=== PATIENT | male | born 1940 | race Caucasian/White ===

== ENCOUNTER → 2019-07-08 10:10 | Outpatient (BNVA) | payer MEDICARE, OTHER, SELFPAY | PROVIDERS: Family Provider Family Medicine; PCP Family Medicine; Visit Provider Family Medicine | DX: R42 Dizziness and giddiness (principal); G40.909 Epilepsy, unspecified, not intractable, without status epilepticus | CPT/HCPCS: 80164 ==

== ENCOUNTER 2019-07-26 08:41 | Inpatient (IN) | payer MEDICARE, OTHER, SELFPAY ==
[2019-07-26] VITALS (11 sets, daily range): BP systolic 113–199; BP diastolic 69–125; PULSE 80–128; RESP 14–33; TEMP 36.7–37.3; O2SAT 90–97; BMI 25.1
--- NOTE | 2019-07-26 08:38 | ED_ITS ---
Entered by Patricia Chun, acting as scribe for Jason Burroughs DO HPI - Neuro Symptoms/Deficit General: Chief Complaint: Neuro Symptoms/Deficit Stated Complaint: Right leg weakness Time Seen by Provider: 07/26/19 08:44 History of Present Illness: HPI Narrative: 79 yo male presents with right leg pain. Pt states that he fell last night. Pt states that he was walking and his legs buckled and he fell. Pt states that he was in the floor over night. Pt states that he could crawl. Pt smells of urine. Patient has persistent severe right hip pain. But he is able to move that hip. He was crawling on it at home but he is not been able to stand. He denies striking his head denies losing consciousness. He does have a history of seizures in the past although denies any recent seizure. He is on Depakote for seizures not missed any doses or c hange the dose recently. Associated symptoms: Deny chest pain, headache(s), malaise, nausea, syncope, vertigo or vomiting Review of Systems Const: Denies: fever, chills, body aches, fatigue, malaise or night sweats Eyes: Denies: change in vision or blurry vision ENMT: Denies: throat pain, oral sores/lesions, dental pain, nasal discharge or nasal congestion Card: Denies: chest pain, palpitations, irregular heart rhythm, edema, syncope, shortness of breath on exertion, shortness of breath when lying down or leg pain with exertion Resp: Denies: shortness of breath, productive cough, non-productive cough or wheezing GI: Reports: abdominal pain; Denies: nausea, vomiting, vomiting blood, coffee grounds in vomit, difficulty swallowing, heartburn/indigestion, diarrhea, constipation, cramping, blood in stool or black tarry stool : Denies: flank pain, difficulty urinating, painful urination, urinary frequency, urinary urgency, urinary incontinence or blood in urine Musc: Reports: extremity pain and joint pain; Denies: neck pain, back pain, extremity swelling or joint swelling Skin/Breast: Denies: rash, itching or redness Neuro: Denies: headache, numbness in extremities, weakness in extremities, changes in sensation, lack of coordination, difficulty walking, frequent falls, dizziness, vertigo or confusion Psych: Denies: anxiety, depression, loss of interest, visual hallucinations, auditory hallucinations, suicidal ideation or homicidal ideation Endo: Denies: excessive urination, excessive thirst, tired all the time or cold intolerance Colten/Lymph: Denies: easy bruising, easy bleeding, petechiae, enlarged lymph nodes or tender lymph nodes PFSH ED PFSH: Statuses (acute, chronic, etc) shown below reflect problem list status as previously entered and may not be historically accurate Medical History Complex partial epilepsy (Acute) Depression (Acute) History of basal cell cancer (Acute) Hypothyroidism (Acute) Insomnia (Acute) CHRISTINA (obstructive sleep apnea) (Acute) Posttraumatic encephalopathy (Acute) Vitamin D deficiency (Acute) Surgical History History of appendectomy (Acute) History of tonsillectomy and adenoidectomy (Acute) Family History Other Cancer Diabetes Social History Smoking and tobacco status: former smoker Alcohol intake: never Substance/Drug Use: never Current gender identity: Male Physical Exam Const: COMMON NORMALS: average body habitus, oriented x3 and alert GENERAL APPEARANCE: well kempt and well developed; not cooperative and not comfortable NUTRITIONAL APPEARANCE: not obese ORIENTATION/CONSCIOUSNESS: Yes awake, Yes oriented to person and Yes oriented to place HENMT: COMMON NORMALS: normocephalic, head/scalp atraumatic, EAC's normal, TM's normal bilaterally, external nose normal, moist oral mucous membranes and oropharynx normal HEAD & SCALP: normocephalic and atraumatic NOSE: external nose normal EXTERNAL AUDITORY CANAL: EAC's normal TYMPANIC MEMBRANE: TM's normal bilaterally MOUTH: oral and palatal mucosa normal, lip normal and tongue normal THROAT: posterior oropharynx normal and tonsils normal Eye: COMMON NORMALS: PERRL, EOMs intact bilaterally, conjunctivae normal and no scleral icterus CONJUNCTIVA: Yes conjunctivae normal PUPIL: Yes PERRL Neck/C-Spine: COMMON NORMALS: full ROM, no lymphadenopathy, supple, no meningeal signs and thyroid normal THYROID: thyroid normal and asymmetrical Lymph: LYMPHATIC: no lymphadenopathy noted Resp: COMMON NORMALS: normal respiratory effort, no retractions, no use of accessory muscles and clear to auscultation bilaterally AUSCULTATION: clear to auscultation bilaterally Cardio: COMMON NORMALS: regular rate and regular rhythm RATE: regular rate RHYTHM: regular rhythm HEART SOUNDS: no murmurs GI: COMMON NORMALS: soft to palpation and no hepatosplenomegaly PALPATION: Yes soft, Yes tender (diffuse) and Yes no hepatosplenomegaly : COMMON NORMALS: Yes no CVA tenderness BLADDER/KIDNEY EXAM: Yes no CVA tenderness Back/Pelvis: COMMON NORMALS: no CVA tenderness LUMBAR SPINE/LOWER BACK: Yes normal to inspection Extremity: COMMON NORMALS: full ROM NARRATIVE EXTREMITY EXAM: Severe pain in the right hip. No obvious deformity. No external rotation or shortening. Minimal pain with palpation along the greater trochanter. Neuro: COMMON NORMALS: oriented x3 SENSORIUM/ORIENTATION: Yes alert, Yes oriented to person and Yes oriented to place MENINGEAL SIGNS: Yes no meningeal signs Psych: APPEARANCE: Yes well kempt Skin: COMMON NORMALS: no rashes or lesions noted and skin turgor normal GENERAL SKIN EXAM: no rashes or lesions noted and turgor normal Course ED course: Hip x-ray negative for fracture because of the degree of pain CT was done shows a pubic rami fracture and acetabular fracture. We will go ahead and admit discussed with hospitalist. Vital Signs: Vital signs: Vital Signs Temperature 98.4 F 07/28/19 07:18 Pulse Rate 84 07/28/19 08:13 Respiratory Rate 18 07/28/19 07:18 Blood Pressure 168/79 07/28/19 07:18 Pulse Oximetry 93 07/28/19 08:13 MDM - Neuro Symptoms/Deficit Lab Data: Labs: Lab Results 07/26/19 07/26/19 07/26/19 Range/Units 09:10 09:12 09:12 WBC 4.2 (4.0-10.0) 10^3/ uL RBC 3.75 L (4.1-5.3) 10^6/u L Hgb 13.0 (11.7-16.6) g/dL Hct 38.9 L (42.0-52.0) % MCV 103.7 H (80-94) fL MCH 34.7 H (28.0-34.0) pg MCHC 33.4 (30.0-36.0) g/dL RDW 12.2 (12.1-15.1) % Plt Count 116 L (130-400) 10^3/c mm MPV 10.2 (7.4-10.4) fL Neut % (Auto) 71.7 % Lymph % (Auto) 16.7 % Baca % (Auto) 10.2 % Eos % (Auto) 1.0 % Baso % (Auto) 0.2 % Neut # (Auto) 3.0 (1.8-7.7) 10^3/u L Lymph # (Auto) 0.7 L (0.8-4.8) 10^3/u L Baca # (Auto) 0.4 (0.2-0.9) 10^3/u L Eos # (Auto) 0.0 (0.0-0.8) 10^3/u L Baso # (Auto) 0.0 (0.0-0.1) 10^3/u L Nucleated RBC % (a uto) 0 % Nucleated RBCs # 0.0 /100WBC PT 14.60 H (10.5-13.3) SECO NDS INR 1.10 (0.8-1.2) APTT 37.0 H (23.9-36.7) SECO NDS Sodium (136-145) mmol/L Potassium (3.5-5.1) mmol/L Chloride (98-107) mmol/L Carbon Dioxide (22-29) mmol/L Anion Gap (5-19) BUN (8-23) mg/dL Creatinine (0.7-1.2) mg/dL Glucose (74-106) mg/dL POC Glucose 94 (70-110) mg/dL Calcium (8.5-10.5) mg/dL Total Bilirubin (0.15-1.2) mg/dL AST (0-40) U/L ALT (0-41) U/L Alkaline Phosphata se (40-130) IU/L Creatine Kinase (39-308) U/L Total Protein (6.6-8.7) g/dL Albumin (3.5-5.2) g/dL Globulin (1.3-4.6) g/dL TSH (0.27-4.20) uIU/ mL Urine Color (Yellow) Urine Appearance (CLEAR) Urine pH (5-7) Ur Specific Gravit y (1.005-1.030) Urine Protein (Negative) Urine Glucose (UA) (Normal) Urine Ketones (Negative) Urine Occult Blood (Negative) Urine Nitrate (Negative) Urine Bilirubin (NEGATIVE) Prot Sulfosalicyli c Acd Urine Urobilinogen (Negative) mg/dL Ur Leukocyte Trina ase (Negative) Urine Opiates Scre en (Negative) ng/mL Ur Barbiturates Sc reen (Negative) ng/mL Valproic Acid (50-100) mcg/mL Carbamazepine (4.0-12.0) ug/mL Ur Phencyclidine S crn (Negative) ng/mL Ur Amphetamines Sc reen (Negative) ng/mL U Benzodiazepines Scrn (Negative) ng/mL Urine Cocaine Scre en (Negative) ng/mL U Marijuana (THC) Screen (Negative) ng/mL 07/26/19 07/26/19 07/26/19 Range/Units 09:12 09:12 09:12 WBC (4.0-10.0) 10^3/ uL RBC (4.1-5.3) 10^6/u L Hgb (11.7-16.6) g/dL Hct (42.0-52.0) % MCV (80-94) fL MCH (28.0-34.0) pg MCHC (30.0-36.0) g/dL RDW (12.1-15.1) % Plt Count (130-400) 10^3/c mm MPV (7.4-10.4) fL Neut % (Auto) % Lymph % (Auto) % Baca % (Auto) % Eos % (Auto) % Baso % (Auto) % Neut # (Auto) (1.8-7.7) 10^3/u L Lymph # (Auto) (0.8-4.8) 10^3/u L Baca # (Auto) (0.2-0.9) 10^3/u L Eos # (Auto) (0.0-0.8) 10^3/u L Baso # (Auto) (0.0-0.1) 10^3/u L Nucleated RBC % (a uto) % Nucleated RBCs # /100WBC PT (10.5-13.3) SECO NDS INR (0.8-1.2) APTT (23.9-36.7) SECO NDS Sodium 139 (136-145) mmol/L Potassium 4.5 (3.5-5.1) mmol/L Chloride 103 (98-107) mmol/L Carbon Dioxide 25 (22-29) mmol/L Anion Gap 15.5 (5-19) BUN 14 (8-23) mg/dL Creatinine 0.6 L (0.7-1.2) mg/dL Glucose 107 H (74-106) mg/dL POC Glucose (70-110) mg/dL Calcium 9.6 (8.5-10.5) mg/dL Total Bilirubin 0.4 (0.15-1.2) mg/dL AST 22 (0-40) U/L ALT 17 (0-41) U/L Alkaline Phosphata se 89 (40-130) IU/L Creatine Kinase 131 (39-308) U/L Total Protein 6.9 (6.6-8.7) g/dL Albumin 4.0 (3.5-5.2) g/dL Globulin 2.9 (1.3-4.6) g/dL TSH 2.79 (0.27-4.20) uIU/ mL Urine Color (Yellow) Urine Appearance (CLEAR) Urine pH (5-7) Ur Specific Gravit y (1.005-1.030) Urine Protein (Negative) Urine Glucose (UA) (Normal) Urine Ketones (Negative) Urine Occult Blood (Negative) Urine Nitrate (Negative) Urine Bilirubin (NEGATIVE) Prot Sulfosalicyli c Acd Urine Urobilinogen (Negative) mg/dL Ur Leukocyte Trina ase (Negative) Urine Opiates Scre en (Negative) ng/mL Ur Barbiturates Sc reen (Negative) ng/mL Valproic Acid 50.5 (50-100) mcg/mL Carbamazepine 8.3 (4.0-12.0) ug/mL Ur Phencyclidine S crn (Negative) ng/mL Ur Amphetamines Sc reen (Negative) ng/mL U Benzodiazepines Scrn (Negative) ng/mL Urine Cocaine Scre en (Negative) ng/mL U Marijuana (THC) Screen (Negative) ng/mL 02/03/20 02/03/20 02/03/20 Range/Units 09:21 09:21 11:09 WBC (4.0-10.0) 10^3/ uL RBC (4.1-5.3) 10^6/u L Hgb (11.7-16.6) g/dL Hct (42.0-52.0) % MCV (80-94) fL MCH (28.0-34.0) pg MCHC (30.0-36.0) g/dL RDW (12.1-15.1) % Plt Count (130-400) 10^3/c mm MPV (7.4-10.4) fL Neut % (Auto) % Lymph % (Auto) % Baca % (Auto) % Eos % (Auto) % Baso % (Auto) % Neut # (Auto) (1.8-7.7) 10^3/u L Lymph # (Auto) (0.8-4.8) 10^3/u L Baca # (Auto) (0.2-0.9) 10^3/u L Eos # (Auto) (0.0-0.8) 10^3/u L Baso # (Auto) (0.0-0.1) 10^3/u L Nucleated RBC % (a uto) % Nucleated RBCs # /100WBC PT (10.5-13.3) SECO NDS INR (0.8-1.2) APTT (23.9-36.7) SECO NDS Sodium (136-145) mmol/L Potassium (3.5-5.1) mmol/L Chloride (98-107) mmol/L Carbon Dioxide (22-29) mmol/L Anion Gap (5-19) BUN (8-23) mg/dL Creatinine (0.7-1.2) mg/dL Glucose (74-106) mg/dL POC Glucose 87 (70-110) mg/dL Calcium (8.5-10.5) mg/dL Total Bilirubin (0.15-1.2) mg/dL AST (0-40) U/L ALT (0-41) U/L Alkaline Phosphata se (40-130) IU/L Creatine Kinase (39-308) U/L Total Protein (6.6-8.7) g/dL Albumin (3.5-5.2) g/dL Globulin (1.3-4.6) g/dL TSH (0.27-4.20) uIU/ mL Urine Color Yellow (Yellow) Urine Appearance Clear (CLEAR) Urine pH 8 H (5-7) Ur Specific Gravit y 1.005 (1.005-1.030) Urine Protein Neg (Negative) Urine Glucose (UA) Norm (Normal) Urine Ketones Negative (Negative) Urine Occult Blood Neg (Negative) Urine Nitrate Negative (Negative) Urine Bilirubin Neg (NEGATIVE) Prot Sulfosalicyli c Acd Negative Urine Urobilinogen Norm (Negative) mg/dL Ur Leukocyte Trina ase Negative (Negative) Urine Opiates Scre en Negative (Negative) ng/mL Ur Barbiturates Sc reen Negative (Negative) ng/mL Valproic Acid (50-100) mcg/mL Carbamazepine (4.0-12.0) ug/mL Ur Phencyclidine S crn Negative (Negative) ng/mL Ur Amphetamines Sc reen Negative (Negative) ng/mL U Benzodiazepines Scrn Negative (Negative) ng/mL Urine Cocaine Scre en Negative (Negative) ng/mL U Marijuana (THC) Screen Negative (Negative) ng/mL Discharge Plan Discharge Patient Disposition: Admitted As Inpatient Admit Provider: Kory Mann Clinical Impression: Closed right acetabular fracture, Pubic ramus fracture, Fall, BPH (benign prostatic hyperplasia) Condition: Stable Discharge Date/Time: 07/26/19 17:28 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 of Care Code ED Foam Machine Operator for Chg Fwd Exam Problem Focused The documentation recorded by the Adiel minor Kialy, accurately reflects the service I personally performed and the decisions made by Heike guadalupe Curtis L, DO Jul 26, 2019 15:20
--- NOTE | 2019-07-26 09:02 | CT_ITS ---
WS: [id number] CT LUMBAR SPINE TECHNIQUE: Noncontrast CT of the lumbar spine with coronal and sagittal reformatted images. CLINICAL INFORMATION: R leg weakness and pain COMPARISON: None. DLP: 2194.[address] scans at [facility] use at least one of these dose optimization techniques: automat ed exposure control; mA and/or kV adjustment per patient size (includes targeted exams where dose is matched to clinical indication); or iterative reconstruction. FINDINGS: Mild lumbar curve convex left. Degenerative disc disease with vacuum disc phenomenon L2-L3, L3-4 and L5-S1. L4-5 disc space ankylosis. No acute appearing compression fractures. L1-L2: Normal. L2-L3: Mild annular bulging with narrowing of the subarticular recess bilaterally right greater than left. Mild central canal stenosis. Foramen are patent. L3-L4: Mild disc bulging with mild central canal stenosis. Narrowing of the subarticular recess bilat erally. Mild right and no significant left foraminal narrowing. Moderate facet arthropathy. L4-L5: Mild disc bulging with osteophytic ridging. Slight narrowing of the subarticular recess bilate rally. Disc space ankylosis. Mild right foraminal narrowing. Moderate facet arthropathy. L5-S1: Left eccentric disc osteophyte complex with slight impingement on the left S1 nerve root and m oderate left foraminal narrowing. Right foramen is patent. Mild facet arthropathy. Adrenal glands are normal. CT/CT lumbar spine wo con* [id number] IMPRESSION: 1. Mild lumbar curve. No acute compression. Degenerative disc disease worse at L2-L3 L3-L4 and L5-S1. 2. Mild central canal stenosis L2-3, L3-L4 and L4-L5. 3. Impingement on the right L2-3 subarticular recess and traversing right L3 n erve root. 4. Mild right L4-5 foraminal narrowing. 5. Left eccentric disc osteophyte complex L5-S1 impinges the left S1 and left L5 nerve roots. Moderate left foraminal narrowing.
--- NOTE | 2019-07-26 09:03 | CT_ITS ---
WS: [id number] CT HEAD TECHNIQUE: Noncontrast CT of the head obtained from the skullbase to the vertex. CLINICAL INFORMATION: Symptoms of Acute Stroke COMPARISON: November 17, 2017 DLP: 666.[address] scans at [facility] use at least one of these dose optimization techniques: automat ed exposure control; mA and/or kV adjustment per patient size (includes targeted exams where dose is matched to clinical indication); or iterative reconstruction. FINDINGS: No evidence of intracranial hemorrhage or mass effect. Ventricular system and basal cisterns are trejo nt. Moderate small vessel changes with moderate parenchymal volume loss. No extra-axial fluid collect ions. No evidence of mass or mass effect. Normal pang-white differentiation. Paranasal sinuses and mastoid air cells are well aerated. .Normal visualized soft tissues. Notified Jason Burroughs DO at 07/26/2019 10:[address]/CT head wo con* [id number] IMPRESSION: 1. No evidence of intracranial hemorrhage or mass effect. 2. Moderate small vessel changes with moderate parenchymal volume loss. 3. No acute intracranial findings.
--- NOTE | 2019-07-26 09:03 | ECG_ITS ---
Measurements Intervals [place] Rate: 80 P: MT: 0 QRS: 61 QRSD: 76 T: 53 QT: 357 QTc: 413 SUPRAVENTRICULAR RHYTHM-possible sinus rhythm MODERATE ST DEPRESSION [0.05+ mV ST DEPRESSION] Compared to ECG 11/17/2017 10:09:49 Supraventricular rhythm now present ST (T wave) deviation now present Sinus rhythm no longer present Baseline artifact, need to repeat the study Electronically Signed On 07-26-2019 20:59:42 MONITORING AND EVALUATION ADVISOR by Pilar Young M.D. [email or web address]
[2019-07-26 09:14] LABS: Glucose Point of Care 94 mg/dL (70-110)
[2019-07-26 09:30] LABS: Add Urine Microscopic? NO
[2019-07-26 09:32] LABS: Basophils % 0.2 %; Hematocrit 38.9 % (42.0-52.0); Lymphocytes # 0.7 10^3/uL (0.8-4.8); Lymphocytes % 16.7 %; Mean Corpuscular HGB Conc 33.4 g/dL (30.0-36.0); Mean Corpuscular Hemoglobin 34.7 pg (28.0-34.0); Mean Corpuscular Volume 103.7 fL (80-94); Mean Platelet Volume 10.2 fL (7.4-10.4); Monocytes # 0.4 10^3/uL (0.2-0.9); Monocytes % 10.2 %; Neutrophils % 71.7 %; Nucleated Red Blood Cells % 0 %; Platelet Count 116 10^3/cmm (130-400); Red Blood Count 3.75 10^6/uL (4.1-5.3); Red Cell Distribution Width 12.2 % (12.1-15.1); White Blood Count 4.2 10^3/uL (4.0-10.0)
[2019-07-26 09:38] LABS: Bilirubin Urine Neg (NEGATIVE); Blood Urine Neg (Negative); Glucose Urine UA Norm (Normal); Ketones Urine Negative (Negative); Leukocyte Esterase Urine Negative (Negative); Nitrate Urine Negative (Negative); Protein Urine Neg (Negative); Specific Gravity, Urine 1.005 (1.005-1.030); Sulfosalicylic Acid Urine Negative; Urine Appearance Clear (CLEAR); Urine Color Yellow (Yellow); Urobilinogen Urine Norm (Negative); pH Urine 8 (5-7)
[2019-07-26 09:43] LABS: Alanine Aminotransferase 17 U/L (0-41); Alkaline Phosphatase 89 IU/L (40-130); Anion Gap 15.5 (5-19); Blood Urea Nitrogen 14 mg/dL (8-23); Calcium 9.6 mg/dL (8.5-10.5); Carbon Dioxide 25 mmol/L (22-29); Chloride 103 mmol/L (98-107); Globulin 2.9 g/dL (1.3-4.6); Glucose 107 mg/dL (74-106); Potassium 4.5 mmol/L (3.5-5.1); Sodium 139 mmol/L (136-145); Total Bilirubin 0.4 mg/dL (0.15-1.2); Total Protein 6.9 g/dL (6.6-8.7)
--- NOTE | 2019-07-26 09:43 | PC.NURSE ---
pt transported back to room from ct by stretcher with tech
[2019-07-26 09:48] LABS: Aspartate Amino Transferase 22 U/L (0-40)
[2019-07-26 09:48] LABS: Amphetamines Screen Urine Negative (Negative); Barbiturates Screen Urine Negative (Negative); Benzodiazepines Screen Urine Negative (Negative); Cocaine Screen Urine Negative (Negative); Opiate Screen Urine Negative (Negative); PCP Screen Urine Negative (Negative); THC Screen Urine Negative (Negative)
--- NOTE | 2019-07-26 10:48 | XRR_ITS ---
PROCEDURE INFORMATION: Exam: XR Right Hip with Pelvis when Performed Exam date and time: 07/26/2019 10:49 AM Age: 79 years old Clinical indication: Pain and injury or trauma; Fall; Initial encounter; Bleeding/hemorrhage; Hip pain; Right hip; Additional info: Pain/fall TECHNIQUE: Imaging protocol: XR Right hip with pelvis when performed. Views: 1 view. COMPARISON: US Bladder wwo Post Void [id number] 03/16/2018 1:37 PM FINDINGS: Bones/joints: Mild degenerative changes within the hip including mild joint space narrowing and early osteophyte formation. No fracture. The trabecular stress markings normal. Soft tissues: Unremarkable. XR/XR hip RT 2-3V wo/w pel* [id number] IMPRESSION: Mild degenerative changes within the hip.
[2019-07-26 11:12] LABS: Glucose Point of Care 87 mg/dL (70-110)
--- NOTE | 2019-07-26 11:22 | CT_ITS ---
WS: [id number] CT RIGHT HIP, NONCONTRAST HISTORY: R hip pain, status post fall. Technique: All CT scans at [facility] use at least one of these dose optimization techniq ues: automated exposure control; mA and/or kV adjustment per patient size (includes targeted exams wh ere dose is matched to clinical indication); or iterative reconstruction. DLP: 472.54 mGy-cm. COMPARISON: RIGHT hip radiograph 07/26/2019. Normal head remains seated in the acetabulum. No hip fracture. Mild osteophytic ridging around the ac etabulum. Acute nondisplaced fracture through the anterior column of the acetabulum. There is also a nondisplac ed fracture extending obliquely through the RIGHT inferior pubic rami. Soft tissue edema around the hip from recent trauma. CT/CT hip RT wo con* [id number] IMPRESSION: 1. Nondisplaced fracture anterior column of the acetabulum. 2. Nondisplaced inferior RIGHT pubic rami fracture.
[2019-07-26] MEDS: hyDRALAzine 20 mg/mL INJ 1 mL 10 MG IVP (13:18)
[2019-07-26] MEDS: morphine 4 mg/mL SDV 1 mL IVP (13:18)
[2019-07-26 13:34] LABS: Creatine Phosphokinase 131 U/L (39-308)
--- NOTE | 2019-07-26 13:57 | XRR_ITS ---
PROCEDURE INFORMATION: Exam: XR Thoracic Spine, 3 Views Exam date and time: 07/26/2019 3:36 PM Age: 79 years old Clinical indication: Pain and injury or trauma; Fall; Initial encounter; Blunt trauma (contusions or hematomas); Pain in thoracic spine; Other: Not specified; Injury date: 07/25/19 TECHNIQUE: Imaging protocol: XR of the thoracic spine, 3 views. COMPARISON: CR Thoracic Spine 3+ views* [id number] 09/03/2018 12:50 PM FINDINGS: Vertebrae: Normal. No acute fracture. Normal alignment. Soft tissues: Normal. XR/XR thoracic spine 2V [id number] IMPRESSION: Unremarkable radiograph.
--- NOTE | 2019-07-26 14:53 | PM.HP ---
Providers/Chief Complaint Primary Care Provider: Sydni Wilson MD Chief Complaint: Right leg weakness History of Present Illness Jerry Tapia is a 79 year old male that presented to the emergency department with right leg weakness, and pain. He reports when he is still, it does not hurt. When he moves pain goes up and down the leg. He reports he fell last night. He reports some pain prior to him falling. He believes the pain caused the fall. He denies any syncope. He reports he does have low back pain on occasion. He reports no paresthesias to the right lower extremity. He has had no incontinence. He reports he has a long history of intermittent falls. He denies any recent illnesses, fever, chest pain, shortness of breath. Review of Systems General: Reports: 10 or more systems reviewed and unremarkable except in HPI and below Const: Denies: fever Eyes: Denies: blurry vision ENMT: Denies: throat pain Card: Denies: chest pain Resp: Denies: shortness of breath GI: Denies: abdominal pain : Denies: difficulty urinating or painful urination Musc: Reports: extremity pain; Denies: neck pain Skin/Breast: Denies: rash Neuro: Denies: headache Psych: Denies: anxiety Endo: Denies: excessive urination Colten/Lymph: Denies: easy bruising All/Imm: Denies: hives Medications/Allergies Home Medications Medication Instructions Recorded Confirmed Last Taken Type Depakote ER 1,000 mg PO BEDTIME 07/26/19 07/26/19 07/24/19 History latanoprost 1 drp OPHTHALMIC (EYE) DAILY 07/26/19 07/26/19 07/24/19 History Allergies Allergy/AdvReac Type Severity Reaction Status Date / Time No Known Allergies Allergy Unverified 07/08/19 08:59 PFSH Acute PFSH: Statuses (acute, chronic, etc) shown below reflect problem list status as previously entered and may not be historically accurate Medical History (Updated 07/26/19 @ 15:09 by Kory Mann MD) Complex partial epilepsy (Acute) Depression (Acute) History of basal cell cancer (Acute) Hypothyroidism (Acute) Insomnia (Acute) CHRISTINA (obstructive sleep apnea) (Acute) Posttraumatic encephalopathy (Acute) Vitamin D deficiency (Acute) Surgical History (Updated 07/26/19 @ 14:57 by Kory Mann MD) History of appendectomy (Acute) History of tonsillectomy and adenoidectomy (Acute) Family History (Updated 07/26/19 @ 14:57 by Kory Mann MD) Other Cancer Diabetes Social History (Updated 07/26/19 @ 14:57 by Kory Mann MD) Smoking and tobacco status: former smoker Alcohol intake: never Substance/Drug Use: never Current gender identity: Male Vitals/I&O/Wt Last Vital Signs Temp 98.1 F 07/26/19 08:33 Pulse 90 07/26/19 14:04 Resp 15 07/26/19 14:04 BP 144/75 07/26/19 14:04 Pulse Ox 92 07/26/19 14:04 Weight last 48 hrs Weight 79.379 kg Physical Exam Narrative: EXAM NARRATIVE: General exam demonstrates a white male, with a baseline resting and intention tremor, who complains of right leg pain with movement HEENT: Pupils equally round. Oropharynx clear. Neck is supple no lymphadenopathy or thyromegaly Cardiovascular regular rate and rhythm without murmur. No S3 or S4 Lungs clear no wheezing or crackles Abdomen is soft positive bowel sounds. No obvious organomegaly was deferred Extremities no cyanosis clubbing or edema, cap refill brisk. Pain to right straight leg raise. No pain with palpation to the thigh to the foot on the right. Skin no rash Neuro no obvious focal deficits Data : 07/26/19 09:12 07/26/19 09:12 Other data: Level reviewed as well on July 08. Urine drug screen, urinalysis normal. Hip CT demonstrates acetabular, right pubic rami fracture. Both are nondisplaced. CT head no acute changes LS spine CT DJD, some nerve root impingements. A&P Assessment and plan (1) Closed right acetabular fracture: PT consult. Pain control Touch down weightbearing only right lower extremity Orthopedic consultation Status: Acute Code(s): S32.401A - Unspecified fracture of right acetabulum, initial encounter for closed fracture (2) Pubic ramus fracture: Physical therapy consultation Status: Acute Code(s): S32.599A - Other specified fracture of unspecified pubis, initial encounter for closed fracture (3) Fall: Physical therapy consultation Status: Acute Code(s): W19.XXXA - Unspecified fall, initial encounter Additional A&P Information Seizure disorder History of traumatic brain injury, with encephalopathy Hypothyroidism History of depression Attestations Medical Necessity Statement*: Will need greater than 2 midnights secondary to acetabular fracture touchdown weightbearing only, significant pain. Time Spent in Patient Care: Greater than 35 minutes 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 of Care Code Acute Superintendent Power for Burak Smallsd Diagnoses Closed right acetabular fracture S32.401A Pubic ramus fracture S32.599A Fall W19.XXXA
--- NOTE | 2019-07-26 15:17 | PC.NURSE ---
pt transported to radiology with tech by stretcher
[2019-07-26] MEDS: heparin 5,000 unit/mL INJ 1 mL 5000 UNIT SUBCUT (17:52)
[2019-07-26 18:13] LABS: Glucose Point of Care 87 mg/dL (70-110)
[2019-07-26 19:10] LABS: Carbamazepine Tegretol 8.3 ug/mL (4.0-12.0); Thyroid Stimulating Hormone 2.79 uIU/mL (0.27-4.20); Valproic Acid Level 50.5 mcg/mL (50-100)
[2019-07-26] MEDS: ketorolac 10 mg Tablet PO (20:44)
[2019-07-26] MEDS: carBAMazepine XR (12 HR) 200 mg Tablet 600 MG PO (20:44)
[2019-07-26] MEDS: latanoprost 0.005% Op Soln 2.5 mL Btl 1 DROP EYE-BOTH (20:44)
[2019-07-26] MEDS: divalproex ER 500 mg Tablet (24H) 1000 MG PO (20:44)
[2019-07-27] VITALS (9 sets, daily range): BP systolic 90–148; BP diastolic 54–81; PULSE 83–99; RESP 16–22; TEMP 36.4–37.4; O2SAT 92–98
--- NOTE | 2019-07-27 05:30 | PC.NURSE ---
Pt is very agitated and confused. Stating that he wants his medications and that he is afraid for his home medications to be locked up away from him, and that he is going to sew us for holding his medications. Pt was educated by nursing staff including charge nurse on hospital policy. Pt is also stating the doctor ordered for his elbows and legs to be wrapped and would like to know why we have not done that yet. Pt also stated, he will not wait for his medications and has to have them right away, or we will make him ill. Pt is getting progressively confused. Pt did agree to keep his medications in the pyxis as long as we will give him his medications.
--- NOTE | 2019-07-27 06:27 | PC.NURSE ---
Addendum entered by Paulette Lucas RN 07/27/19 06:39: Patient did void once this shift. 150 ML. Original Note: Bladder Scan: Patient has not voided all shift. States he has not drank much. Bladder Scan shows 150 or less. Patient states he will try to void after medications.
[2019-07-27] MEDS: carBAMazepine XR (12 HR) 200 mg Tablet 600 MG PO ×3 (06:40→21:56)
[2019-07-27] MEDS: haloperidol inj 5 mg/mL INJ 1 mL 2 MG IM (06:41)
[2019-07-27] MEDS: heparin 5,000 unit/mL INJ 1 mL 5000 UNIT SUBCUT ×2 (06:41→17:29)
--- NOTE | 2019-07-27 08:16 | P.CONIM_ITS ---
Providers/Reason For Consult Consulting Physican/Specialty*: Dr. Ely Ojeda - Orthopedics Reason for Consult*: Right acetabular fracture with associated pubic ramus fracture Requesting Physcian: Dr. Kory Mann Attending Physician: Kory Mann MD Primary Care Provider: Sydni Wilson MD History of Present Illness History of Present Illness Jerry Tapia is a 79 year old male who presented to the emergency department yesterday with right leg pain and inability to ambulate. The patient has a history of falling with a long history of intermittent falls. He did fall the night prior to admission, but he believes that the pain caused him to fall. He denied any other reason for his fall. At the time of admission, he was found by CT scan to have a pubic ramus fracture as well as an anterior wall acetabular f racture. Review of Systems Const: Denies: fever or chills Eyes: Denies: change in vision Card: Denies: chest pain or shortness of breath on exertion Resp: Denies: shortness of breath or productive cough GI: Denies: abdominal pain Musc: Reports: extremity pain (Right lower extremity with motion) and limited range of motion (Right lower extremity secondary to pain and fracture) Skin/Breast: Denies: redness or changes in skin color Neuro: Denies: numbness in extremities Psych: Denies: anxiety or depression Colten/Lymph: Denies: easy bruising or easy bleeding Meds/Allergies Home Medications and Allergies Home Medications Medication Instructions Recorded Confirmed Type carbamazepine (mood stabiliz) 300 600 mg PO TID cap 07/08/19 07/26/19 History mg capsule,extend release 12 hr(mood stabilizing) cholecalciferol (vitamin D3) 1,250 50,000 unit PO Q7D cap 07/08/19 07/26/19 History mcg (50,000 unit) capsule diclofenac sodium 50 mg 50 mg PO BID PRN 07/08/19 07/26/19 History tablet,delayed release levothyroxine 100 mcg tablet 100 mcg PO DAILY 07/08/19 07/26/19 History saw palmetto 160 mg capsule 320 mg PO DAILY 07/08/19 07/26/19 History tamsulosin 0.4 mg capsule 0.4 mg PO DAILY 07/08/19 07/26/19 History Depakote ER 1,000 mg PO BEDTIME 07/26/19 07/26/19 History latanoprost 1 drp OPHTHALMIC (EYE) DAILY 07/26/19 07/26/19 History Allergies Allergy/AdvReac Type Severity Reaction Status Date / Time No Known Allergies Allergy Unverified 07/08/19 08:59 Current Medications Current Medications Generic Name Dose Route Start Last Admin Trade Name Freq PRN Reason Stop Dose Admin Carbamazepine 600 mg 07/27/19 06:30 07/27/19 06:40 Tegretol Xr (12 Hr) PO 600 mg Q8H SHANDRA Administration Divalproex Sodium 1,000 mg 07/26/19 21:00 07/26/19 20:44 Depakote Er PO 1,000 mg BEDTIME SHANDRA Administration Heparin Sodium (Beef Lung) 5,000 unit 07/26/19 17:49 07/27/19 06:41 Heparin SUBCUT 5,000 unit Q12H SHANDRA Administration Ketorolac Tromethamine 10 mg 07/26/19 17:49 07/26/19 20:44 Toradol PO 07/31/19 17:48 10 mg Q6H PRN Administration MODERATE PAIN Latanoprost 1 drop 07/26/19 21:00 07/26/19 20:44 Xalatan EYE-BOTH 1 drop BEDTIME SHANDRA Administration PFSH Acute PFSH: Statuses (acute, chronic, etc) shown below reflect problem list status as previously entered and may not be historically accurate Medical History Complex partial epilepsy (Acute) Depression (Acute) History of basal cell cancer (Acute) Hypothyroidism (Acute) Insomnia (Acute) CHRISTINA (obstructive sleep apnea) (Acute) Posttraumatic encephalopathy (Acute) Vitamin D deficiency (Acute) Surgical History History of appendectomy (Acute) History of tonsillectomy and adenoidectomy (Acute) Family History Other Cancer Diabetes Social History Smoking and tobacco status: former smoker Alcohol intake: never Substance/Drug Use: never Current gender identity: Male Vitals/I&O/Wt Last Vital Signs Temp 97.8 F 07/27/19 07:49 Pulse 86 07/27/19 07:49 Resp 20 H 07/27/19 07:49 BP 144/81 07/27/19 07:49 Pulse Ox 92 07/27/19 07:49 07/26/19 07/27/19 07/27/19 22:59 06:59 14:59 Intake Total 0 / 0 0 / 0 Output Total 150 / 150 Balance 0 / 0 -150 / -150 Weight last 48 hrs Weight 175 lb Physical Exam Const: COMMON NORMALS: no apparent distress, oriented x3 and alert GENERAL APPEARANCE: cooperative and comfortable ORIENTATION/CONSCIOUSNESS: Yes awake HENMT: COMMON NORMALS: normocephalic and head/scalp atraumatic HEAD & SCALP: normocephalic and atraumatic Eye: GENERAL EYE: normal appearance of both eyes Chest: COMMONS NORMALS: inspection of chest normal Resp: COMMON NORMALS: normal respiratory effort EFFORT & INSPECTION: Yes able to speak in complete sentences and Yes symmetric chest movement Extremity: RIGHT LOWER EXTREMITY: Yes hip joint Right hip: Yes ROM (Action to 90 degrees without pain, internal and external rotation 20 to 30 degrees without pain. Abduction and adduction 20 degrees without pain), Yes neurovascular exam (Intact distal to the acetabular fracture.) and Yes other (Patient complains of playing only with weightbearing.) Neuro: COMMON NORMALS: oriented x3 SENSORIUM/ORIENTATION: Yes alert Psych: COMMON NORMALS: mental status grossly normal APPEARANCE: Yes grossly normal ATTITUDE: Yes calm and Yes engaged ATTENTION/CONCENTRATION: Yes attention grossly intact Skin: COMMON NORMALS: no rashes or lesions noted GENERAL SKIN EXAM: no rashes or lesions noted Data Imaging^: Right hip x-ray: I personally reviewed and interpreted this imaging study as follows: My impression: X-rays include 2 views of the right hip and demonstrate mild degenerative osteoarthritic change. There is no evidence of fracture or disloca tion. Radiologist's impression: Mild degenerative changes within the hip. Right hip CT: I personally reviewed and interpreted this imaging study as follows: My impression: Review of the CT scan demonstrates there is a fracture in the inferior right pubic ramus as well as was in the acetabulum. There is no displacement of either fracture. They are unable to be visualized on x-ray. There is no evidence of fracture in the weightbearing dome portion of the acetabulum. Radiologist's impression: 1. Nondisplaced fracture anterior column of the acetabulum. 2. Nondisplaced inferior RIGHT pubic rami fracture. A&P Assessment and plan (1) Closed right acetabular fracture: CT and x-rays have been reviewed. The patient has pain with weightbearing, but today, he denies pain with gentle range of motion. There is no displacement of the fracture, and treatment at this time would include nonweightbearing to the right lower extremity. The patient may be foot flat but no weightbearing through the hip is recommended. This will likely require [place] [facility] at the time of discharge. The patient will follow-up in my office for further x-rays. Although the x-rays do not demonstrate the fracture, this would likely become visible should the fracture displaced. Status: Acute Code(s): S32.401A - Unspecified fracture of right acetabulum, initial encounter for closed fracture (2) Pubic ramus fracture: Plan is as noted above regarding the right acetabular fracture. Status: Acute Code(s): S32.599A - Other specified fracture of unspecified pubis, initial encounter for closed fracture Consult Attestations Medical Necessity Statement: Per medical service 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 of Care Code Acute Farm Hand for [facility] Fwd Diagnoses Closed right acetabular fracture S32.401A Pubic ramus fracture S32.599A Comment Please include closed treatment of acetabular fracture and pubic ramus fracture as well as consultation in coding
[2019-07-27] MEDS: levothyroxine 100 mcg Tablet PO (08:44)
[2019-07-27] MEDS: tamsulosin 0.4 mg Capsule PO (08:44)
--- NOTE | 2019-07-27 14:08 | PC.CHAP ---
Pastoral Care Encounter/Spiritual Assessment Type of Contact [] Declined certified executive chef visit [] Patient/Family/Request visit [] Outpatient visit [] Follow-up visit [] Physician referral [] Code/Alert [] Routine visit [] Staff referral [] Actively dying [] Patient sleeping [] Family support [] [] Out of room [] Palliative care [] [] Receiving care in room [] Pre-surgical visit [] Trauma [] Long length of stay [] ICU visit [] Other: Relational/Emotional Strength [] Patient feels connected with others/family/visitors/staff [] Distress [] Loneliness/isolation [] Abandonment Spirituality of Patient [] Person of Gertrudis [] Attends Jain of their Gertrudis [] Believes in Prayer [] Reads Bible or Episcopal materials [] There are Spiritual issues to be addressed Cork Pressing Machine Operator Interventions [] Prayer [] Active listening [] Non-anxious presence [] Spiritual/emotional support [] Crisis/trauma care [] Spiritual counseling [] Bereavement support [] Provided bereavement packet [] Provided Bible/devotional materials [] Provided toy/stuffed animal, coloring book to patient or family member [] Provided Communion [] Anointing/Leonard [] Salvation [] Completed spiritual assessment [] Other: Impact on Illness or Injury [] Angry [] Fearful [] Anxious [] Often cries [] Exhaustion [] Unable to work [] Unable to attend jain [] Unable to walk/stand [] Unable to read [] Unable to drive [] Unable to eat/drink [] Unable to sleep [] Unable to be with family [] Patient intubated [] Other: Summary The patient was sleeping. Time spent with patient
--- NOTE | 2019-07-27 16:21 | PM.PN ---
Subjective Subjective: Interval history: Jerry reports his leg seems to be better than yesterday. He is still having right leg pain however. He reports about this and is somewhat helpful. I have discussed with him that he could not bear weight on the leg secondary to his acetabular fracture and will likely need group home facility placement. He is agreeable to this. He did have some agitation last night, requiring Haldol. Medications: Reviewed: Yes Vitals/I&O/Wt Last Vital Signs Temp 98.7 F 07/27/19 15:31 Pulse 86 07/27/19 15:31 Resp 22 H 07/27/19 15:31 BP 130/70 07/27/19 15:31 Pulse Ox 98 07/27/19 15:31 07/27/19 07/27/19 07/27/19 06:59 14:59 22:59 Intake Total 0 / 0 560 / 560 Output Total 150 / 150 550 / 550 Balance -150 / -150 10 / 10 Weight last 48 hrs Weight 79.379 kg Physical Exam Narrative: EXAM NARRATIVE: General exam demonstrates an elderly white male, in no apparent distress. Cardiovascular regular in rhythm without murmur Lungs clear no wheezing or crackles Abdomen is soft with positive bowel sounds Extremities no cyanosis clubbing or edema. Certainly while laying in bed he has better range of motion of the right lower extremity, with flexion of the hip as well as slight amount of external rotation. Data : 07/26/19 09:12 07/26/19 09:12 A&P Assessment and plan (1) Closed right acetabular fracture: Continue to work with physical therapy Continue pain control with oxycodone, ketorolac, Tylenol. As of yet he has not been using these medications significantly. Appreciate orthopedic consultation Status: Acute Code(s): S32.401A - Unspecified fracture of right acetabulum, initial encounter for closed fracture (2) Pubic ramus fracture: Physical therapy consultation Status: Acute Code(s): S32.599A - Other specified fracture of unspecified pubis, initial encounter for closed fracture (3) Fall: Physical therapy consultation Status: Acute Code(s): W19.XXXA - Unspecified fall, initial encounter Additional A&P Information Seizure disorder, continue home medicines of Depakote and Tegretol. Levels on admission were acceptable History of traumatic brain injury, with encephalopathy Hypothyroidism History of depression Attestations Medical Necessity Statement*: Needs continued hospital stay for work with physical therapy secondary to acetabular fracture. We will continue to mobilize him, and hopefully get him to skilled care. Discharge at this time is a huge safety concern, and could likely result in a displaced acetabular fracture. Note that he has had multiple previous falls. 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 of Care Code Acute Rug Dyer Helper for [facility] Fwd Diagnoses Closed right acetabular fracture S32.401A Pubic ramus fracture S32.599A Fall W19.XXXA
--- NOTE | 2019-07-27 18:19 | XRR_ITS ---
PROCEDURE INFORMATION: Exam: XR Right Hip with Pelvis when Performed Exam date and time: 07/28/2019 7:39 AM Age: 79 years old Clinical indication: Injury or trauma; Fall; Initial encounter; Blunt trauma (contusions or hematomas); Right; Hip; Injury date: 07/26/19 TECHNIQUE: Imaging protocol: XR Right hip with pelvis when performed. Views: 1 view. COMPARISON: CR XR hip RT 2-3V wo/w pel* [id number] 07/26/2019 11:12 AM FINDINGS: Bones/joints: No acute bony injury or malalignment. If an occult fracture is of clinical concern, CT correlation can be performed. Mild degenerative change. Soft tissues: No radiopaque foreign body. XR/XR hip RT 2-3V wo/w pel* [id number] IMPRESSION: No acute bony injury or malalignment.
--- NOTE | 2019-07-27 18:21 | PC.NURSE ---
FALL Patient found on floor sitting on his bottom. Patient had good range of motion to all extremities with mild weakness still noted to right leg. Educated patient on need to wait for staff to help him. Also educated staff on the need to set his bed alarm and stay with patient while he is on the bedside commode. Patient was helped back into bed with assist x 2. Bed alarm was reset. Educated patient on use of call light and waiting for assistance, patient voiced understanding.
[2019-07-27] MEDS: divalproex ER 500 mg Tablet (24H) 1000 MG PO (21:56)
[2019-07-28] VITALS (7 sets, daily range): BP systolic 109–168; BP diastolic 67–79; PULSE 64–89; RESP 18–22; TEMP 36.6–36.9; O2SAT 93–96
[2019-07-28 05:15] LABS: Basophils % 0.2 %; Eosinophils # 0.1 10^3/uL (0.0-0.8); Eosinophils % 2.5 %; Hematocrit 38.3 % (42.0-52.0); Lymphocytes # 1.2 10^3/uL (0.8-4.8); Lymphocytes % 26.1 %; Mean Corpuscular HGB Conc 33.9 g/dL (30.0-36.0); Mean Corpuscular Hemoglobin 34.5 pg (28.0-34.0); Mean Corpuscular Volume 101.6 fL (80-94); Mean Platelet Volume 9.9 fL (7.4-10.4); Monocytes # 0.5 10^3/uL (0.2-0.9); Neutrophils # 2.9 10^3/uL (1.8-7.7); Nucleated Red Blood Cells % 0 %; Platelet Count 117 10^3/cmm (130-400); Red Blood Count 3.77 10^6/uL (4.1-5.3); Red Cell Distribution Width 12.1 % (12.1-15.1); White Blood Count 4.7 10^3/uL (4.0-10.0)
[2019-07-28 05:35] LABS: Anion Gap 14.3 (5-19); Blood Urea Nitrogen 19 mg/dL (8-23); Calcium 8.9 mg/dL (8.5-10.5); Carbon Dioxide 23 mmol/L (22-29); Chloride 105 mmol/L (98-107); Glucose 98 mg/dL (65-115); Osmolality Calculated 282 mOsm/kg (285-295); Potassium 4.3 mmol/L (3.5-5.1); Sodium 138 mmol/L (136-145)
[2019-07-28] MEDS: carBAMazepine XR (12 HR) 200 mg Tablet 600 MG PO ×3 (05:46→21:07)
[2019-07-28] MEDS: heparin 5,000 unit/mL INJ 1 mL 5000 UNIT SUBCUT ×2 (05:47→18:41)
--- NOTE | 2019-07-28 06:30 | PC.NURSE ---
PT WAS UNHAPPY WITH ROOMMATE. ROOMMATE WAS READING A BOOK AND HAD LIGHT ON. PT WANTED ALL LIGHTS OFF. PT WAS ON THE CALL LIGHT 15-30 TIMES WANTING THE LIGHTS TURNED OFF. PT THEN STATED THAT THEY WERE GOING TO GERRY EVERYONE IF DEMANDS WEREN'T MEET. PT WAS EDUCATED.
[2019-07-28] MEDS: levothyroxine 100 mcg Tablet PO (09:59)
[2019-07-28] MEDS: tamsulosin 0.4 mg Capsule PO (09:59)
--- NOTE | 2019-07-28 14:32 | P.PN_ITS ---
Subjective Subjective: Interval history: Jerry reports he is doing okay. His leg is feeling better. No other complaints. Medications: Reviewed: Yes Vitals/I&O/Wt Last Vital Signs Temp 98.0 F 07/28/19 11:04 Pulse 77 07/28/19 11:04 Resp 18 07/28/19 11:04 BP 137/76 07/28/19 11:04 Pulse Ox 95 07/28/19 11:04 07/27/19 07/28/19 07/28/19 22:59 06:59 14:59 Intake Total 480 / 1040 600 / 600 Output Total 850 / 1400 180 / 1580 Balance -370 / -360 -180 / -540 600 / 600 Physical Exam Narrative: EXAM NARRATIVE: General exam no apparent distress Cardiovascular regular rate and rhythm without murmur Lungs clear Abdomen is soft, positive bowel sounds Extremities no cyanosis clubbing or edema Data : 07/28/19 05:05 07/28/19 05:05 A&P Assessment and plan (1) Closed right acetabular fracture: Continue to work with physical therapy Appreciate orthopedic consultation Planning on skilled care placement Status: Acute Code(s): S32.401A - Unspecified fracture of right acetabulum, initial encounter for closed fracture (2) Pubic ramus fracture: Physical therapy on board Status: Acute Code(s): S32.599A - Other specified fracture of unspecified pubis, initial encounter for closed fracture (3) Fall: Physical therapy working with the patient Status: Acute Code(s): W19.XXXA - Unspecified fall, initial encounter Additional A&P Information Seizure disorder, continue home medicines of Depakote and Tegretol. Levels on admission were acceptable History of traumatic brain injury, with encephalopathy Hypothyroidism History of depression Attestations Medical Necessity Statement*: Needs continued medical stay for safety training of ambulation, transition to skilled care 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 of Care Code Acute Instructional Developer for [facility] Fwd Diagnoses Closed right acetabular fracture S32.401A Pubic ramus fracture S32.599A Fall W19.XXXA
[2019-07-28] MEDS: divalproex ER 500 mg Tablet (24H) 1000 MG PO (21:08)
[2019-07-29] VITALS: BP 159/88; PULSE 86; RESP 20; TEMP 36.9; O2SAT 96
[2019-07-29 04:00] VITALS: BP 152/80; PULSE 83; RESP 20; TEMP 36.7; O2SAT 96
[2019-07-29] MEDS: heparin 5,000 unit/mL INJ 1 mL 5000 UNIT SUBCUT (04:23)
[2019-07-29] MEDS: levothyroxine 100 mcg Tablet PO (05:28)
[2019-07-29] MEDS: carBAMazepine XR (12 HR) 200 mg Tablet 600 MG PO ×2 (05:30→14:26)
[2019-07-29 08:00] VITALS: BP 98/55; PULSE 89; RESP 18; TEMP 36.4; O2SAT 92
[2019-07-29] MEDS: tamsulosin 0.4 mg Capsule PO (08:51)
[2019-07-29 12:00] VITALS: BP 155/83; PULSE 85; RESP 18; TEMP 36.8; O2SAT 98
--- NOTE | 2019-07-29 12:45 | PC.SOCIAL ---
IMM Page 2 of IMM explained to and signed by patient. Initialed, dated, and timed and placed in chart. Copy provided to patient.
[2019-07-29 15:27] VITALS: BP 155/83; PULSE 85; RESP 18; TEMP 36.8; O2SAT 98
[2019-07-29 16:00] VITALS: BP 124/74; PULSE 85; RESP 18; TEMP 36.7; O2SAT 95
--- NOTE | 2019-07-29 16:32 | PC.NURSE ---
REPORT CALLED TO RONALD OLMEDO AT [facility]
--- NOTE | 2019-07-29 17:31 | PM.DCS ---
Discharge Providers Date of Admission: 07/26/19 17:06 Date of Discharge: Date of Discharge: July 29, 2019 Attending Provider at Admission: Kory Mann MD Attending Provider at Discharge: Martinez Robison Primary Care Provider: Sydni Wilson MD Diagnoses at Discharge Discharge Diagnosis (1) Closed right acetabular fracture: Status: Acute (2) Pubic ramus fracture: Status: Acute (3) Fall: Status: Acute Other Information Additional DC diagnoses/information: Seizure disorder History of traumatic brain injury, with encephalopathy Hypothyroidism History of depression Reason for Visit Reason for Visit: Reason For Visit: Right leg weakness Hospital Course Hospital Course: 79-year-old gentleman was admitted due to right leg weakness and pain after a fall the night before. On evaluation with CT he is found to have a right acetabular fracture, right pubic rami fracture, both nondisplaced. No acute intervention was needed on assessment but PDX, however, he is to remain nonweightbearing on right lower extremity. He may be foot flat, but without weightbearing through the hip. Given his condition with acute weightbearing restrictions, pain, and need for additional rehabilitation he was admitted to SNF for continued care, and will follow-up with orthopedics in office for additional imaging and reassessment. Physical Exam Const: COMMON NORMALS: no apparent distress HENMT: COMMON NORMALS: oropharynx normal Neck/C-Spine: COMMON NORMALS: no JVD Resp: COMMON NORMALS: normal respiratory effort and clear to auscultation bilaterally AUSCULTATION: clear to auscultation bilaterally Cardio: COMMON NORMALS: no JVD, regular rhythm, S1 normal heart sound, S2 normal heart sound and no murmurs RHYTHM: regular rhythm HEART SOUNDS: S1 normal and S2 normal GI: COMMON NORMALS: normal to inspection, nondistended, normoactive bowel sounds, soft to palpation and non-tender PALPATION: Yes soft Extremity: COMMON NORMALS: no joint enlargement and no pedal edema OTHER: Ecchymoses over the right hip without hematoma. Right lower extremity without swelling, well perfused. Neuro: COMMON NORMALS: moves all extremities Skin: COMMON NORMALS: no rashes or lesions noted GENERAL SKIN EXAM: no rashes or lesions noted Discharge Data Data Completed and Pending: Completed Studies During Hospitalization Category Date Time Status CT head wo con* 7 0450 Stat Cat Scan 07/26/19 09:[address] hip RT wo con* [id number] Stat Cat Scan 07/26/19 11:[address] lumbar spine w o con* [id number] Stat Cat Scan 07/26/19 09:02 Completed XR hip RT 2-3V wo /w pel* [id number] Rout ine Exams 07/27/19 18:19 Completed XR hip RT 2-3V wo /w pel* [id number] Stat Exams 07/26/19 10:48 Completed XR thoracic spine 2V [id number] Stat Exams 07/26/19 13:57 Completed Vitals: Last Vital Signs Temp 98.0 F 07/29/19 16:00 Pulse 85 07/29/19 16:00 Resp 18 07/29/19 16:00 BP 124/74 07/29/19 16:00 Pulse Ox 95 07/29/19 16:00 Discharge Plan Discharge Patient Disposition: Xfer SNF Condition: Stable Prescriptions: New acetaminophen 325 mg Tablet 650 mg PO Q6H PRN (Reason: Mild/Mod Pain Or Temp >/= 101) Qty: 30 RF: 0 Continued carbamazepine (mood stabiliz) 300 mg capsule, ER multiphase 12 hr 600 mg PO TID RF: 0 levothyroxine 100 mcg tablet 100 mcg PO DAILY RF: 0 cholecalciferol (vitamin D3) 50,000 unit capsule 50,000 unit PO Q7D RF: 0 tamsulosin 0.4 mg capsule 0.4 mg PO DAILY RF: 0 diclofenac sodium 50 mg tablet,delayed release (DR/EC) 50 mg PO BID PRN (Reason: arthritis) RF: 0 saw palmetto 160 mg capsule 320 mg PO DAILY RF: 0 Depakote ER 500 mg tablet extended release 24 hr 1,000 mg PO BEDTIME RF: 0 latanoprost 0.005 % drops 1 drp ophthalmic (eye) DAILY RF: 0 Discharge Orders: Discharge Order (Routine); Ordered 07/29/19 Ordered By: Martinez Robison Referrals: [facility] [Outside] - 4-7 days Ely Ojeda MD [Physician] - 08/18/19 3:00 pm Discharge Activity: Limit activity as instructed Activity Restrictions/Additional Instructions: Lacto-vegetarian diet. No weightbearing on right lower extremity. Activity per orthopedic recommendations. Discharge Date/Time: 07/29/19 17:10 Discharge Attestations Time Spent in Discharge Care*: greater than 30 min Quality Metrics Clinical Quality Measures During this hospital stay, did patient experience: None 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 of Care Code Acute Fashion Director Party Plan Sales for [facility] Fwd Diagnoses Closed right acetabular fracture S32.401A Pubic ramus fracture S32.599A Fall W19.XXXA
== END 2019-07-29 17:10 | disposition skilled nursing facility (03) | DRG 536 ==
LOC: MEDSURG 17:07 → ER 17:13 → MEDSURG 17:13
PROVIDERS: Admitting Provider Internal Medicine; Emergency Provider Family Medicine; Family Provider Family Medicine; PCP Family Medicine; Visit Provider Internal Medicine
DX: S32.401A Unspecified fracture of right acetabulum, initial encounter for closed fracture (principal); S32.599A Other specified fracture of unspecified pubis, initial encounter for closed fracture; W19.XXXA Unspecified fall, initial encounter; F32.9 Major depressive disorder, single episode, unspecified; E03.9 Hypothyroidism, unspecified; G47.00 Insomnia, unspecified; G47.33 Obstructive sleep apnea (adult) (pediatric); E55.9 Vitamin D deficiency, unspecified; Z87.891 Personal history of nicotine dependence; G40.909 Epilepsy, unspecified, not intractable, without status epilepticus; Z85.828 Personal history of other malignant neoplasm of skin
CPT/HCPCS: 12345; 36415; 36416; 70450; 72070; 72131; 73501; 73502; 73700; 80048; 80053; 80156; 80164; 80307; 81003; 82550; 82962; 84443; 85025; 85610; 85730; 93005; 96372; 96374; 97110; 97116; 97162; 97530; 99284; A9270; J0360; J1630; J1644; J2270

== ENCOUNTER 2019-08-10 01:45 | Inpatient (IN) | payer MEDICARE, OTHER, SELFPAY ==
[2019-08-10] VITALS (8 sets, daily range): BP systolic 87–199; BP diastolic 53–109; PULSE 63–86; RESP 16–18; TEMP 36.3–36.6; O2SAT 95–97; BMI 30.1
--- NOTE | 2019-08-10 01:52 | ED_ITS ---
Entered by Giana Lui, acting as scribe for Roxi Montano HPI - Weakness General: Chief complaint: Weakness Stated complaint: HIGH BLOOD PRESSURE Time Seen by Provider: 08/10/19 01:55 Source: patient and EMS Mode of arrival: EMS History of Present Illness: HPI Narrative: 79 y/o male presents to the ED with complaint of reported weakness and HTN. [facility] called EMS for several episodes of elevated BP, weakness, diaphoresis and confusion. Upon EMS arrival at the [facility] ( 0100), pt was sitting up in a chair , alert and oriented. Upon arrival, his only complaint it that his BP is high and he wants to sleep. Complaint: generalized weakness (HTN) Onset (ago): hour(s) (1) Duration: intermittent Severity: mild Associated symptoms: Denies dark stools, dysuria, easy bruising, nausea or vomiting Review of Systems General: Reports: other (negative unless marked) Eyes: Denies: change in vision or blurry vision ENMT: Denies: throat pain, painful swallowing, hoarseness, ear pain, ear discharge, Change in hearing or nasal discharge Resp: Denies: shortness of breath, productive cough, non-productive cough, wheezing, coughing up blood or chest congestion GI: Denies: abdominal pain, nausea, vomiting, vomiting blood, coffee grounds in vomit, diarrhea, constipation, cramping, blood in stool or black tarry stool : Denies: flank pain, difficulty urinating, painful urination, urinary frequency, urinary urgency, decreased urine ouput, urinary incontinence or blood in urine Musc: Denies: neck pain, back pain, extremity pain, extremity swelling, joint pain, joint swelling, joint warmth or joint stiffness Skin/Breast: Denies: rash, skin tenderness or yellow skin Endo: Denies: excessive thirst, tired all the time, cold intolerance, excessive sweating, flushing or hot flashes Colten/Lymph: Denies: easy bruising, easy bleeding, petechiae or enlarged lymph nodes All/Imm: Denies: hives, throat swelling, tongue swelling, facial swelling or acute wheezing PFS ED PFSH: Social History Smoking and tobacco status: never smoked Alcohol intake: never Current gender identity: Male Physical Exam Const: COMMON NORMALS: no apparent distress, oriented x3, no limitations, healthy appearing and well nourished EXAM LIMITATIONS: no altered mental status GENERAL APPEARANCE: cooperative and well developed ORIENTATION/CONSCIOUSNESS: Yes awake HENMT: COMMON NORMALS: normocephalic, head/scalp atraumatic, hearing grossly normal bilaterally, external ears normal, EAC's normal, external nose normal and moist oral mucous membranes HEAD & SCALP: normal to inspection, normocephalic and atraumatic FACE & SINUS: normal facial exam and face symmetric NOSE: external nose normal and nares normal EXTERNAL EAR: Yes external ears normal EXTERNAL AUDITORY CANAL: EAC's normal MOUTH: oral and palatal mucosa normal and tongue normal Eye: COMMON NORMALS: PERRL, EOMs intact bilaterally, conjunctivae normal and no scleral icterus GENERAL EYE: normal appearance of both eyes and normal li ght reflex CONJUNCTIVA: Yes conjunctivae normal SCLERA: sclerae normal CORNEA: Yes corneas normal PUPIL: Yes PERRL DIRECT OPHTHALMOSCOPY: Yes normal light reflex Neck/C-Spine: COMMON NORMALS: full ROM, no lymphadenopathy, supple, no meningeal signs and no JVD GENERAL: Yes normal visual inspection and Yes trachea midline CERVICAL SPINE: Yes cervical ROM normal Chest: COMMONS NORMALS: inspection of chest normal and palpation of chest normal Resp: COMMON NORMALS: normal respiratory effort, no retractions, no use of accessory muscles and clear to auscultation bilaterally EFFORT & INSPECTION: Yes able to speak in complete sentences AUSCULTATION: clear to auscultation bilaterally Cardio: COMMON NORMALS: no JVD, regular rate, regular rhythm, S1 normal heart sound, S2 normal heart sound, no gallops, no clicks, no murmurs and no rub JUGULAR VENOUS DISTENTION: no JVD RATE: regular rate RHYTHM: regular rhythm HEART SOUNDS: S1 normal and S2 normal GI: COMMON NORMALS: soft to palpation, non-tender, no hepatosplenomegaly and no masses INSPECTION: Yes normal to inspection PALPATION: Yes soft and Yes no hepatosplenomegaly : COMMON NORMALS: Yes no CVA tenderness BLADDER/KIDNEY EXAM: Yes no CVA tenderness Back/Pelvis: COMMON NORMALS: no CVA tenderness, thoracic and lumbar spine normal to inspection, no thoracic nor lumbar tenderness and thoraco-lumbar ROM normal Extremity: COMMON NORMALS: normal to inspection, full ROM, normal capillary refill, no joint enlargement, no clubbing, cyanosis or edema and no calf tenderness Neuro: COMMON NORMALS: oriented x3, CN's II-XII intact bilaterally, moves all extremities, no focal motor deficits and no sensory deficits noted MENINGEAL SIGNS: Yes no meningeal signs Psych: COMMON NORMALS: mental status grossly normal, thought process normal, cooperative, affect normal, speech normal and activity/motor behavior normal SPEECH: Yes normal speech THOUGHT PROCESS: normal thought process Skin: COMMON NORMALS: no rashes or lesions noted, skin turgor normal, no jaundice, no petechiae and no mottling GENERAL SKIN EXAM: no rashes or lesions noted and turgor normal Course Vital Signs: Vital signs: Vital Signs Temperature 97.5 F L 08/10/19 01:53 Pulse Rate 85 08/10/19 01:53 Respiratory Rate 16 08/10/19 01:53 Blood Pressure 199/109 08/10/19 01:53 Pulse Oximetry 96 08/10/19 01:53 MDM - Weakness MDM Narrative: Medical decision making narrative: Jerry is a nice 79-year-old male who comes in with altered mental status. It was thought to be attributed to his blood pressure but I believe it is more likely an acute mental status change due to his sodium levels. It is unclear what is causing the symptoms. The case was reviewed with Dr. Gibbons and she is agreeable to admission. Lab Data: Attestation: I reviewed the patient's lab results. Labs: Lab Results 08/10/19 08/10/19 08/10/19 Range/Units 02:05 02:05 02:05 WBC 4.8 (4.0-10.0) 10^3/ uL RBC 3.73 L (4.1-5.3) 10^6/u L Hgb 12.5 (11.7-16.6) g/dL Hct 35.8 L (42.0-52.0) % MCV 96.0 H (80-94) fL MCH 33.5 (28.0-34.0) pg MCHC 34.9 (30.0-36.0) g/dL RDW 11.9 L (12.1-15.1) % Plt Count 216 (130-400) 10^3/c mm MPV 9.4 (7.4-10.4) fL Neut % (Auto) 63.9 % Lymph % (Auto) 26.0 % [place] % (Auto) 8.3 % Eos % (Auto) 1.0 % Baso % (Auto) 0.6 % Neut # (Auto) 3.1 (1.8-7.7) 10^3/u L Lymph # (Auto) 1.3 (0.8-4.8) 10^3/u L [place] # (Auto) 0.4 (0.2-0.9) 10^3/u L Eos # (Auto) 0.1 (0.0-0.8) 10^3/u L Baso # (Auto) 0.0 (0.0-0.1) 10^3/u L Nucleated RBC % (a uto) 0 % Nucleated RBCs # 0.0 /100WBC Sodium 125 L (136-145) mmol/L Potassium 4.9 (3.5-5.1) mmol/L Chloride 90 L (98-107) mmol/L Carbon Dioxide 23 (22-29) mmol/L Anion Gap 16.9 (5-19) BUN 8 (8-23) mg/dL Creatinine 0.5 L (0.7-1.2) mg/dL Glucose 105 (65-115) mg/dL Lactic Acid 1.1 (0.5-2.2) mmol/L Calcium 9.7 (8.5-10.5) mg/dL Total Bilirubin 0.2 (0.15-1.2) mg/dL AST 19 (0-40) U/L ALT 17 (0-41) U/L Alkaline Phosphata se 206 H (40-130) IU/L Troponin T Baselin e (0-15) ng/mL Troponin T 120 Min alexa (0-15) ng/mL Delta Troponin T (0-10) ABS# Total Protein 6.9 (6.6-8.7) g/dL Albumin 4.1 (3.5-5.2) g/dL Globulin 2.8 (1.3-4.6) g/dL 08/10/19 08/10/19 08/10/19 Range/Units 02:05 04:03 04:03 WBC (4.0-10.0) 10^3/ uL RBC (4.1-5.3) 10^6/u L Hgb (11.7-16.6) g/dL Hct (42.0-52.0) % MCV (80-94) fL MCH (28.0-34.0) pg MCHC (30.0-36.0) g/dL RDW (12.1-15.1) % Plt Count (130-400) 10^3/c mm MPV (7.4-10.4) fL Neut % (Auto) % Lymph % (Auto) % [place] % (Auto) % Eos % (Auto) % Baso % (Auto) % Neut # (Auto) (1.8-7.7) 10^3/u L Lymph # (Auto) (0.8-4.8) 10^3/u L [place] # (Auto) (0.2-0.9) 10^3/u L Eos # (Auto) (0.0-0.8) 10^3/u L Baso # (Auto) (0.0-0.1) 10^3/u L Nucleated RBC % (a uto) % Nucleated RBCs # /100WBC Sodium 126 L (136-145) mmol/L Potassium 4.5 (3.5-5.1) mmol/L Chloride 90 L (98-107) mmol/L Carbon Dioxide 25 (22-29) mmol/L Anion Gap 15.5 (5-19) BUN 6 L (8-23) mg/dL Creatinine 0.5 L (0.7-1.2) mg/dL Glucose 102 (65-115) mg/dL Lactic Acid (0.5-2.2) mmol/L Calcium 9.4 (8.5-10.5) mg/dL Total Bilirubin 0.2 (0.15-1.2) mg/dL AST 17 (0-40) U/L ALT 16 (0-41) U/L Alkaline Phosphata se 185 H (40-130) IU/L Troponin T Baselin e 23 H (0-15) ng/mL Troponin T 120 Min alexa 20.00 H (0-15) ng/mL Delta Troponin T -3.00 L (0-10) ABS# Total Protein 6.6 (6.6-8.7) g/dL Albumin 3.7 (3.5-5.2) g/dL Globulin 2.9 (1.3-4.6) g/dL Imaging Data^: CXR: My impression: No acute cardiopulmonary disease. CT Head: Radiologist's impression: [address] [address] [address] Scan Report Signed Patient: Jerry Tapia Unit #: [id number] : 1940 Age/Sex: 79 / M ADM Date: 08/10/19 Loc: ER Room/Bed: Attending Dr: Ordering Provider/Ordering MD: Roxi Montano DO Date of Service: 08/10/19 Procedure(s): CT head wo con* [id number] Accession Number(s): [id number] Report Number: [id number] PROCEDURE INFORMATION: Exam: CT Head Without Contrast Exam date and time: 08/10/2019 3:28 AM Age: 79 years old Clinical indication: Altered mental status/memory loss; Confusion or disorientation; Additional info: Jauregui/ams TECHNIQUE: Imaging protocol: Computed tomography of the head without contrast. Total DLP: 882.99 mGy-cm Radiation optimization: All CT scans at this facility use at least one of these dose optimization techniques: automated exposure control; mA and/or kV adjustment per patient size (includes targeted exams where dose is matched to clinical indication); or iterative reconstruction. COMPARISON: CT head wo con* [id number] 07/26/2019 9:47 AM FINDINGS: Brain: Brain atrophy with hypodensities in the periventricular/deep white matter that suggest chronic microvascular ischemia. Ventricles: No hydrocephalus. Bones/joints: No acute fracture. Sinuses: Unremarkable. No acute sinusitis. Mastoid air cells: No significant mastoid effusion. Soft tissues: Unremarkable. Vasculature: Vascular calcifications. CT/CT head wo con* [id number] IMPRESSION: No acute intracranial abnormality. Radiation Dose CTDIVOL = (mGy): DLP = 882.99 (mGy-cm) Dictated By: Messi Figueroa MD Signed By: Messi Figueroa MD Signed Date/Time: 08/10/19514 DD/ 3 EKG Data^: EKG 1: Attestation: I personally reviewed and interpreted this EKG as follows: EKG interpretation date: 08/10/19 EKG interpretation time: 02:14 Interpretation: Normal sinus rhythm at 81 beats a minute, no acute ST-T wave changes. Discharge Plan Discharge Patient Disposition: Placed in Observation Clinical Impression: Acute hyponatremia Condition: Stable Referrals: Wesley Loza MD [Family Provider] - Sydni Wilson MD [Primary Care Provider] - 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 of Care Code ED Multilith Operator for Chg Fwd Exam Comprehensive The documentation recorded by the Hu minor Ashley, accurately reflects the service I personally performed and the decisions made by Charmaine guadalupe Eli N Aug 10, 2019 01:45
--- NOTE | 2019-08-10 01:57 | XR_ITS ---
WS: [id number] XR chest 1V portable [id number] REASON FOR EXAM: cough FINDINGS: The lung hernandez are hyper aerated and there is again noted mild thickening of the interstit ium with no consolidation seen. No pneumothorax is noted. The hilum and apices are normal. 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
--- NOTE | 2019-08-10 01:58 | ECG_ITS ---
Measurements Intervals [place] Rate: 81 P: 6 KS: 200 QRS: 55 QRSD: 80 T: 60 QT: 367 QTc: 426 SINUS RHYTHM Compared to ECG 07/26/2019 08:47:04 ST (T wave) deviation no longer present Electronically Signed On 08-10-2019 16:59:10 INTERNATIONAL GUEST COORDINATOR by Marylou Izaguirre M.D. [id number]
[2019-08-10 02:11] LABS: Basophils % 0.6 %; Eosinophils # 0.1 10^3/uL (0.0-0.8); Hematocrit 35.8 % (42.0-52.0); Hemoglobin 12.5 g/dL (11.7-16.6); Lymphocytes # 1.3 10^3/uL (0.8-4.8); Mean Corpuscular HGB Conc 34.9 g/dL (30.0-36.0); Mean Corpuscular Hemoglobin 33.5 pg (28.0-34.0); Mean Platelet Volume 9.4 fL (7.4-10.4); Monocytes # 0.4 10^3/uL (0.2-0.9); Monocytes % 8.3 %; Neutrophils # 3.1 10^3/uL (1.8-7.7); Neutrophils % 63.9 %; Nucleated Red Blood Cells % 0 %; Platelet Count 216 10^3/cmm (130-400); Red Blood Count 3.73 10^6/uL (4.1-5.3); Red Cell Distribution Width 11.9 % (12.1-15.1); White Blood Count 4.8 10^3/uL (4.0-10.0)
[2019-08-10 02:40] LABS: Lactic Sepsis W/Reflex 1.1 mmol/L (0.5-2.2)
[2019-08-10 02:41] LABS: Alanine Aminotransferase 17 U/L (0-41); Albumin Level 4.1 g/dL (3.5-5.2); Alkaline Phosphatase 206 IU/L (40-130); Anion Gap 16.9 (5-19); Aspartate Amino Transferase 19 U/L (0-40); Blood Urea Nitrogen 8 mg/dL (8-23); Calcium 9.7 mg/dL (8.5-10.5); Carbon Dioxide 23 mmol/L (22-29); Chloride 90 mmol/L (98-107); Globulin 2.8 g/dL (1.3-4.6); Glucose 105 mg/dL (65-115); Potassium 4.9 mmol/L (3.5-5.1); Sodium 125 mmol/L (136-145); Total Bilirubin 0.2 mg/dL (0.15-1.2); Total Protein 6.9 g/dL (6.6-8.7)
[2019-08-10 03:15] LABS: Troponin(5th) Baseline 23 ng/mL (0-15)
[2019-08-10] MEDS: sodium chloride 0.9% 1,000 ML 100 ML IV ×2 (03:25→13:01)
--- NOTE | 2019-08-10 03:28 | CTR_ITS ---
PROCEDURE INFORMATION: Exam: CT Head Without Contrast Exam date and time: 08/10/2019 3:28 AM Age: 79 years old Clinical indication: Altered mental status/memory loss; Confusion or disorientation; Additional info: Jauregui/ams TECHNIQUE: Imaging protocol: Computed tomography of the head without contrast. Total DLP: 882.99 mGy-cm Radiation optimization: All CT scans at this facility use at least one of these dose optimization techniques: automated exposure control; mA and/or kV adjustment per patient size (includes targeted exams where dose is matched to clinical indication); or iterative reconstruction. COMPARISON: CT head wo con* [id number] 07/26/2019 9:47 AM FINDINGS: Brain: Brain atrophy with hypodensities in the periventricular/deep white matter that suggest chronic microvascular ischemia. Ventricles: No hydrocephalus. Bones/joints: No acute fracture. Sinuses: Unremarkable. No acute sinusitis. Mastoid air cells: No significant mastoid effusion. Soft tissues: Unremarkable. Vasculature: Vascular calcifications. CT/CT head wo con* [id number] IMPRESSION: No acute intracranial abnormality. Radiation Dose CTDIVOL = (mGy): DLP = 882.99 (mGy-cm)
--- NOTE | 2019-08-10 03:58 | ECG_ITS ---
Measurements Intervals [place] Rate: 80 P: -5 MA: 197 QRS: 44 QRSD: 79 T: 38 QT: 369 QTc: 426 SINUS RHYTHM Compared to ECG 07/26/2019 08:47:04 ST (T wave) deviation no longer present Electronically Signed On 08-10-2019 18:02:48 CORD SPLICER by Marylou Izaguirre M.D. [id number]
[2019-08-10 04:28] LABS: Alanine Aminotransferase 16 U/L (0-41); Albumin Level 3.7 g/dL (3.5-5.2); Alkaline Phosphatase 185 IU/L (40-130); Anion Gap 15.5 (5-19); Aspartate Amino Transferase 17 U/L (0-40); Blood Urea Nitrogen 6 mg/dL (8-23); Calcium 9.4 mg/dL (8.5-10.5); Carbon Dioxide 25 mmol/L (22-29); Chloride 90 mmol/L (98-107); Globulin 2.9 g/dL (1.3-4.6); Glucose 102 mg/dL (65-115); Potassium 4.5 mmol/L (3.5-5.1); Sodium 126 mmol/L (136-145); Total Bilirubin 0.2 mg/dL (0.15-1.2); Total Protein 6.6 g/dL (6.6-8.7)
[2019-08-10] MEDS: hyDRALAzine 20 mg/mL INJ 1 mL 5 MG IVP (05:04)
[2019-08-10 05:50] LABS: Valproic Acid Level 48.6 mcg/mL (50-100)
--- NOTE | 2019-08-10 06:11 | P.HP_ITS ---
Providers/Chief Complaint Admitting Physician: Marilia Gibbons MD Primary Care Provider: Sydni Wilson MD Chief Complaint: HIGH BLOOD PRESSURE History of Present Illness Jerry Tapia is a 79 year old male with PMH Complex partial epilepsy, Depression, History of basal cell cancer, Hypothyroidism, CHRISTINA , Posttraumatic encephalopathy recently admitted between 07/26 to 07/29 after p/w fall and found to have a right acetabular fracture, right pubic rami fracture, both nondisplaced. No acute intervention was needed on assessment , however, he is to remain nonweightbearing on right lower extremity. Given his condition with acute weightbearing restrictions, pain, and need for additional rehabilitation he was admitted to SNF for continued care. He was sent to ED today after being found to have episodes of high blood pressure > 200mg, some diaphoresis, no chest pain, dyspnea or palpitations. He was evaluted in the ER and thought to have some confusion and AMS, however at time of my evalution he is alert, awake and oriented x3, able to recall all details of recent admission. He was incidentally noted to have NA of 125 (new) and was admitted to observation for the same. Rpt Na also at 126. For his BP, he received hydralazine 5mg iv and currently at 142/[address] head negative for CVA. He has a h/o complex partial seizures and believes he may have had seizures yesterday. Usually manifests as feeling of being unwell and increased sleepiness. He denies any current complaints Review of Systems General: Reports: 10 or more systems reviewed and unremarkable except in HPI and below Const: Denies: fever, chills or body aches Eyes: Denies: change in vision, blurry vision or photophobia ENMT: Reports: hoarseness; Denies: throat pain, enlarged tonsils, painful swallowing or nasal congestion Card: Denies: chest pain, palpitations, irregular heart rhythm, edema, swelling of feet/ankles, lightheadedness, pre-syncope, shortness of breath on exertion or shortness of breath when lying down Resp: Denies: shortness of breath, productive cough, non-productive cough, wh eezing, stridor, pain on inspiration, change in phlegm color, coughing up blood or chest congestion GI: Denies: abdominal pain, nausea, vomiting, vomiting blood, coffee grounds in vomit, difficulty swallowing, heartburn/indigestion, diarrhea, constipation, cramping, change in stool character, blood in stool or black tarry stool : Denies: flank pain, painful urination, urinary frequency, urinary urgency, urinary hesitancy or blood in urine Musc: Denies: neck pain, back pain, extremity pain, joint swelling, joint warmth or deformity Neuro: Denies: headache, numbness in extremities, weakness in extremities, changes in sensation, difficulty walking, frequent falls, dizziness, vertigo, behavioral changes, slurred speech or seizure-like activity Psych: Denies: anxiety, depression, suicidal ideation or homicidal ideation Endo: Denies: excessive urination, excessive thirst, tired all the time, cold intolerance or hot flashes Colten/Lymph: Denies: easy bruising or easy bleeding Medications/Allergies Allergies Allergy/AdvReac Type Severity Reaction Status Date / Time No Known Allergies Allergy Unverified 07/08/19 08:59 PFSH Acute PFSH: Social History Smoking and tobacco status: never smoked Alcohol intake: never Current gender identity: Male Vitals/I&O/Wt Last Vital Signs Temp 97.5 F L 08/10/19 01:53 Pulse 78 08/10/19 04:00 Resp 16 08/10/19 04:00 BP 142/72 08/10/19 04:00 Pulse Ox 97 08/10/19 04:00 Weight last 48 hrs Weight 95.254 kg Physical Exam Narrative: EXAM NARRATIVE: GEN: Awake, alert and oriented, no acute distress CVS: S1S2 N RS: CTA B/L Abd: Soft, nt/nd , bs+ ROSS FURNACE OPERATOR: no focal neuro deficits Data : 08/10/19 02:05 08/10/19 04:03 A&P Assessment and plan (1) Hyponatremia: Status: Acute Code(s): E87.1 - Hypo-osmolality and hyponatremia (2) Complex partial epilepsy: Status: Acute Code(s): G40.209 - Localization-related (focal) (partial) symptomatic epilepsy and epileptic syndromes with complex partial seizures, not intractable, without status epilepticus (3) CHRISTINA (obstructive sleep apnea): Status: Acute Code(s): G47.33 - Obstructive sleep apnea (adult) (pediatric) (4) Posttraumatic encephalopathy: Status: Acute Code(s): F07.81 - Postconcussional syndrome (5) Closed right acetabular fracture: Status: Acute Code(s): S32.401A - Unspecified fracture of right acetabulum, initial encounter for closed fracture (6) Pubic ramus fracture: Status: Acute Code(s): S32.599A - Other specified fracture of unspecified pubis, initial encounter for closed fracture Additional A&P Information Admit to med/surg 1. Hyponatremia , Na 125 , rpt Na 126 Currently on NS @ 75 cc/hr check serum Osmolality, urine Na and Cr NA level q4h 2. HTN: currently received iv hydralazine 5mg with good response. Bp 199/109 ---> 140/92 3. Complex partial seizures Continue home seizure medications Full code DVT ppx: lovenox Attestations Medical Necessity Statement*: Anticipate > 2 MN for w/up and correction of hyponatremia 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 of Care Code Acute Master Brewer for [facility] Fwd Diagnoses Hyponatremia E87.1 Complex partial epilepsy G40.209 CHRISTINA (obstructive sleep apnea) G47.33 Posttraumatic encephalopathy F07.81 Closed right acetabular fracture S32.401A Pubic ramus fracture S32.599A
[2019-08-10 06:41] LABS: Bilirubin Urine Neg (NEGATIVE); Blood Urine Neg (Negative); Glucose Urine UA Norm (Normal); Ketones Urine Negative (Negative); Leukocyte Esterase Urine Negative (Negative); Nitrate Urine Negative (Negative); Protein Urine Neg (Negative); Specific Gravity, Urine 1.015 (1.005-1.030); Sulfosalicylic Acid Urine Negative; Urine Appearance Clear (CLEAR); Urine Color Yellow (Yellow); Urobilinogen Urine Norm (Negative); pH Urine 8 (5-7)
--- NOTE | 2019-08-10 07:32 | PC.NURSE ---
Pt hollaring for help. Got to room. Pt sitting on edge of bed. States he pulled his IV out at some point, and that he needed to go to the bathroom. Pt stood at bedside and voided into urinal. Gown placed onto pt. Restarted new IV>
--- NOTE | 2019-08-10 07:58 | ECG_ITS ---
Measurements Intervals [place] Rate: 72 P: -21 DC: 186 QRS: 49 QRSD: 76 T: 56 QT: 380 QTc: 418 SINUS RHYTHM Compared to ECG 07/26/2019 08:47:04 ST (T wave) deviation no longer present Electronically Signed On 08-10-2019 18:03:05 SOFTWARE IMPLEMENTATION PROJECT MANAGER by Marylou Izaguirre M.D. [id number]
[2019-08-10 08:09] LABS: Troponin 5 6HR 21.64 ng/mL (0-15)
[2019-08-10 08:15] LABS: Troponin 5 6HR Delta -1.36 ng/L (0-12)
[2019-08-10] MEDS: amlodipine 10 mg Tablet PO (09:39)
[2019-08-10 10:10] LABS: Alanine Aminotransferase 16 U/L (0-41); Albumin Level 3.8 g/dL (3.5-5.2); Alkaline Phosphatase 183 IU/L (40-130); Anion Gap 15.1 (5-19); Aspartate Amino Transferase 17 U/L (0-40); Blood Urea Nitrogen 6 mg/dL (8-23); Carbon Dioxide 22 mmol/L (22-29); Chloride 92 mmol/L (98-107); Globulin 2.6 g/dL (1.3-4.6); Glucose 99 mg/dL (65-115); Potassium 4.1 mmol/L (3.5-5.1); Sodium 125 mmol/L (136-145); Thyroid Stimulating Hormone 2.71 uIU/mL (0.27-4.20); Total Bilirubin 0.3 mg/dL (0.15-1.2); Total Protein 6.4 g/dL (6.6-8.7)
[2019-08-10 11:16] LABS: Urine Creatinine 28 mg/dL (39-259); Urine Random Sodium 117 mmol/L
[2019-08-10] MEDS: levothyroxine 100 mcg Tablet PO (13:01)
[2019-08-10] MEDS: tamsulosin 0.4 mg Capsule PO (13:01)
[2019-08-10] MEDS: enoxaparin 40 mg/0.4 mL Syringe SUBCUT (13:02)
--- NOTE | 2019-08-10 14:18 | P.PN_ITS ---
Subjective Subjective: Interval history: This morning I interviewed patient in the emergency room as he is waiting a bed on the general medical floors, patient states that he was sent over to the emergency room as his blood pressures were found to be elevated, he had no significant complaints of headaches, blurry vision, chest pain, palpitations, lightheadedness, dizziness Patient does state that he was recently sent to the long term after a possible fall when he was trying to get around in his kitchen, he has multiple fractures which are currently medically managed, he is unable to take care of himself at home, but is quite independent, so is in a long term for short- term rehab Patient tells me that 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 He is quite independent, but unfortunately after his fall he had to go to a long term Patient sodium levels are 125, he is thinks he might be drinking less, he has been on Tegretol for more than 10 years, and is on been on Depakote for a long time, denies lightheadedness, denies dizziness, he does have a history of seizures and is not on is on the previous seizure medications, no recent episodes of seizures Patient also reports a tremor of his right extremity for some time, he does have some gait instability he admits, he has no diagnosis of Parkinson's disease but definitely has parkinsonian features Vitals/I&O/Wt Last Vital Signs Temp 97.4 F L 08/10/19 12:21 Pulse 82 08/10/19 12:21 Resp 16 08/10/19 12:21 BP 168/84 08/10/19 12:21 Pulse Ox 96 08/10/19 12:21 08/09/19 08/10/19 08/10/19 22:59 06:59 14:59 Intake Total 940 / 940 Output Total 400 / 400 Balance 540 / 540 Weight last 48 hrs Weight 95.254 kg Physical Exam Const: COMMON NORMALS: no apparent distress and oriented x3 HENMT: COMMON NORMALS: normocephalic HEAD & SCALP: normocephalic Neck/C-Spine: COMMON NORMALS: no JVD Resp: COMMON NORMALS: normal respiratory effort, no retractions, no use of accessory muscles and clear to auscultation bilaterally AUSCULTATION: clear to auscultation bilaterally Cardio: COMMON NORMALS: no JVD, regular rate, regular rhythm, S1 normal heart sound and S2 normal heart sound RATE: regular rate RHYTHM: regular rhythm HEART SOUNDS: S1 normal and S2 normal GI: COMMON NORMALS: normal to inspection, nondistended, normoactive bowel sounds, soft to palpation, non-tender, no hepatosplenomegaly, no masses and no bruits PALPATION: Yes soft and Yes no hepatosplenomegaly Extremity: COMMON NORMALS: normal capillary refill, no clubbing, cyanosis or edema, no calf tenderness and no pedal edema Neuro: COMMON NORMALS: oriented x3 Psych: COMMON NORMALS: mental status grossly normal Data : 08/10/19 02:05 08/10/19 07:52 A&P Assessment and plan (1) Hyponatremia: Status: Acute Code(s): E87.1 - Hypo-osmolality and hyponatremia (2) Complex partial epilepsy: Status: Acute Code(s): G40.209 - Localization-related (focal) (partial) symptomatic epilepsy and epileptic syndromes with complex partial seizures, not intractable, without status epilepticus (3) CHRISTINA (obstructive sleep apnea): Status: Acute Code(s): G47.33 - Obstructive sleep apnea (adult) (pediatric) (4) Posttraumatic encephalopathy: Status: Acute Code(s): F07.81 - Postconcussional syndrome (5) Closed right acetabular fracture: Status: Acute Code(s): S32.401A - Unspecified fracture of right acetabulum, initial encounter for closed fracture (6) Pubic ramus fracture: Status: Acute Code(s): S32.599A - Other specified fracture of unspecified pubis, initial encounter for closed fracture Additional A&P Information Admit to med/surg 1. Hyponatremia , Na 126 Likely secondary to dehydration and hydrochlorothiazide But possibly carbamazepine is playing a role as it is well known to cause hyponatremia, also Depakote, but patient is been on these medications for many years Increase normal saline 100 cc an hour check serum Osmolality, urine Na and Cr, a.m. cortisol Had a head CT that had no acute intracranial abnormality NA level q4h 2. HTN: We will start Norvasc, hold hydrochlorothiazide 3. 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
[2019-08-10] MEDS: metoprolol tartrate 25 mg Tablet 12.5 MG PO (14:54)
[2019-08-10] MEDS: carBAMazepine XR (12 HR) 200 mg Tablet 600 MG PO ×2 (14:54→21:19)
[2019-08-10 15:31] LABS: Cortisol Random 13.47 mcg/dL (2.47-19.5)
[2019-08-10 15:32] LABS: Chol HDL Ratio 3.82 mg/dL (1.0-5.00); Cholesterol 191 mg/dL (0-200); HDL Cholesterol 50 mg/dL (60-100); LDL Cholesterol Calculated 121 mg/dL (50-129); LDL HDL Ratio 2.42 RATIO (0.00-3.22); Sodium 129 mmol/L (136-145); Thyroid Stimulating Hormone 1.91 uIU/mL (0.27-4.20); Triglycerides 101 mg/dL (0-150)
[2019-08-10 15:35] LABS: Osmolality Serum 263
[2019-08-10 17:07] LABS: Sodium 130 mmol/L (136-145)
[2019-08-10 20:54] LABS: Sodium 129 mmol/L (136-145)
[2019-08-10] MEDS: divalproex ER 500 mg Tablet (24H) 1000 MG PO (21:19)
[2019-08-11] VITALS: BP 125/71; PULSE 67; RESP 18; TEMP 36.4; O2SAT 97
[2019-08-11 01:06] LABS: Sodium 126 mmol/L (136-145)
[2019-08-11 04:00] VITALS: BP 144/60; PULSE 68; RESP 18; TEMP 36.6; O2SAT 96
[2019-08-11] MEDS: sodium chloride 0.9% 1,000 ML 100 ML IV (04:31)
[2019-08-11 05:25] LABS: Anion Gap 16.6 (5-19); Blood Urea Nitrogen 9 mg/dL (8-23); Calcium 9.2 mg/dL (8.5-10.5); Carbon Dioxide 22 mmol/L (22-29); Chloride 96 mmol/L (98-107); Glucose 90 mg/dL (65-115); Osmolality Calculated 266 mOsm/kg (285-295); Potassium 4.6 mmol/L (3.5-5.1); Sodium 130 mmol/L (136-145)
[2019-08-11 06:13] LABS: Cortisol Random 10.88 mcg/dL (2.47-19.5)
[2019-08-11 07:21] VITALS: BP 116/64; PULSE 68; RESP 18; TEMP 36.9; O2SAT 93
[2019-08-11] MEDS: levothyroxine 100 mcg Tablet PO (08:07)
[2019-08-11] MEDS: carBAMazepine XR (12 HR) 200 mg Tablet 600 MG PO ×2 (08:10→14:33)
[2019-08-11] MEDS: amlodipine 10 mg Tablet PO (08:11)
[2019-08-11] MEDS: tamsulosin 0.4 mg Capsule PO (08:12)
[2019-08-11] MEDS: metoprolol tartrate 25 mg Tablet 12.5 MG PO (08:12)
[2019-08-11 10:55] VITALS: BP 113/68; PULSE 53; RESP 16; TEMP 36.9; O2SAT 93
--- NOTE | 2019-08-11 11:31 | PC.CHAP ---
Pastoral Care Encounter/Spiritual Assessment Type of Contact [] Declined cytopathologist visit [] Patient/Family/Request visit [] Outpatient visit [] Follow-up visit [] Physician referral [] Code/Alert [x] Routine visit [] Staff referral [] Actively dying [] Patient sleeping [] Family support [] [] Out of room [] Palliative care [] [] Receiving care in room [] Pre-surgical visit [] Trauma [] Long length of stay [] ICU visit [] Other: Relational/Emotional Strength [x] Patient feels connected with others/family/visitors/staff [] Distress [] Loneliness/isolation [] Abandonment Spirituality of Patient [x] Person of Gertrudis [x] Attends Mormonism of their Gertrudis [x] Believes in Prayer [] Reads Bible or Advent materials [] There are Spiritual issues to be addressed Child Specialist Interventions [x] Prayer [x] Active listening [x] Non-anxious presence [x] Spiritual/emotional support [] Crisis/trauma care [] Spiritual counseling [] Bereavement support [] Provided bereavement packet [] Provided Bible/devotional materials [] Provided toy/stuffed animal, coloring book to patient or family member [] Provided Communion [] Anointing/[place] [] Salvation [x] Completed spiritual assessment [] Other: Impact on Illness or Injury [] Angry [] Fearful [] Anxious [] Often cries [] Exhaustion [] Unable to work [] Unable to attend confucianism [] Unable to walk/stand [] Unable to read [] Unable to drive [] Unable to eat/drink [] Unable to sleep [] Unable to be with family [] Patient intubated [] Other: Summarypatient feeling very good reaady to mgo home Time spent with patient 10 min
--- NOTE | 2019-08-11 13:09 | P.DS_ITS ---
Discharge Providers Date of Admission: 08/10/19 11:49 Date of Discharge: August 11, 2019 Attending Provider at Admission: Marilia Gibbons MD Attending Provider at Discharge: Lalit Valles MD Primary Care Provider: Sydni Wilson MD Diagnoses at Discharge Discharge Diagnosis (1) Hyponatremia: Status: Acute (2) Complex partial epilepsy: Status: Acute (3) CHRISTINA (obstructive sleep apnea): Status: Acute (4) Posttraumatic encephalopathy: Status: Acute (5) Closed right acetabular fracture: Status: Acute (6) Pubic ramus fracture: Status: Acute Reason for Visit Reason for Visit: Reason For Visit: HIGH BLOOD PRESSURE Hospital Course Hospital Course: This is a 79-year-old male with a past medical history of complex partial seizures on Depakote and carbamazepine for many years, history of basal cell carcinoma, hypothyroidism, CHRISTINA, posttraumatic encephalopathy, with recent history of right acetabular fracture, right pubic rami fracture both nondisplaced, medically managed, who [facility] due to concerns of hypertensive urgency and hyponatremia. First hyponatremia, sodium admission was 125, likely hypovolemic hyponatremia, received IV fluids, his sodium improved to 130, patient was discharged to the jail with instructions to drink plenty of electrolyte balance fluids, and to recheck sodium levels tomorrow. Work-up for his hyponatremia points towards hypovolemia. However patient is on carbamazepine which is well known to cause hyponatremia, patient has never had hyponatremia issues in the past, and is been on this medication for the last 5 years, if patient continues to be hyponatremic consideration should be made to change out this medication for a different antiseizure medications. For his hypertensive urgency, patient was placed on amlodipine 10 mg once daily, metoprolol 12.5 twice daily, tolerated this well, discharge with instructions to check blood pressures twice daily as outpatient. On admission, In addition patient has parkinsonian features, including resting tremor, flat facies, postural instability, autonomic dysfunction, patient was advised to follow up with neurology as outpatient. Physical Exam Const: COMMON NORMALS: no apparent distress and oriented x3 GENERAL APPEARANCE: cooperative and comfortable Neck/C-Spine: COMMON NORMALS: full ROM, no lymphadenopathy, no JVD and thyroid normal THYROID: thyroid normal Lymph: LYMPHATIC: no lymphadenopathy noted Resp: COMMON NORMALS: normal respiratory effort, no retractions, no use of accessory muscles and clear to auscultation bilaterally AUSCULTATION: clear to auscultation bilaterally Cardio: COMMON NORMALS: no JVD, regular rate, regular rhythm, S1 normal heart sound, S2 normal heart sound, no gallops, no clicks and no murmurs RATE: regular rate RHYTHM: regular rhythm HEART SOUNDS: S1 normal and S2 normal GI: COMMON NORMALS: normal to inspection, nondistended, normoactive bowel sounds, soft to palpation, non-tender and no hepatosplenomegaly PALPATION: Yes soft and Yes no hepatosplenomegaly Extremity: COMMON NORMALS: normal to inspection, full ROM and no pedal edema Neuro: COMMON NORMALS: oriented x3 Psych: COMMON NORMALS: mental status grossly normal, thought process normal and cooperative THOUGHT PROCESS: normal thought process Discharge Data Data Completed and Pending: Completed Studies During Hospitalization Category Date Time Status CT head wo con* 7 0450 Urgent Cat Scan 08/10/19 03:28 Completed XR chest 1V coral ble [id number] Stat Exams 08/10/19 01:57 Completed Pending at discharge Category Date Time Status Comprehensive Met abolic Panel Stat Lab 08/11/19 13:00 Ordered Osmolality Urine Stat Lab 08/10/19 12:21 Ordered Labs from last 24 hours 08/11/19 08/11/19 08/11/19 04:36 04:36 00:35 Sodium 130 L 126 L Potassium 4.6 Chloride 96 L Carbon Dioxide 22 Anion Gap 16.6 BUN 9 Creatinine 0.5 L Glucose 90 Serum Osmolality Calculated Osmolal ity 266 L Calcium 9.2 Triglycerides Cholesterol LDL Cholesterol, C alc HDL Cholesterol LDL/HDL Ratio Cholesterol/HDL Ra alexandra TSH Random Cortisol 10.88 08/10/19 08/10/19 08/10/19 20:30 16:31 14:10 Sodium 129 L 130 L Potassium Chloride Carbon Dioxide Anion Gap BUN Creatinine Glucose Serum Osmolality Calculated Osmolal ity Calcium Triglycerides Cholesterol LDL Cholesterol, C alc HDL Cholesterol LDL/HDL Ratio Cholesterol/HDL Ra alexandra TSH Random Cortisol 13.47 08/10/19 08/10/19 14:10 09:13 Sodium 129 L Potassium Chloride Carbon Dioxide Anion Gap BUN Creatinine Glucose Serum Osmolality 263 Calculated Osmolal ity Calcium Triglycerides 101 Cholesterol 191 LDL Cholesterol, C alc 121 HDL Cholesterol 50 L LDL/HDL Ratio 2.42 Cholesterol/HDL Ra alexandra 3.82 TSH 1.91 Random Cortisol Vitals: Last Vital Signs Temp 98.4 F 08/11/19 10:55 Pulse 53 L 08/11/19 10:55 Resp 16 08/11/19 10:55 BP 113/68 08/11/19 10:55 Pulse Ox 93 08/11/19 10:55 Discharge Plan Discharge Patient Disposition: er [facility] Condition: Stable Prescriptions: New amlodipine 10 mg Tablet 10 mg PO DAILY 30 Days Qty: 30 RF: 0 metoprolol tartrate 25 mg Tablet 12.5 mg PO BID 30 Days Qty: 30 RF: 0 Continued carbamazepine (mood stabiliz) 300 mg capsule, ER multiphase 12 hr 600 mg PO TID RF: 0 levothyroxine 100 mcg tablet 100 mcg PO DAILY RF: 0 cholecalciferol (vitamin D3) 50,000 unit capsule 50,000 unit PO Q7D RF: 0 tamsulosin 0.4 mg capsule 0.4 mg PO DAILY RF: 0 diclofenac sodium 50 mg tablet,delayed release (DR/EC) 50 mg PO BID PRN (Reason: arthritis) RF: 0 saw palmetto 160 mg capsule 320 mg PO DAILY RF: 0 divalproex [Depakote ER] 500 mg tablet extended release 24 hr 1,000 mg PO BEDTIME RF: 0 latanoprost 0.005 % drops 1 drp ophthalmic (eye) DAILY RF: 0 acetaminophen 325 mg Tablet 650 mg PO Q6H PRN (Reason: Mild/Mod Pain Or Temp >/= 101) Qty: 30 RF: 0 Discharge Orders: Discharge Order (Routine); Ordered 08/11/19 Ordered By: Lalit Valles Other Ambulatory Orders: Comprehensive Metabolic Panel (Routine) Timeframe: 1 Day Facility: [facility] - Location: Lab - Main Lab Ordered By: Lalit Valles Referrals: [facility], [Staff Physician] - 4-7 days (You have an appointment with 08/18/[address] Araujo.) Sydni Wilson MD [Primary Care Provider] - Discharge Diet: Regular Discharge Activity: Resume usual activity Patient Instructions: Metoprolol (By mouth), Amlodipine (By mouth), Hyponatremia (DC) Activity Restrictions/Additional Instructions: -Please recheck CMP tomorrow -Please have patient follow-up with neurology in 1 to 2 months for possible Parkinson's disease -Please check blood pressures regularly Discharge Attestations Time Spent in Discharge Care*: less than 30 min Quality Metrics Clinical Quality Measures During this hospital stay, did patient experience: None 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 of Care Code Acute 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
[2019-08-11 13:52] LABS: Alanine Aminotransferase 13 U/L (0-41); Albumin Level 3.4 g/dL (3.5-5.2); Alkaline Phosphatase 168 IU/L (40-130); Anion Gap 13.3 (5-19); Aspartate Amino Transferase 14 U/L (0-40); Blood Urea Nitrogen 11 mg/dL (8-23); Calcium 8.6 mg/dL (8.5-10.5); Carbon Dioxide 22 mmol/L (22-29); Chloride 100 mmol/L (98-107); Globulin 2.3 g/dL (1.3-4.6); Glucose 133 mg/dL (65-115); Potassium 4.3 mmol/L (3.5-5.1); Sodium 131 mmol/L (136-145); Total Bilirubin 0.2 mg/dL (0.15-1.2); Total Protein 5.7 g/dL (6.6-8.7)
[2019-08-11 13:54] VITALS: BP 113/68; PULSE 53; RESP 16; TEMP 36.9; O2SAT 93
[2019-08-11 15:13] VITALS: BP 114/64; PULSE 68; RESP 18; TEMP 36.6; O2SAT 94
== END 2019-08-11 15:45 | disposition home or self-care (01) | DRG 641 ==
LOC: ER 08:12 → MEDSURG 11:49
PROVIDERS: Admitting Provider Student in an Organized Health Care Education/Training Program; Emergency Provider Emergency Medicine; Family Provider Family Medicine; PCP Family Medicine; Visit Provider Family Medicine
DX: E87.1 Hypo-osmolality and hyponatremia (principal); G40.209 Localization-related (focal) (partial) symptomatic epilepsy and epileptic syndromes with complex partial seizures, not intractable, without status epilepticus; G47.33 Obstructive sleep apnea (adult) (pediatric); F07.81 Postconcussional syndrome; E86.0 Dehydration; Z85.89 Personal history of malignant neoplasm of other organs and systems; E03.9 Hypothyroidism, unspecified; S32.401D Unspecified fracture of right acetabulum, subsequent encounter for fracture with routine healing; S32.591D Other specified fracture of right pubis, subsequent encounter for fracture with routine healing; W19.XXXD Unspecified fall, subsequent encounter; E86.1 Hypovolemia; I16.0 Hypertensive urgency; Z79.899 Other long term (current) drug therapy; Z79.890 Hormone replacement therapy
CPT/HCPCS: 12345; 36415; 70450; 71045; 80048; 80053; 80061; 80164; 81001; 82533; 82570; 83605; 83930; 84295; 84300; 84443; 84484; 85025; 93005; 96372; 96375; 99284; J0360; J1650; J7030

== ENCOUNTER → 2019-09-01 13:11 | Outpatient (BNVA) | payer OTHER, SELFPAY | PROVIDERS: Family Provider Family Medicine; PCP Family Medicine; Visit Provider Specialist | DX: S32.401A Unspecified fracture of right acetabulum, initial encounter for closed fracture (principal); X58.XXXA Exposure to other specified factors, initial encounter | CPT/HCPCS: 73502 ==

== ENCOUNTER 2019-11-19 11:19 | Inpatient (IN) | payer MEDICARE, OTHER, SELFPAY ==
[2019-11-19] VITALS (12 sets, daily range): BP systolic 109–203; BP diastolic 64–108; PULSE 74–88; RESP 16–18; TEMP 36.4–36.7; O2SAT 94–97; BMI 22.9
--- NOTE | 2019-11-19 11:27 | ECG_ITS ---
Measurements Intervals [place] Rate: 73 P: -90 AL: 144 QRS: 42 QRSD: 87 T: 42 QT: 392 QTc: 433 SINUS RHYTHM Compared to ECG 08/10/2019 08:10:49 No significant changes Electronically Signed On 11-19-2019 18:55:13 CDT by Penny Aguilar M.D. [email or web address]
--- NOTE | 2019-11-19 11:27 | XR_ITS ---
WS: [id number] PORTABLE CHEST HISTORY: cva COMPARISON: 08/10/2019 Hyperexpanded lungs with emphysema. No pneumonia. No pleural effusion or pneumothorax. Cardiac size: Normal. Mediastinum/Aorta: Normal mediastinum. Osteopenia. High riding humeral heads. XR/XR chest 1V portable [id number] IMPRESSION: Mild chronic emphysema with no pneumonia.
--- NOTE | 2019-11-19 11:27 | CT_ITS ---
WS: [id number] CT HEAD NONCONTRAST HISTORY: cva TECHNIQUE: Contiguous axial imaging performed through the brain in 2.5 mm imaging. Bone and soft tiss ue windows. Sagittal and coronal reformats reviewed. All CT scans at [facility] use at ast one of these dose optimization techniques: automated exposure control; mA and/or kV adjustment pe r patient size (includes targeted exams where dose is matched to clinical indication); or iterative r econstruction. DLP: 888.97 mGy.cm COMPARISON: 08/10/2019 No acute intracranial hemorrhage, midline shift or mass effect. There is significant symmetric bilateral cerebral and cerebellar atrophy and moderate chronic microva scular ischemic change as before. No new infarcts. Ventricles: Ventricles and extra-axial spaces are prominent on the basis of atrophy. Paranasal sinuses: As visualized are clear. Mastoid air cells: Well pneumatized. Calvarium and scalp: Skull is intact with no soft tissue edema or swelling. CT/CT head wo con* [id number] IMPRESSION: 1. No acute intracranial hemorrhage or edema. 2. Moderate stable cerebral and cerebellar atrophy and chronic ischemic diseas e.
--- NOTE | 2019-11-19 11:29 | ED_ITS ---
HPI - Neuro Symptoms/Deficit General: Chief Complaint: Neuro Symptoms/Deficit Stated Complaint: POSSIBLE STROKE Time Seen by Provider: 11/19/19 11:20 Source: patient and EMS Mode of arrival: EMS History of Present Illness: HPI Narrative: 79-year-old male came in by EMS for having strokelike symptoms. Per EMS family states that he was having weakness yesterday along with slurred speech and aphasia. Patient states his weakness is improved and he no longer has the facial droop or slurred speech but does have some word finding difficulty. He is able answer all my questions appropriately but takes extended time to answer at times. He denies any headache. He denies any fever. He denies any chest pain. Onset (ago): day(s) Timing confirmed by: family member Location: speech History of same: No Severity: moderate Relieving factors: none Exacerbating factors: none On Anticoagulants: No Associated symptoms: Deny chest pain, nausea or vomiting Review of Systems Const: Denies: fever(s), chills, body aches or change in appetite Eyes: Denies: blurry vision or eye discomfort ENMT: Denies: throat pain or dental pain Card: Denies: chest pain Resp: Denies: dyspnea GI: Denies: abdominal pain, nausea, vomiting or diarrhea : Denies: dysuria Musc: Denies: neck pain or back pain Skin/Breast: Denies: rash Neuro: Reports: weakness in extremities, Slurred speech present and difficulty communicating thoughts Psych: Denies: depression [place]/Lymph: Denies: easy bruising All/Imm: Denies: urticaria PFSH ED PFSH: Medical History (Updated 11/19/19 @ 13:42 by Mirella Curiel MD) Complex partial epilepsy Depression History of basal cell cancer Hypothyroidism Insomnia CHRISTINA (obstructive sleep apnea) Posttraumatic encephalopathy Vitamin D deficiency Surgical History History of appendectomy History of tonsillectomy and adenoidectomy Family History Other Cancer Diabetes Social History Smoking and tobacco status: never smoked Alcohol intake: never Current gender identity: Male NIH stroke score NIHSS: Level Of Consciousness - 1a: 0 Level Of Consciousness Questions - 1b: Both Correct Level Of Consciousness Commands - 1c: Both Correct Best Gaze - 2: Normal Visual Lang - 3: No Visual Loss Facial Palsy - 4: Normal Motor Arm Right - 5: No Drift Motor Arm Left - 5: No Drift Motor Leg Right - 6: No Drift Motor Leg Left - 6: No Drift Limb Ataxia - 7: Absent Sensory - 8: Normal Best Language - 9: Mild/Moderate Aphasia Dysarthia - 10: Normal Extinction And Inattention - 11: 0 Score: Total Score: 1 Physical Exam Const: COMMON NORMALS: no acute distress, patient oriented x3 and healthy appearing HENMT: COMMON NORMALS: normocephalic and atraumatic HEAD & SCALP: normocephalic and atraumatic Eye: COMMON NORMALS: Equal, round and reactive pupils present and EOMs intact bilaterally PUPIL: Yes Equal, round and reactive pupils present Neck/C-Spine: COMMON NORMALS: full ROM and supple Chest: COMMONS NORMALS: normal inspection of the chest and normal palpation of entire chest wall Resp: COMMON NORMALS: normal respiratory effort, No retractions, No use of accessory muscles and clear to auscultation bilaterally AUSCULTATION: clear to auscultation bilaterally Cardio: COMMON NORMALS: regular rate, regular rhythm and No murmurs present (Cardio) RATE: regular rate RHYTHM: regular rhythm GI: COMMON NORMALS: Normal to inspection, nondistended, normoactive bowel sounds present, Soft to palpation, non-tender and no masses PALPATION: Yes So ft to palpation Extremity: COMMON NORMALS: normal to inspection and full ROM Neuro: COMMON NORMALS: patient oriented x3, moves all extremities and no focal motor deficits Psych: COMMON NORMALS: mental status grossly normal, Normal thought process present and cooperative THOUGHT PROCESS: Normal thought process present Skin: COMMON NORMALS: no rashes or lesions noted and no wounds GENERAL SKIN EXAM: no rashes or lesions noted Course Vital Signs: Vital signs: Vital Signs Temperature 97.7 F 11/19/19 11:20 Pulse Rate 79 11/19/19 13:00 Respiratory Rate 18 11/19/19 13:00 Blood Pressure 177/97 11/19/19 13:00 Pulse Oximetry 97 11/19/19 13:00 MDM - Neuro Symptoms/Deficit MDM Narrative: Medical decision making narrative: Patient presents here with a possible CVA. He is not a TPA candidate as his symptoms started overnight. Patient symptoms have improved here but he does still have some aphasia. I spoke to hospitalist and will admit. Patient has been stable while here. Lab Data: Labs: Lab Results 11/19/19 11/19/19 11/19/19 Range/Units 11:50 11:50 12:30 WBC 4.2 (4.0-10.0) 10^3/ uL RBC 4.05 L (4.1-5.3) 10^6/u L Hgb 13.3 (11.7-16.6) g/dL Hct 40.8 L (42.0-52.0) % MCV 100.7 H (80-94) fL MCH 32.8 (28.0-34.0) pg MCHC 32.6 (30.0-36.0) g/dL RDW 12.6 (12.1-15.1) % Plt Count 188 (130-400) 10^3/c mm MPV 10.2 (7.4-10.4) fL Neut % (Auto) 57.7 % Lymph % (Auto) 30.0 % [place] % (Auto) 9.9 % Eos % (Auto) 1.7 % Baso % (Auto) 0.5 % Neut # (Auto) 2.5 (1.8-7.7) 10^3/u L Lymph # (Auto) 1.3 (0.8-4.8) 10^3/u L [place] # (Auto) 0.4 (0.2-0.9) 10^3/u L Eos # (Auto) 0.1 (0.0-0.8) 10^3/u L Baso # (Auto) 0.0 (0.0-0.1) 10^3/u L Nucleated RBC % (a uto) 0 % Nucleated RBCs # 0.0 /100WBC PT 13.80 H (10.5-13.3) SECO NDS INR 1.03 (0.8-1.2) Sodium (136-145) mmol/L Potassium (3.5-5.1) mmol/L Chloride (98-107) mmol/L Carbon Dioxide (22-29) mmol/L Anion Gap (5-19) BUN (8-23) mg/dL Creatinine (0.7-1.2) mg/dL Glucose (65-115) mg/dL Calculated Osmolal ity (285-295) mOsm/k g Calcium (8.5-10.5) mg/dL Total Bilirubin (0.15-1.2) mg/dL AST (0-40) U/L ALT (0-41) U/L Alkaline Phosphata se (40-130) IU/L Troponin T Baselin e 35 H (0-15) ng/mL Total Protein (6.6-8.7) g/dL Albumin (3.5-5.2) g/dL Globulin (1.3-4.6) g/dL 11/19/19 Range/Units 12:30 WBC (4.0-10.0) 10^3/ uL RBC (4.1-5.3) 10^6/u L Hgb (11.7-16.6) g/dL Hct (42.0-52.0) % MCV (80-94) fL MCH (28.0-34.0) pg MCHC (30.0-36.0) g/dL RDW (12.1-15.1) % Plt Count (130-400) 10^3/c mm MPV (7.4-10.4) fL Neut % (Auto) % Lymph % (Auto) % [place] % (Auto) % Eos % (Auto) % Baso % (Auto) % Neut # (Auto) (1.8-7.7) 10^3/u L Lymph # (Auto) (0.8-4.8) 10^3/u L [place] # (Auto) (0.2-0.9) 10^3/u L Eos # (Auto) (0.0-0.8) 10^3/u L Baso # (Auto) (0.0-0.1) 10^3/u L Nucleated RBC % (a uto) % Nucleated RBCs # /100WBC PT (10.5-13.3) SECO NDS INR (0.8-1.2) Sodium 134 L (136-145) mmol/L Potassium 4.2 (3.5-5.1) mmol/L Chloride 96 L (98-107) mmol/L Carbon Dioxide 26 (22-29) mmol/L Anion Gap 16.2 (5-19) BUN 9 (8-23) mg/dL Creatinine 0.6 L (0.7-1.2) mg/dL Glucose 96 (65-115) mg/dL Calculated Osmolal ity 274 L (285-295) mOsm/k g Calcium 9.2 (8.5-10.5) mg/dL Total Bilirubin 0.3 (0.15-1.2) mg/dL AST 17 (0-40) U/L ALT 10 (0-41) U/L Alkaline Phosphata se 136 H (40-130) IU/L Troponin T Baselin e (0-15) ng/mL Total Protein 6.5 L (6.6-8.7) g/dL Albumin 4.0 (3.5-5.2) g/dL Globulin 2.5 (1.3-4.6) g/dL EKG Data^: EKG 1: Attestation: I personally reviewed and interpreted this EKG as follows: EKG interpretation date: 11/19/19 EKG interpretation time: 12:08 Interpretation: nsr hr [address] or t wave abnormalities qrs 87 qtc 418 Discharge Plan Discharge Patient Disposition: Admitted As Inpatient Clinical Impression: Cerebrovascular accident Condition: Stable Referrals: Tyrone Duckworth MD [Primary Care Provider] - Wesley Loza MD [Family Provider] - 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 of Care Code ED Staff Nurse Midwife for Chg Fwd Exam Comprehensive
[2019-11-19 12:03] LABS: Basophils % 0.5 %; Eosinophils # 0.1 10^3/uL (0.0-0.8); Eosinophils % 1.7 %; Hematocrit 40.8 % (42.0-52.0); Hemoglobin 13.3 g/dL (11.7-16.6); Lymphocytes # 1.3 10^3/uL (0.8-4.8); Mean Corpuscular HGB Conc 32.6 g/dL (30.0-36.0); Mean Corpuscular Hemoglobin 32.8 pg (28.0-34.0); Mean Corpuscular Volume 100.7 fL (80-94); Mean Platelet Volume 10.2 fL (7.4-10.4); Monocytes # 0.4 10^3/uL (0.2-0.9); Monocytes % 9.9 %; Neutrophils # 2.5 10^3/uL (1.8-7.7); Neutrophils % 57.7 %; Nucleated Red Blood Cells % 0 %; Platelet Count 188 10^3/cmm (130-400); Red Blood Count 4.05 10^6/uL (4.1-5.3); Red Cell Distribution Width 12.6 % (12.1-15.1); White Blood Count 4.2 10^3/uL (4.0-10.0)
[2019-11-19 12:14] LABS: INR 1.03 (0.8-1.2)
[2019-11-19 12:57] LABS: Alanine Aminotransferase 10 U/L (0-41); Alkaline Phosphatase 136 IU/L (40-130); Anion Gap 16.2 (5-19); Aspartate Amino Transferase 17 U/L (0-40); Blood Urea Nitrogen 9 mg/dL (8-23); Calcium 9.2 mg/dL (8.5-10.5); Carbon Dioxide 26 mmol/L (22-29); Chloride 96 mmol/L (98-107); Globulin 2.5 g/dL (1.3-4.6); Glucose 96 mg/dL (65-115); Osmolality Calculated 274 mOsm/kg (285-295); Potassium 4.2 mmol/L (3.5-5.1); Sodium 134 mmol/L (136-145); Total Bilirubin 0.3 mg/dL (0.15-1.2); Total Protein 6.5 g/dL (6.6-8.7)
[2019-11-19 13:00] LABS: Troponin(5th) Baseline 35 ng/mL (0-15)
--- NOTE | 2019-11-19 13:27 | ECG_ITS ---
Measurements Intervals [place] Rate: 77 P: CA: 0 QRS: 43 QRSD: 89 T: 61 QT: 379 QTc: 429 ATRIAL FIBRILLATION SEPTAL MYOCARDIAL INFARCTION , PROBABLY OLD [40+ ms Q WAVE IN V1/V2] Compared to ECG 08/10/2019 08:10:49 Myocardial infarct finding now present Sinus rhythm no longer present Electronically Signed On 11-19-2019 19:02:04 CDT by Penny Aguilar M.D. [email or web address]
--- NOTE | 2019-11-19 14:52 | PC.NURSE ---
Swallow assessment Administered po fluids to patient. Patient did not cough, hesitate swallowing, or leak any fluids during or after assessment.
[2019-11-19 15:15] LABS: Troponin 5 2HR 36.81 ng/mL (0-15); Troponin 5 2HR Delta 1.81 ABS# (0-10)
--- NOTE | 2019-11-19 15:20 | P.HP_ITS ---
Providers/Chief Complaint Admitting Physician: Huong Nunez MD Primary Care Provider: Tyrone Duckworth MD Chief Complaint: Difficulty ambulating, speech impairment History of Present Illness Jerry Tapia is a 79 year old male with PMHx of Complex partial epilepsy, HTN, Hypothyrodisim; presents from home for evaluation of noted increased generalized weakness, difficulty ambulating, slurred speech and difficulty expressing himself. History is obtained directly from patient and he is a reasonable historian with collateral information obtained from review of medical record and ED report. Patient had been admitted to our facility in July following a fall, suspicion for preceding seizure-like activity with resulting non-displaced right pubic rami and right acetabular fractures that were managed non-surgically with therapy and pain control. Patient has been discharged from the hospital to [facility] for continued therapy where he stayed for several weeks. He was subsequently discharged though he is unclear of when back home where his son has been his primary caregiver in addition to home health services. He has continued therapy and typically ambulates with a walker. Speech is clear though he has apparently difficulty with word finding and appears slightly disoriented. For instance when asked his 's name whom I have taken care of personally he struggles for about 5 minutes and needs to be cued to remember her name. He thinks today is Friday but he is aware he is in the hospital and answers most questions appropriately. He has a mild right facial droop as well. Because of the window of presentation he did not receive TPA. He is in the process of receiving full dose aspirin. CT head is negative for any acute findings. CBC and chemistry are unremarkable. Chest x-ray shows emphysema with no acute abnormality. He is quite hypertensive but to allow for permissive hypertension he has not received any antihypertensives. Most recent blood pressure is 178/101. He is otherwise hemodynamically stable. He is on room air and he reports using 4 L nasal cannula at night due to nocturnal hypoxemia. He has been admitted for further stroke work-up including echo and carotid ultrasound as well as therapy evaluations. Review of Systems Const: Denies: fever(s), chills or change in appetite Eyes: Reports: blurry vision ENMT: Denies: odynophagia Card: Reports: edema (bilateral ankles), swelling of feet/ankles and lightheadedness (intermittently); Denies: chest pain, palpitations, syncope, pre-syncope, dyspnea on exertion or orthopnea Resp: Denies: dyspnea, productive cough or non-productive cough GI: Reports: nausea, vomiting and constipation (chronic); Denies: abdominal pain, hematemesis or hematochezia : Reports: difficulty starting urination and urinary incontinence (chronic); Denies: dysuria Musc: Denies: back pain Skin/Breast: Denies: rash Neuro: Reports: weakness in extremities, lack of coordination, difficulty walking, Slurred speech present and difficulty communicating thoughts; Denies: numbness in extremities Psych: Denies: anxiety Medications/Allergies Home Medications Medication Instructions Recorded Confirmed Last Taken Type carbamazepine (mood stabiliz) 300 600 mg PO TID cap 07/08/19 11/19/19 11/19/19 History mg capsule,extend release 12 hr(mood stabilizing) diclofenac sodium 50 mg 50 mg PO BID PRN 07/08/19 11/19/19 07/24/19 History tablet,delayed release levothyroxine 100 mcg tablet 100 mcg PO DAILY 07/08/19 11/19/19 11/18/19 History saw palmetto 160 mg capsule 320 mg PO DAILY 07/08/19 11/19/19 11/18/19 History tamsulosin 0.4 mg capsule 0.4 mg PO DAILY 07/08/19 11/19/19 11/18/19 History divalproex [Depakote ER] 1,000 mg PO BEDTIME 07/26/19 11/19/19 11/18/19 History latanoprost 1 drp OPHTHALMIC (EYE) DAILY 07/26/19 11/19/19 11/18/19 History acetaminophen 650 mg PO Q6H PRN #30 tab 07/29/19 11/19/19 Unknown Rx ondansetron HCl 4 mg tablet 4 mg PO Q6H PRN 10/08/19 11/19/19 Unknown History amlodipine 10 mg PO DAILY 11/19/19 11/19/19 11/18/19 History jflqueo-ahgwvxhjq-cset 1 tab PO DAILY 11/19/19 11/19/19 11/18/19 History metoprolol tartrate 12.5 mg PO BID 11/19/19 11/19/19 11/18/19 History Allergies Allergy/AdvReac Type Severity Reaction Status Date / Time No Known Allergies Allergy Verified 10/22/19 10:22 PFSH Acute PFSH: Medical History Complex partial epilepsy Depression History of basal cell cancer HTN (hypertension) Hypothyroidism Insomnia CHRISTINA (obstructive sleep apnea) Posttraumatic encephalopathy Vitamin D deficiency Surgical History History of appendectomy History of tonsillectomy and adenoidectomy Family History Other Cancer Diabetes Social History (Updated 11/19/19 @ 15:26 by Huong Nunez MD) Smoking and tobacco status: never smoked Alcohol intake: never Substance/Drug Use: never Household members: children Housing: House Marital status: / Current occupational status: retired Current gender identity: Male Vitals/I&O/Wt Last Vital Signs Temp 97.7 F 11/19/19 11:20 Pulse 82 11/19/19 15:15 Resp 16 11/19/19 15:15 BP 168/99 11/19/19 15:15 Pulse Ox 97 11/19/19 13:30 Weight last 48 hrs Weight 72.575 kg Physical Exam Const: COMMON NORMALS: no acute distress and patient oriented x3 GENERAL APPEARANCE: cooperative and comfortable ORIENTATION/CONSCIOUSNESS: Yes awake OTHER: -looks appropriate for age HENMT: COMMON NORMALS: normocephalic, atraumatic and hearing grossly normal bilaterally HEAD & SCALP: normocephalic and atraumatic MOUTH: moist mucous membranes abnormal Details: parched Eye: COMMON NORMALS: Equal, round and reactive pupils present, EOMs intact bilaterally and conjunctivae normal CONJUNCTIVA: Yes conjunctivae normal PUPIL: Yes Equal, round and reactive pupils present Neck/C-Spine: COMMON NORMALS: full ROM GENERAL: Yes normal visual inspection and Yes trachea midline Chest: CHEST: Yes Symmetrical chest wall rise Resp: COMMON NORMALS: normal respiratory effort, No retractions, No use of accessory muscles and clear to auscultation bilaterally EFFORT & INSPECTION: Yes able to speak in complete sentences, Yes symmetric chest movement and No tachypneic AUSCULTATION: clear to auscultation bilaterally OTHER: -on RA Cardio: COMMON NORMALS: regular rate, regular rhythm, S1 normal heart sound present, S2 normal heart sound present and No murmurs present (Cardio) RATE: regular rate RHYTHM: regular rhythm HEART SOUNDS: S1 normal heart sound present and S2 normal heart sound present GI: COMMON NORMALS: Normal to inspection, nondistended, normoactive bowel sounds present, Soft to palpation and non-tender INSPECTION: Yes central obe sity PALPATION: Yes Soft to palpation : BLADDER/KIDNEY EXAM: No catheter in place Back/Pelvis: GENERAL BACK: No CVA tenderness Extremity: COMMON NORMALS: normal to inspection, full ROM and no clubbing, cyanosis or edema GENERAL: Yes edema (minimal, pedal) Neuro: COMMON NORMALS: patient oriented x3, moves all extremities, no focal motor deficits, no sensory deficits noted and gait normal SENSORIUM/ORIENTATION: Yes alert, Yes oriented to person, Yes oriented to place and Yes oriented to time MENINGEAL SIGNS: Yes no meningeal signs SPEECH: expressive aphasia (otherwise clear; apparent word finding difficulty) SE NSORY EXAM: Yes extremities (gross sensation intact and equal in all extremities) MOTOR EXAM: 5/5 motor strength present throughout, no tremor noted and Normal motor muscle tone present throughout Psych: COMMON NORMALS: mental status grossly normal, Normal thought process present, cooperative, normal affect and speech normal SPEECH: Yes normal speech THOUGHT PROCESS: Normal thought process present Skin: COMMON NORMALS: no rashes or lesions noted, no jaundice, no petechiae and no mottling GENERAL SKIN EXAM: no rashes or lesions noted Data : 11/19/19 11:50 11/19/19 12:30 A&P Assessment and plan (1) Aphasia: -reported to have had worsening generalized weakness, slurred speech, difficulty with word finding -clinical suspicion for CVA with noted expressive aphasia, mild R facial droop -CT head negative -order Echo, carotid US, no baseline -telemetry monitoring -monitor vital signs -bedside dysphagia screening -PT/OT/ST evaluations -fall/seizure/aspiration precautions -received ASA 325 mg in ED, continue ASA, add Plavix and statin -check A1c, TSH, lipid panel -did not received tPA as presented outside of window -permissive HTN x 24 hrs; hold oral antihypertensives, labetalol if BP >220/110 Status: Acute (2) HTN (hypertension): -currently hypertensive but will allow for permissive HTN x 24 hrs -monitor vital signs Status: Chronic Qualifiers: Hypertension type: essential hypertension Qualified Code(s): I10 - Essential (primary) hypertension (3) BPH (benign prostatic hyperplasia): -resume tamsulosin Status: Chronic Qualifiers: Lower urinary tract symptom presence: symptoms present Lower urinary tract symptom detail: post-void dribbling Qualified Code(s): N40.1 - Benign prostatic hyperplasia with lower urinary tract symptoms; N39.43 - Post-void dribbling (4) Complex partial epilepsy: -has known hx of seizure disorder -resume AEDs; is on tegretol and depakote; check levels -seizure precautions; cannot recall when he had his last seizure but per review of chart, may have had seizure in 07/2019 which resulted in fall and subsequent R pubic rami and R acetabular fractures (non-displaced, no surgical intervention) Status: Chronic Qualifiers: Intractability: not intractable Status epilepticus: without status epilepticus Epilepsy type: partial symptomatic Qualified Code(s): G40.209 - Localization-related (focal) (partial) symptomatic epilepsy and epileptic syndromes with complex partial seizures, not intractable, without status epilepticus (5) CHRISTINA (obstructive sleep apnea): -with nocturnal hypoxemia, oxygen dependent, 4 L NC qhs Status: Chronic (6) Hypothyroidism: -check TSH, resume levothyroxine Status: Chronic Qualifiers: Hypothyroidism type: unspecified Qualified Code(s): E03.9 - Hypothyro idism, unspecified (7) Depression: Status: Chronic Qualifiers: Depression Type: unspecified Qualified Code(s): F32.9 - Major depressive disorder, single episode, unspecified Additional A&P Information -Chronic constipation; initiate bowel regimen -recurrent N/V; unclear etiology; antiemetics as needed; if persistent, may need abdominal imaging done though could be related to constipation -DVT ppx with lovenox -Dispo: came from home, has HH services including PT, son Maicol is living with him; previously stayed at [facility] -Code status: FULL code Attestations Medical Necessity Statement*: Jerry Tapia's hospital stay will require greater than 2 midnights for stroke workup including further imaging and therapy evaluations. Time Spent in Patient Care: Greater than 35 minutes (>than 50% of time spent in counselling and/or direct pt care on unit) . 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 of Care Code Acute Burnisher And Bumper for Chg Fwd Diagnoses Aphasia R47.01 HTN (hypertension) I10 Hypertension type: essential hypertension BPH (benign prostatic hyperplasia) N40.1; N39.43 Lower urinary tract symptom presence: symptoms present Lower urinary tract symptom detail: post-void dribbling Complex partial epilepsy G40.209 Intractability: not intractable Status epilepticus: without status epilepticus Epilepsy type: partial symptomatic CHRISTINA (obstructive sleep apnea) G47.33 Hypothyroidism E03.9 Hypothyroidism type: unspecified Depression F32.9 Depression Type: unspecified
[2019-11-19 17:04] LABS: Carbamazepine Tegretol 7.2 ug/mL (4.0-12.0); Valproic Acid Level 60.5 mcg/mL (50-100)
[2019-11-19 17:26] LABS: Glucose Urine UA Norm (Normal); Ketones Urine 1+ (Negative); Protein Urine Neg (Negative); Urine Appearance Hazy (CLEAR); Urine Color Yellow (Yellow); pH Urine 6.5 (5-7)
[2019-11-19 17:27] LABS: Add Urine Microscopic? YES; Bilirubin Urine Neg (NEGATIVE); Blood Urine Neg (Negative); Leukocyte Esterase Urine 2+ (Negative); Nitrate Urine Positive (Negative); Urobilinogen Urine Norm (Negative)
--- NOTE | 2019-11-19 17:27 | ECG_ITS ---
Measurements Intervals [place] Rate: 73 P: -90 AK: 144 QRS: 42 QRSD: 87 T: 42 QT: 392 QTc: 433 SINUS RHYTHM Compared to ECG 08/10/2019 08:10:49 No significant changes [email or web address]
[2019-11-19 17:30] LABS: Add Urine Culture? Yes; Bacteria Urine 4+; Squamous Epithelial Cell Urine 0-4 (0-5); WBC Urine TOO NUMEROUS TO CNT /hpf (0-5)
[2019-11-19] MEDS: sennosides-docusate Tablet 2 TAB PO (17:58)
[2019-11-19] MEDS: enoxaparin 40 mg/0.4 mL Syringe SUBCUT (17:58)
[2019-11-19] MEDS: levothyroxine 100 mcg Tablet PO (18:03)
[2019-11-19] MEDS: latanoprost 0.005% Op Soln 2.5 mL Btl 1 DROP EYE-BOTH (18:04)
[2019-11-19] MEDS: tamsulosin 0.4 mg Capsule PO (18:04)
[2019-11-19 19:04] LABS: Troponin 5 6HR 27.01 ng/mL (0-15)
[2019-11-19 19:09] LABS: Troponin 5 6HR Delta -7.99 ng/L (0-12)
[2019-11-19] MEDS: divalproex ER 500 mg Tablet (24H) 1000 MG PO (21:37)
[2019-11-19] MEDS: carBAMazepine 200 mg Tablet 600 MG PO (21:37)
[2019-11-19] MEDS: atorvastatin 40 mg Tablet PO (21:37)
[2019-11-19] MEDS: Fleet Enema 133 mL Enema PR (21:44)
[2019-11-20] VITALS: BP 112/70; PULSE 76; RESP 18; TEMP 36.8; O2SAT 95
[2019-11-20 04:00] VITALS: BP 158/83; PULSE 80; RESP 18; TEMP 36.5; O2SAT 93
[2019-11-20 05:12] LABS: Chol HDL Ratio 5.24 mg/dL (1.0-5.00); Cholesterol 220 mg/dL (0-200); HDL Cholesterol 42 mg/dL (60-100); LDL Cholesterol Calculated 149 mg/dL (50-129); LDL HDL Ratio 3.55 RATIO (0.00-3.22); Thyroid Stimulating Hormone 3.03 uIU/mL (0.27-4.20); Triglycerides 145 mg/dL (0-150)
[2019-11-20 06:12] LABS: Estmated Average Glucose 108; Hemoglobin A1C 5.4 % (4.0-6.0)
--- NOTE | 2019-11-20 07:00 | USCV_ITS ---
Jerry Tapia Age: 79 Gender: M : 1940 Exam Date: 11/20/2019 06:42 Ordering Phys: Huong Nunez MD Technologist: Glory Rodriguez Exam Location: [facility] [place] Indication: CVA WORKUP BP: 109 / 64 HR: 87 Rhythm: Sinus Technical Quality: Suboptimal MEASUREMENTS (Male / Female) Normal Values 2D ECHO LV Diastolic Diameter PLAX 2.9 cm 4.2 - 5.9 / 3.9 - 5.3 cm LV Systolic Diameter PLAX 1.3 cm LV Chamber Size 2.6 cm IVS Diastolic Thickness 1.2 cm 0.6 - 1.0 / 0.6 - 0.9 cm IVS Systolic Thickness 1.4 cm LVPW Diastolic Thickness 1.0 cm 0.6 - 1.0 / 0.6 - 0.9 cm LVPW Systolic Thickness 1.1 cm RV Chamber Size 2.3 cm LVOT Diameter 2.1 cm LV Ejection Fraction 2D Teich 85.9 % LV Ejection Fraction MOD 2C -4.7 % LV Ejection Fraction 2C AL -5.9 % LA Diameter 2.6 cm LA Width 3.0 cm LA Height 2.7 cm RA Width 3.6 cm RA Height 2.8 cm Aorta at Sinotubular Diameter 3.3 cm M-MODE LV Diastolic Diameter MM 3.9 cm 4.2 - 5.9 / 3.9 - 5.3 cm LV Systolic Diameter MM 2.3 cm LV Ejection Fraction MM Teich 74.2 % IVS Diastolic Thickness MM 1.0 cm 0.6 - 1.0 / 0.6 - 0.9 cm IVS Systolic Thickness MM 1.2 cm LVPW Diastolic Thickness MM 1.3 cm 0.6 - 1.0 / 0.6 - 0.9 cm LVPW Systolic Thickness MM 1.2 cm RV Diastolic Diameter MM 1.6 cm Aortic Annulus Diameter 3.9 cm LA Ao Ratio MM 0.7 MV E Point Septal Separation 0.5 cm DOPPLER AV Peak Velocity 103.0 cm/s LVOT Peak Velocity 76.0 cm/s AV Area Cont Eq vti 3.3 cm squared AV Area Cont Eq pk 2.5 cm squared MV Area PHT 4.1 cm squared Mitral E to A Ratio 0.8 MV E' Velocity 7.0 cm/s Mitral E to MV E' Ratio 10.2 Mitral E to LV E' Lateral Ratio 10.4 Mitral E to LV E' Septal Ratio 10.2 TR Peak Velocity 217.9 cm/s TR Peak Gradient 19.0 mmHg TR Mean Velocity 172.5 cm/s TR Mean Gradient 12.6 mmHg TR Velocity Time Integral 69.0 cm TV Peak E Velocity 53.0 cm/s Right Atrial Pressure 3.0 mmHg Pulmonary Artery Systolic Pressu 22.0 mmHg PV Peak Velocity 66.0 cm/s RV Acceleration Time 0.1 s RV Ejection Time 0.3 s RV AcT/ET 0.4 FINDINGS Left Ventricle Normal left ventricular size, systolic function and wall thickness, with no regional wall motion abnormalities. Grade I/IV diastolic dysfunction (abnormal relaxation filling pattern), normal to mildly elevated filling pressures. Left ventricular ejection fraction is estimated at 60 %. Right Ventricle Normal right ventricular size and systolic function. Normal right ventricular systolic pressure. Right Atrium The right atrium is normal in size. Left Atrium The left atrium is normal in size. Mitral Valve Mitral valve not well visualized. No mitral valve regurgitation. Aortic Valve Structurally normal trileaflet aortic valve. No aortic valve stenosis. No aortic valve regurgitation. Tricuspid Valve Structurally normal tricuspid valve. Trace to mild tricuspid valve regurgitation. Pulmonic Valve Pulmonic valve not well visualized. Pericardium Normal pericardium without effusion. Aorta Normal ascending aorta dimension. CONCLUSIONS Normal left ventricular size, systolic function and wall thickness, with no regional wall motion abnormalities. Grade I/IV diastolic dysfunction (abnormal relaxation filling pattern), normal to mildly elevated filling pressures. Left ventricular ejection fraction is estimated at 60 %. There are no prior echocardiogram studies to compare. Dr. Stanislaw Najera MD (Electronically Signed) Final Date: 20 Nov 2019 08:13 S
--- NOTE | 2019-11-20 07:00 | USR_ITS ---
PROCEDURE INFORMATION: Exam: US Duplex Bilateral Extracranial Arteries Exam date and time: 11/19/2019 5:11 PM Age: 79 years old Clinical indication: Walking, difficulty and other: Speech; Additional info: Stroke workup TECHNIQUE: Imaging protocol: Real-time Duplex ultrasound scan of the bilateral carotid and vertebral arteries combining pang scale, color Doppler and spectral waveform analysis. Bilateral exam. COMPARISON: No relevant prior studies available. FINDINGS: Right common carotid artery: Unremarkable. No occlusion or stenosis. Waveforms are normal. Right internal carotid artery: Unremarkable. No occlusion or stenosis. Waveforms are normal. Right ICA/CCA ratio: Within normal limits. Right external carotid artery: No stenosis in the origin. Right vertebral artery: Unremarkable. Antegrade flow. Left common carotid artery: Mild atherosclerotic plaque left carotid bulb.. No occlusion or stenosis. Waveforms are normal. Left internal carotid artery: . No occlusion or stenosis. Waveforms are normal. Left ICA/CCA ratio: Within normal limits. Left external carotid artery: No stenosis in the origin. Left vertebral artery: Unremarkable. Antegrade flow. US/CV carotid duplex BI* [id number] IMPRESSION: 1. No carotid arterial stenosis. 2. Mild atherosclerotic plaque without extensive shadowing or calcification left carotid bulb. REFERENCES: SRU CRITERIA. The degree of internal carotid artery stenosis is based on criteria defined by the Society of Radiologists in Ultrasound (SRU). Normal is no stenosis. Mild is less than 50% stenosis. Moderate is 50-69% stenosis. Severe is greater than 69% stenosis to near occlusion. Near occlusion is a markedly narrowed lumen. Total occlusion is no detectable patent lumen.
[2019-11-20 08:00] VITALS: BP 114/71; PULSE 78; RESP 18; TEMP 36.3; O2SAT 95
--- NOTE | 2019-11-20 09:15 | P.DS_ITS ---
Discharge Providers Date of Admission: 11/19/19 13:28 Date of Discharge: November 20, 2019 Attending Provider at Admission: Huong Nunez MD Attending Provider at Discharge: Huong Nunez MD Primary Care Provider: Tyrone Duckworth MD Diagnoses at Discharge Discharge Diagnosis (1) Aphasia: Status: Acute Problem details: -reported to have had worsening generalized weakness, slurred speech, difficulty with word finding -clinical suspicion for CVA with noted expressive aphasia, mild R facial droop -CT head negative -Echo: EF=60%, G1DD, no RWMA, trace to mild MR; carotid US: no significant stenosis -telemetry monitoring -VSS; continue to monitor -passed bedside dysphagia screening -PT/OT/ST evaluations appreciated -fall/seizure/aspiration precautions -received ASA 325 mg in ED, continue ASA, Plavix and statin -noted A1c, TSH, lipid panel -did not received tPA as presented outside of window -permissive HTN x 24 hrs; can resume oral antihypertensives on d/c, labetalol if BP >220/110 (2) HTN (hypertension): Status: Chronic Problem details: -BP controlled without medications; permissive HTN x 24 hrs -continue to monitor vital signs Qualifiers: Hypertension type: essential hypertension Qualified Code(s): I10 - Essential (primary) hypertension (3) BPH (benign prostatic hyperplasia): Status: Chronic Problem details: -on tamsulosin Qualifiers: Lower urinary tract symptom detail: post-void dribbling Lower urinary tract symptom presence: symptoms present Qualified Code(s): N40.1 - Benign prostatic hyperplasia with lower urinary tract symptoms; N39.43 - Post-void dribbling (4) Complex partial epilepsy: Status: Chronic Problem details: -has known hx of seizure disorder -continue AEDs; is on tegretol and depakote; levels therapeutic -seizure precautions; cannot recall when he had his last seizure but per review of chart, may have had seizure in 07/2019 which resulted in fall and subsequent R pubic rami and R acetabular fractures (non-displaced, no surgical intervention) Qualifiers: Epilepsy type: partial symptomatic Intractability: not intractable Status epilepticus: without status epilepticus Qualified Code(s): G40.209 - Localization-related (focal) (partial) symptomatic epilepsy and epileptic syndromes with complex partial seizures, not intractable, without status epilepticus (5) CHRISTINA (obstructive sleep apnea): Status: Chronic Problem details: -with nocturnal hypoxemia, oxygen dependent, 4 L NC qhs (6) Hypothyroidism: Status: Chronic Problem details: -TSH wnl, on levothyroxine Qualifiers: Hypothyroidism type: unspecified Qualified Code(s): E03.9 - Hypothyroidism, unspecified (7) Depression: Status: Chronic Qualifiers: Depression Type: unspecified Qualified Code(s): F32.9 - Major depressive disorder, single episode, unspecified Other Information Additional DC diagnoses/information: -Chronic constipation; on bowel regimen; had 2 BMs during hospital stay, will continue bowel regimen on d/c -recurrent N/V; unclear etiology; antiemetics as needed; if persistent, may need abdominal imaging done though could be related to constipation. -UTI; UA indicative of infection, on Ceftriaxone, will d/c on Cefuroxime pending urine cx Reason for Visit Reason for Visit: Reason For Visit: Difficulty ambulating, speech impairment Hospital Course Hospital Course: Patient was admitted to the medical surgical floor and placed on telemetry monitoring. He continues to be a phasic with particular difficulty with word finding and what appears to be some degree of underlying cognitive impairment potentially due to dementia. CT head is negative for any acute abnormalities, echo and carotid ultrasounds are as noted above. Incidentally he was noted to have a UTI as indicated by urinalysis which was positive for pyuria, bacteria, nitrate and leukocyte esterase. Urine cultures are pending and he has received antibiotic treatment with ceftriaxone. I will prescribe cefuroxime for continued treatment pending urine culture availability which primary care provider can follow-up on. Patient has been evaluated by therapy including ST/OT/PT recommendations made to continue therapy. Patient marques has home health services in place and lives at home with his son who is available for assistance as needed. He ambulates with a walker which he has available to him at home as well. He will require appropriate follow-up with his primary care provider. Of note, initial impression was that patient would require a longer hospital stay, but following completion of workup and medical stability, was able to be discharged the day after admission. I spoke with his son Maicol prior to discharge, confirmed that patient has home health services through [facility] and son provides 24/7 supervision; also updated him on medication changes. Discharge Summary: -Patient to follow-up with primary care provider within 1 week Physical Exam Const: COMMON NORMALS: no acute distress, patient oriented x3 and alert GENERAL APPEARANCE: cooperative and comfortable ORIENTATION/CONSCIOUSNESS: Yes awake, Yes oriented to person, Yes oriented to place and Yes oriented to time OTHER: -looks appropriate for age HENMT: COMMON NORMALS: normocephalic, atraumatic and hearing grossly normal bilaterally HEAD & SCALP: normocephalic and atraumatic MOUTH: moist mucous membranes abnormal Details: parched Eye: COMMON NORMALS: Equal, round and reactive pupils present, EOMs intact bilaterally and conjunctivae normal CONJUNCTIVA: Yes conjunctivae normal PUPIL: Yes Equal, round and reactive pupils present Neck/C-Spine: COMMON NORMALS: full ROM and no meningeal signs GENERAL: Yes normal visual inspection and Yes trachea midline Chest: CHEST: Yes Symmetrical chest wall rise Resp: COMMON NORMALS: normal respiratory effort, No retractions, No use of accessory muscles and clear to auscultation bilaterally EFFORT & INSPECTION: Yes able to speak in complete sentences, Yes symmetric chest movement and No tachypneic AUSCULTATION: clear to auscultation bilaterally OTHER: -on RA Cardio: COMMON NORMALS: regular rate, regular rhythm, S1 normal heart sound present, S2 normal heart sound present and No murmurs present (Cardio) RATE: regular rate RHYTHM: regular rhythm HEART SOUNDS: S1 normal heart sound present and S2 normal heart sound present GI: COMMON NORMALS: Normal to inspection, nondistended, normoactive bowel sounds present, Soft to palpation and non-tender INSPECTION: Yes central obesity PALPATION: Yes Soft to palpation : BLADDER/KIDNEY EXAM: No catheter in place and No CVA tenderness Back/Pelvis: GENERAL BACK: No CVA tenderness Extremity: COMMON NORMALS: normal to inspection, full ROM and no clubbing, cyanosis or edema GENERAL: Yes edema (minimal, pedal) Neuro: COMMON NORMALS: patient oriented x3, moves all extremities, no focal motor deficits, no sensory deficits noted and gait normal SENSORIUM/ORIENTATION: Yes alert, Yes oriented to person, Yes oriented to place and Yes oriented to time MENINGEAL SIGNS: Yes no meningeal signs SPEECH: expressive aphasia (otherwise clear; apparent word finding difficulty) SENSORY EXAM: Yes extremities (gross sensation intact and equal in all extremities) MOTOR EXAM: 5/5 motor strength present throughout, no tremor noted and Normal motor muscle tone present throughout Psych: COMMON NORMALS: mental status grossly normal, Normal thought process present, cooperative, normal affect and speech normal SPEECH: Yes normal speech THOUGHT PROCESS: Normal thought process present Skin: COMMON NORMALS: no rashes or lesions noted, no jaundice, no petechiae and no mottling GENERAL SKIN EXAM: no rashes or lesions noted Discharge Data Data Completed and Pending: Completed Studies During Hospitalization Category Date Time Status CT head wo con* [id number] Urgent Cat Scan 11/19/19 11:27 Completed XR chest 1V coral ble [id number] Urgent Exams 11/19/19 11:27 Completed CV carotid duplex BI* [id number] Routine Ultrasound 11/20/19 07:00 Completed CV echo complete* [id number] Routine Ultrasound 11/20/19 07:00 Completed Pending at discharge Category Date Time Status Urine Culture Sta t Lab 11/19/19 16:45 Received Labs from last 24 hours 11/20/19 11/20/19 11/19/19 04:35 04:35 18:38 WBC RBC Hgb Hct MCV MCH MCHC RDW Plt Count MPV Neut % (Auto) Lymph % (Auto) Catahoula % (Auto) Eos % (Auto) Baso % (Auto) Neut # (Auto) Lymph # (Auto) [place]ata[place]oula # (Auto) Eos # (Auto) Baso # (Auto) Nucleated RBC % (a uto) Nucleated RBCs # PT INR Sodium Potassium Chloride Carbon Dioxide Anion Gap BUN Creatinine Glucose Estimat Average Gl ucose 108 Hemoglobin A1c 5.4 Calculated Osmolal ity Calcium Total Bilirubin AST ALT Alkaline Phosphata se Troponin I 6 Hour 27.01 H Troponin I Hi Sens Del -7.99 L Troponin T Baselin e Troponin T 120 Min minto Delta Troponin T Total Protein Albumin Globulin Triglycerides 145 Cholesterol 220 H LDL Cholesterol, C alc 149 H HDL Cholesterol 42 L LDL/HDL Ratio 3.55 H Cholesterol/HDL Ra alexandra 5.24 H TSH 3.03 Urine Color Urine Appearance Urine pH Ur Specific Gravit y Urine Protein Urine Glucose (UA) Urine Ketones Urine Blood Urine Nitrate Urine Bilirubin Urine Urobilinogen Ur Leukocyte Trina ase Urine RBC Urine WBC Ur Squamous Epith Cells Urine Bacteria Valproic Acid Carbamazepine 11/19/19 11/19/19 11/19/19 16:45 13:49 13:49 WBC RBC Hgb Hct MCV MCH MCHC RDW Plt Count MPV Neut % (Auto) Lymph % (Auto) [place]oula % (Auto) Eos % (Auto) Baso % (Auto) Neut # (Auto) Lymph # (Auto) [place]ata[place]oula # (Auto) Eos # (Auto) Baso # (Auto) Nucleated RBC % (a uto) Nucleated RBCs # PT INR Sodium Potassium Chloride Carbon Dioxide Anion Gap BUN Creatinine Glucose Estimat Average Gl ucose Hemoglobin A1c Calculated Osmolal ity Calcium Total Bilirubin AST ALT Alkaline Phosphata se Troponin I 6 Hour Troponin I Hi Sens Del Troponin T Baselin e Troponin T 120 Min minto 36.81 H Delta Troponin T 1.81 Total Protein Albumin Globulin Triglycerides Cholesterol LDL Cholesterol, C alc HDL Cholesterol LDL/HDL Ratio Cholesterol/HDL Ra alexandra TSH Urine Color Yellow Urine Appearance Hazy A Urine pH 6.5 Ur Specific Gravit y 1.010 Urine Protein Neg Urine Glucose (UA) Norm Urine Ketones 1+ H Urine Blood Neg Urine Nitrate Positive H Urine Bilirubin Neg Urine Urobilinogen Norm Ur Leukocyte Trina ase 2+ H Urine RBC 5-10 H Urine WBC Too numerous to c nt H Ur Squamous Epith Cells 0-4 H Urine Bacteria 4+ H Valproic Acid 60.5 Carbamazepine 7.2 11/19/19 11/19/19 11/19/19 12:30 12:30 11:50 WBC RBC Hgb Hct MCV MCH MCHC RDW Plt Count MPV Neut % (Auto) Lymph % (Auto) [place]oula % (Auto) Eos % (Auto) Baso % (Auto) Neut # (Auto) Lymph # (Auto) [place]ata[place]oula # (Auto) Eos # (Auto) Baso # (Auto) Nucleated RBC % (a uto) Nucleated RBCs # PT 13.80 H INR 1.03 Sodium 134 L Potassium 4.2 Chloride 96 L Carbon Dioxide 26 Anion Gap 16.2 BUN 9 Creatinine 0.6 L Glucose 96 Estimat Average Gl ucose Hemoglobin A1c Calculated Osmolal ity 274 L Calcium 9.2 Total Bilirubin 0.3 AST 17 ALT 10 Alkaline Phosphata se 136 H Troponin I 6 Hour Troponin I Hi Sens Del Troponin T Baselin e 35 H Troponin T 120 Min minto Delta Troponin T Total Protein 6.5 L Albumin 4.0 Globulin 2.5 Triglycerides Cholesterol LDL Cholesterol, C alc HDL Cholesterol LDL/HDL Ratio Cholesterol/HDL Ra alexandra TSH Urine Color Urine Appearance Urine pH Ur Specific Gravit y Urine Protein Urine Glucose (UA) Urine Ketones Urine Blood Urine Nitrate Urine Bilirubin Urine Urobilinogen Ur Leukocyte Trina ase Urine RBC Urine WBC Ur Squamous Epith Cells Urine Bacteria Valproic Acid Carbamazepine 11/19/19 11:50 WBC 4.2 RBC 4.05 L Hgb 13.3 Hct 40.8 L MCV 100.7 H MCH 32.8 MCHC 32.6 RDW 12.6 Plt Count 188 MPV 10.2 Neut % (Auto) 57.7 Lymph % (Auto) 30.0 Catahoula % (Auto) 9.9 Eos % (Auto) 1.7 Baso % (Auto) 0.5 Neut # (Auto) 2.5 Lymph # (Auto) 1.3 Catahoula # (Auto) 0.4 Eos # (Auto) 0.1 Baso # (Auto) 0.0 Nucleated RBC % (a uto) 0 Nucleated RBCs # 0.0 PT INR Sodium Potassium Chloride Carbon Dioxide Anion Gap BUN Creatinine Glucose Estimat Average Gl ucose Hemoglobin A1c Calculated Osmolal ity Calcium Total Bilirubin AST ALT Alkaline Phosphata se Troponin I 6 Hour Troponin I Hi Sens Del Troponin T Baselin e Troponin T 120 Min minto Delta Troponin T Total Protein Albumin Globulin Triglycerides Cholesterol LDL Cholesterol, C alc HDL Cholesterol LDL/HDL Ratio Cholesterol/HDL Ra alexandra TSH Urine Color Urine Appearance Urine pH Ur Specific Gravit y Urine Protein Urine Glucose (UA) Urine Ketones Urine Blood Urine Nitrate Urine Bilirubin Urine Urobilinogen Ur Leukocyte Trina ase Urine RBC Urine WBC Ur Squamous Epith Cells Urine Bacteria Valproic Acid Carbamazepine Vitals: Last Vital Signs Temp 97.4 F L 11/20/19 08:00 Pulse 78 11/20/19 08:00 Resp 18 11/20/19 08:00 BP 114/71 11/20/19 08:00 Pulse Ox 95 11/20/19 08:00 Discharge Plan Discharge Patient Disposition: Home Health Service Condition: Stable Prescriptions: New atorvastatin 40 mg Tablet 40 mg PO BEDTIME 30 Days Qty: 30 RF: 0 sennosides-docusate sodium 8.6-50 mg Tablet 1 tab PO BID 30 Days Qty: 60 RF: 0 clopidogrel 75 mg Tablet 75 mg PO DAILY 30 Days Qty: 30 RF: 0 Enteric Coated Aspirin 81 mg tablet,delayed release (DR/EC) 81 mg PO DAILY 30 Days Qty: 30 RF: 0 cefuroxime axetil 250 mg tablet 250 mg PO BID 7 Days Qty: 14 RF: 0 Continued carbamazepine (mood stabiliz) 300 mg capsule, ER multiphase 12 hr 600 mg PO TID RF: 0 levothyroxine 100 mcg tablet 100 mcg PO DAILY RF: 0 tamsulosin 0.4 mg capsule 0.4 mg PO DAILY RF: 0 diclofenac sodium 50 mg tablet,delayed release (DR/EC) 50 mg PO BID PRN (Reason: arthritis) RF: 0 saw palmetto 160 mg capsule 320 mg PO DAILY RF: 0 ondansetron HCl [Zofran] 4 mg tablet 4 mg PO Q6H PRN (Reason: Nausea) RF: 0 divalproex [Depakote ER] 500 mg tablet extended release 24 hr 1,000 mg PO BEDTIME RF: 0 latanoprost 0.005 % drops 1 drp ophthalmic (eye) DAILY RF: 0 acetaminophen 325 mg Tablet 650 mg PO Q6H PRN (Reason: Mild/Mod Pain Or Temp >/= 101) Qty: 30 RF: 0 amlodipine 10 mg Tablet 10 mg PO DAILY RF: 0 metoprolol tartrate 25 mg Tablet 12.5 mg PO BID RF: 0 [id number]-[id number] 333-133-5 mg Tablet 1 tab PO DAILY RF: 0 Discharge Orders: Discharge Order (Routine); Ordered 11/20/19 Ordered By: Huong Nunez Referrals: Tyrone Duckworth MD [Primary Care Provider] - 4-7 days (Post hospital discharge follow up) Wesley Loza MD [Referring] - 4-7 days (Post hospital discharge follow up) Discharge Diet: Cardiac Discharge Activity: Increase activity as tolerated, Use walker/crutches as instructed and As per PT/OT instructions Activity Restrictions/Additional Instructions: -Please continue to use your oxygen at night as before -Please be careful to use walker when getting around for safety and stability Discharge Attestations Time Spent in Discharge Care*: greater than 30 min Specific Discharge Activities: Specific discharge activities: educating patient, educating and/or supporting family/caregiver, discussing with case manager specialist/social workers/dc planners, documenting/other paperwork and evaluating patient/reviewing data Status at Discharge: Behavioral status at discharge: cooperative , Functional status at discharge: uses cane/walker Overall status at discharge: patient is progressing back to baseline Quality Metrics Clinical Quality Measures During this hospital stay, did patient experience: Stroke Contraindication to Antithrombotic: Antithrombotic prescribed Contraindication to Anticoagulation: Overlap treatment not indicated Contraindication to Statin: Statin prescribed Contraindication to tPA: Treatment not indicated Pt Provided Written Stroke Discharge Instructions: Patient given written information Rehab services assessed: Physical therapy, Occupational therapy and Speech therapy 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 of Care Code Acute 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
[2019-11-20] MEDS: clopidogrel 75 mg Tablet PO (09:16)
[2019-11-20] MEDS: tamsulosin 0.4 mg Capsule PO (09:16)
[2019-11-20] MEDS: sennosides-docusate Tablet 2 TAB PO (09:16)
[2019-11-20] MEDS: aspirin 81 mg Chew Tablet PO (09:16)
[2019-11-20] MEDS: levothyroxine 100 mcg Tablet PO (09:17)
[2019-11-20] MEDS: carBAMazepine 200 mg Tablet 600 MG PO ×2 (09:17→15:07)
[2019-11-20] MEDS: latanoprost 0.005% Op Soln 2.5 mL Btl 1 DROP EYE-BOTH (09:17)
[2019-11-20] MEDS: cefTRIAXone 1,000 MG in sodium chloride 0.9% (plus) 50 ML 100 MG IV (09:30)
--- NOTE | 2019-11-20 10:58 | PC.CHAP ---
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 [] Patient/Family/Request visit [] Outpatient visit [] Follow-up visit [] Physician referral [] Code/Alert [] Routine visit [] Staff referral [] Actively dying [X] Patient sleeping [] Family support [] [] Out of room [] Palliative care [] [] Receiving care in room [] Pre-surgical visit [] Trauma [] Long length of stay [] ICU visit [] Other: Relational/Emotional Strength [] Patient feels connected with others/family/visitors/staff [] Distress [] Loneliness/isolation [] Abandonment Spirituality of Patient [] Person of Gertrudis [] Attends Jew of their Gertrudis [] Believes in Prayer [] Reads Bible or Zoroastrian materials [] There are Spiritual issues to be addressed Information Systems Planner Interventions [] Prayer [] Active listening [] Non-anxious presence [] Spiritual/emotional support [] Crisis/trauma care [] Spiritual counseling [] Bereavement support [] Provided bereavement packet [] Provided Bible/devotional materials [] Provided toy/stuffed animal, coloring book to patient or family member [] Provided Communion [] Anointing/[place] [] Salvation [] Completed spiritual assessment [] Other: Impact on Illness or Injury [] Angry [] Fearful [] Anxious [] Often cries [] Exhaustion [] Unable to work [] Unable to attend religious [] Unable to walk/stand [] Unable to read [] Unable to drive [] Unable to eat/drink [] Unable to sleep [] Unable to be with family [] Patient intubated [] Other: Summary Follow-up tomorrow Time spent with patient
[2019-11-20 11:36] VITALS: BP 137/84; PULSE 79; RESP 16; TEMP 36.6; O2SAT 96
[2019-11-20 13:55] VITALS: PULSE 75; O2SAT 96
--- NOTE | 2019-11-20 14:24 | PC.NURSE ---
Prescriptions called to [facility] due to [facility] being closed on the weekend.
--- NOTE | 2019-11-20 16:35 | PC.NURSE ---
Iv DC'd cath intact bleeding controlled with 2x2's and coban, Pt to main enterence to sons car via wheelchair, DC intructions given to son, voiced full understanding.
[2019-11-20 17:07] VITALS: BP 137/84; PULSE 75; RESP 18; TEMP 36.6; O2SAT 96
== END 2019-11-20 16:35 | disposition home health service (06) | DRG 690 ==
LOC: ER 13:42 → MEDSURG 15:22
PROVIDERS: Emergency Medicine; Admitting Provider Family Medicine; PCP Internal Medicine; Visit Provider Family Medicine
DX: N39.0 Urinary tract infection, site not specified (principal); R47.01 Aphasia; G40.209 Localization-related (focal) (partial) symptomatic epilepsy and epileptic syndromes with complex partial seizures, not intractable, without status epilepticus; I10 Essential (primary) hypertension; E03.9 Hypothyroidism, unspecified; F32.9 Major depressive disorder, single episode, unspecified; Z85.828 Personal history of other malignant neoplasm of skin; G47.00 Insomnia, unspecified; G47.33 Obstructive sleep apnea (adult) (pediatric); F07.81 Postconcussional syndrome; E55.9 Vitamin D deficiency, unspecified; N40.1 Benign prostatic hyperplasia with lower urinary tract symptoms; N39.43 Post-void dribbling; K59.09 Other constipation; F03.90 Unspecified dementia, unspecified severity, without behavioral disturbance, psychotic disturbance, mood disturbance, and anxiety
CPT/HCPCS: 12345; 36415; 70450; 71045; 80053; 80061; 80156; 80164; 81001; 83036; 84443; 84484; 85025; 85610; 87077; 87086; 87186; 92523; 92610; 93005; 93306; 93880; 96372; 97161; 97166; 99283; J0696; J1650

== ENCOUNTER 2019-12-03 14:40 | Emergency (ER) | payer MEDICARE, OTHER, SELFPAY ==
[2019-12-03 15:01] VITALS: BP 110/65; PULSE 90; RESP 18; TEMP 36.9; O2SAT 97; BMI 22.9
--- NOTE | 2019-12-03 15:33 | XRR_ITS ---
PROCEDURE INFORMATION: Exam: XR Abdomen, 2 Views Exam date and time: 12/03/2019 4:12 PM Age: 79 years old Clinical indication: Constipation; Abdominal pain; Generalized; Additional info: Abd pain; Constipation TECHNIQUE: Imaging protocol: XR of the abdomen. Views: 2 Views. COMPARISON: No relevant prior studies available. FINDINGS: Chest: Negative for acute abnormality Gastrointestinal tract: Normal. No bowel dilation. There is mild scattered colonic fecal stasis. Intraperitoneal space: Normal. No free air. Bones/joints: Unremarkable for age. XR/XR acute abdomen series [id number] IMPRESSION: 1. Negative chest examination. 2. Negative for acute GI abnormality
--- NOTE | 2019-12-03 15:44 | ED_ITS ---
HPI - Abdominal Pain General: Chief Complaint: Abdominal Pain Stated Complaint: constipation Time Seen by Provider: 12/03/19 15:02 History of Present Illness: HPI narrative: The 9-year-old male comes in complaining of abdominal pain he has been home for the last several weeks has not had a bowel movement for the last 10 days or concerned he may have bowel obstruction previously had a CVA went home 2 weeks ago to the care of his family they noticed that when he eats he has small episodes of vomiting that is actually been decreasing in frequency. He denies fever cough denies any shortness of breath no significant chest pain no dysuria urgency or frequency. Has not had any GI blood source. MD elicited complaint: abdominal pain Pertinent past history: constipation Onset (ago): week(s) (2) Pain Consistency: constant Location: Diffuse Severity: mild Quality: cramping Radiation: none Migration to: no migration Exacerbating factors: nothing Relieving factors: nothing Associated Symptoms: Reports anorexia, bloating, constipation, GI cramping, poor appetite, syncope and vomiting; Denies change in stool character, coffee ground emesis, diarrhea, dysuria, fever(s), hematochezia, hematuria, hematemesis, fecal incontinence, loose stools, melena and nausea Review of Systems Const: Denies: fever(s) ENMT: Denies: throat pain, ear or mastoid pain, nasal discharge or nasal congestion Card: Reports: syncope Resp: Denies: dyspnea, productive cough or non-productive cough GI: Reports: vomiting, constipation, bloating and GI cramping; Denies: nausea, hematemesis, coffee ground emesis, diarrhea, fecal incontinence, change in stool character, hematochezia or melena : Denies: dysuria or hematuria Skin/Breast: Denies: rash or pruritus [facility] ED PFSH: Medical History 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 -continue AEDs; is on tegretol and depakote; levels therapeutic -seizure precautions; cannot recall when he had his last seizure but per review of chart, may have had seizure in 07/2019 which resulted in fall and subsequent R pubic rami and R acetabular fractures (non-displaced, no surgical intervention) Depression History of basal cell cancer HTN (hypertension) -BP controlled without medications; permissive HTN x 24 hrs -continue to monitor vital signs Hypothyroidism -TSH wnl, on levothyroxine Insomnia CHRISTINA (obstructive sleep apnea) -with nocturnal hypoxemia, oxygen dependent, 4 L NC qhs Posttraumatic encephalopathy Vitamin D deficiency Surgical History History of appendectomy History of tonsillectomy and adenoidectomy Family History Other Cancer Diabetes Social History Smoking and tobacco status: never smoked Alcohol intake: never Household members: children Housing: House Marital status: / Current occupational status: retired History of recent travel: No Current gender identity: Male Physical Exam Const: COMMON NORMALS: no acute distress GENERAL APPEARANCE: cooperative and comfortable ORIENTATION/CONSCIOUSNESS: Yes awake, Yes oriented to person, Yes oriented to place and Yes oriented to time HENMT: COMMON NORMALS: normocephalic, atraumatic, hearing grossly normal bilaterally, external ears normal, EAC's normal, TM's normal bilaterally, Normal nasal mucous membranes and turbinates present, moist oral mucous membranes and oropharynx normal HEAD & SCALP: normocephalic and atraumatic NOSE: Normal nasal mucous membranes and turbinates present EXTERNAL EAR: Yes external ears normal EXTERNAL AUDITORY CANAL: EAC's normal TYMPANIC MEMBRANE: TM's normal bilaterally Eye: COMMON NORMALS: Equal, round and reactive pupils present, EOMs intact bilaterally, conjunctivae normal and no scleral icterus CONJUNCTIVA: Yes conjunctivae normal PUPIL: Yes Equal, round and reactive pupils present Neck/C-Spine: COMMON NORMALS: full ROM, no lymphadenopathy, supple and no JVD Lymph: LYMPHATIC: no lymphadenopathy noted and no lymphedema noted Resp: COMMON NORMALS: normal respiratory effort, No retractions, No use of accessory muscles and clear to auscultation bilaterally AUSCULTATION: clear to auscultation bilaterally Cardio: COMMON NORMALS: no JVD, regular rate, regular rhythm and No murmurs present (Cardio) RATE: regular rate RHYTHM: regular rhythm GI: COMMON NORMALS: Soft to palpation and No hepatosplenomegaly present AUSCULTATION: Yes normoactive bowel sounds PALPATION: Yes Soft to palpation, Yes Tenderness to palpation present (GI) (dffuse), No Guarding due to palpation present (GI) and Yes No hepatosplenomegaly present Extremity: COMMON NORMALS: normal to inspection, capillary refill normal, no clubbing, cyanosis or edema, no calf tenderness and no pedal edema Neuro: SENSORIUM/ORIENTATION: Yes oriented to person, Yes oriented to place and Yes oriented to time Skin: COMMON NORMALS: no rashes or lesions noted GENERAL SKIN EXAM: no rashes or lesions noted Course Vital Signs: Vital signs: Vital Signs Temperature 98.4 F 12/03/19 15:01 Pulse Rate 94 12/03/19 19:10 Respiratory Rate 18 12/03/19 15:01 Blood Pressure 142/82 12/03/19 19:10 Pulse Oximetry 97 12/03/19 19:10 MDM - Abdominal Pain MDM Narrative: Medical decision making narrative: Reviewed findings with the patient discussed different medications he can use at home particularly to help relieve constipation. Lab Data: Labs: Lab Results 12/03/19 12/03/19 12/03/19 Range/Units 15:57 15:57 15:57 WBC 3.7 L (4.0-10.0) 10^3/ uL RBC 3.46 L (4.1-5.3) 10^6/u L Hgb 11.4 L (11.7-16.6) g/dL Hct 33.3 L (42.0-52.0) % MCV 96.2 H (80-94) fL MCH 32.9 (28.0-34.0) pg MCHC 34.2 (30.0-36.0) g/dL RDW 13.1 (12.1-15.1) % Plt Count 178 (130-400) 10^3/c mm MPV 9.5 (7.4-10.4) fL Neut % (Auto) 56.6 % Lymph % (Auto) 27.6 % Travis % (Auto) 14.5 % Eos % (Auto) 0.5 % Baso % (Auto) 0.5 % Neut # (Auto) 2.1 (1.8-7.7) 10^3/u L Lymph # (Auto) 1.0 (0.8-4.8) 10^3/u L Travis # (Auto) 0.5 (0.2-0.9) 10^3/u L Eos # (Auto) 0.0 (0.0-0.8) 10^3/u L Baso # (Auto) 0.0 (0.0-0.1) 10^3/u L Nucleated RBC % (a uto) 0 % Nucleated RBCs # 0.0 /100WBC Sodium 127 L (136-145) mmol/L Potassium 3.6 (3.5-5.1) mmol/L Chloride 84 L (98-107) mmol/L Carbon Dioxide 28 (22-29) mmol/L Anion Gap 18.6 (5-19) BUN 16 (8-23) mg/dL Creatinine 0.5 L (0.7-1.2) mg/dL Glucose 103 (65-115) mg/dL Calculated Osmolal ity 261 L (285-295) mOsm/k g Lactate 0.2 L (0.5-2.2) mmol/L Calcium 9.3 (8.5-10.5) mg/dL Total Bilirubin 0.5 (0.15-1.2) mg/dL AST 29 (0-40) U/L ALT 16 (0-41) U/L Alkaline Phosphata se 122 (40-130) IU/L Total Protein 5.9 L (6.6-8.7) g/dL Albumin 4.0 (3.5-5.2) g/dL Globulin 1.9 (1.3-4.6) g/dL Lipase 55 (13-60) U/L Urine Color (Yellow) Urine Appearance (CLEAR) Urine pH (5-7) Ur Specific Gravit y (1.005-1.030) Urine Protein (Negative) Urine Glucose (UA) (Normal) Urine Ketones (Negative) Urine Blood (Negative) Urine Nitrate (Negative) Urine Bilirubin (NEGATIVE) Urine Urobilinogen (Negative) mg/dL Ur Leukocyte Trina ase (Negative) 12/03/19 Range/Units 17:07 WBC (4.0-10.0) 10^3/ uL RBC (4.1-5.3) 10^6/u L Hgb (11.7-16.6) g/dL Hct (42.0-52.0) % MCV (80-94) fL MCH (28.0-34.0) pg MCHC (30.0-36.0) g/dL RDW (12.1-15.1) % Plt Count (130-400) 10^3/c mm MPV (7.4-10.4) fL Neut % (Auto) % Lymph % (Auto) % Travis % (Auto) % Eos % (Auto) % Baso % (Auto) % Neut # (Auto) (1.8-7.7) 10^3/u L Lymph # (Auto) (0.8-4.8) 10^3/u L Travis # (Auto) (0.2-0.9) 10^3/u L Eos # (Auto) (0.0-0.8) 10^3/u L Baso # (Auto) (0.0-0.1) 10^3/u L Nucleated RBC % (a uto) % Nucleated RBCs # /100WBC Sodium (136-145) mmol/L Potassium (3.5-5.1) mmol/L Chloride (98-107) mmol/L Carbon Dioxide (22-29) mmol/L Anion Gap (5-19) BUN (8-23) mg/dL Creatinine (0.7-1.2) mg/dL Glucose (65-115) mg/dL Calculated Osmolal ity (285-295) mOsm/k g Lactate (0.5-2.2) mmol/L Calcium (8.5-10.5) mg/dL Total Bilirubin (0.15-1.2) mg/dL AST (0-40) U/L ALT (0-41) U/L Alkaline Phosphata se (40-130) IU/L Total Protein (6.6-8.7) g/dL Albumin (3.5-5.2) g/dL Globulin (1.3-4.6) g/dL Lipase (13-60) U/L Urine Color Dark yellow (Yellow) Urine Appearance Clear (CLEAR) Urine pH 5 (5-7) Ur Specific Gravit y 1.015 (1.005-1.030) Urine Protein Neg (Negative) Urine Glucose (UA) Norm (Normal) Urine Ketones 2+ H (Negative) Urine Blood Neg (Negative) Urine Nitrate Negative (Negative) Urine Bilirubin 1+ H (NEGATIVE) Urine Urobilinogen Norm (Negative) mg/dL Ur Leukocyte Trina ase Negative (Negative) Discharge Plan Discharge Patient Disposition: Home, Self-Care Clinical Impression: Constipation Condition: Stable Prescriptions: New magnesium citrate Solution 150 ml PO BID PRN (Reason: constipation) Qty: 296 RF: 0 No Action carbamazepine (mood stabiliz) 300 mg capsule, ER multiphase 12 hr 600 mg PO TID RF: 0 levothyroxine 100 mcg tablet 100 mcg PO DAILY RF: 0 tamsulosin 0.4 mg capsule 0.4 mg PO DAILY RF: 0 saw palmetto 160 mg capsule 320 mg PO DAILY RF: 0 ondansetron HCl [Zofran] 4 mg tablet 4 mg PO Q6H PRN (Reason: Nausea) RF: 0 divalproex [Depakote ER] 500 mg tablet extended release 24 hr 1,000 mg PO BEDTIME RF: 0 latanoprost 0.005 % drops 1 drp ophthalmic (eye) DAILY RF: 0 atorvastatin 40 mg Tablet 40 mg PO BEDTIME 30 Days Qty: 30 RF: 0 sennosides-docusate sodium 8.6-50 mg Tablet 1 tab PO BID 30 Days Qty: 60 RF: 0 clopidogrel 75 mg Tablet 75 mg PO DAILY 30 Days Qty: 30 RF: 0 aspirin [Enteric Coated Aspirin] 81 mg tablet,delayed release (DR/EC) 81 mg PO DAILY 30 Days Qty: 30 RF: 0 Calcium 500 500 mg calcium (1,250 mg) Tablet 500 mg PO DAILY RF: 0 Vitamin D3 1 tab PO DAILY RF: 0 Referrals: Tyrone Duckworth MD [Primary Care Provider] - Discharge Diet: Usual diet Discharge Activity: Resume usual activity Discharge Date/Time: 12/03/19 19:24 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 of Care Code ED Senior Integration Architect for Chg Fwd Exam Comprehensive
[2019-12-03 16:05] LABS: Basophils % 0.5 %; Eosinophils % 0.5 %; Hematocrit 33.3 % (42.0-52.0); Hemoglobin 11.4 g/dL (11.7-16.6); Lymphocytes % 27.6 %; Mean Corpuscular HGB Conc 34.2 g/dL (30.0-36.0); Mean Corpuscular Hemoglobin 32.9 pg (28.0-34.0); Mean Corpuscular Volume 96.2 fL (80-94); Mean Platelet Volume 9.5 fL (7.4-10.4); Monocytes # 0.5 10^3/uL (0.2-0.9); Monocytes % 14.5 %; Neutrophils # 2.1 10^3/uL (1.8-7.7); Neutrophils % 56.6 %; Nucleated Red Blood Cells % 0 %; Platelet Count 178 10^3/cmm (130-400); Red Blood Count 3.46 10^6/uL (4.1-5.3); Red Cell Distribution Width 13.1 % (12.1-15.1); White Blood Count 3.7 10^3/uL (4.0-10.0)
[2019-12-03 16:24] LABS: Lactate (Lactic Acid level) 0.2 mmol/L (0.5-2.2)
[2019-12-03 16:25] LABS: Alanine Aminotransferase 16 U/L (0-41); Alkaline Phosphatase 122 IU/L (40-130); Anion Gap 18.6 (5-19); Aspartate Amino Transferase 29 U/L (0-40); Blood Urea Nitrogen 16 mg/dL (8-23); Calcium 9.3 mg/dL (8.5-10.5); Carbon Dioxide 28 mmol/L (22-29); Chloride 84 mmol/L (98-107); Globulin 1.9 g/dL (1.3-4.6); Glucose 103 mg/dL (65-115); Lipase 55 U/L (13-60); Osmolality Calculated 261 mOsm/kg (285-295); Potassium 3.6 mmol/L (3.5-5.1); Sodium 127 mmol/L (136-145); Total Bilirubin 0.5 mg/dL (0.15-1.2); Total Protein 5.9 g/dL (6.6-8.7)
[2019-12-03] MEDS: sodium chloride 0.9% 1,000 ML 999 ML IV ×2 (16:33→18:23)
[2019-12-03] MEDS: ondansetron 2 mg/ML SDV 2 mL 4 MG IVP (16:33)
[2019-12-03 16:39] VITALS: BP 133/77; PULSE 96; O2SAT 95
[2019-12-03 17:23] LABS: Add Urine Microscopic? NO
[2019-12-03 17:30] LABS: Urine Appearance Clear (CLEAR); Urine Color Dark Yellow (Yellow)
[2019-12-03 17:31] LABS: Bilirubin Urine 1+ (NEGATIVE); Blood Urine Neg (Negative); Glucose Urine UA Norm (Normal); Ketones Urine 2+ (Negative); Leukocyte Esterase Urine Negative (Negative); Nitrate Urine Negative (Negative); Protein Urine Neg (Negative); Specific Gravity, Urine 1.015 (1.005-1.030); Urobilinogen Urine Norm (Negative); pH Urine 5 (5-7)
[2019-12-03 18:25] VITALS: BP 146/80; PULSE 91; O2SAT 97
[2019-12-03 19:10] VITALS: BP 142/82; PULSE 94; O2SAT 97
== END 2019-12-03 19:24 | disposition home or self-care (01) ==
PROVIDERS: Emergency Provider Family Medicine; PCP Internal Medicine
DX: K59.00 Constipation, unspecified (principal); Z79.02 Long term (current) use of antithrombotics/antiplatelets; Z79.82 Long term (current) use of aspirin; I10 Essential (primary) hypertension; Z85.89 Personal history of malignant neoplasm of other organs and systems
CPT/HCPCS: 12345; 45915; 74022; 80053; 81003; 83605; 83690; 85025; 96361; 96374; 96375; 99283; A9270; J2405; J7030

== ENCOUNTER 2019-12-16 14:35 | Inpatient (IN) | payer MEDICARE, OTHER, SELFPAY ==
[2019-12-16] VITALS (9 sets, daily range): BP systolic 125–166; BP diastolic 65–89; PULSE 82–90; RESP 12–20; TEMP 36.6–37; O2SAT 91–99; BMI 22.9
--- NOTE | 2019-12-16 14:53 | PC.NURSE ---
EKG done at 1451 and shown to ER doctor
--- NOTE | 2019-12-16 15:02 | W.ED.WEAKNES ---
Documented by User: Ananda Clark DO 12/16/19 15:06 HPI - Weakness General: Chief complaint: Weakness Stated complaint: HYPOTENSIVE/ LETHARGIC/ WEAK Time Seen by Provider: 12/16/19 14:41 History of Present Illness: HPI Narrative: Patient suffered a CVA approximately one month ago. Since that time he has been having much more frequent falls. Patient is essentially bedridden. His brother lives with him and gets the patient out of bed and into his wheelchair. Today the patient was so weak that he was not able to help at all in transfer. Patient brother deny fever, shortness of breath, cough, nausea and vomiting. MD Complaint: generalized weakness, numbness, tingling, lack of energy and difficulty walking Onset (ago): unknown Duration: constant and progressively worsening Location: generalized Severity: severe Quality: tingling, numbness, aching and dull Relieving factors: none Exacerbating factors: rest Review of Systems General: Reports: 10 or more systems reviewed and unremarkable except in HPI and below PFSH ED PFSH: Medical History 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 -continue AEDs; is on tegretol and depakote; levels therapeutic -seizure precautions; cannot recall when he had his last seizure but per review of chart, may have had seizure in 07/2019 which resulted in fall and subsequent R pubic rami and R acetabular fractures (non-displaced, no surgical intervention) Depression History of basal cell cancer HTN (hypertension) -BP controlled without medications; permissive HTN x 24 hrs -continue to monitor vital signs Hypothyroidism -TSH wnl, on levothyroxine Insomnia CHRISTINA (obstructive sleep apnea) -with nocturnal hypoxemia, oxygen dependent, 4 L NC qhs Posttraumatic encephalopathy Vitamin D deficiency Surgical History History of appendectomy History of tonsillectomy and adenoidectomy Family History Other Cancer Diabetes Social History Smoking and tobacco status: never smoked Alcohol intake: never Household members: children Housing: House Marital status: / Current occupational status: retired History of recent travel: No Current gender identity: Male Physical Exam Const: COMMON NORMALS: no acute distress, healthy appearing and well nourished GENERAL APPEARANCE: cooperative and well developed HENMT: COMMON NORMALS: normocephalic and atraumatic HEAD & SCALP: normal to inspection, normocephalic and atraumatic Eye: GENERAL EYE: appearance normal, both eyes and all related structures Neck/C-Spine: COMMON NORMALS: full ROM, no lymphadenopathy and no meningeal signs GENERAL: Yes normal visual inspection CERVICAL SPINE: Yes cervical ROM normal and Yes normal cervical lordosis Chest: COMMONS NORMALS: normal inspection of the chest and normal palpation of entire chest wall Resp: COMMON NORMALS: normal respiratory effort, clear to auscultation bilaterally and percussion normal AUSCULTATION: clear to auscultation bilaterally PERCUSSION: percussion normal Cardio: COMMON NORMALS: regular rate, regular rhythm, S1 normal heart sound present and S2 normal heart sound present JUGULAR VENOUS DISTENTION: no JVD PALPATION: normal PMI RATE: regular rate RHYTHM: regular rhythm HEART SOUNDS: S1 normal heart sound present and S2 normal heart sound present GI: COMMON NORMALS: Soft to palpation and No hepatosplenomegaly present INSPECTION: Yes normal to inspection PALPATION: Yes Soft to palpation and Yes No hepatosplenomegaly present PERCUSSION: normal to percussion : COMMON NORMALS: Yes no CVA tenderness BLADDER/KIDNEY EXAM: Yes no CVA tenderness Back/Pelvis: COMMON NORMALS: no CVA tenderness, thoracic and lumbar spine normal to inspection and thoraco-lumbar ROM normal Extremity: COMMON NORMALS: normal to inspection, full ROM and capillary refill normal Neuro: MENINGEAL SIGNS: Yes no meningeal signs Skin: COMMON NORMALS: no rashes or lesions noted, no wounds and turgor normal GENERAL SKIN EXAM: no rashes or lesions noted, elasticity normal and turgor normal LESIONS: no lesions RASHES: no rashes TRAUMA: no lacerations or abrasions HAIR: normal NAILS: normal Course Vital Signs: Vital signs: Vital Signs Temperature 98.6 F 12/16/19 14:39 Pulse Rate 90 12/16/19 16:43 Respiratory Rate 16 12/16/19 16:43 Blood Pressure 127/72 12/16/19 16:43 Pulse Oximetry 91 12/16/19 16:43 MDM - Weakness Lab Data: Labs: Lab Results 12/16/19 12/16/19 12/16/19 Range/Units 15:49 15:49 15:49 WBC 5.3 (4.0-10.0) 10^3/ uL RBC 3.28 L (4.1-5.3) 10^6/u L Hgb 11.1 L (11.7-16.6) g/dL Hct 35.1 L (42.0-52.0) % MCV 107.0 H (80-94) fL MCH 33.8 (28.0-34.0) pg MCHC 31.6 (30.0-36.0) g/dL RDW 15.7 H (12.1-15.1) % Plt Count 176 (130-400) 10^3/c mm MPV 9.2 (7.4-10.4) fL Neut % (Auto) 67.5 % Lymph % (Auto) 23.1 % [place] % (Auto) 8.4 % Eos % (Auto) 0.6 % Baso % (Auto) 0.2 % Neut # (Auto) 3.6 (1.8-7.7) 10^3/u L Lymph # (Auto) 1.2 (0.8-4.8) 10^3/u L [place] # (Auto) 0.5 (0.2-0.9) 10^3/u L Eos # (Auto) 0.0 (0.0-0.8) 10^3/u L Baso # (Auto) 0.0 (0.0-0.1) 10^3/u L Nucleated RBC % (a uto) 0 % Nucleated RBCs # 0.0 /100WBC Specimen Type Sample Site ABG pH (7.35-7.45) ABG pCO2 (35-45) mmHg ABG pO2 (80.0-100.0) mmH g ABG HCO3 (22-26) mmol/L ABG Base Excess (-2.0-2.0) mmol/ L Joseph Test Hematocrit (42-52) % O2 Delivery Device FiO2 % Mask Layout Designer ID Sodium 138 (136-145) mmol/L Potassium 4.1 (3.5-5.1) mmol/L Chloride 99 (98-107) mmol/L Carbon Dioxide 29 (22-29) mmol/L Anion Gap 14.1 (5-19) BUN 15 (8-23) mg/dL Creatinine 0.6 L (0.7-1.2) mg/dL Glucose 91 (65-115) mg/dL Calculated Osmolal ity 282 L (285-295) mOsm/k g Lactate 1.0 (0.5-2.2) mmol/L Calcium 8.7 (8.5-10.5) mg/dL Total Bilirubin 0.5 (0.15-1.2) mg/dL AST 22 (0-40) U/L ALT 14 (0-41) U/L Alkaline Phosphata se 93 (40-130) IU/L Troponin T Baselin e (0-15) ng/L NT-Pro-B Natriuret Pep 346 (0-450) pg/mL Total Protein 6.0 L (6.6-8.7) g/dL Albumin 3.6 (3.5-5.2) g/dL Globulin 2.4 (1.3-4.6) g/dL Lipase 56 (13-60) U/L TSH 0.82 (0.27-4.20) uIU/ mL Valproic Acid 28.8 L (50-100) ug/mL 12/16/19 12/16/19 Range/Units 15:49 16:02 WBC (4.0-10.0) 10^3/ uL RBC (4.1-5.3) 10^6/u L Hgb (11.7-16.6) g/dL Hct (42.0-52.0) % MCV (80-94) fL MCH (28.0-34.0) pg MCHC (30.0-36.0) g/dL RDW (12.1-15.1) % Plt Count (130-400) 10^3/c mm MPV (7.4-10.4) fL Neut % (Auto) % Lymph % (Auto) % [place] % (Auto) % Eos % (Auto) % Baso % (Auto) % Neut # (Auto) (1.8-7.7) 10^3/u L Lymph # (Auto) (0.8-4.8) 10^3/u L [place] # (Auto) (0.2-0.9) 10^3/u L Eos # (Auto) (0.0-0.8) 10^3/u L Baso # (Auto) (0.0-0.1) 10^3/u L Nucleated RBC % (a uto) % Nucleated RBCs # /100WBC Specimen Type Arterial Sample Site Radial, left ABG pH 7.48 H (7.35-7.45) ABG pCO2 36.5 (35-45) mmHg ABG pO2 96.8 (80.0-100.0) mmH g ABG HCO3 27.3 H (22-26) mmol/L ABG Base Excess 3.7 H (-2.0-2.0) mmol/ L Joseph Test Pos Hematocrit 31.7 L (42-52) % O2 Delivery Device None FiO2 21.0 % Mask Layout Designer ID ed Sodium (136-145) mmol/L Potassium (3.5-5.1) mmol/L Chloride (98-107) mmol/L Carbon Dioxide (22-29) mmol/L Anion Gap (5-19) BUN (8-23) mg/dL Creatinine (0.7-1.2) mg/dL Glucose (65-115) mg/dL Calculated Osmolal ity (285-295) mOsm/k g Lactate (0.5-2.2) mmol/L Calcium (8.5-10.5) mg/dL Total Bilirubin (0.15-1.2) mg/dL AST (0-40) U/L ALT (0-41) U/L Alkaline Phosphata se (40-130) IU/L Troponin T Baselin e 33 H (0-15) ng/L NT-Pro-B Natriuret Pep (0-450) pg/mL Total Protein (6.6-8.7) g/dL Albumin (3.5-5.2) g/dL Globulin (1.3-4.6) g/dL Lipase (13-60) U/L TSH (0.27-4.20) uIU/ mL Valproic Acid (50-100) ug/mL Discharge Plan Discharge Patient Disposition: Admitted As Inpatient Clinical Impression: Weakness Condition: Stable Referrals: Tyrone Duckworth MD [Primary Care Provider] - 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 of Care Code ED Hand Bobbin Cleaner for Chg Fwd Exam Comprehensive Documented by User: Mirella Curiel MD 12/16/19 18:28 HPI - Weakness General: Chief complaint: Weakness Stated complaint: HYPOTENSIVE/ LETHARGIC/ WEAK Time Seen by Provider: 12/16/19 14:41 PFSH ED PFSH: Medical History 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 -continue AEDs; is on tegretol and depakote; levels therapeutic -seizure precautions; cannot recall when he had his last seizure but per review of chart, may have had seizure in 07/2019 which resulted in fall and subsequent R pubic rami and R acetabular fractures (non-displaced, no surgical intervention) Depression History of basal cell cancer HTN (hypertension) -BP controlled without medications; permissive HTN x 24 hrs -continue to monitor vital signs Hypothyroidism -TSH wnl, on levothyroxine Insomnia CHRISTINA (obstructive sleep apnea) -with nocturnal hypoxemia, oxygen dependent, 4 L NC qhs Posttraumatic encephalopathy Vitamin D deficiency Surgical History History of appendectomy History of tonsillectomy and adenoidectomy Family History Other Cancer Diabetes Social History Smoking and tobacco status: never smoked Alcohol intake: never Household members: children Housing: House Marital status: / Current occupational status: retired History of recent travel: No Current gender identity: Male Course Vital Signs: Vital signs: Vital Signs Temperature 98.6 F 12/16/19 14:39 Pulse Rate 90 12/16/19 16:43 Respiratory Rate 16 12/16/19 16:43 Blood Pressure 127/72 12/16/19 16:43 Pulse Oximetry 91 12/16/19 16:43 MDM - Weakness MDM Narrative: Medical decision making narrative: Patient presents here with generalized weakness and is unable to take care of himself. I spoke to his brother who is his microfilm equipment inspector currently and he feels overwhelmed. Will admit and further discuss possible care home placement. Lab Data: Labs: Lab Results 12/16/19 12/16/19 12/16/19 Range/Units 15:49 15:49 15:49 WBC 5.3 (4.0-10.0) 10^3/ uL RBC 3.28 L (4.1-5.3) 10^6/u L Hgb 11.1 L (11.7-16.6) g/dL Hct 35.1 L (42.0-52.0) % MCV 107.0 H (80-94) fL MCH 33.8 (28.0-34.0) pg MCHC 31.6 (30.0-36.0) g/dL RDW 15.7 H (12.1-15.1) % Plt Count 176 (130-400) 10^3/c mm MPV 9.2 (7.4-10.4) fL Neut % (Auto) 67.5 % Lymph % (Auto) 23.1 % [place] % (Auto) 8.4 % Eos % (Auto) 0.6 % Baso % (Auto) 0.2 % Neut # (Auto) 3.6 (1.8-7.7) 10^3/u L Lymph # (Auto) 1.2 (0.8-4.8) 10^3/u L [place] # (Auto) 0.5 (0.2-0.9) 10^3/u L Eos # (Auto) 0.0 (0.0-0.8) 10^3/u L Baso # (Auto) 0.0 (0.0-0.1) 10^3/u L Nucleated RBC % (a uto) 0 % Nucleated RBCs # 0.0 /100WBC Specimen Type Sample Site ABG pH (7.35-7.45) ABG pCO2 (35-45) mmHg ABG pO2 (80.0-100.0) mmH g ABG HCO3 (22-26) mmol/L ABG Base Excess (-2.0-2.0) mmol/ L Joseph Test Hematocrit (42-52) % O2 Delivery Device FiO2 % Mask Layout Designer ID Sodium 138 (136-145) mmol/L Potassium 4.1 (3.5-5.1) mmol/L Chloride 99 (98-107) mmol/L Carbon Dioxide 29 (22-29) mmol/L Anion Gap 14.1 (5-19) BUN 15 (8-23) mg/dL Creatinine 0.6 L (0.7-1.2) mg/dL Glucose 91 (65-115) mg/dL Calculated Osmolal ity 282 L (285-295) mOsm/k g Lactate 1.0 (0.5-2.2) mmol/L Calcium 8.7 (8.5-10.5) mg/dL Total Bilirubin 0.5 (0.15-1.2) mg/dL AST 22 (0-40) U/L ALT 14 (0-41) U/L Alkaline Phosphata se 93 (40-130) IU/L Troponin T Baselin e (0-15) ng/L NT-Pro-B Natriuret Pep 346 (0-450) pg/mL Total Protein 6.0 L (6.6-8.7) g/dL Albumin 3.6 (3.5-5.2) g/dL Globulin 2.4 (1.3-4.6) g/dL Lipase 56 (13-60) U/L TSH 0.82 (0.27-4.20) uIU/ mL Valproic Acid 28.8 L (50-100) ug/mL 12/16/19 12/16/19 Range/Units 15:49 16:02 WBC (4.0-10.0) 10^3/ uL RBC (4.1-5.3) 10^6/u L Hgb (11.7-16.6) g/dL Hct (42.0-52.0) % MCV (80-94) fL MCH (28.0-34.0) pg MCHC (30.0-36.0) g/dL RDW (12.1-15.1) % Plt Count (130-400) 10^3/c mm MPV (7.4-10.4) fL Neut % (Auto) % Lymph % (Auto) % [place] % (Auto) % Eos % (Auto) % Baso % (Auto) % Neut # (Auto) (1.8-7.7) 10^3/u L Lymph # (Auto) (0.8-4.8) 10^3/u L [place] # (Auto) (0.2-0.9) 10^3/u L Eos # (Auto) (0.0-0.8) 10^3/u L Baso # (Auto) (0.0-0.1) 10^3/u L Nucleated RBC % (a uto) % Nucleated RBCs # /100WBC Specimen Type Arterial Sample Site Radial, left ABG pH 7.48 H (7.35-7.45) ABG pCO2 36.5 (35-45) mmHg ABG pO2 96.8 (80.0-100.0) mmH g ABG HCO3 27.3 H (22-26) mmol/L ABG Base Excess 3.7 H (-2.0-2.0) mmol/ L Joseph Test Pos Hematocrit 31.7 L (42-52) % O2 Delivery Device None FiO2 21.0 % Mask Layout Designer ID ed Sodium (136-145) mmol/L Potassium (3.5-5.1) mmol/L Chloride (98-107) mmol/L Carbon Dioxide (22-29) mmol/L Anion Gap (5-19) BUN (8-23) mg/dL Creatinine (0.7-1.2) mg/dL Glucose (65-115) mg/dL Calculated Osmolal ity (285-295) mOsm/k g Lactate (0.5-2.2) mmol/L Calcium (8.5-10.5) mg/dL Total Bilirubin (0.15-1.2) mg/dL AST (0-40) U/L ALT (0-41) U/L Alkaline Phosphata se (40-130) IU/L Troponin T Baselin e 33 H (0-15) ng/L NT-Pro-B Natriuret Pep (0-450) pg/mL Total Protein (6.6-8.7) g/dL Albumin (3.5-5.2) g/dL Globulin (1.3-4.6) g/dL Lipase (13-60) U/L TSH (0.27-4.20) uIU/ mL Valproic Acid (50-100) ug/mL Imaging Data^: CT Head: Radiologist's impression: [facility] [address] [facility] [place] [address] CT Scan Report Signed Patient: Jerry Tapia Unit #: [id number] : 1940 Age/Sex: 79 / M ADM Date: 12/16/19 Loc: ER Room/Bed: Attending Dr: Ordering Provider/Ordering MD: Ananda Clark DO Date of Service: 12/16/19 Procedure(s): CT head wo con* [id number] Accession Number(s): [id number] Report Number: [id number] PROCEDURE INFORMATION: Exam: CT Head Without Contrast Exam date and time: 12/16/2019 5:32 PM Age: 79 years old Clinical indication: Altered mental status/memory loss; Additional info: AMS TECHNIQUE: Imaging protocol: Computed tomography of the head without contrast. Radiation optimization: All CT scans at this facility use at least one of these dose optimization techniques: automated exposure control; mA and/or kV adjustment per patient size (includes targeted exams where dose is matched to clinical indication); or iterative reconstruction. COMPARISON: CT head wo con* [id number] 11/19/2019 11:34 AM RADIATION DOSE METRICS: Total DLP (mGy-cm): 883.39 FINDINGS: Brain: There is moderate cortical atrophy. Low-density changes in the periventricular white matter is in keeping with nonspecific small vessel chronic ischemic change. There is no intracranial mass, hemorrhage or edema. Ventricles: Normal. No ventriculomegaly. Bones/joints: Unremarkable. No acute fracture. Sinuses: Visualized sinuses are unremarkable. No fluid levels. Mastoid air cells: Visualized mastoid air cells are well aerated. Soft tissues: Unremarkable. Other findings: Findings are not changed from previous. CT/CT head wo con* [id number] IMPRESSION: Atrophy and chronic ischemic changes. No acute intracranial abnormality. Discharge Plan Discharge Patient Disposition: Admitted As Inpatient Clinical Impression: Weakness Condition: Stable Referrals: Tyrone Duckworth MD [Primary Care Provider] - 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 of Care Code ED Hand Bobbin Cleaner for Chg Fwd Exam Comprehensive
--- NOTE | 2019-12-16 15:42 | XR_ITS ---
WS: [id number] PORTABLE CHEST HISTORY: ams COMPARISON: 11/19/2019 Hyperexpanded lungs with emphysema. No pneumonia or nodule. No pleural effusion or pneumothorax. Cardiac size: Normal. Mediastinum/Aorta: Normal mediastinum. Large calcification involving the medial LEFT humeral head with LEFT glenohumeral joint space narrowi ng. XR/XR chest 1V portable [id number] IMPRESSION: Chronic emphysema. No pneumonia.
--- NOTE | 2019-12-16 15:42 | CTR_ITS ---
PROCEDURE INFORMATION: Exam: CT Head Without Contrast Exam date and time: 12/16/2019 5:32 PM Age: 79 years old Clinical indication: Altered mental status/memory loss; Additional info: AMS TECHNIQUE: Imaging protocol: Computed tomography of the head without contrast. Radiation optimization: All CT scans at this facility use at least one of these dose optimization techniques: automated exposure control; mA and/or kV adjustment per patient size (includes targeted exams where dose is matched to clinical indication); or iterative reconstruction. COMPARISON: CT head wo con* [id number] 11/19/2019 11:34 AM RADIATION DOSE METRICS: Total DLP (mGy-cm): 883.39 FINDINGS: Brain: There is moderate cortical atrophy. Low-density changes in the periventricular white matter is in keeping with nonspecific small vessel chronic ischemic change. There is no intracranial mass, hemorrhage or edema. Ventricles: Normal. No ventriculomegaly. Bones/joints: Unremarkable. No acute fracture. Sinuses: Visualized sinuses are unremarkable. No fluid levels. Mastoid air cells: Visualized mastoid air cells are well aerated. Soft tissues: Unremarkable. Other findings: Findings are not changed from previous. CT/CT head wo con* [id number] IMPRESSION: Atrophy and chronic ischemic changes. No acute intracranial abnormality. Radiation Dose CTDIVOL = (mGy): DLP = 883.39 (mGy-cm)
[2019-12-16 16:12] LABS: ABG PCO2 36.5 mmHg (35-45); ABG PH Result 7.48 (7.35-7.45); Arterial Blood Gas Hematocrit 31.7 % (42-52); Base Excess ABG 3.7 mmol/L (-2.0-2.0); Blood Gas Allen Test Pos; Blood Gas Sample Site Radial, left; Blood Gas Sample Type Arterial; HCO3 ABG 27.3 mmol/L (22-26); PO2 ABG 96.8 mmHg (80.0-100.0)
[2019-12-16 16:14] LABS: Basophils % 0.2 %; Eosinophils % 0.6 %; Hematocrit 35.1 % (42.0-52.0); Hemoglobin 11.1 g/dL (11.7-16.6); Lymphocytes # 1.2 10^3/uL (0.8-4.8); Lymphocytes % 23.1 %; Mean Corpuscular HGB Conc 31.6 g/dL (30.0-36.0); Mean Corpuscular Hemoglobin 33.8 pg (28.0-34.0); Mean Platelet Volume 9.2 fL (7.4-10.4); Monocytes # 0.5 10^3/uL (0.2-0.9); Monocytes % 8.4 %; Neutrophils # 3.6 10^3/uL (1.8-7.7); Neutrophils % 67.5 %; Nucleated Red Blood Cells % 0 %; Platelet Count 176 10^3/cmm (130-400); Red Blood Count 3.28 10^6/uL (4.1-5.3); Red Cell Distribution Width 15.7 % (12.1-15.1); White Blood Count 5.3 10^3/uL (4.0-10.0)
[2019-12-16 16:39] LABS: Troponin(5th) Baseline 33 ng/L (0-15)
[2019-12-16] MEDS: sodium chloride 0.9% 500 ML IV (16:46)
[2019-12-16 16:49] LABS: Alanine Aminotransferase 14 U/L (0-41); Albumin Level 3.6 g/dL (3.5-5.2); Alkaline Phosphatase 93 IU/L (40-130); Anion Gap 14.1 (5-19); Aspartate Amino Transferase 22 U/L (0-40); Blood Urea Nitrogen 15 mg/dL (8-23); Calcium 8.7 mg/dL (8.5-10.5); Carbon Dioxide 29 mmol/L (22-29); Chloride 99 mmol/L (98-107); Globulin 2.4 g/dL (1.3-4.6); Glucose 91 mg/dL (65-115); Lipase 56 U/L (13-60); NT Pro B Type Natriuretic Pept 346 pg/mL (0-450); Osmolality Calculated 282 mOsm/kg (285-295); Potassium 4.1 mmol/L (3.5-5.1); Sodium 138 mmol/L (136-145); Thyroid Stimulating Hormone 0.82 uIU/mL (0.27-4.20); Total Bilirubin 0.5 mg/dL (0.15-1.2)
[2019-12-16 17:06] LABS: Valproic Acid Level 28.8 ug/mL (50-100)
--- NOTE | 2019-12-16 17:36 | PC.NURSE ---
patient to ct
--- NOTE | 2019-12-16 17:43 | ECG_ITS ---
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 Measurements Intervals [place] Rate: 81 P: 259 NE: 140 QRS: 60 QRSD: 89 T: 67 QT: 371 QTc: 433 Interpretive Statements JUNCTIONAL RHYTHM SEPTAL MYOCARDIAL INFARCTION , PROBABLY OLD [40+ ms Q WAVE IN V1/V2] Compared to ECG 11/19/2019 14:48:54 Junctional rhythm now present Atrial fibrillation no longer present Myocardial infarct finding still present Electronically Signed On 12-16-2019 21:14:58 CDT by Penny Aguilar M.D. [email or web address]
[2019-12-16] MEDS: piperacillin-tazobactam 3.375 GM in sodium chloride 0.9% (plus) 50 ML IV (18:00)
--- NOTE | 2019-12-16 18:30 | PC.NURSE ---
EKG done at 1810 and shown to ER doctor
[2019-12-16 18:33] LABS: Add Urine Microscopic? YES; Bilirubin Urine Neg (NEGATIVE); Blood Urine 3+ (Negative); Glucose Urine UA Norm (Normal); Ketones Urine 1+ (Negative); Leukocyte Esterase Urine 2+ (Negative); Nitrate Urine Positive (Negative); Protein Urine Neg (Negative); Urine Appearance Cloudy (CLEAR); Urine Color Dark Yellow (Yellow); Urobilinogen Urine 1 mg/dL (Negative); pH Urine 7 (5-7)
[2019-12-16 18:35] LABS: RBC Urine TOO NUMEROUS TO CNT /hpf (0-2); WBC Urine 40-55 /hpf (0-5)
[2019-12-16 18:36] LABS: Add Urine Culture? No; Bacteria Urine 4+; Hyaline Casts Urine 0-4; Mucus Urine 2+
[2019-12-16 18:45] LABS: Troponin 5 2HR 27.08 ng/L (0-15)
--- NOTE | 2019-12-16 18:45 | P.HP_ITS ---
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 Recently patient was admitted and discharged from [facility] for stroke with aphasia, productive receptive, slurring of his speech, generalized weakness, discharged home, has 24-hour care by his son Maicol. Of note patient was recently admitted to assisted after his pubic rami and acetabular fractures, medically managed. According to patient, he is totally dependent on Maicol for his activities of daily living, wheelchair dependent, can shave himself, but requires for example Maicol to help him to the bathroom. He has been complaining of generalized weakness, poor appetite, roughly 40 pound weight loss. He has had multiple falls, he has a right shoulder bruising, right hip bruising, right lower extremity bruising from multiple falls. On fall 2 days ago he had head trauma, did not seek medical intervention. No breakthrough seizures, no seizure-like activity, no loss of consciousness, no significant bleeding. Patient states that this afternoon, he was getting up from his wheelchair when he just felt suddenly weak, they checked his blood pressure and it was 80s over 40s, so they decided to come to the emergency room. Denies fevers, chills, no exposure to COVID-19, no recent travel, patient is from [facility] Review of Systems Const: Denies: fever(s), chills, fatigue or malaise Eyes: Denies: change in vision or blurry vision ENMT: Denies: throat pain or nasal congestion Card: Denies: chest pain or palpitations Resp: Denies: dyspnea, productive cough, non-productive cough or wheezing GI: Denies: abdominal pain, nausea, vomiting, hematemesis, diarrhea, constipation, hematochezia or melena : Denies: flank pain, difficulty urinating, dysuria or urinary frequency Musc: Denies: neck pain or back pain Skin/Breast: Denies: rash Neuro: Denies: headache(s), dizziness or vertigo Psych: Denies: anxiety or depression Endo: Denies: polyuria or polydipsia Medications/Allergies Home Medications Medication Instructions Recorded Confirmed Last Taken Type levothyroxine 100 mcg tablet 100 mcg PO DAILY 07/08/19 12/16/19 12/03/19 History saw palmetto 160 mg capsule 320 mg PO DAILY 07/08/19 12/16/19 11/18/19 History tamsulosin 0.4 mg capsule 0.4 mg PO DAILY 07/08/19 12/16/19 11/18/19 History divalproex [Depakote ER] 1,000 mg PO BEDTIME 07/26/19 12/16/19 11/18/19 History latanoprost 1 drp OPHTHALMIC (EYE) DAILY 07/26/19 12/16/19 11/18/19 History ondansetron HCl 4 mg tablet 4 mg PO Q6H PRN 10/08/19 12/16/19 Unknown History aspirin [Enteric Coated Aspirin] 81 mg PO DAILY 30 Days #30 tab 11/20/19 12/16/19 12/03/19 Rx atorvastatin 40 mg PO BEDTIME 30 Days #30 tab 11/20/19 12/16/19 Unknown Rx clopidogrel 75 mg PO DAILY 30 Days #30 tab 11/20/19 12/16/19 12/03/19 Rx sennosides-docusate sodium 1 tab PO BID 30 Days #60 tab 11/20/19 12/16/19 Unknown Rx calcium carbonate [Calcium 500] 500 mg PO DAILY 12/03/19 12/16/19 Unknown History cholecalciferol (vitamin D3) 25 mcg PO DAILY 12/03/19 12/16/19 Unknown History [Vitamin D3] magnesium citrate 150 ml PO BID PRN #296 ml 12/03/19 12/16/19 Unknown Rx carbamazepine 300 mg See Rx Instructions .ROUTE 12/09/19 12/16/19 Unknown Rx capsule,extended release [id number] .COMPLEX #180 cap amlodipine 10 mg PO DAILY 12/16/19 12/16/19 Unknown History diclofenac sodium 50 mg PO DAILY PRN 12/16/19 12/16/19 Unknown History metoprolol tartrate 12.5 mg PO BID 12/16/19 12/16/19 Unknown History Allergies Allergy/AdvReac Type Severity Reaction Status Date / Time No Known Allergies Allergy Verified 12/03/19 17:06 PFSH Acute PFSH: Medical History 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 -continue AEDs; is on tegretol and depakote; levels therapeutic -seizure precautions; cannot recall when he had his last seizure but per review of chart, may have had seizure in 07/2019 which resulted in fall and subsequent R pubic rami and R acetabular fractures (non-displaced, no surgica l intervention) Depression History of basal cell cancer HTN (hypertension) -BP controlled without medications; permissive HTN x 24 hrs -continue to monitor vital signs Hypothyroidism -TSH wnl, on levothyroxine Insomnia CHRISTINA (obstructive sleep apnea) -with nocturnal hypoxemia, oxygen dependent, 4 L NC qhs Posttraumatic encephalopathy Vitamin D deficiency Surgical History History of appendectomy History of tonsillectomy and adenoidectomy Family History Other Cancer Diabetes Social History Smoking and tobacco status: never smoked Alcohol intake: never Household members: children Housing: House Marital status: / Current occupational status: retired History of recent travel: No Current gender identity: Male Vitals/I&O/Wt Last Vital Signs Temp 98.6 F 12/16/19 14:39 Pulse 90 12/16/19 18:38 Resp 18 12/16/19 18:38 BP 166/84 12/16/19 18:38 Pulse Ox 99 12/16/19 18:38 12/16/19 12/16/19 12/16/19 06:59 14:59 22:59 Intake Total 500 / 500 Balance 500 / 500 Weight last 48 hrs Weight 72.575 kg Physical Exam Const: COMMON NORMALS: no acute distress and patient oriented x3 GENERAL APPEARANCE: cooperative and comfortable HENMT: COMMON NORMALS: normocephalic HEAD & SCALP: normocephalic Eye: COMMON NORMALS: Equal, round and reactive pupils present and EOMs intact bilaterally GENERAL EYE: appearance normal, both eyes and all related structures PUPIL: Yes Equal, round and reactive pupils present DIRECT OPHTHALMOSCOPY: Yes no papilledema Neck/C-Spine: COMMON NORMALS: full ROM, no lymphadenopathy, no JVD and Thyroid normal THYROID: Thyroid normal Lymph: LYMPHATIC: no lymphadenopathy noted Resp: COMMON NORMALS: normal respiratory effort, No retractions, No use of accessory muscles and clear to auscultation bilaterally AUSCULTATION: clear to auscultation bilaterally Cardio: COMMON NORMALS: no JVD, regular rate, regular rhythm, S1 normal heart sound present, S2 normal heart sound present, No gallops present (Cardio), No clicks present (Cardio) and No murmurs present (Cardio) RATE: regular rate RHYTHM: regular rhythm HEART SOUNDS: S1 normal heart sound present and S2 normal heart sound present GI: COMMON NORMALS: Normal to inspection, nondistended, normoactive bowel sounds present, Soft to palpation, non-tender and No hepatosplenomegaly present PALPATION: Yes Soft to palpation and Yes No hepatosplenomegaly present Extremity: COMMON NORMALS: normal to inspection and full ROM NARRATIVE EXTREMITY EXAM: 1+ pitting edema OTHER: Right lower extremity externally rotated, has right hip pain Has right shoulder bruising, right flank bruising, bruising down the right leg, right hip bruising Neuro: COMMON NORMALS: patient oriented x3, CN's II-XII intact bilaterally, moves all extremities, no focal motor deficits and no sensory deficits noted OTHER: Has generalized weakness, abnormal [id number] Psych: COMMON NORMALS: mental status grossly normal, Normal thought process present and cooperative THOUGHT PROCESS: Normal thought process present Urinary Catheter Management^: Zepeda: Cath Placed During This Visit: yes Urinary Catheter Date of Insertion: 12/16/19 Urinary Catheter Time of Insertion: 18:07 Data : 12/16/19 15:49 12/16/19 15:49 Micro: Microbiology 12/16/19 15:49 Blood Culture - Preliminary Blood SPECIMEN COLLECTED 12/16/19 15:54 Blood Culture - Preliminary Blood SPECIMEN COLLECTED A&P Assessment and plan (1) Weakness: -Generalized weakness likely related to stroke, Pubic rami fracture, acetabular fracture, deconditioning, UTI -PT OT -We will consider assisted placement Status: Acute (2) Cerebrovascular accident: -Productive and receptive aphasia -Generalized weakness -PT OT -Continue aspirin, Plavix -will do MRI brain Status: Acute (3) Multiple falls: -X-ray pelvis Status: Acute (4) UTI (urinary tract infection): -UA positive for UTI -Continue Rocephin Status: Acute (5) Aphasia: Status: Acute (6) HTN (hypertension): Status: Chronic Qualifiers: Hypertension type: essential hypertension Qualified Code(s): I10 - Essential (primary) hypertension (7) BPH (benign prostatic hyperplasia): Status: Chronic Qualifiers: Lower urinary tract symptom detail: post-void dribbling Lower urinary tract symptom presence: symptoms present Qualified Code(s): N40.1 - Benign prostatic hyperplasia with lower urinary tract symptoms; N39.43 - Post-void dribbling (8) Pubic ramus fracture: Status: Acute Qualifiers: Encounter type: subsequent encounter Fracture healing: with routine healing Fracture type: closed Laterality: right Qualified Code(s): S32.591D - Other specified fracture of right pubis, subsequent encounter for fracture with routine healing (9) Closed right acetabular fracture: Status: Acute Qualifiers: Encounter type: subsequent encounter Fracture alignment: nondisplaced Fracture healing: with routine healing Sublocation of acetabulum: anterior wall Qualified Code(s): S32.414D - Nondisplaced fracture of anterior wall of right acetabulum, subsequent encounter for fracture with routine healing (10) Depression: Status: Chronic Qualifiers: Depression Type: unspecified Qualified Code(s): F32.9 - Major depressive disorder, single episode, unspecified (11) Hypothyroidism: Status: Chronic Qualifiers: Hypothyroidism type: unspecified Qualified Code(s): E03.9 - Hypothyroidism, unspecified (12) CHRISTINA (obstructive sleep apnea): Status: Chronic Additional A&P Information Lovenox for DVT prophylaxis, full code Attestations Medical Necessity Statement*: Patient requires hospitalization, inpatient, greater than 2 midnights, deconditioning, falls, weakness, UTI history of stroke 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 of 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[employer] Fwd Diagnoses Weakness R53.1 Cerebrovascular accident I63.9 Multiple falls R29.6 UTI (urinary tract infection) N39.0 Aphasia R47.01 HTN (hypertension) I10 Hypertension type: essential hypertension BPH (benign prostatic hyperplasia) N40.1; N39.43 Lower urinary tract symptom detail: post-void dribbling Lower urinary tract symptom presence: symptoms present Pubic ramus fracture S32.591D Encounter type: subsequent encounter Fracture healing: with routine healing Fracture type: closed Laterality: right Closed right acetabular fracture S32.414D Encounter type: subsequent encounter Fracture alignment: nondisplaced Fracture healing: with routine healing Sublocation of acetabulum: anterior wall Depression F32.9 Depression Type: unspecified Hypothyroidism E03.9 Hypothyroidism type: unspecified CHRISTINA (obstructive sleep apnea) G47.33
[2019-12-16 19:05] LABS: Troponin 5 2HR Delta -5.92 ABS# (0-10)
--- NOTE | 2019-12-16 19:05 | XRR_ITS ---
PROCEDURE INFORMATION: Exam: XR Bilateral Hips with Pelvis when Performed Exam date and time: 12/17/2019 7:16 AM Age: 79 years old Clinical indication: Injury or trauma; Fall; Initial encounter; Blunt trauma (contusions or hematomas); Right; Injury date: 12/16/19; Injury details: C/O RT hip pain TECHNIQUE: Imaging protocol: XR bilateral hips with pelvis when performed. Views: 2 views. COMPARISON: CR XR hip RT 2-3V wo/w pel* [id number] 09/01/2019 1:16 PM FINDINGS: Bones/joints: Osteopenia. Mild degenerative changes with joint space narrowing of both hips. Suspicion subchondral cystic degenerative change at the lower left acetabulum. Cortical irregularity which is suggestive of fracture deformity of the right inferior pubic ramus difficult to age with limited inclusion of the right hip on prior images. Soft tissues: Unremarkable. XR/XR hip BI m 5V wo/w pel* [id number] IMPRESSION: 1. Mild degenerative change of both hips with joint space narrowing. 2. Possible acute fracture right inferior pubic ramus.
[2019-12-16 21:08] LABS: Estmated Average Glucose 80; Hemoglobin A1C 4.4 % (4.0-6.0)
--- NOTE | 2019-12-16 21:43 | ECG_ITS ---
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 Measurements Intervals Morton Rate: 84 P: -18 PA: 145 QRS: 66 QRSD: 82 T: 68 QT: 356 QTc: 421 Interpretive Statements SINUS RHYTHM INTERPRETATION BASED ON A DEFAULT AGE OF 40 YEARS Compared to ECG 12/16/2019 18:11:09 Junctional rhythm no longer present Myocardial infarct finding no longer present Electronically Signed On 12-17-2019 21:52:14 CDT by Penny Aguilar M.D. [email or web address]
[2019-12-16 21:59] LABS: NT Pro B Type Natriuretic Pept 298 pg/mL (0-450)
[2019-12-16 22:14] LABS: Troponin 5 6HR 28.25 ng/L (0-15)
[2019-12-16 22:19] LABS: Troponin 5 6HR Delta -4.75 ng/L (0-12)
[2019-12-16] MEDS: divalproex ER 500 mg Tablet (24H) 1000 MG PO (22:55)
[2019-12-16] MEDS: enoxaparin 40 mg/0.4 mL Syringe SUBCUT (22:55)
[2019-12-16] MEDS: atorvastatin 40 mg Tablet PO (22:55)
[2019-12-16 23:26] LABS: Chol HDL Ratio 3.19 mg/dL (1.0-5.00); Cholesterol 134 mg/dL (0-200); HDL Cholesterol 42 mg/dL (60-100); LDL Cholesterol Calculated 77 mg/dL (50-129); LDL HDL Ratio 1.83 RATIO (0.00-3.22); Thyroid Stimulating Hormone 1.07 uIU/mL (0.27-4.20); Triglycerides 77 mg/dL (0-150)
[2019-12-17] VITALS (8 sets, daily range): BP systolic 100–153; BP diastolic 57–90; PULSE 68–85; RESP 12–20; TEMP 35.9–36.9; O2SAT 91–99
[2019-12-17 05:32] LABS: Basophils % 0.5 %; Eosinophils # 0.1 10^3/uL (0.0-0.8); Eosinophils % 2.3 %; Hematocrit 30.7 % (42.0-52.0); Lymphocytes # 1.4 10^3/uL (0.8-4.8); Lymphocytes % 35.2 %; Mean Corpuscular HGB Conc 32.6 g/dL (30.0-36.0); Mean Corpuscular Hemoglobin 34.4 pg (28.0-34.0); Mean Corpuscular Volume 105.5 fL (80-94); Mean Platelet Volume 9.2 fL (7.4-10.4); Monocytes # 0.4 10^3/uL (0.2-0.9); Monocytes % 10.4 %; Neutrophils % 51.6 %; Nucleated Red Blood Cells % 0 %; Platelet Count 148 10^3/cmm (130-400); Red Blood Count 2.91 10^6/uL (4.1-5.3); Red Cell Distribution Width 15.2 % (12.1-15.1); White Blood Count 3.8 10^3/uL (4.0-10.0)
[2019-12-17 06:04] LABS: INR 1.19 (0.8-1.2)
[2019-12-17 06:05] LABS: Fibrinogen 418 mg/dL (184-529)
[2019-12-17 06:06] LABS: Partial Thromboplastin Time 58.6 SECONDS (23.9-36.7)
[2019-12-17 06:09] LABS: D Dimer 0.34 ug/mIFEU (0-0.59)
[2019-12-17 06:12] LABS: Alanine Aminotransferase 11 U/L (0-41); Albumin Level 3.1 g/dL (3.5-5.2); Alkaline Phosphatase 78 IU/L (40-130); Anion Gap 12.2 (5-19); Aspartate Amino Transferase 17 U/L (0-40); Blood Urea Nitrogen 10 mg/dL (8-23); Calcium 8.7 mg/dL (8.5-10.5); Carbon Dioxide 28 mmol/L (22-29); Chloride 102 mmol/L (98-107); Globulin 1.8 g/dL (1.3-4.6); Glucose 82 mg/dL (65-115); Magnesium 2.1 mg/dL (1.7-2.3); Osmolality Calculated 281 mOsm/kg (285-295); Phosphorus 3.2 mg/dL (2.5-4.5); Potassium 4.2 mmol/L (3.5-5.1); Sodium 138 mmol/L (136-145); Total Bilirubin 0.4 mg/dL (0.15-1.2); Total Protein 4.9 g/dL (6.6-8.7)
[2019-12-17] MEDS: metoprolol tartrate 25 mg Tablet 12.5 MG PO (08:53)
[2019-12-17] MEDS: levothyroxine 100 mcg Tablet PO (08:53)
[2019-12-17] MEDS: tamsulosin 0.4 mg Capsule PO (08:53)
[2019-12-17] MEDS: sennosides-docusate Tablet 1 TAB PO ×2 (08:53→22:04)
[2019-12-17] MEDS: cefTRIAXone 1,000 MG in sodium chloride 0.9% (plus) 50 ML 100 MG IV (08:53)
[2019-12-17] MEDS: calcium carbonate 500 mg Chew Tablet PO (08:53)
[2019-12-17] MEDS: amlodipine 10 mg Tablet PO (08:53)
[2019-12-17] MEDS: latanoprost 0.005% Op Soln 2.5 mL Btl 1 DROP EYE-BOTH (09:11)
[2019-12-17 10:17] LABS: Ferritin 144 ng/mL (30-400); Iron 57 ug/dL (59-158)
[2019-12-17] MEDS: clopidogrel 75 mg Tablet PO (10:17)
[2019-12-17] MEDS: pantoprazole 40 mg SDV IVP ×2 (10:17→22:04)
[2019-12-17] MEDS: aspirin 81 mg EC Tablet PO (10:17)
[2019-12-17 10:33] LABS: Vitamin B12 503 pg/mL (232-1245)
--- NOTE | 2019-12-17 10:54 | CTR_ITS ---
PROCEDURE INFORMATION: Exam: CT Abdomen And Pelvis Without Contrast Exam date and time: 12/17/2019 11:28 AM Age: 79 years old Clinical indication: Prior surgery; Surgery date: 6+ months; Surgery type: Appy; Patient HX: Denies abd pain has UTI; Additional info: UTI, R/O pyelo or obstructive TECHNIQUE: Imaging protocol: Computed tomography of the abdomen and pelvis without contrast. Radiation optimization: All CT scans at this facility use at least one of these dose optimization techniques: automated exposure control; mA and/or kV adjustment per patient size (includes targeted exams where dose is matched to clinical indication); or iterative reconstruction. COMPARISON: None RADIATION DOSE METRICS: Total DLP (mGy-cm): 438.64 FINDINGS: Detailed evaluation of the abdominal and pelvic viscera is somewhat limited in the absence of intravenous contrast. Inferior thorax: Mild dependent airspace disease, punctate calcifications, and small pleural effusions. Liver: No focal hepatic mass. Gallbladder and bile ducts: Contracted gallbladder. No biliary ductal dilatation. Pancreas: No pancreatic mass or ductal dilatation. Spleen: No splenomegaly. Adrenals: Subtle adrenal nodularity. Kidneys and ureters: Left parapelvic renal cysts. No hydronephrosis or urolithiasis. Stomach and bowel: Wall thickening in the nondistended stomach. Bowel dilatation, disproportionately involving the colon, along with prominent stool. Appendix: Appendix not visualized. Intraperitoneal space: No free fluid. Vasculature: Normal caliber of the abdominal aorta. Lymph nodes: Subcentimeter lymph nodes. Bladder: Zepeda catheter and wall thickening in the decompressed bladder. Reproductive: Unremarkable as visualized. Bones/joints: Osteopenia. Mild lumbar levoscoliosis, along with degenerative change and disc bulging. Soft tissues: Subcutaneous edema. CT/CT abdomen pelvis wo con [id number] IMPRESSION: 1. Zepeda catheter and wall thickening in the decompressed bladder. 2. Wall thickening in the nondistended stomach. 3. Additional findings as described above. Radiation Dose CTDIVOL = (mGy): DLP = 438.64 (mGy-cm)
--- NOTE | 2019-12-17 11:25 | PC.CHAP ---
Pastoral Care Encounter/Spiritual Assessment Type of Contact [] Declined stiff leg operator visit [] Patient/Family/Request visit [] Outpatient visit [] Follow-up visit [] Physician referral [] Code/Alert [x] Routine visit [] Staff referral [] Actively dying [] Patient sleeping [] Family support [] [] Out of room [] Palliative care [] [] Receiving care in room [] Pre-surgical visit [] Trauma [] Long length of stay [] ICU visit [] Other: Relational/Emotional Strength [] Patient feels connected with others/family/visitors/staff [] Distress [] Loneliness/isolation [] Abandonment Spirituality of Patient [] Person of Gertrudis [] Attends Methodist of their Gertrudis [] Believes in Prayer [] Reads Bible or Orthodoxy materials [] There are Spiritual issues to be addressed Account Resolution Analyst Interventions [x] Prayer [x] Active listening [x] Non-anxious presence [x] Spiritual/emotional support [] Crisis/trauma care [] Spiritual counseling [] Bereavement support [] Provided bereavement packet [] Provided Bible/devotional materials [] Provided toy/stuffed animal, coloring book to patient or family member [] Provided Communion [] Anointing/Glen [] Salvation [x] Completed spiritual assessment [] Other: Impact on Illness or Injury [] Angry [] Fearful [] Anxious [] Often cries [] Exhaustion [] Unable to work [] Unable to attend sabianism [] Unable to walk/stand [] Unable to read [] Unable to drive [] Unable to eat/drink [] Unable to sleep [] Unable to be with family [] Patient intubated [] Other: Summary Patient ready to return home. Time spent with patient 10 min
--- NOTE | 2019-12-17 12:00 | MR_ITS ---
WS: [id number] MRI BRAIN WITH AND WITHOUT CONTRAST HISTORY: stroke COMPARISON: 07/12/[address] head 12/16/2019 TECHNIQUE: Multiplanar imaging performed through the brain with Prohance 16 ml's IV. No acute infarcts are seen. [place]-white matter differentiation is well preserved. Moderate atrophy is symmetric bilaterally. There are a few scattered T2 and FLAIR signal hyperintensi ties from chronic ischemic disease. Ventricles and extra-axial spaces are prominent on the basis of central and peripheral atrophy. Clivus and pituitary gland are normal. Mild cerebellar atrophy. Postcontrast images are negative for masses or vascular malformations. Dural venous sinuses are normal. Paranasal sinuses: Air-fluid level in the sphenoid sinus. Mastoid air cells: Normal. Calvarium and scalp: Normal. MR/MR head wo/w con [id number] IMPRESSION: 1. No acute infarct or mass. 2. Moderate atrophy and chronic ischemic disease. 3. Air-fluid level in the sphenoid sinus.
--- NOTE | 2019-12-17 13:09 | PM.PN ---
Subjective Subjective: Interval history: This morning patient was sitting up in bed, has no significant complaints, is feeling better, denies back pain, denies bello plan, denies hip pain patient has been bleeding from his Lovenox injections, which have been stopped, alert oriented x3, answering most questions appropriately Vitals/I&O/Wt Last Vital Signs Temp 97.5 F L 12/17/19 08:00 Pulse 68 12/17/19 10:02 Resp 20 H 12/17/19 08:00 BP 153/90 12/17/19 08:00 Pulse Ox 98 12/17/19 10:02 12/16/19 12/17/19 12/17/19 22:59 06:59 14:59 Intake Total 650 / 650 236 / 236 Output Total 1200 / 1200 Balance 650 / 650 -1200 / -550 236 / 236 Weight last 48 hrs Weight 72.575 kg Physical Exam Const: COMMON NORMALS: no acute distress and patient oriented x3 HENMT: COMMON NORMALS: normocephalic HEAD & SCALP: normocephalic Neck/C-Spine: COMMON NORMALS: no JVD Resp: COMMON NORMALS: normal respiratory effort, No retractions, No use of accessory muscles and clear to auscultation bilaterally AUSCULTATION: clear to auscultation bilaterally Cardio: COMMON NORMALS: no JVD, regular rate, regular rhythm, S1 normal heart sound present and S2 normal heart sound present RATE: regular rate RHYTHM: regular rhythm HEART SOUNDS: S1 normal heart sound present and S2 normal heart sound present GI: COMMON NORMALS: Normal to inspection, nondistended, normoactive bowel sounds present, Soft to palpation, non-tender, No hepatosplenomegaly present, no masses and no bruits PALPATION: Yes Soft to palpation and Yes No hepatosplenomegaly present Extremity: COMMON NORMALS: capillary refill normal, no clubbing, cyanosis or edema, no calf tenderness and no pedal edema Neuro: COMMON NORMALS: patient oriented x3 Psych: COMMON NORMALS: mental status grossly normal Urinary Catheter Management^: Zepeda: Cath Placed During This Visit: yes Reason for Continuing Indwelling Catheter: Acute Urinary Retention or Obstruction Urinary Catheter Date of Insertion: 12/16/19 Urinary Catheter Time of Insertion: 18:07 Data : 12/17/19 05:20 12/17/19 05:20 Micro: Microbiology 12/16/19 15:49 Blood Culture - Preliminary Blood SPECIMEN COLLECTED 12/16/19 15:54 Blood Culture - Preliminary Blood SPECIMEN COLLECTED A&P Assessment and plan (1) GI bleed: -Hemoglobin has been slowly trending down as patient is been on aspirin and Plavix for the last month -Likely slow GI bleed, will do iron studies, hold aspirin Plavix, Protonix 40 twice daily, trend hemoglobins, Hemoccult stool Status: Acute (2) Weakness: -Generalized weakness likely related to stroke, Pubic rami fracture, acetabular fracture, deconditioning, UTI -PT OT -We will consider halfway placement Status: Acute (3) Cerebrovascular accident: -Productive and receptive aphasia -Generalized weakness -PT OT -Hold aspirin and Plavix as above -will do MRI brain Status: Acute (4) Multiple falls: -X-ray pelvis Status: Acute (5) UTI (urinary tract infection): -UA positive for UTI -Continue Rocephin -We will do CT of the abdomen to rule out obstructive uropathy Status: Acute (6) Aphasia: Status: Acute (7) HTN (hypertension): Status: Chronic Qualifiers: Hypertension type: essential hypertension Qualified Code(s): I10 - Essential (primary) hypertension (8) BPH (benign prostatic hyperplasia): Status: Chronic Qualifiers: Lower urinary tract symptom detail: post-void dribbling Lower urinary tract symptom presence: symptoms present Qualified Code(s): N40.1 - Benign prostatic hyperplasia with lower urinary tract symptoms; N39.43 - Post-void dribbling (9) Pubic ramus fracture: Status: Acute Qualifiers: Encounter type: subsequent encounter Fracture healing: with routine healing Fracture type: closed Laterality: right Qualified Code(s): S32.591D - Other specified fracture of right pubis, subsequent encounter for fracture with routine healing (10) Closed right acetabular fracture: Status: Acute Qualifiers: Encounter type: subsequent encounter Fracture alignment: nondisplaced Fracture healing: with routine healing Sublocation of acetabulum: anterior wall Qualified Code(s): S32.414D - Nondisplaced fracture of anterior wall of right acetabulum, subsequent encounter for fracture with routine healing (11) Depression: Status: Chronic Qualifiers: Depression Type: unspecified Qualified Code(s): F32.9 - Major depressive disorder, single episode, unspecified (12) Hypothyroidism: Status: Chronic Qualifiers: Hypothyroidism type: unspecified Qualified Code(s): E03.9 - Hypothyroidism, unspecified (13) CHRISTINA (obstructive sleep apnea): Status: Chronic Additional A&P Information Lovenox for DVT prophylaxis, full code Attestations Medical Necessity Statement*: Patient requires hospitalization for weakness, UTI, GI bleed 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 of Care Code 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 [employer] Fwd Diagnoses GI bleed K92.2 Weakness R53.1 Cerebrovascular accident I63.9 Multiple falls R29.6 UTI (urinary tract infection) N39.0 Aphasia R47.01 HTN (hypertension) I10 Hypertension type: essential hypertension BPH (benign prostatic hyperplasia) N40.1; N39.43 Lower urinary tract symptom detail: post-void dribbling Lower urinary tract symptom presence: symptoms present Pubic ramus fracture S32.591D Encounter type: subsequent encounter Fracture healing: with routine healing Fracture type: closed Laterality: right Closed right acetabular fracture S32.414D Encounter type: subsequent encounter Fracture alignment: nondisplaced Fracture healing: with routine healing Sublocation of acetabulum: anterior wall Depression F32.9 Depression Type: unspecified Hypothyroidism E03.9 Hypothyroidism type: unspecified CHRISTINA (obstructive sleep apnea) G47.33
[2019-12-17 17:35] LABS: Glucose Point of Care 96 mg/dL (70-110)
--- NOTE | 2019-12-17 18:22 | NUR.SHIFT ---
SHIFT SUMMARY PATIENT WENT TO CT SCAN AND MRI TODAY. TOLERATED WELL. HE HAS BEEN UP WITH OT AND PT. PATIENT HAS MINIMAL COMPLAINTS OF PAIN. BP WAS ELEVATED UPON MY ARRIVAL, BUT BECAME SOFT THE DAY WENT ON. LAST BP CHECK WAS NORMAL. EVENING DOSE OF METOPROLOL BEING HELD AT THIS TIME. PATIENT'S O2 WAS LOW AT ONE POINT TODAY. THIS NURSE PLACED PATIENT ON 2L OF OXYGEN. PATIENT STATED HE HAS A CPAP AT HOME WHILE HE SLEEPS. GOOD URINE OUTPUT. ALERT AND ORIENTED ALL DAY.
[2019-12-17 21:08] LABS: Folate Level 3.9 ng/mL (4.5-32.2)
[2019-12-17] MEDS: divalproex ER 500 mg Tablet (24H) 1000 MG PO (22:04)
[2019-12-17] MEDS: atorvastatin 40 mg Tablet PO (22:04)
[2019-12-18 04:00] VITALS: BP 131/75; PULSE 74; RESP 16; TEMP 36.4; O2SAT 99
[2019-12-18 05:34] LABS: Basophils % 0.3 %; Eosinophils # 0.1 10^3/uL (0.0-0.8); Eosinophils % 2.8 %; Hematocrit 31.5 % (42.0-52.0); Hemoglobin 10.3 g/dL (11.7-16.6); Lymphocytes % 32.1 %; Mean Corpuscular HGB Conc 32.7 g/dL (30.0-36.0); Mean Corpuscular Hemoglobin 34.7 pg (28.0-34.0); Mean Corpuscular Volume 106.1 fL (80-94); Mean Platelet Volume 9.7 fL (7.4-10.4); Monocytes # 0.3 10^3/uL (0.2-0.9); Monocytes % 10.3 %; Neutrophils # 1.7 10^3/uL (1.8-7.7); Neutrophils % 54.2 %; Nucleated Red Blood Cells % 0 %; Platelet Count 161 10^3/cmm (130-400); Red Blood Count 2.97 10^6/uL (4.1-5.3); Red Cell Distribution Width 15.5 % (12.1-15.1); White Blood Count 3.2 10^3/uL (4.0-10.0)
[2019-12-18 08:00] VITALS: BP 127/73; PULSE 70; RESP 14; TEMP 36.6; O2SAT 97
[2019-12-18] MEDS: cefTRIAXone 1,000 MG in sodium chloride 0.9% (plus) 50 ML 100 MG IV (08:28)
[2019-12-18] MEDS: pantoprazole 40 mg SDV IVP (08:28)
[2019-12-18] MEDS: metoprolol tartrate 25 mg Tablet 12.5 MG PO (08:31)
[2019-12-18] MEDS: sennosides-docusate Tablet 1 TAB PO (08:31)
[2019-12-18] MEDS: tamsulosin 0.4 mg Capsule PO (08:31)
[2019-12-18] MEDS: amlodipine 10 mg Tablet PO (08:31)
[2019-12-18] MEDS: calcium carbonate 500 mg Chew Tablet PO (08:31)
[2019-12-18] MEDS: levothyroxine 100 mcg Tablet PO (08:31)
[2019-12-18 08:35] LABS: Alanine Aminotransferase 11 U/L (0-41); Albumin Level 3.1 g/dL (3.5-5.2); Alkaline Phosphatase 77 IU/L (40-130); Anion Gap 13.2 (5-19); Aspartate Amino Transferase 16 U/L (0-40); Blood Urea Nitrogen 7 mg/dL (8-23); Calcium 8.7 mg/dL (8.5-10.5); Carbon Dioxide 27 mmol/L (22-29); Chloride 103 mmol/L (98-107); Glucose 88 mg/dL (65-115); Magnesium 2.2 mg/dL (1.7-2.3); Osmolality Calculated 283 mOsm/kg (285-295); Phosphorus 3.3 mg/dL (2.5-4.5); Potassium 4.2 mmol/L (3.5-5.1); Sodium 139 mmol/L (136-145); Total Bilirubin 0.3 mg/dL (0.15-1.2); Total Protein 5.1 g/dL (6.6-8.7)
[2019-12-18] MEDS: latanoprost 0.005% Op Soln 2.5 mL Btl 1 DROP EYE-BOTH (08:35)
--- NOTE | 2019-12-18 10:17 | P.DS_ITS ---
Discharge Providers Date of Admission: 12/16/19 18:14 Date of Discharge: December 18, 2019 Attending Provider at Admission: Lalit Valles MD Attending Provider at Discharge: Lalit Valles MD Primary Care Provider: Tyrone Duckworth MD Diagnoses at Discharge Discharge Diagnosis (1) GI bleed: Status: Acute (2) Weakness: Status: Acute (3) Cerebrovascular accident: Status: Acute (4) Multiple falls: Status: Acute (5) UTI (urinary tract infection): Status: Acute (6) Aphasia: Status: Acute Problem details: -reported to have had worsening generalized weakness, slurred speech, difficulty with word finding -clinical suspicion for CVA with noted expressive aphasia, mild R facial droop -CT head negative -Echo: EF=60%, G1DD, no RWMA, trace to mild MR; carotid US: no significant stenosis -telemetry monitoring -VSS; continue to monitor -passed bedside dysphagia screening -PT/OT/ST evaluations appreciated -fall/seizure/aspiration precautions -received ASA 325 mg in ED, continue ASA, Plavix and statin -noted A1c, TSH, lipid panel -did not received tPA as presented outside of window -permissive HTN x 24 hrs; can resume oral antihypertensives on d/c, labetalol if BP >220/110 (7) HTN (hypertension): Status: Chronic Problem details: -BP controlled without medications; permissive HTN x 24 hrs -continue to monitor vital signs Qualifiers: Hypertension type: essential hypertension Qualified Code(s): I10 - Essential (primary) hypertension (8) BPH (benign prostatic hyperplasia): Status: Chronic Problem details: -on tamsulosin Qualifiers: Lower urinary tract symptom detail: post-void dribbling Lower urinary tract symptom presence: symptoms present Qualified Code(s): N40.1 - Benign prostatic hyperplasia with lower urinary tract symptoms; N39.43 - Post-void dribbling (9) Pubic ramus fracture: Status: Acute Qualifiers: Encounter type: subsequent encounter Fracture healing: with routine healing Fracture type: closed Laterality: right Qualified Code(s): S32.591D - Other specified fracture of right pubis, subsequent encounter for fracture with routine healing (10) Closed right acetabular fracture: Status: Acute Qualifiers: Encounter type: subsequent encounter Fracture alignment: nondisplaced Fracture healing: with routine healing Sublocation of acetabulum: anterior wall Qualified Code(s): S32.414D - Nondisplaced fracture of anterior wall of right acetabulum, subsequent encounter for fracture with routine healing (11) Depression: Status: Chronic Qualifiers: Depression Type: unspecified Qualified Code(s): F32.9 - Major depressive disorder, single episode, unspecified (12) Hypothyroidism: Status: Chronic Problem details: -TSH wnl, on levothyroxine Qualifiers: Hypothyroidism type: unspecified Qualified Code(s): E03.9 - Hypothyroidism, unspecified (13) CHRISTINA (obstructive sleep apnea): Status: Chronic Problem details: -with nocturnal hypoxemia, oxygen dependent, 4 L NC qhs Reason for Visit Reason for Visit: HYPOTENSIVE/ LETHARGIC/ WEAK Hospital Course Discharge Summary: Jerry Tapia is a 79 year old male with a past medical history of complex partial seizures, obstructive sleep apnea, closed right acetabular fracture status post fall nondisplaced, hypothyroidism, right pubic rami fracture nondisplaced, 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 Patient was admitted for weakness, multifactorial, related to deconditioning, his previous stroke a month ago, UTI, slow GI bleed secondary to aspirin and Plavix. For his deconditioning, patient received inpatient physical therapy, I strongly advised for senior care admission, due to his risk of falls. But patient was just at a senior care, and did not like it there, so he wanted to go home in the care of his son. Patient was discharged home to his son. For his urinary tract infection, was treated with Rocephin as inpatient, CT scan showed no obstructive uropathy, no pyelonephritis, was discharged home on 7 remaining days of Bactrim For his history of stroke a month ago, he has some productive aphasia, with some receptive aphasia, no focal neurologic deficits, more generalized weakness. His MRI showed no acute infarct or mass, moderate atrophy and chronic ischemic disease. After discussion risk and benefits, patient voiced understanding, all questions answered I discharge patient on aspirin and statin, stop Plavix. Patient is to follow-up with Dr. Harper as outpatient. For his slow GI bleed secondary to aspirin and Plavix, his hemoglobin got as low 10.0, CT scan of the abdomen showed some wall thickening in the stomach, possibly peptic ulcer disease. After discussion the risks and benefits, I did stop Plavix, continued aspirin. Discharge patient on Protonix 40 twice daily with Carafate 1 g twice daily. Patient is to follow-up with Dr. Gardiner as outpatient for consideration for EGD. Patient was advised that if her to have bloody or black stool to come back to the emergency room. In addition patient has had multiple falls, has a history of a right inferior pubic rami fracture, which is still evident on repeat imaging, history of right acetabular fracture. Continue medical management, physical therapy, careful ambulation. On presentation he had multiple bruises. After discussion risk and benefits, I have stopped Plavix. Again I advised patient strongly for senior care stay, however he refused. Discharged home under the care of his son. Physical Exam Const: COMMON NORMALS: no acute distress and patient oriented x3 HENMT: COMMON NORMALS: normocephalic HEAD & SCALP: normocephalic Neck/C-Spine: COMMON NORMALS: no JVD Resp: COMMON NORMALS: normal respiratory effort, No retractions, No use of accessory muscles and clear to auscultation bilaterally AUSCULTATION: clear to auscultation bilaterally Cardio: COMMON NORMALS: no JVD, regular rate, regular rhythm, S1 normal heart sound present and S2 normal heart sound present RATE: regular rate RHYTHM: regular rhythm HEART SOUNDS: S1 normal heart sound present and S2 normal heart sound present GI: COMMON NORMALS: Normal to inspection, nondistended, normoactive bowel sounds present, Soft to palpation, non-tender, No hepatosplenomegaly present, no masses and no bruits PALPATION: Yes Soft to palpation and Yes No hepatosplenomegaly present Extremity: COMMON NORMALS: capillary refill normal, no clubbing, cyanosis or edema, no calf tenderness and no pedal edema Neuro: COMMON NORMALS: patient oriented x3 Psych: COMMON NORMALS: mental status grossly normal Urinary Catheter Management^: Zeepda: Cath Placed During This Visit: yes, but has since been removed by the nurse Reason for Continuing Indwelling Catheter: Decision to DC Catheter Urinary Catheter Date of Insertion: 12/16/19 Urinary Catheter Time of Insertion: 18:07 Date Urinary Catheter Removed: 12/18/19 Time Urinary Catheter Discontinued: 10:10 Discharge Data Data Completed and Pending: Completed Studies During Hospitalization Category Date Time Status CT abdomen pelvis wo con [id number] Stat Cat Scan 12/17/19 10:[address] head wo con* 7 0450 Urgent Cat Scan 12/16/19 15:42 Completed XR chest 1V coral ble 04504 Urgent Exams 12/16/19 15:42 Completed XR hip BI m 5V wo /w pel* [id number] Rout ine Exams 12/16/19 19:05 Completed MR head wo/w con [id number] Routine MRI 12/17/19 12:00 Completed Pending at discharge Category Date Time Status XR pelvis 1-2V* 7 4770 Routine Exams 12/16/19 20:39 Taken Blood Culture Sta t Lab 12/16/19 15:49 Results Clostridioides Di fficile PCR Routin e Lab 12/17/19 13:24 Ordered Complete Blood Co unt w/Auto AM LABS Lab 12/19/19 04:00 Ordered Complete Blood Co unt w/Auto AM LABS Lab 12/19/19 04:00 Ordered Complete Blood Co unt w/Auto AM LABS Lab 12/20/19 04:00 Ordered Comprehensive Met abolic Panel AM LA BS Lab 12/19/19 04:00 Ordered Comprehensive Met abolic Panel AM LA BS Lab 12/19/19 04:00 Ordered Comprehensive Met abolic Panel AM LA BS Lab 12/20/19 04:00 Ordered Enteric Bacterial Panel by PCR Willie ine Lab 12/17/19 13:24 Ordered Enteric Parasite Panel by PCR Benita ne Lab 12/17/19 13:24 Ordered Immunochemical Fe estrellita OCB Routine Lab 12/17/19 13:24 Ordered Lactoferrin Williei ne Lab 12/17/19 13:24 Ordered Magnesium AM LABS Lab 12/19/19 04:00 Ordered Magnesium AM LABS Lab 12/19/19 04:00 Ordered Magnesium AM LABS Lab 12/20/19 04:00 Ordered Phosphorus AM LAB S Lab 12/19/19 04:00 Ordered Phosphorus AM LAB S Lab 12/19/19 04:00 Ordered Phosphorus AM LAB S Lab 12/20/19 04:00 Ordered Urine Culture Sta t Lab 12/16/19 17:46 Results Labs from last 24 hours 12/18/19 12/18/19 12/17/19 07:58 05:23 17:26 WBC 3.2 L RBC 2.97 L Hgb 10.3 L Hct 31.5 L MCV 106.1 H MCH 34.7 H MCHC 32.7 RDW 15.5 H Plt Count 161 MPV 9.7 Neut % (Auto) 54.2 Lymph % (Auto) 32.1 [place] % (Auto) 10.3 Eos % (Auto) 2.8 Baso % (Auto) 0.3 Neut # (Auto) 1.7 L Lymph # (Auto) 1.0 [place] # (Auto) 0.3 Eos # (Auto) 0.1 Baso # (Auto) 0.0 Nucleated RBC % (a uto) 0 Nucleated RBCs # 0.0 Sodium 139 Potassium 4.2 Chloride 103 Carbon Dioxide 27 Anion Gap 13.2 BUN 7 L Creatinine 0.4 L Glucose 88 POC Glucose 96 Calculated Osmolal ity 283 L Calcium 8.7 Phosphorus 3.3 Magnesium 2.2 Iron Ferritin Total Bilirubin 0.3 AST 16 ALT 11 Alkaline Phosphata se 77 Total Protein 5.1 L Albumin 3.1 L Globulin 2.0 Vitamin B12 Folate 12/17/19 12/17/19 05:20 05:20 WBC RBC Hgb Hct MCV MCH MCHC RDW Plt Count MPV Neut % (Auto) Lymph % (Auto) [place] % (Auto) Eos % (Auto) Baso % (Auto) Neut # (Auto) Lymph # (Auto) [place] # (Auto) Eos # (Auto) Baso # (Auto) Nucleated RBC % (a uto) Nucleated RBCs # Sodium Potassium Chloride Carbon Dioxide Anion Gap BUN Creatinine Glucose POC Glucose Calculated Osmolal ity Calcium Phosphorus Magnesium Iron 57 L Ferritin 144 Total Bilirubin AST ALT Alkaline Phosphata se Total Protein Albumin Globulin Vitamin B12 503 Folate 3.9 L Vitals: Last Vital Signs Temp 97.8 F 12/18/19 08:00 Pulse 70 12/18/19 08:00 Resp 14 12/18/19 08:00 BP 127/73 12/18/19 08:00 Pulse Ox 97 12/18/19 08:00 Discharge Plan Discharge Patient Disposition: Home, Self-Care Condition: Stable Prescriptions: New Protonix 40 mg tablet,delayed release (DR/EC) 40 mg PO BID 30 Days Qty: 60 RF: 0 Bactrim DS 800-160 mg tablet 1 tab PO BID 7 Days Qty: 14 RF: 0 Carafate 1 gram tablet 1 gm PO BID 30 Days Qty: 60 RF: 0 Continued levothyroxine 100 mcg tablet 100 mcg PO DAILY RF: 0 tamsulosin 0.4 mg capsule 0.4 mg PO DAILY RF: 0 saw palmetto 160 mg capsule 320 mg PO DAILY RF: 0 ondansetron HCl [Zofran] 4 mg tablet 4 mg PO Q6H PRN (Reason: Nausea) RF: 0 carbamazepine 300 mg capsule, ER multiphase 12 hr See Rx Instructions .ROUTE .COMPLEX Qty: 180 RF: 5 divalproex [Depakote ER] 500 mg tablet extended release 24 hr 1,000 mg PO BEDTIME RF: 0 latanoprost 0.005 % drops 1 drp ophthalmic (eye) DAILY RF: 0 atorvastatin 40 mg Tablet 40 mg PO BEDTIME 30 Days Qty: 30 RF: 0 sennosides-docusate sodium 8.6-50 mg Tablet 1 tab PO BID 30 Days Qty: 60 RF: 0 aspirin [Enteric Coated Aspirin] 81 mg tablet,delayed release (DR/EC) 81 mg PO DAILY 30 Days Qty: 30 RF: 0 calcium carbonate [Calcium 500] 500 mg calcium (1,250 mg) Tablet 500 mg PO DAILY RF: 0 cholecalciferol (vitamin D3) [Vitamin D3] 25 mcg (1,000 unit) Capsule 25 mcg PO DAILY RF: 0 magnesium citrate Solution 150 ml PO BID PRN (Reason: constipation) Qty: 296 RF: 0 amlodipine 10 mg Tablet 10 mg PO DAILY RF: 0 diclofenac sodium 50 mg Tablet,Delayed Release (Dr/Ec) 50 mg PO DAILY PRN (Reason: Pain) RF: 0 Changed metoprolol tartrate 25 mg Tablet 6.25 mg PO BID Qty: 0 RF: 0 Discontinued clopidogrel 75 mg Tablet 75 mg PO DAILY 30 Days Qty: 30 RF: 0 Discharge Orders: Discharge Order (Routine); Ordered 12/18/19 Ordered By: Lalit Valles Referrals: Cecily Harper MD [Physician] - 1 week (stroke, generalized weakness) Tyrone Duckworth MD [Primary Care Provider] - Cem Gardiner MD [Physician] - 1 month Discharge Diet: Cardiac Discharge Activity: Resume usual activity Patient Instructions: Sulfamethoxazole/Trimethoprim (By mouth), Sucralfate (By mouth), Pantoprazole (By mouth), GI Bleeding Activity Restrictions/Additional Instructions: -If you have bloody or black stools please come back to the emergency room -Recheck hemoglobin in 1 week -Please follow-up with Dr. Gardiner for EGD -Please follow-up with Dr. Harper for stroke, generalized weakness -Please follow-up with Dr. 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 Operator for Chg Fwd Diagnoses GI bleed K92.2 Weakness R53.1 Cerebrovascular accident I63.9 Multiple falls R29.6 UTI (urinary tract infection) N39.0 Aphasia R47.01 HTN (hypertension) I10 Hypertension type: essential hypertension BPH (benign prostatic hyperplasia) N40.1; N39.43 Lower urinary tract symptom detail: post-void dribbling Lower urinary tract symptom presence: symptoms present Pubic ramus fracture S32.591D Encounter type: subsequent encounter Fracture healing: with routine healing Fracture type: closed Laterality: right Closed right acetabular fracture S32.414D Encounter type: subsequent encounter Fracture alignment: nondisplaced Fracture healing: with routine healing Sublocation of acetabulum: anterior wall Depression F32.9 Depression Type: unspecified Hypothyroidism E03.9 Hypothyroidism type: unspecified CHRISTINA (obstructive sleep apnea) G47.33
[2019-12-18 10:19] VITALS: BP 127/73; PULSE 70; RESP 14; TEMP 36.6; O2SAT 97
[2019-12-18 10:50] VITALS: PULSE 67; O2SAT 94
[2019-12-18 12:00] VITALS: BP 83/52; PULSE 98; RESP 14; TEMP 36.6; O2SAT 97
[2019-12-18 14:36] VITALS: BP 100/52
== END 2019-12-18 16:20 | disposition home or self-care (01) | DRG 378 ==
LOC: ER 18:19 → MEDSURG 21:23
PROVIDERS: Family Medicine; Internal Medicine; Admitting Provider Family Medicine; PCP Internal Medicine; Visit Provider Family Medicine
DX: K92.2 Gastrointestinal hemorrhage, unspecified (principal); N39.0 Urinary tract infection, site not specified; G40.802 Other epilepsy, not intractable, without status epilepticus; R29.6 Repeated falls; I10 Essential (primary) hypertension; E03.9 Hypothyroidism, unspecified; N40.1 Benign prostatic hyperplasia with lower urinary tract symptoms; N39.43 Post-void dribbling; S32.414D Nondisplaced fracture of anterior wall of right acetabulum, subsequent encounter for fracture with routine healing; X58.XXXD Exposure to other specified factors, subsequent encounter; G47.33 Obstructive sleep apnea (adult) (pediatric); Z99.81 Dependence on supplemental oxygen; R09.02 Hypoxemia; F32.9 Major depressive disorder, single episode, unspecified; I69.320 Aphasia following cerebral infarction; I69.328 Other speech and language deficits following cerebral infarction; Z79.82 Long term (current) use of aspirin; Z85.828 Personal history of other malignant neoplasm of skin
CPT/HCPCS: 12345; 36415; 36416; 36600; 51702; 70450; 70553; 71045; 72170; 73521; 73523; 74176; 80053; 80061; 80164; 81001; 82607; 82728; 82746; 82803; 82962; 83036; 83540; 83605; 83690; 83735; 83880; 84100; 84443; 84484; 85025; 85045; 85362; 85378; 85384; 85610; 85730; 87040; 87077; 87086; 87186; 93005; 94664; 96372; 96375; 97161; 97167; 97530; 99284; A9579; C9113; J0696; J1650; J2543; J7040

== ENCOUNTER → 2019-12-22 14:37 | Outpatient (BNVA) | payer MEDICARE, OTHER, SELFPAY | PROVIDERS: PCP Internal Medicine; Referring Provider Family Medicine; Visit Provider Nurse Practitioner | DX: G40.209 Localization-related (focal) (partial) symptomatic epilepsy and epileptic syndromes with complex partial seizures, not intractable, without status epilepticus (principal); D64.9 Anemia, unspecified; K92.2 Gastrointestinal hemorrhage, unspecified; I63.9 Cerebral infarction, unspecified | CPT/HCPCS: 99205; 99215 ==

== ENCOUNTER 2019-12-25 13:07 | Emergency (ER) | payer MEDICARE, OTHER, SELFPAY ==
[2019-12-25 13:12] VITALS: BMI 22.9
[2019-12-25 13:15] VITALS: BP 130/72; PULSE 79; RESP 18; TEMP 36.5; O2SAT 97
--- NOTE | 2019-12-25 13:34 | CTR_ITS ---
PROCEDURE INFORMATION: Exam: CT Angiography Head With Contrast Exam date and time: 12/25/2019 3:15 PM Age: 79 years old Clinical indication: Other: CVA; Additional info: CVA symptoms TECHNIQUE: Imaging protocol: Computed tomography angiography of the head with intravenous contrast. 3D rendering: MIP and/or 3D reconstructed images were created by the technologist. Radiation optimization: All CT scans at this facility use at least one of these dose optimization techniques: automated exposure control; mA and/or kV adjustment per patient size (includes targeted exams where dose is matched to clinical indication); or iterative reconstruction. Contrast material: OMNI 350; Contrast volume: 95 ml; Contrast route: INTRAVENOUS (IV); COMPARISON: CT head wo con* [id number] 12/25/2019 3:17 PM RADIATION DOSE METRICS: Total DLP (mGy-cm): 1750.81 FINDINGS: Anterior cerebral arteries: No occlusion or significant stenosis. No aneurysm. Right internal carotid artery: There is calcified plaque in the right carotid siphon without stenosis. No aneurysm. Right middle cerebral artery: No occlusion or significant stenosis. No aneurysm. Right posterior cerebral artery: No occlusion or significant stenosis. No aneurysm. Right vertebral artery: No occlusion or significant stenosis. No aneurysm. Left internal carotid artery: There is calcified plaque in the left carotid siphon without stenosis. No aneurysm. Left middle cerebral artery: No occlusion or significant stenosis. No aneurysm. Left posterior cerebral artery: No occlusion or significant stenosis. No aneurysm. Left vertebral artery: No occlusion or significant stenosis. No aneurysm. Basilar artery: No occlusion or significant stenosis. No aneurysm. IMPRESSION: No intracranial stenosis or occlusion. PROCEDURE INFORMATION: Exam: CT Angiography Neck With Contrast Exam date and time: 12/25/2019 3:15 PM Age: 79 years old Clinical indication: Other: CVA; Additional info: CVA symptoms TECHNIQUE: Imaging protocol: Computed tomography angiography of the neck with intravenous contrast. 3D rendering: MIP and/or 3D reconstructed images were created by the technologist. Radiation optimization: All CT scans at this facility use at least one of these dose optimization techniques: automated exposure control; mA and/or kV adjustment per patient size (includes targeted exams where dose is matched to clinical indication); or iterative reconstruction. Contrast material: OMNI 350; Contrast volume: 95 ml; Contrast route: INTRAVENOUS (IV); COMPARISON: CT head wo con* [id number] 12/25/2019 3:17 PM RADIATION DOSE METRICS: Total DLP (mGy-cm): 1750.81 FINDINGS: Right common carotid artery: No stenosis. No dissection or occlusion. Right internal carotid artery: No stenosis of the extracranial segment. No dissection or occlusion. Right external carotid artery: No occlusion or stenosis of the origin. Right vertebral artery: No stenosis. No dissection or occlusion. Left common carotid artery: No stenosis. No dissection or occlusion. Left internal carotid artery: No stenosis of the extracranial segment. No dissection or occlusion. Left external carotid artery: No occlusion or stenosis of the origin. Left vertebral artery: No stenosis. No dissection or occlusion. Bones/joints: There is multilevel cervical spondylosis and disc space narrowing. Soft tissues: Normal. No significant soft tissue swelling. CT/CT angio headneck* [id number] IMPRESSION: No carotid or vertebral artery stenosis. REFERENCES: NASCET CRITERIA. The degree of internal carotid artery stenosis is based on NASCET criteria. Normal is no stenosis. Mild is less than 50% stenosis. Moderate is 50-69% stenosis. Severe is 70% to 99% stenosis. Total occlusion is no detectable patent lumen. Radiation Dose CTDIVOL = (mGy): DLP = 1750.81~1750.81 (mGy-cm)
--- NOTE | 2019-12-25 13:34 | XRR_ITS ---
PROCEDURE INFORMATION: Exam: XR Chest, 1 View Exam date and time: 12/25/2019 2:45 PM Age: 79 years old Clinical indication: Shortness of breath; Additional info: CVA symptoms TECHNIQUE: Imaging protocol: XR of the chest Views: 1 view. COMPARISON: CR XR chest 1V portable [id number] 12/16/2019 3:52 PM FINDINGS: Lungs: Unremarkable. No consolidation. Pleural space: Unremarkable. No pleural effusion. No pneumothorax. Heart/Mediastinum: Unremarkable. No cardiomegaly. Bones/joints: No acute abnormality. There are severe degenerative changes in the left shoulder and moderate degenerative changes in the spine. XR/XR chest 1V portable [id number] IMPRESSION: No acute findings.
--- NOTE | 2019-12-25 13:34 | CTR_ITS ---
PROCEDURE INFORMATION: Exam: CT Head Without Contrast Exam date and time: 12/25/2019 3:15 PM Age: 79 years old Clinical indication: Other: CVA; Additional info: Symptoms of acute stroke TECHNIQUE: Imaging protocol: Computed tomography of the head without contrast. Radiation optimization: All CT scans at this facility use at least one of these dose optimization techniques: automated exposure control; mA and/or kV adjustment per patient size (includes targeted exams where dose is matched to clinical indication); or iterative reconstruction. COMPARISON: CT head wo con* [id number] 12/16/2019 5:26 PM FINDINGS: Brain: There is volume loss and periventricular low density compatible with chronic small vessel disease changes. There is no acute hemorrhage, edema or mass effect. Ventricles: Normal. No ventriculomegaly. Bones/joints: Unremarkable. No acute fracture. Sinuses: Visualized sinuses are unremarkable. No fluid levels. Mastoid air cells: Visualized mastoid air cells are well aerated. Soft tissues: Unremarkable. Other findings: The Total DLP (mGy-cm): 907.89 CT/CT head wo con* [id number] IMPRESSION: No acute intracranial abnormality. Unchanged exam. Radiation Dose CTDIVOL = (mGy): DLP = 907.89 (mGy-cm)
--- NOTE | 2019-12-25 13:35 | CTR_ITS ---
PROCEDURE INFORMATION: Exam: CT Abdomen And Pelvis With Contrast Exam date and time: 12/25/2019 3:15 PM Age: 79 years old Clinical indication: Abdominal pain; Prior surgery; Surgery type: Appy TECHNIQUE: Imaging protocol: Computed tomography of the abdomen and pelvis with intravenous contrast. Radiation optimization: All CT scans at this facility use at least one of these dose optimization techniques: automated exposure control; mA and/or kV adjustment per patient size (includes targeted exams where dose is matched to clinical indication); or iterative reconstruction. Contrast material: OMNI 350; Contrast volume: 95 ml; Contrast route: INTRAVENOUS (IV); COMPARISON: CT abdomen pelvis wo con [id number] 12/17/2019 11:42 AM RADIATION DOSE METRICS: Total DLP (mGy-cm): 591.47 FINDINGS: Lungs: There is subpleural atelectasis of the dependent portions of the lungs. Liver: Unremarkable.No mass. Gallbladder and bile ducts: Gallbladder is not visualized. This may reflect lack of distention or prior cholecystectomy. There is no duct dilatation. Pancreas: Normal. No ductal dilation. Spleen: Normal. No splenomegaly. Adrenals: Normal. No mass. Kidneys and ureters: There is no evidence of hydronephrosis. There is no evidence of renal calcifications. Stomach and bowel: There is a large amount of stool in the colon compatible with constipation without impaction. There is no evidence of intestinal perforation or obstruction. Appendix: There has been an appendectomy. Intraperitoneal space: Unremarkable. No free air. No significant fluid collection. Vasculature: Unremarkable.No abdominal aortic aneurysm. Lymph nodes: Unremarkable.No enlarged lymph nodes. Bladder: There is nonspecific bladder wall thickening. This may be related to incomplete distention. Reproductive: The prostate demonstrates moderate nonspecific enlargement. The seminal vesicles are normal. Bones/joints: Old fracture deformity of the right pubic rami and severe degenerative changes in the spine and hips are noted. No acute fracture. Soft tissues: Unremarkable. Other findings: Calcified granulomas are noted. There is mild haziness of the presacral fat in perirectal fat which is improving compared to the old exam. This may reflect some scarring or old postoperative changes. CT/CT abdomen pelvis w con* [id number] IMPRESSION: 1. There is a large amount of stool in the colon compatible with constipation without impaction. 2. No acute abnormality. No bowel thickening or inflammatory changes. Postoperative changes are noted as above. Radiation Dose CTDIVOL = (mGy): DLP = 591.47 (mGy-cm)
--- NOTE | 2019-12-25 13:35 | ECG_ITS ---
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 Measurements Intervals Lequire Rate: 89 P: 27 PA: 175 QRS: 55 QRSD: 90 T: 58 QT: 349 QTc: 425 Interpretive Statements SINUS RHYTHM SEPTAL MYOCARDIAL INFARCTION , PROBABLY OLD [40+ ms Q WAVE IN V1/V2] Compared to ECG 12/25/2019 15:24:42 Junctional rhythm no longer present Myocardial infarct finding still present Electronically Signed On 12-26-2019 19:57:12 CDT by Pilar Young M.D. [id number]
[2019-12-25 14:00] VITALS: BP 150/87; PULSE 80; RESP 18; O2SAT 98; O2SAT 99
[2019-12-25 14:13] LABS: Basophils % 0.6 %; Eosinophils # 0.1 10^3/uL (0.0-0.8); Eosinophils % 2.5 %; Hemoglobin 12.4 g/dL (11.7-16.6); Lymphocytes % 32.1 %; Mean Corpuscular HGB Conc 32.6 g/dL (30.0-36.0); Mean Corpuscular Hemoglobin 34.7 pg (28.0-34.0); Mean Corpuscular Volume 106.4 fL (80-94); Mean Platelet Volume 9.4 fL (7.4-10.4); Monocytes # 0.4 10^3/uL (0.2-0.9); Monocytes % 11.1 %; Neutrophils # 1.7 10^3/uL (1.8-7.7); Neutrophils % 53.1 %; Nucleated Red Blood Cells % 0 %; Platelet Count 225 10^3/cmm (130-400); Red Blood Count 3.57 10^6/uL (4.1-5.3); Red Cell Distribution Width 15.4 % (12.1-15.1); White Blood Count 3.2 10^3/uL (4.0-10.0)
--- NOTE | 2019-12-25 14:44 | W.ED.NEUROSD ---
HPI - Neuro Symptoms/Deficit General: Chief Complaint: Neuro Symptoms/Deficit Stated Complaint: not feeling well, slurred speech, double vision Time Seen by Provider: 12/25/19 13:29 Source: patient and family Mode of arrival: wheelchair Limitations: altered mental status History of Present Illness: HPI Narrative: Mr. Tapia is a very nice 79-year-old male who comes in with report of slurred speech, visual problems and lethargy upon awakening this morning. His family was concerned that he may have had a stroke and brought him in for evaluation. Patient was recently in the hospital for other complaints as well. Patient was normal or in his normal state of health upon going to bed but all these symptoms were present upon awakening this morning. [facility] ED PFSH: Medical History (Updated 12/25/19 @ 18:00 by Roxi Montano) Anemia 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 -continue AEDs; is on tegretol and depakote; levels therapeutic -seizure precautions; cannot recall when he had his last seizure but per review of chart, may have had seizure in 07/2019 which resulted in fall and subsequent R pubic rami and R acetabular fractures (non-displaced, no surgical intervention) Depression History of basal cell cancer HTN (hypertension) -BP controlled without medications; permissive HTN x 24 hrs -continue to monitor vital signs Hypothyroidism -TSH wnl, on levothyroxine Insomnia CHRISTINA (obstructive sleep apnea) -with nocturnal hypoxemia, oxygen dependent, 4 L NC qhs Posttraumatic encephalopathy Vitamin D deficiency Surgical History History of appendectomy History of tonsillectomy and adenoidectomy Family History Other Cancer Diabetes Social History Smoking and tobacco status: never smoked Alcohol intake: never Household members: children Housing: House Marital status: / Current occupational status: retired History of recent travel: No Current gender identity: Male NIH stroke score NIHSS: Level Of Consciousness - 1a: 0 Level Of Consciousness Questions - 1b: Both Correct Level Of Consciousness Commands - 1c: Both Correct Best Gaze - 2: Normal Visual Lang - 3: No Visual Loss Facial Palsy - 4: Normal Motor Arm Right - 5: No Drift Motor Arm Left - 5: No Drift Motor Leg Right - 6: No Drift Motor Leg Left - 6: No Drift Limb Ataxia - 7: Present In Two Limbs Sensory - 8: Normal Best Language - 9: Mild/Moderate Aphasia Dysarthia - 10: Mild/Moderate Dysarthia Extinction And Inattention - 11: 0 Score: Total Score: 4 Physical Exam Const: COMMON NORMALS: no acute distress, patient oriented x3, no limitations, healthy appearing and well nourished GENERAL APPEARANCE: cooperative, well kempt and well developed HENMT: COMMON NORMALS: normocephalic, atraumatic, external ears normal, EAC's normal and Normal external nose present HEAD & SCALP: normal to inspection, normocephalic and atraumatic FACE & SINUS: normal facial exam and face symmetric NOSE: Normal external nose present and Normal nares present EXTERNAL EAR: Yes external ears normal EXTERNAL AUDITORY CANAL: EAC's normal MOUTH: Normal oral and palatal mucosa present, lip normal and tongue normal Eye: COMMON NORMALS: Equal, round and reactive pupils present and conjunctivae normal GENERAL EYE: appearance normal, both eyes and all related structures ALIGNMENT: Yes alignment normal PERIORBITAL: periorbital findings normal EYELID: eyelids normal CONJUNCTIVA: Yes conjunctivae normal SCLERA: sclerae normal PUPIL: Yes Equal, round and reactive pupils present Neck/C-Spine: COMMON NORMALS: full ROM, no lymphadenopathy, supple, no meningeal signs and no JVD GENERAL: Yes normal visual inspection and Yes trachea midline Chest: COMMONS NORMALS: normal inspection of the chest and normal palpation of entire chest wall Resp: COMMON NORMALS: normal respiratory effort, No retractions and No use of accessory muscles EFFORT & INSPECTION: Yes able to speak in complete sentences and Yes symmetric chest movement AUSCULTATION: no crackles, no rales, no rhonchi and no wheezes Cardio: COMMON NORMALS: no JVD, regular rate, regular rhythm, S1 normal heart sound present and S2 normal heart sound present RATE: regular rate RHYTHM: regular rhythm HEART SOUNDS: S1 normal heart sound present, S2 normal heart sound present, no click, no gallops, no murmurs, no rubs and abnormal split S2 GI: COMMON NORMALS: Soft to palpation and No hepatosplenomegaly present PALPATION: Yes Soft to palpation, No Tenderness to palpation present (GI), No Guarding due to palpation present (GI), No Rigid due to palpation, Yes No hepatosplenomegaly present, No Hernia present, No Palpable mass present and No Pulsatile mass present : COMMON NORMALS: Yes no CVA tenderness BLADDER/KIDNEY EXAM: Yes no CVA tenderness Back/Pelvis: COMMON NORMALS: no CVA tenderness, thoracic and lumbar spine normal to inspection, no thoracic nor lumbar tenderness and thoraco-lumbar ROM normal Extremity: COMMON NORMALS: normal to inspection, full ROM, capillary refill normal, no joint enlargement, no clubbing, cyanosis or edema and no calf tenderness Neuro: COMMON NORMALS: patient oriented x3, CN's II-XII intact bilaterally, moves all extremities and no sensory deficits noted MENINGEAL SIGNS: Yes no meningeal signs Psych: APPEARANCE: Yes well kempt Skin: COMMON NORMALS: no rashes or lesions noted, turgor normal, no jaundice, no petechiae and no mottling GENERAL SKIN EXAM: no rashes or lesions noted and turgor normal Course Vital Signs: Vital signs: Vital Signs Temperature 97.7 F 12/25/19 13:15 Pulse Rate 87 12/25/19 20:00 Respiratory Rate 18 12/25/19 20:00 Blood Pressure 172/122 12/25/19 20:00 Pulse Oximetry 97 12/25/19 20:00 MDM - Neuro Symptoms/Deficit MDM Narrative: Medical decision making narrative: Patient was recently admitted to the hospital here with similar symptoms. Please see the chart for specifics. I reviewed the case in full with Dr. Sultana who feels the patient is to be transferred to a higher level of care [facility] with the neurology service that can evaluate him. I reviewed the case with Dr. Feliciano the on-call stroke neurologist at [facility] and he will accept the patient in transfer. Lab Data: Attestation: I reviewed the patient's lab results. Labs: Lab Results 12/25/19 12/25/19 12/25/19 Range/Units 13:45 13:45 13:45 WBC 3.2 L (4.0-10.0) 10^3/ uL RBC 3.57 L (4.1-5.3) 10^6/u L Hgb 12.4 (11.7-16.6) g/dL Hct 38.0 L (42.0-52.0) % MCV 106.4 H (80-94) fL MCH 34.7 H (28.0-34.0) pg MCHC 32.6 (30.0-36.0) g/dL RDW 15.4 H (12.1-15.1) % Plt Count 225 (130-400) 10^3/c mm MPV 9.4 (7.4-10.4) fL Neut % (Auto) 53.1 % Lymph % (Auto) 32.1 % [place] % (Auto) 11.1 % Eos % (Auto) 2.5 % Baso % (Auto) 0.6 % Neut # (Auto) 1.7 L (1.8-7.7) 10^3/u L Lymph # (Auto) 1.0 (0.8-4.8) 10^3/u L [place] # (Auto) 0.4 (0.2-0.9) 10^3/u L Eos # (Auto) 0.1 (0.0-0.8) 10^3/u L Baso # (Auto) 0.0 (0.0-0.1) 10^3/u L Nucleated RBC % (a uto) 0 % Nucleated RBCs # 0.0 /100WBC PT 13.40 H (10.5-13.3) SECO NDS INR 0.99 (0.8-1.2) APTT 35.1 (23.9-36.7) SECO NDS Sodium 136 (136-145) mmol/L Potassium 4.5 (3.5-5.1) mmol/L Chloride 98 (98-107) mmol/L Carbon Dioxide 28 (22-29) mmol/L Anion Gap 14.5 (5-19) BUN 11 (8-23) mg/dL Creatinine 0.6 L (0.7-1.2) mg/dL Glucose 111 (65-115) mg/dL Calculated Osmolal ity 279 L (285-295) mOsm/k g Calcium 9.5 (8.5-10.5) mg/dL Magnesium 2.4 H (1.7-2.3) mg/dL Total Bilirubin 0.3 (0.15-1.2) mg/dL AST 17 (0-40) U/L ALT 10 (0-41) U/L Alkaline Phosphata se 93 (40-130) IU/L Troponin T Baselin e (0-15) ng/L Troponin T 120 Min robinson (0-15) ng/L Delta Troponin T (0-10) ABS# Total Protein 6.6 (6.6-8.7) g/dL Albumin 4.0 (3.5-5.2) g/dL Globulin 2.6 (1.3-4.6) g/dL Lipase 38 (13-60) U/L Urine Color (Yellow) Urine Appearance (CLEAR) Urine pH (5-7) Ur Specific Gravit y (1.005-1.030) Urine Protein (Negative) Urine Glucose (UA) (Normal) Urine Ketones (Negative) Urine Blood (Negative) Urine Nitrate (Negative) Urine Bilirubin (NEGATIVE) Prot Sulfosalicyli c Acd (Negative) Urine Urobilinogen (Negative) mg/dL Ur Leukocyte Trina ase (Negative) Urine Opiates Scre en (Negative) ng/mL Ur Barbiturates Sc reen (Negative) ng/mL Valproic Acid (50-100) ug/mL Ur Phencyclidine S crn (Negative) ng/mL Ur Amphetamines Sc reen (Negative) ng/mL U Benzodiazepines Scrn (Negative) ng/mL Urine Cocaine Scre en (Negative) ng/mL U Marijuana (THC) Screen (Negative) ng/mL 12/25/19 12/25/19 12/25/19 Range/Units 13:45 15:45 16:35 WBC (4.0-10.0) 10^3/ uL RBC (4.1-5.3) 10^6/u L Hgb (11.7-16.6) g/dL Hct (42.0-52.0) % MCV (80-94) fL MCH (28.0-34.0) pg MCHC (30.0-36.0) g/dL RDW (12.1-15.1) % Plt Count (130-400) 10^3/c mm MPV (7.4-10.4) fL Neut % (Auto) % Lymph % (Auto) % [place] % (Auto) % Eos % (Auto) % Baso % (Auto) % Neut # (Auto) (1.8-7.7) 10^3/u L Lymph # (Auto) (0.8-4.8) 10^3/u L [place] # (Auto) (0.2-0.9) 10^3/u L Eos # (Auto) (0.0-0.8) 10^3/u L Baso # (Auto) (0.0-0.1) 10^3/u L Nucleated RBC % (a uto) % Nucleated RBCs # /100WBC PT (10.5-13.3) SECO NDS INR (0.8-1.2) APTT (23.9-36.7) SECO NDS Sodium (136-145) mmol/L Potassium (3.5-5.1) mmol/L Chloride (98-107) mmol/L Carbon Dioxide (22-29) mmol/L Anion Gap (5-19) BUN (8-23) mg/dL Creatinine (0.7-1.2) mg/dL Glucose (65-115) mg/dL Calculated Osmolal ity (285-295) mOsm/k g Calcium (8.5-10.5) mg/dL Magnesium (1.7-2.3) mg/dL Total Bilirubin (0.15-1.2) mg/dL AST (0-40) U/L ALT (0-41) U/L Alkaline Phosphata se (40-130) IU/L Troponin T Baselin e 31 H (0-15) ng/L Troponin T 120 Min robinson 24.16 H (0-15) ng/L Delta Troponin T -6.84 L (0-10) ABS# Total Protein (6.6-8.7) g/dL Albumin (3.5-5.2) g/dL Globulin (1.3-4.6) g/dL Lipase (13-60) U/L Urine Color Yellow (Yellow) Urine Appearance Clear (CLEAR) Urine pH 8 H (5-7) Ur Specific Gravit y 1.010 (1.005-1.030) Urine Protein Neg (Negative) Urine Glucose (UA) Norm (Normal) Urine Ketones Negative (Negative) Urine Blood Neg (Negative) Urine Nitrate Negative (Negative) Urine Bilirubin Neg (NEGATIVE) Prot Sulfosalicyli c Acd Negative (Negative) Urine Urobilinogen Norm (Negative) mg/dL Ur Leukocyte Trina ase Negative (Negative) Urine Opiates Scre en (Negative) ng/mL Ur Barbiturates Sc reen (Negative) ng/mL Valproic Acid (50-100) ug/mL Ur Phencyclidine S crn (Negative) ng/mL Ur Amphetamines Sc reen (Negative) ng/mL U Benzodiazepines Scrn (Negative) ng/mL Urine Cocaine Scre en (Negative) ng/mL U Marijuana (THC) Screen (Negative) ng/mL 12/25/19 12/25/19 Range/Units 16:35 17:38 WBC (4.0-10.0) 10^3/ uL RBC (4.1-5.3) 10^6/u L Hgb (11.7-16.6) g/dL Hct (42.0-52.0) % MCV (80-94) fL MCH (28.0-34.0) pg MCHC (30.0-36.0) g/dL RDW (12.1-15.1) % Plt Count (130-400) 10^3/c mm MPV (7.4-10.4) fL Neut % (Auto) % Lymph % (Auto) % [place] % (Auto) % Eos % (Auto) % Baso % (Auto) % Neut # (Auto) (1.8-7.7) 10^3/u L Lymph # (Auto) (0.8-4.8) 10^3/u L [place] # (Auto) (0.2-0.9) 10^3/u L Eos # (Auto) (0.0-0.8) 10^3/u L Baso # (Auto) (0.0-0.1) 10^3/u L Nucleated RBC % (a uto) % Nucleated RBCs # /100WBC PT (10.5-13.3) SECO NDS INR (0.8-1.2) APTT (23.9-36.7) SECO NDS Sodium (136-145) mmol/L Potassium (3.5-5.1) mmol/L Chloride (98-107) mmol/L Carbon Dioxide (22-29) mmol/L Anion Gap (5-19) BUN (8-23) mg/dL Creatinine (0.7-1.2) mg/dL Glucose (65-115) mg/dL Calculated Osmolal ity (285-295) mOsm/k g Calcium (8.5-10.5) mg/dL Magnesium (1.7-2.3) mg/dL Total Bilirubin (0.15-1.2) mg/dL AST (0-40) U/L ALT (0-41) U/L Alkaline Phosphata se (40-130) IU/L Troponin T Baselin e (0-15) ng/L Troponin T 120 Min robinson (0-15) ng/L Delta Troponin T (0-10) ABS# Total Protein (6.6-8.7) g/dL Albumin (3.5-5.2) g/dL Globulin (1.3-4.6) g/dL Lipase (13-60) U/L Urine Color (Yellow) Urine Appearance (CLEAR) Urine pH (5-7) Ur Specific Gravit y (1.005-1.030) Urine Protein (Negative) Urine Glucose (UA) (Normal) Urine Ketones (Negative) Urine Blood (Negative) Urine Nitrate (Negative) Urine Bilirubin (NEGATIVE) Prot Sulfosalicyli c Acd (Negative) Urine Urobilinogen (Negative) mg/dL Ur Leukocyte Trina ase (Negative) Urine Opiates Scre en Negative (Negative) ng/mL Ur Barbiturates Sc reen Negative (Negative) ng/mL Valproic Acid 49.7 L (50-100) ug/mL Ur Phencyclidine S crn Negative (Negative) ng/mL Ur Amphetamines Sc reen Negative (Negative) ng/mL U Benzodiazepines Scrn Positive H (Negative) ng/mL Urine Cocaine Scre en Negative (Negative) ng/mL U Marijuana (THC) Screen Negative (Negative) ng/mL Imaging Data^: CT Head: Radiologist's impression: [address] [address] [address] Scan Report Signed Patient: Jerry Tapia Unit #: [id number] : 1940 Age/Sex: 79 / M ADM Date: 12/25/19 Loc: ER Room/Bed: Attending Dr: Ordering Provider/Ordering MD: Roxi Montano DO Date of Service: 12/25/19 Procedure(s): CT head wo con* [id number] Accession Number(s): [id number] Report Number: [id number] PROCEDURE INFORMATION: Exam: CT Head Without Contrast Exam date and time: 12/25/2019 3:15 PM Age: 79 years old Clinical indication: Other: CVA; Additional info: Symptoms of acute stroke TECHNIQUE: Imaging protocol: Computed tomography of the head without contrast. Radiation optimization: All CT scans at this facility use at least one of these dose optimization techniques: automated exposure control; mA and/or kV adjustment per patient size (includes targeted exams where dose is matched to clinical indication); or iterative reconstruction. COMPARISON: CT head wo con* [id number] 12/16/2019 5:26 PM FINDINGS: Brain: There is volume loss and periventricular low density compatible with chronic small vessel disease changes. There is no acute hemorrhage, edema or mass effect. Ventricles: Normal. No ventriculomegaly. Bones/joints: Unremarkable. No acute fracture. Sinuses: Visualized sinuses are unremarkable. No fluid levels. Mastoid air cells: Visualized mastoid air cells are well aerated. Soft tissues: Unremarkable. Other findings: The Total DLP (mGy-cm): 907.89 CT/CT head wo con* [id number] IMPRESSION: No acute intracranial abnormality. Unchanged exam. Radiation Dose CTDIVOL = (mGy): DLP = 907.89 (mGy-cm) Dictated By: Chioma Last Signed By: Chioma Last Signed Date/Time: 12/25/191556 DD/ 1556 CTA Head Neck: Radiologist's impression: [address] [address] [address] Scan Report Signed Patient: Jerry Tapia Unit #: [id number] : 1940 Age/Sex: 79 / M ADM Date: 12/25/19 Loc: ER Room/Bed: Attending Dr: Ordering Provider/Ordering MD: Roxi Montano DO Date of Service: 12/25/19 Procedure(s): CT angio headneck* [id number] Accession Number(s): [id number] Report Number: [id number] PROCEDURE INFORMATION: Exam: CT Angiography Head With Contrast Exam date and time: 12/25/2019 3:15 PM Age: 79 years old Clinical indication: Other: CVA; Additional info: CVA symptoms TECHNIQUE: Imaging protocol: Computed tomography angiography of the head with intravenous contrast. 3D rendering: MIP and/or 3D reconstructed images were created by the technologist. Radiation optimization: All CT scans at this facility use at least one of these dose optimization techniques: automated exposure control; mA and/or kV adjustment per patient size (includes targeted exams where dose is matched to clinical indication); or iterative reconstruction. Contrast material: OMNI 350; Contrast volume: 95 ml; Contrast route: INTRAVENOUS (IV); COMPARISON: CT head wo con* [id number] 12/25/2019 3:17 PM RADIATION DOSE METRICS: Total DLP (mGy-cm): 1750.81 FINDINGS: Anterior cerebral arteries: No occlusion or significant stenosis. No aneurysm. Right internal carotid artery: There is calcified plaque in the right carotid siphon without stenosis. No aneurysm. Right middle cerebral artery: No occlusion or significant stenosis. No aneurysm. Right posterior cerebral artery: No occlusion or significant stenosis. No aneurysm. Right vertebral artery: No occlusion or significant stenosis. No aneurysm. Left internal carotid artery: There is calcified plaque in the left carotid siphon without stenosis. No aneurysm. Left middle cerebral artery: No occlusion or significant stenosis. No aneurysm. Left posterior cerebral artery: No occlusion or significant stenosis. No aneurysm. Left vertebral artery: No occlusion or significant stenosis. No aneurysm. Basilar artery: No occlusion or significant stenosis. No aneurysm. IMPRESSION: No intracranial stenosis or occlusion. PROCEDURE INFORMATION: Exam: CT Angiography Neck With Contrast Exam date and time: 12/25/2019 3:15 PM Age: 79 years old Clinical indication: Other: CVA; Additional info: CVA symptoms TECHNIQUE: Imaging protocol: Computed tomography angiography of the neck with intravenous contrast. 3D rendering: MIP and/or 3D reconstructed images were created by the technologist. Radiation optimization: All CT scans at this facility use at least one of these dose optimization techniques: automated exposure control; mA and/or kV adjustment per patient size (includes targeted exams where dose is matched to clinical indication); or iterative reconstruction. Contrast material: OMNI 350; Contrast volume: 95 ml; Contrast route: INTRAVENOUS (IV); COMPARISON: CT head wo con* [id number] 12/25/2019 3:17 PM RADIATION DOSE METRICS: Total DLP (mGy-cm): 1750.81 FINDINGS: Right common carotid artery: No stenosis. No dissection or occlusion. Right internal carotid artery: No stenosis of the extracranial segment. No dissection or occlusion. Right external carotid artery: No occlusion or stenosis of the origin. Right vertebral artery: No stenosis. No dissection or occlusion. Left common carotid artery: No stenosis. No dissection or occlusion. Left internal carotid artery: No stenosis of the extracranial segment. No dissection or occlusion. Left external carotid artery: No occlusion or stenosis of the origin. Left vertebral artery: No stenosis. No dissection or occlusion. Bones/joints: There is multilevel cervical spondylosis and disc space narrowing. Soft tissues: Normal. No significant soft tissue swelling. CT/CT angio headneck* [id number] IMPRESSION: No carotid or vertebral artery stenosis. REFERENCES: NASCET CRITERIA. The degree of internal carotid artery stenosis is based on NASCET criteria. Normal is no stenosis. Mild is less than 50% stenosis. Moderate is 50-69% stenosis. Severe is 70% to 99% stenosis. Total occlusion is no detectable patent lumen. Radiation Dose CTDIVOL = (mGy): DLP = 1750.81 1750.81 (mGy-cm) Dictated By: Ramon Reno MD Signed By: Ramon Reno MD Signed Date/Time: 12/25/191623 DD/ 162 CT Abd/Pel: Radiologist's impression: [address] [address] [address] Scan Report Signed Patient: Jerry Tapia Unit #: [id number] : 1940 Age/Sex: 79 / M ADM Date: 12/25/19 Loc: ER Room/Bed: Attending Dr: Ordering Provider/Ordering MD: Roxi Montano DO Date of Service: 12/25/19 Procedure(s): CT abdomen pelvis w con* [id number] Accession Number(s): [id number] Report Number: [id number] PROCEDURE INFORMATION: Exam: CT Abdomen And Pelvis With Contrast Exam date and time: 12/25/2019 3:15 PM Age: 79 years old Clinical indication: Abdominal pain; Prior surgery; Surgery type: Appy TECHNIQUE: Imaging protocol: Computed tomography of the abdomen and pelvis with intravenous contrast. Radiation optimization: All CT scans at this facility use at least one of these dose optimization techniques: automated exposure control; mA and/or kV adjustment per patient size (includes targeted exams where dose is matched to clinical indication); or iterative reconstruction. Contrast material: OMNI 350; Contrast volume: 95 ml; Contrast route: INTRAVENOUS (IV); COMPARISON: CT abdomen pelvis wo con [id number] 12/17/2019 11:42 AM RADIATION DOSE METRICS: Total DLP (mGy-cm): 591.47 FINDINGS: Lungs: There is subpleural atelectasis of the dependent portions of the lungs. Liver: Unremarkable.No mass. Gallbladder and bile ducts: Gallbladder is not visualized. This may reflect lack of distention or prior cholecystectomy. There is no duct dilatation. Pancreas: Normal. No ductal dilation. Spleen: Normal. No splenomegaly. Adrenals: Normal. No mass. Kidneys and ureters: There is no evidence of hydronephrosis. There is no evidence of renal calcifications. Stomach and bowel: There is a large amount of stool in the colon compatible with constipation without impaction. There is no evidence of intestinal perforation or obstruction. Appendix: There has been an appendectomy. Intraperitoneal space: Unremarkable. No free air. No significant fluid collection. Vasculature: Unremarkable.No abdominal aortic aneurysm. Lymph nodes: Unremarkable.No enlarged lymph nodes. Bladder: There is nonspecific bladder wall thickening. This may be related to incomplete distention. Reproductive: The prostate demonstrates moderate nonspecific enlargement. The seminal vesicles are normal. Bones/joints: Old fracture deformity of the right pubic rami and severe degenerative changes in the spine and hips are noted. No acute fracture. Soft tissues: Unremarkable. Other findings: Calcified granulomas are noted. There is mild haziness of the presacral fat in perirectal fat which is improving compared to the old exam. This may reflect some scarring or old postoperative changes. CT/CT abdomen pelvis w con* [id number] IMPRESSION: 1. There is a large amount of stool in the colon compatible with constipation without impaction. 2. No acute abnormality. No bowel thickening or inflammatory changes. Postoperative changes are noted as above. Radiation Dose CTDIVOL = (mGy): DLP = 591.47 (mGy-cm) Dictated By: Chioma Last Signed By: Chioma Last Signed Date/Time: 12/25/19 160 DD/ 1601 Discharge Plan Discharge Patient Disposition: Xfer Short-Term Hosp Clinical Impression: Altered mental status Qualifiers: Altered mental status type: unspecified Qualified Code(s): R41.82 - Altered mental status, unspecified CVA (cerebral vascular accident) Qualifiers: CVA mechanism: unspecified Qualified Code(s): I63.9 - Cerebral infarction, unspecified Condition: Stable Referrals: Tyrone Duckworth MD [Primary Care Provider] - Discharge Date/Time: 12/25/19 20:01 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 of Care Code ED [employer] for [place] [place]
[2019-12-25 14:52] LABS: INR 0.99 (0.8-1.2)
[2019-12-25 14:53] LABS: Partial Thromboplastin Time 35.1 SECONDS (23.9-36.7); Troponin(5th) Baseline 31 ng/L (0-15)
[2019-12-25 14:54] LABS: Alanine Aminotransferase 10 U/L (0-41); Alkaline Phosphatase 93 IU/L (40-130); Anion Gap 14.5 (5-19); Aspartate Amino Transferase 17 U/L (0-40); Blood Urea Nitrogen 11 mg/dL (8-23); Calcium 9.5 mg/dL (8.5-10.5); Carbon Dioxide 28 mmol/L (22-29); Chloride 98 mmol/L (98-107); Globulin 2.6 g/dL (1.3-4.6); Glucose 111 mg/dL (65-115); Lipase 38 U/L (13-60); Magnesium 2.4 mg/dL (1.7-2.3); Osmolality Calculated 279 mOsm/kg (285-295); Potassium 4.5 mmol/L (3.5-5.1); Sodium 136 mmol/L (136-145); Total Bilirubin 0.3 mg/dL (0.15-1.2); Total Protein 6.6 g/dL (6.6-8.7)
[2019-12-25] MEDS: iohexol 350 mg/mL 100 mL Btl IV (15:31)
--- NOTE | 2019-12-25 15:35 | ECG_ITS ---
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 Measurements Intervals [place] Rate: 78 P: -88 [place]: 140 QRS: 56 QRSD: 95 T: 68 QT: 377 QTc: 430 Interpretive Statements JUNCTIONAL RHYTHM SEPTAL MYOCARDIAL INFARCTION , PROBABLY OLD [40+ ms Q WAVE IN V1/V2] Compared to ECG 12/16/2019 22:25:48 Junctional rhythm now present Myocardial infarct finding now present Sinus rhythm no longer present Electronically Signed On 12-26-2019 20:02:41 CDT by Pilar Young M.D. [email or web address]
[2019-12-25 16:15] LABS: Troponin 5 2HR 24.16 ng/L (0-15)
[2019-12-25 16:37] VITALS: BP 176/95; PULSE 82; RESP 18; O2SAT 98
[2019-12-25 16:46] LABS: Add Urine Microscopic? NO
[2019-12-25 17:01] LABS: Troponin 5 2HR Delta -6.84 ABS# (0-10)
[2019-12-25] MEDS: sodium chloride 0.9% 500 ML 999 ML IV (17:08)
[2019-12-25 17:13] LABS: Bilirubin Urine Neg (NEGATIVE); Blood Urine Neg (Negative); Glucose Urine UA Norm (Normal); Ketones Urine Negative (Negative); Leukocyte Esterase Urine Negative (Negative); Nitrate Urine Negative (Negative); Protein Urine Neg (Negative); Sulfosalicylic Acid Urine Negative (Negative); Urine Appearance Clear (CLEAR); Urine Color Yellow (Yellow); Urobilinogen Urine Norm (Negative); pH Urine 8 (5-7)
[2019-12-25 17:18] LABS: Amphetamines Screen Urine Negative (Negative); Barbiturates Screen Urine Negative (Negative); Benzodiazepines Screen Urine Positive (Negative); Cocaine Screen Urine Negative (Negative); Opiate Screen Urine Negative (Negative); PCP Screen Urine Negative (Negative); THC Screen Urine Negative (Negative)
[2019-12-25 18:07] VITALS: BP 171/127; PULSE 86; RESP 10; O2SAT 98
[2019-12-25 18:16] LABS: Valproic Acid Level 49.7 ug/mL (50-100)
[2019-12-25 19:11] VITALS: BP 148/87; PULSE 89; RESP 15; O2SAT 98
[2019-12-25 20:00] VITALS: BP 172/122; PULSE 87; RESP 18; O2SAT 97
--- NOTE | 2019-12-25 20:01 | PC.NURSE ---
Report given to EMS
== END 2019-12-25 20:01 | disposition short-term general hospital (02) ==
PROVIDERS: Emergency Provider Emergency Medicine; PCP Internal Medicine
DX: I63.9 Cerebral infarction, unspecified (principal); Z85.89 Personal history of malignant neoplasm of other organs and systems; I10 Essential (primary) hypertension
CPT/HCPCS: 12345; 36415; 70450; 70496; 70498; 71045; 74177; 80053; 80164; 80306; 81003; 83690; 83735; 84484; 85025; 85610; 85730; 93005; 96361; 96374; 99283; 99285; J7040; Q9967

== ENCOUNTER → 2020-03-03 09:51 | Outpatient (BNVA) | payer MEDICARE, OTHER, SELFPAY | PROVIDERS: PCP Internal Medicine; Referring Provider Internal Medicine; Visit Provider Nurse Practitioner | DX: R25.1 Tremor, unspecified (principal) | CPT/HCPCS: 99215 ==

== ENCOUNTER → 2020-04-11 13:52 | Outpatient (BNVA) | payer MEDICARE, OTHER, SELFPAY | PROVIDERS: Absent Provider Internal Medicine; PCP Internal Medicine; Visit Provider Internal Medicine | DX: Z11.59 Encounter for screening for other viral diseases (principal); R11.2 Nausea with vomiting, unspecified | CPT/HCPCS: 87635 ==

== ENCOUNTER 2020-04-17 09:15 | Day surgery (SDC) | payer MEDICARE, OTHER, SELFPAY ==
[2020-04-11 12:18] VITALS: BMI 19.5
[2020-04-17 09:27] VITALS: BP 162/95; PULSE 88; RESP 18; TEMP 36.1; O2SAT 98
[2020-04-17] MEDS: sodium chloride 0.9% 1,000 ML 30 ML IV (09:51)
--- NOTE | 2020-04-17 09:58 | ANES.PREANE2 ---
Pre-Anesthetic Assessment Pre-Anesthetic Assessment: Height/Weight: Height 1.8 m Weight 63.503 kg Temp Pulse Resp BP Pulse Ox 96.9 F L 88 18 162/95 98 04/17/20 09:27 04/17/20 09:27 04/17/20 09:27 04/17/20 09:27 04/17/20 09:27 Preop Diagnosis: nausea and vomiting Proposed Procedure: Operation Date: 04/17/20 10:15 Proposed Procedures p EGD [id number] R11.2(Not Applicable) - Tyrone Duckworth MD s Colonoscopy(Not Applicable) - Tyrone Duckworth MD Familial anesthetic complications: None Was Beta Ira taken within 24 hours: N/A Last intake: Intake Last Liquid Date 04/17/20 Last Liquid Time 19:00 Last Solid Date 04/15/20 Social: Social History: No alcohol and No tobacco Exam: Pre-Anes Outpt Exam: alert, oriented x 3, clear to auscultation bilaterally and regular rate & rhythm Airway: Cervical ROM: WNL MP: 3 Dentition: Full Additional comments: small mouth opening Pulmonary: Pulmonary: Sleep apnea (on 4 L NC at night) CV/HEM: CV/HEM: HTN Comments: grade I diastolic dysfunction, ef normal Metabolic: Metabolic: Thyroid Neuropsych: Neuropsych: Seizure Comments: parkinsons hx post traumatic encephalopathy Anesthetic Plan: ASA status: 3 Anesthesia: MAC Risk of > 500 ml blood loss (7ml/kg in children): No Meds/Allergies Current Medications: Current Medications Generic Name Dose Route Start Last Admin Trade Name Freq PRN Reason Stop Dose Admin Sodium Chloride 1,000 mls @ 30 ml s/hr 04/17/20 09:30 04/17/20 09:51 Sodium Chloride 0.9% IV 04/18/20 09:29 30 mls/hr .Q24H SHANDRA Administration PFSH Anesthesia PFSH: Medical History (Updated 04/06/20 @ 12:31 by Tyrone Duckworth MD) Anemia 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 -continue AEDs; is on tegretol and depakote; levels therapeutic -seizure precautions; cannot recall when he had his last seizure but per review of chart, may have had seizure in 07/2019 which resulted in fall and subsequent R pubic rami and R acetabular fractures (non-displaced, no surgical intervention) Depression History of basal cell cancer HTN (hypertension) -BP controlled without medications; permissive HTN x 24 hrs -continue to monitor vital signs Hypothyroidism -TSH wnl, on levothyroxine Insomnia CHRISTINA (obstructive sleep apnea) -with nocturnal hypoxemia, oxygen dependent, 4 L NC qhs Posttraumatic encephalopathy Vitamin D deficiency Surgical History History of appendectomy History of tonsillectomy and adenoidectomy Family History Other Cancer Diabetes Social History Smoking and tobacco status: never smoked Alcohol intake: never Household members: children Housing: House Marital status: / Current occupational status: retired History of recent travel: No Current gender identity: Male Data Anesthesia Cardiac Studies: No Data to Display
--- NOTE | 2020-04-17 10:16 | W.PM.OPSUD ---
Surgery/Procedure H&P Update DATE OF PROCEDURE: April 17, 2020 DATE H&P PERFORMED: 04/06/20 PREOP DIAGNOSIS: nausea and vomiting PLANNED PROCEDURE: Operation Date: 04/17/20 10:15 Proposed Procedures p EGD [id number] R11.2(Not Applicable) - Tyrone Duckworth MD s Colonoscopy(Not Applicable) - Tyrone Duckworth MD
[2020-04-17 12:17] VITALS: BP 101/44; PULSE 76; RESP 16; TEMP 36.1; O2SAT 100
--- NOTE | 2020-04-17 12:23 | ANE.PACU2 ---
Inpatient post-anesthesia follow up: Airway intact: Yes Vital signs: Temperature 97 F Pulse Rate 76 Respiratory Rate 16 Blood Pressure 101/44 Pulse Oximetry 100 Oxygen Delivery Me thod Room Air Oxygen Flow Rate Fraction of Inspir ed Oxygen Hydration adequate: Yes Nausea and vomiting: No Pain level: 2 Mental status: Baseline
[2020-04-18 08:23] LABS: H. Pylori / CLO Test Negative
== END 2020-04-17 12:53 | disposition home or self-care (01) ==
PROVIDERS: PCP Internal Medicine; Visit Provider Internal Medicine
PROC: 0DJ08ZZ Inspection of Upper Intestinal Tract, Via Natural or Artificial Opening Endoscopic (ICD-10-PCS; CPT 43235; principal; 2020-04-17 10:15)
PROC: 0DJD8ZZ Inspection of Lower Intestinal Tract, Via Natural or Artificial Opening Endoscopic (ICD-10-PCS; CPT 45378; 2020-04-17 10:15)
DX: R11.2 Nausea with vomiting, unspecified (principal); K29.70 Gastritis, unspecified, without bleeding; Z99.81 Dependence on supplemental oxygen; I10 Essential (primary) hypertension; F32.9 Major depressive disorder, single episode, unspecified; E03.9 Hypothyroidism, unspecified; G47.33 Obstructive sleep apnea (adult) (pediatric)
CPT/HCPCS: 12345; 43239; 87077; G0121; J2370; J2704; J3010; J7030

== ENCOUNTER → 2020-11-02 15:29 | Outpatient (BNVA) | payer MEDICARE, OTHER, SELFPAY | PROVIDERS: PCP Internal Medicine; Visit Provider Registered Nurse Neonatal Intensive Care | DX: M25.511 Pain in right shoulder (principal); S42.211A Unspecified displaced fracture of surgical neck of right humerus, initial encounter for closed fracture; W19.XXXA Unspecified fall, initial encounter | CPT/HCPCS: 73030 ==

== ENCOUNTER → 2020-11-07 08:37 | Outpatient (BNVA) | payer MEDICARE, OTHER, SELFPAY | PROVIDERS: PCP Internal Medicine; Referring Provider Internal Medicine; Visit Provider Orthopaedic Surgery | DX: S42.291A Other displaced fracture of upper end of right humerus, initial encounter for closed fracture (principal); X58.XXXA Exposure to other specified factors, initial encounter | CPT/HCPCS: 73060 ==

== ENCOUNTER → 2020-12-05 10:09 | Outpatient (BNVA) | payer MEDICARE, OTHER, SELFPAY | PROVIDERS: PCP Internal Medicine; Visit Provider Orthopaedic Surgery | DX: S42.291D Other displaced fracture of upper end of right humerus, subsequent encounter for fracture with routine healing (principal); X58.XXXD Exposure to other specified factors, subsequent encounter | CPT/HCPCS: 73030 ==

== ENCOUNTER → 2021-01-16 10:14 | Outpatient (BNVA) | payer MEDICARE, OTHER, SELFPAY | PROVIDERS: PCP Internal Medicine; Visit Provider Orthopaedic Surgery | DX: S42.291D Other displaced fracture of upper end of right humerus, subsequent encounter for fracture with routine healing (principal); X58.XXXD Exposure to other specified factors, subsequent encounter | CPT/HCPCS: 73030 ==

== ENCOUNTER 2021-10-20 09:57 | Inpatient (IN) | payer MEDICARE, OTHER, SELFPAY ==
[2021-10-20] VITALS (49 sets, daily range): BP systolic 97–242; BP diastolic 54–121; PULSE 70–95; RESP 8–23; TEMP 36.1–36.8; O2SAT 93–99; BMI 24.4
--- NOTE | 2021-10-20 10:10 | ED_ITS ---
HPI - Altered Mental Status General: Chief Complaint: Altered Mental Status Stated Complaint: AMS Time Seen by Provider: 10/20/21 10:10 Limitations: altered mental status History of Present Illness: Mr Tapia is an 81-year-old gentleman with reported past medical history of seizures, hypertension, hyperlipidemia, history of stroke who presents to the emergency department due to altered mental status. The patient himself only provides limited history and reports feeling generalized unwellness and has sleep disturbance over the past few days. Currently he was found by a neighbor unresponsive however is subsequently alert and oriented. He endorses generalized weakness which has been worse over the past 2 days. Overall course of symptoms has been worsening. Intensity is moderate to severe. Review of Systems General: Reports: ROS unobtainable due to mental status PFSH ED PFSH: Medical History Anemia Aphasia -reported to have had worsening generalized weakness, slurred speech, difficulty with word finding -clinical suspicion for CVA with noted expressive aphasia, mild R facial droop -CT head negative -Echo: EF=60%, G1DD, no RWMA, trace to mild MR; carotid US: no significant stenosis -telemetry monitoring -VSS; continue to monitor -passed bedside dysphagia screening -PT/OT/ST evaluations appreciated -fall/seizure/aspiration precautions -received ASA 325 mg in ED, continue ASA, Plavix and statin -noted A1c, TSH, lipid panel -did not received tPA as presented outside of window -permissive HTN x 24 hrs; can resume oral antihypertensives on d/c, labetalol if BP >220/110 BPH (benign prostatic hyperplasia) -on tamsulosin Carotid artery occlusion Cerebrovascular accident Closed right acetabular fracture 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 -continue AEDs; is on tegretol and depakote; levels therapeutic -seizure precautions; cannot recall when he had his last seizure but per review of chart, may have had seizure in 07/2019 which resulted in fall and subsequent R pubic rami and R acetabular fractures (non-displaced, no surgical intervention) Depression History of basal cell cancer HTN (hypertension) Hypothyroidism -TSH wnl, on levothyroxine Insomnia CHRISTINA (obstructive sleep apnea) -with nocturnal hypoxemia, oxygen dependent, 4 L NC qhs Posttraumatic encephalopathy Pubic ramus fracture Tremor Vitamin D deficiency Surgical History History of appendectomy History of tonsillectomy and adenoidectomy Family History Other Cancer Diabetes Social History Smoking and tobacco status: never smoked Alcohol intake: never Household members: children Housing: House Marital status: / Current occupational status: retired History of recent travel: No Current gender identity: Male Physical Exam Const: GENERAL APPEARANCE: well developed HENMT: COMMON NORMALS: normocephalic and atraumatic HEAD & SCALP: normocephalic and atraumatic THROAT: posterior oropharynx normal Eye: COMMON NORMALS: conjunctivae normal CONJUNCTIVA: Yes conjunctivae normal SCLERA: sclerae normal Neck/C-Spine: COMMON NORMALS: supple GENERAL: Yes trachea midline Resp: COMMON NORMALS: clear to auscultation bilaterally EFFORT & INSPEC TION: Yes able to speak in complete sentences AUSCULTATION: clear to auscultation bilaterally Cardio: COMMON NORMALS: regular rate and regular rhythm RATE: regular rate RHYTHM: regular rhythm GI: COMMON NORMALS: Soft to palpation PALPATION: Yes Soft to palpation and No Tenderness to palpation present (GI) PERCUSSION: normal to percussion Extremity: GENERAL: Yes normal exam except as noted and No edema Neuro: SENSORIUM/ORIENTATION: Yes Orientation impaired Psych: MEMORY/COGNITION: Yes memory grossly impaired Course ED course: - Patient was seen and evaluated by me at bedside - Patient placed on cardiac monitors, IV access obtained - Initial evaluation notable for exam as above, limited nonfocal neuro exam but altered mental status present - Labs personally interpreted by me. EKG from 1020 and 06/24/2005 interpreted by me, sinus rhythm with no STEMI. - Labs notable for no leukocytosis, normal hemoglobin. Metabolic panel without acute derangement to explain symptoms. Delta troponin negative. Urinalysis not concerning for urinary tract infection. - Imaging notable for head CT without evidence of acute hemorrhage. CT neck notable for no acute traumatic injury. Additional CT imaging warranted given found down with unclear history including possibility of trauma. Additionally given degree of impairment of neurologic function CTA of the head and neck felt to be warranted. No additional acute finding from trauma or LVO. - Upon serial reexamination after treatment the patient was mildly improved. I did attempt push dose hydralazine without significant improvement in blood pr essure. - Based on patient history, evaluation, and testing as interpreted the most likely cause of the patient's condition is hypertensive emergency leading to altered mental status as the patient does not have another clear explanation for symptoms. Patient started on Cardene drip. - The results of ED evaluation were discussed with the patient including plan for admission due to requirement for level of care not available if discharged to prevent significant worsening/deterioration. - Admitting service was contacted and Dr Braxton with the hospitalist service agreed to admit the patient - Patient was admitted without further deterioration or significant events. Note: Click bubbles or prepopulated hernandez in note writing are used for assistance with data collection and billing and are inherently more limited than narrative and other text portions of this note. Please use narrative for additional clinical history and defer to narrative/free test for any case of contradictory information. If information appears in only free text or click bubble it should be considered present or absent as reported. Please contact note proposal lead writer for clarifications of clinical information or contradictory information. MDM is a brief summary, contradictory or erroneous seeming information should be clarified and full note should be reviewed. Vital Signs: Vital signs: Vital Signs Temperature 98.2 F 10/22/21 21:31 Pulse Rate 88 10/22/21 21:31 Respiratory Rate 13 10/22/21 21:31 Blood Pressure 182/96 10/22/21 21:31 Pulse Oximetry 98 10/22/21 21:31 MDM - Altered Mental Status Medical Decision Making 81-year-old gentleman presenting after being found down with unclear history and altered mental status. ED evaluation negative for acute traumatic injury or obvious laboratory study because for patient's symptoms. Patient markedly hypertensive on exam without response to hydralazine. High clinical suspicion for hypertensive emergency, started on Cardene drip and admitted for definitive management and assessment. Medical Records I reviewed the patient's medical records. Lab Data I reviewed the patient's lab results. : 10/22/21 04:15 10/22/21 04:15 Radiology Impressions Cervical Spine CT 10/20/21 10:37 IMPRESSION: No acute findings. Chest/Abdomen/Pelvis CT 10/20/21 10:37 IMPRESSION: No acute findings.Non acute findings as described above. IMPRESSION: No acute findings.Colonic constipation is present. Head CT 10/20/21 10:37 IMPRESSION: 1. No acute intracranial abnormality. 2. Generalized chronic atrophy. Head/Neck CTA 10/20/21 10:37 IMPRESSION: 1. Calcification of the cavernous portions of the internal carotid arteries with moderate stenosis on the right side and mild stenosis on the left side. 2. No other significant intracranial stenosis or occlusions are seen. IMPRESSION: 1. Moderate 50-60% stenosis at the origin of the right internal carotid artery. 2. Mild less than 50% stenosis at the origin of the left internal carotid artery. REFERENCES: NASCET CRITERIA. The degree of internal carotid artery stenosis is based on NASCET criteria. Normal is no stenosis. Mild is less than 50% stenosis. Moderate is 50-69% stenosis. Severe is 70% to 99% stenosis. Total occlusion is no detectable patent lumen. Laboratory Results WBC 5.9 10^3/uL (4.0-10.0) 10/21/21 05:18 RBC 4.21 10^6/uL (4.1-5.3) 10/21/21 05:18 Hgb 14.3 g/dL (11.7-16.6) 10/21/21 05:18 Hct 42.6 % (42.0-52.0) 10/21/21 05:18 MCV 101.2 fl (80-94) H 10/21/21 05:18 MCH 34.0 pg (28.0-34.0) 10/21/21 05:18 MCHC 33.6 g/dL (30.0-36.0) 10/21/21 05:18 RDW 12.0 % (12.1-15.1) L 10/21/21 05:18 Plt Count 147 10^3/cmm (130-400) 10/21/21 05:18 MPV 9.2 fL (7.4-10.4) 10/21/21 05:18 Neut % (Auto) 62.7 % 10/21/21 05:18 Lymph % (Auto) 26.0 % 10/21/21 05:18 [place] % (Auto) 8.3 % 10/21/21 05:18 Eos % (Auto) 2.4 % 10/21/21 05:18 Baso % (Auto) 0.3 % 10/21/21 05:18 Neut # (Auto) 3.72 10^3/uL (1.8-7.7) 10/21/21 05:18 Lymph # (Auto) 1.5 10^3/uL (0.8-4.8) 10/21/21 05:18 [place] # (Auto) 0.5 10^3/uL (0.2-0.9) 10/21/21 05:18 Eos # (Auto) 0.1 10^3/uL (0.0-0.8) 10/21/21 05:18 Baso # (Auto) 0.0 10^3/uL (0.0-0.1) 10/21/21 05:18 Nucleated RBC % (auto) 0 % 10/21/21 05:18 Nucleated RBCs # 0.0 /100WBC 10/21/21 05:18 Sodium 141 mmol/L (136-145) 10/21/21 05:18 Potassium 4.5 mmol/L (3.5-5.1) 10/21/21 05:18 Chloride 107 mmol/L (98-107) 10/21/21 05:18 Carbon Dioxide 25 mmol/L (22-29) 10/21/21 05:18 Anion Gap 13.5 (5-19) 10/21/21 05:18 BUN 18 mg/dL (8-23) 10/21/21 05:18 Creatinine 0.6 mg/dL (0.7-1.2) L 10/21/21 05:18 GFR Calculation Not Reportable 10/21/21 05:18 Glucose 93 mg/dL (65-115) 10/21/21 05:18 Calculated Osmolality 294 mOsm/kg (285-295) 10/21/21 05:18 Calcium 8.6 mg/dL (8.5-10.5) 10/21/21 05:18 Magnesium 2.5 mg/dL (1.7-2.3) H 10/20/21 10:18 Total Bilirubin 0.3 mg/dL (0.15-1.2) 10/20/21 10:18 AST 18 U/L (0-40) 10/20/21 10:18 ALT 15 U/L (0-41) 10/20/21 10:18 Alkaline Phosphatase 135 IU/L (40-130) H 10/20/21 10:18 Troponin T Baseline 20 ng/L (0-15) H 10/20/21 10:18 Troponin T 120 Minute 18.25 ng/L (0-15) H 10/20/21 12:21 Delta Troponin T -1.75 ABS# (0-10) L 10/20/21 12:21 Troponin T Hi Sens 6Hr 19.31 ng/L (0-15) H 10/20/21 15:54 Troponin T Hi Sens 6Hr Delta -0.69 ng/L (0-12) L 10/20/21 15:54 C-Reactive Protein 3.0 mg/L (0.0-4.9) 10/20/21 10:18 NT-Pro-B Natriuret Pep 135 pg/mL (0-450) 10/20/21 10:18 Total Protein 6.7 g/dL (6.6-8.7) 10/20/21 10:18 Albumin 4.6 g/dL (3.5-5.2) 10/20/21 10:18 Globulin 2.1 g/dL (1.3-4.6) 10/20/21 10:18 Procalcitonin 0.06 ng/mL (0-0.5) 10/20/21 10:18 TSH 8.78 uIU/mL (0.27-4.20) H 10/21/21 05:18 Free T4 0.82 ng/dL (0.82-1.77) 10/21/21 05:18 Free T3 2.6 PG/ML (2.0-4.4) 10/21/21 05:18 Urine Color Yellow (Yellow) 10/20/21 10:10 Urine Appearance Clear (CLEAR) 10/20/21 10:10 Urine pH 8 (5-7) H 10/20/21 10:10 Ur Specific [place] 1.010 (1.005-1.030) 10/20/21 10:10 Urine Protein Neg (Negative) 10/20/21 10:10 Urine Glucose (UA) Norm (Normal) 10/20/21 10:10 Urine Ketones Negative (Negative) 10/20/21 10:10 Urine Blood Neg (Negative) 10/20/21 10:10 Urine Nitrate Negative (Negative) 10/20/21 10:10 Urine Bilirubin Neg (Negative) 10/20/21 10:10 Prot Sulfosalicylic Acd Negative (Negative) 10/20/21 10:10 Urine Urobilinogen Norm mg/dL (Negative) 10/20/21 10:10 Ur Leukocyte Esterase Negative (Negative) 10/20/21 10:10 Critical Care Time Critical Care Time: Critical Care Time: Yes Total Critical Care Time: 35 Attestation: Due to a high probability of clinically significant, possibly life threatening deterioration, the patient required my highest level of attention and preparedness to intervene emergently and I personally spent this critical care time directly and personally managing the patient. This critical care time included obtaining a history; examining the patient; pulse oximetry; ordering and review of laboratory and imaging studies; arranging urgent treatment with development of a management plan; evaluation of patient's response to treatment; frequent reassessment; and, discussions with other providers as applicable. It was exclusive of separately billable procedures. Primary system involved is cardiopulmonary and neuro Discharge Plan Discharge Patient Disposition: Placed in Observation Admit Provider: Ibrahima Braxton Clinical Impression: Hypertensive emergency, AMS (altered mental status) Discharge Diet: Low Salt 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 of Care Code ED It Support Specialist for [facility]
--- NOTE | 2021-10-20 10:15 | ECG_ITS ---
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 Measurements Intervals [place] Rate: 81 P: 224 MD: 124 QRS: 51 QRSD: 88 T: 64 QT: 373 QTc: 435 Interpretive Statements Sinus RHYTHM SEPTAL MYOCARDIAL INFARCTION , PROBABLY OLD [40+ ms Q WAVE IN V1/V2] Compared to ECG 12/25/2019 18:22:09 Myocardial infarct finding still present Electronically Signed On 10-21-2021 8:10:57 CDT by Stanislaw Najera M.D. [id number]
[2021-10-20 10:27] LABS: Basophils % 0.6 %; Eosinophils # 0.1 10^3/uL (0.0-0.8); Eosinophils % 1.7 %; Hematocrit 44.7 % (42.0-52.0); Hemoglobin 14.6 g/dL (11.7-16.6); Lymphocytes # 1.3 10^3/uL (0.8-4.8); Lymphocytes % 24.9 %; Mean Corpuscular HGB Conc 32.7 g/dL (30.0-36.0); Mean Corpuscular Hemoglobin 34.8 pg (28.0-34.0); Mean Corpuscular Volume 106.4 fl (80-94); Mean Platelet Volume 9.3 fL (7.4-10.4); Monocytes # 0.4 10^3/uL (0.2-0.9); Monocytes % 8.3 %; Neutrophils # 3.42 10^3/uL (1.8-7.7); Neutrophils % 64.3 %; Nucleated Red Blood Cells % 0 %; Platelet Count 163 10^3/cmm (130-400); Red Cell Distribution Width 11.9 % (12.1-15.1); White Blood Count 5.3 10^3/uL (4.0-10.0)
--- NOTE | 2021-10-20 10:37 | CTR_ITS ---
PROCEDURE INFORMATION: Exam: CT Chest Without Contrast; Diagnostic Exam date and time: 10/20/2021 11:33 AM Age: 81 years old Clinical indication: Injury or trauma; Fall; Generalized; Blunt trauma (contusions or hematomas); Prior surgery; Surgery type: Appy; Additional info: AMS, ? fall TECHNIQUE: Imaging protocol: Diagnostic computed tomography of the chest without contrast. Radiation optimization: All CT scans at this facility use at least one of these dose optimization techniques: automated exposure control; mA and/or kV adjustment per patient size (includes targeted exams where dose is matched to clinical indication); or iterative reconstruction. COMPARISON: 1. CT abdomen pelvis w con* [id number] 12/25/2019 3:25 PM 2. CR XR chest 1V portable [id number] 12/25/2019 2:34 PM RADIATION DOSE METRICS: Total DLP (mGy-cm): 1505.62 FINDINGS: Lungs: Unremarkable. No consolidation. No masses. Pleural spaces: Unremarkable. No pneumothorax. No pleural effusion. Heart: Multivessel atherosclerotic disease which involves the coronary arteries. Lymph nodes: Unremarkable. No enlarged lymph nodes. Vasculature: Unremarkable. No aortic aneurysm. Bones/joints: Old/healed right sixth through 8th rib fracture sites. There are degenerative changes in the visualized spine. Soft tissues: Unremarkable. PROCEDURE INFORMATION: Exam: CT Abdomen And Pelvis Without Contrast Exam date and time: 10/20/2021 11:33 AM Age: 81 years old Clinical indication: Injury or trauma; Fall; Generalized; Blunt trauma (contusions or hematomas); Prior surgery; Surgery type: Appy; Additional info: AMS, ? fall TECHNIQUE: Imaging protocol: Computed tomography of the abdomen and pelvis without contrast. Radiation optimization: All CT scans at this facility use at least one of these dose optimization techniques: automated exposure control; mA and/or kV adjustment per patient size (includes targeted exams where dose is matched to clinical indication); or iterative reconstruction. COMPARISON: 1. CT abdomen pelvis w con* [id number] 12/25/2019 3:25 PM 2. CR XR chest 1V portable [id number] 12/25/2019 2:34 PM RADIATION DOSE METRICS: Total DLP (mGy-cm): 1505.62 FINDINGS: Heart: Multivessel atherosclerotic disease which involves the coronary arteries. Liver: Normal. No mass. Gallbladder and bile ducts: Normal. No calcified stones. No ductal dilation. Pancreas: Normal. No ductal dilation. Spleen: Normal. No splenomegaly. Adrenal glands: Normal. No mass. Kidneys and ureters: Normal. No hydronephrosis. Stomach and bowel: Colonic constipation is present. Appendix: No evidence of appendicitis. Intraperitoneal space: Unremarkable. No free air. No significant fluid collection. Vasculature: Unremarkable. No abdominal aortic aneurysm. Lymph nodes: Unremarkable. No enlarged lymph nodes. Urinary bladder: Unremarkable as visualized. Reproductive: Unremarkable as visualized. Bones/joints: There are degenerative changes in the visualized spine. Degenerative changes extend across the hip joints. Minimal lumbar levoscoliosis. There is fusion across the L4-L5 levels. Multilevel lumbar broad-based disc osteophyte complexes. Soft tissues: Unremarkable. Other findings: There are multiple subcentimeter left parapelvic cysts with benign features. Follow-up is not necessary. CT/CT chest abd pel wo con IMPRESSION: No acute findings.Non acute findings as described above. IMPRESSION: No acute findings.Colonic constipation is present.
--- NOTE | 2021-10-20 10:37 | CTR_ITS ---
PROCEDURE INFORMATION: Exam: CT Angiography Head With Contrast, Arteriography Exam date and time: 10/20/2021 11:38 AM Age: 81 years old Clinical indication: Other: Confused; Additional info: AMS, ? fall TECHNIQUE: Imaging protocol: Computed tomography angiography of the head with contrast. Exam focused on the arteries. 3D rendering (Not supervised by radiologist): MIP and/or 3D reconstructed images were created by the technologist. Radiation optimization: All CT scans at this facility use at least one of these dose optimization techniques: automated exposure control; mA and/or kV adjustment per patient size (includes targeted exams where dose is matched to clinical indication); or iterative reconstruction. Contrast material: OMNI 350; Contrast volume: 95 ml; Contrast route: INTRAVENOUS (IV); COMPARISON: CT angio headneck* [id number] 12/25/2019 3:21 PM RADIATION DOSE METRICS: Total DLP (mGy-cm): 2290.96 FINDINGS: ANTERIOR CIRCULATION: Right internal carotid artery: There is calcification of the cavernous portion with focal moderate stenosis. No aneurysm. Right middle cerebral artery: Unremarkable. No occlusion or significant stenosis. No aneurysm. Right anterior cerebral artery: Unremarkable. No occlusion or significant stenosis. No aneurysm. Left internal carotid artery: Calcification of the cavernous portion with mild stenosis. Intracranial segment is patent with no significant stenosis. No aneurysm. Left middle cerebral artery: Unremarkable. No occlusion or significant stenosis. No aneurysm. Left anterior cerebral artery: Unremarkable. No occlusion or significant stenosis. No aneurysm. POSTERIOR CIRCULATION: Right vertebral artery: Unremarkable. No occlusion or significant stenosis. No aneurysm. Left vertebral artery: Unremarkable. No occlusion or significant stenosis. No aneurysm. Basilar artery: Unremarkable. No occlusion or significant stenosis. No aneurysm. Right posterior cerebral artery: Unremarkable. No occlusion or significant stenosis. No aneurysm. Left posterior cerebral artery: Unremarkable. No occlusion or significant stenosis. No aneurysm. Brain: No definite mass, mass effect, or midline shift. Cerebral ventricles: No ventriculomegaly. Bones/joints: Unremarkable. No acute fracture. Soft tissues: Unremarkable. PROCEDURE INFORMATION: Exam: CT Angiography Neck With Contrast Exam date and time: 10/20/2021 11:38 AM Age: 81 years old Clinical indication: Other: Confused; Additional info: AMS, ? fall TECHNIQUE: Imaging protocol: Computed tomography angiography of the neck with contrast. 3D rendering (Not supervised by radiologist): MIP and/or 3D reconstructed images were created by the technologist. Radiation optimization: All CT scans at this facility use at least one of these dose optimization techniques: automated exposure control; mA and/or kV adjustment per patient size (includes targeted exams where dose is matched to clinical indication); or iterative reconstruction. Contrast material: OMNI 350; Contrast volume: 95 ml; Contrast route: INTRAVENOUS (IV); COMPARISON: CT angio headneck* [id number] 12/25/2019 3:21 PM RADIATION DOSE METRICS: Total DLP (mGy-cm): 2290.96 FINDINGS: Right common carotid artery: No stenosis. No dissection or occlusion. Right internal carotid artery: There is focal atherosclerotic plaque at the origin of the right internal carotid artery with moderate 50-60% stenosis. No dissection or occlusion. Right external carotid artery: No occlusion or stenosis of the origin. Left common carotid artery: No stenosis. No dissection or occlusion. Left internal carotid artery: There is mild atherosclerotic plaque at the origin of the left internal carotid artery with mild less than 50% stenosis. No dissection or occlusion. Left external carotid artery: No occlusion or stenosis of the origin. Right vertebral artery: No stenosis. No dissection or occlusion. Left vertebral artery: No stenosis. No dissection or occlusion. Soft tissues: Normal. No significant soft tissue swelling. Bones/joints: No acute fracture. Chronic degenerative changes are present in the cervical spine. CT/CT angio headne* [id number] IMPRESSION: 1. Calcification of the cavernous portions of the internal carotid arteries with moderate stenosis on the right side and mild stenosis on the left side. 2. No other significant intracranial stenosis or occlusions are seen. IMPRESSION: 1. Moderate 50-60% stenosis at the origin of the right internal carotid artery. 2. Mild less than 50% stenosis at the origin of the left internal carotid artery. REFERENCES: NASCET CRITERIA. The degree of internal carotid artery stenosis is based on NASCET criteria. Normal is no stenosis. Mild is less than 50% stenosis. Moderate is 50-69% stenosis. Severe is 70% to 99% stenosis. Total occlusion is no detectable patent lumen.
--- NOTE | 2021-10-20 10:37 | CTR_ITS ---
PROCEDURE INFORMATION: Exam: CT Head Without Contrast Exam date and time: 10/20/2021 11:26 AM Age: 81 years old Clinical indication: Altered mental status/memory loss; Additional info: AMS, ? fall TECHNIQUE: Imaging protocol: Computed tomography of the head without contrast. Radiation optimization: All CT scans at this facility use at least one of these dose optimization techniques: automated exposure control; mA and/or kV adjustment per patient size (includes targeted exams where dose is matched to clinical indication); or iterative reconstruction. COMPARISON: CT head wo con* [id number] 12/25/2019 3:17 PM RADIATION DOSE METRICS: Total DLP (mGy-cm): 809.38 FINDINGS: Brain: No intracranial hemorrhage, edema or other acute abnormalities are seen in the brain. There is generalized chronic atrophy with prominence of the ventricles and sulci. Cerebral ventricles: The ventricles are prominent due to chronic atrophy. Paranasal sinuses: Visualized sinuses are unremarkable. No fluid levels. Mastoid air cells: Visualized mastoid air cells are well aerated. Bones/joints: Unremarkable. No acute fracture. Soft tissues: Unremarkable. CT/CT head wo con* [id number] IMPRESSION: 1. No acute intracranial abnormality. 2. Generalized chronic atrophy.
--- NOTE | 2021-10-20 10:37 | CTR_ITS ---
PROCEDURE INFORMATION: Exam: CT Cervical Spine Without Contrast Exam date and time: 10/20/2021 11:29 AM Age: 81 years old Clinical indication: Injury or trauma; Fall; Blunt trauma; Additional info: AMS, ? fall TECHNIQUE: Imaging protocol: Computed tomography images of the cervical spine without contrast. Radiation optimization: All CT scans at this facility use at least one of these dose optimization techniques: automated exposure control; mA and/or kV adjustment per patient size (includes targeted exams where dose is matched to clinical indication); or iterative reconstruction. COMPARISON: CR Cervical Spine AP/Lat* [id number] 09/03/2018 12:50 PM RADIATION DOSE METRICS: Total DLP (mGy-cm): 644.33 FINDINGS: Bones/joints: No acute fracture. Normal alignment. Discs/Spinal canal/Neural foramina: There is multilevel chronic degenerative disease with disc space narrowing, sclerosis and osteophytes. There is narrowing of the cervical facet joints. There is multilevel mild spinal stenosis and neural foraminal narrowing. Lungs: Lung apices are normal. Soft tissues: Unremarkable. CT/CT cervical spin wo con* [id number] IMPRESSION: No acute findings.
[2021-10-20 10:40] LABS: Add Urine Microscopic? NO; Charge for UA Resulting for Rev
[2021-10-20 10:43] LABS: Troponin(5th) Baseline 20 ng/L (0-15)
[2021-10-20 10:51] LABS: Bilirubin Urine Neg (Negative); Blood Urine Neg (Negative); Glucose Urine UA Norm (Normal); Ketones Urine Negative (Negative); Leukocyte Esterase Urine Negative (Negative); Nitrate Urine Negative (Negative); Protein Urine Neg (Negative); Sulfosalicylic Acid Urine Negative (Negative); Urine Appearance Clear (CLEAR); Urine Color Yellow (Yellow); Urobilinogen Urine Norm (Negative); pH Urine 8 (5-7)
[2021-10-20 11:01] LABS: NT Pro B Type Natriuretic Pept 135 pg/mL (0-450); Procalcitonin 0.06 ng/mL (0-0.5); Thyroid Stimulating Hormone 8.27 uIU/mL (0.27-4.20)
[2021-10-20 11:12] LABS: Alanine Aminotransferase 15 U/L (0-41); Albumin Level 4.6 g/dL (3.5-5.2); Alkaline Phosphatase 135 IU/L (40-130); Anion Gap 18.8 (5-19); Aspartate Amino Transferase 18 U/L (0-40); Blood Urea Nitrogen 20 mg/dL (8-23); Calcium 8.7 mg/dL (8.5-10.5); Carbon Dioxide 19 mmol/L (22-29); Chloride 106 mmol/L (98-107); Globulin 2.1 g/dL (1.3-4.6); Glucose 109 mg/dL (65-115); Magnesium 2.5 mg/dL (1.7-2.3); Osmolality Calculated 291 mOsm/kg (285-295); Potassium 4.8 mmol/L (3.5-5.1); Sodium 139 mmol/L (136-145); Total Bilirubin 0.3 mg/dL (0.15-1.2); Total Protein 6.7 g/dL (6.6-8.7)
[2021-10-20] MEDS: iohexol 350 mg/mL 100 mL Btl IV (11:39)
[2021-10-20 11:43] LABS: Free T4 Free Thyroxine 0.87 ng/dL (0.82-1.77)
--- NOTE | 2021-10-20 12:15 | ECG_ITS ---
[facility] Test Date: 2021-10-20 Pat Name: Jerry Tapia Department: Room: Gender: Male [employer] Worker: : 1940 Requested By: Michael Dangelo Order Number: [id number] Sal MD: Stanislaw Najera M.D. Measurements Intervals [place] Rate: 76 P: -21 NH: 189 QRS: 49 QRSD: 80 T: 60 QT: 376 QTc: 423 Interpretive Statements SINUS RHYTHM SEPTAL MYOCARDIAL INFARCTION , OF INDETERMINATE AGE [40+ ms Q WAVE IN V1/V2] Compared to ECG 10/20/2021 10:20:18 Ectopic atrial rhythm no longer present Myocardial infarct finding still present Electronically Signed On 10-21-2021 8:20:10 CDT by Stanislaw Najera M.D. [email or web address]/[id number]
[2021-10-20] MEDS: hyDRALAzine 20 mg/mL INJ 1 mL 10 MG IVP (12:58)
[2021-10-20 13:05] LABS: Troponin 5 2HR 18.25 ng/L (0-15)
[2021-10-20 13:17] LABS: Troponin 5 2HR Delta -1.75 ABS# (0-10)
[2021-10-20] MEDS: nicardipine 20 MG/200 ML PREMIX 50 MG IV (13:59)
--- NOTE | 2021-10-20 14:14 | PC.NURSE ---
Report called to ICU.
--- NOTE | 2021-10-20 14:29 | PC.NURSE ---
Notified Dr. Dangelo of blood pressure.
--- NOTE | 2021-10-20 15:30 | P.HP_ITS ---
Providers/Chief Complaint Admitting Physician: Ibrahima Braxton MD Primary Care Provider: Tyrone Duckworth MD Chief Complaint: AMS History of Present Illness Jerry Tapia is a 81 year old male with past medical history of hypertension seizure disorder depression, was brought in with chief complaint of altered mental status, upon arrival in the ER He was found to be hypertensive emergency with systolic blood pressure in 240s and diastolic in 120s. When I examined the patient, he was complaining of not able to sleep last couple of days, he denied any chest pain shortness of breath nausea vomiting dizziness headache, visual disturbances abdominal pain. Pertinent imaging studies done in the ER included: CT head without contrast: No acute intracranial pathology CTA head and neck: Moderate 50-60% stenosis at the origin of the right internal carotid artery.Mild less than 50% stenosis at the origin of the left internal carotid artery. EKG: Sinus rhythm Pertinent labs: WBC: 5.3, H&H:14.6/44.7 , PLT : 163 , serum sodium 139 serum potassium 4.8 BUN serum creatinine:20/0.7 Troponin: 20,18, TSH:8.27 , free T4 0.87 Patient received hydralazine 10 mg IV one-time dose, and was then started on nicardipine drip. Review of Systems General: Reports: 10 or more systems reviewed and unremarkable except in HPI and below Const: Denies: fever(s), chills, body aches, change in appetite or diaphoresis Card: Denies: palpitations, edema, swelling of feet/ankles, dyspnea on exertion, orthopnea or leg pain with exertion Resp: Denies: dyspnea, productive cough, wheezing or pain on inspiration GI: Denies: abdominal pain, nausea, vomiting, diarrhea or constipation : Denies: flank pain or difficulty urinating Musc: Denies: back pain, extremity pain or extremity swelling Neuro: Denies: headache(s) or difficulty walking Medications/Allergies Home Medications Medication Instructions Recorded Confirmed Last Taken Type ascorbic acid (vitamin C) 1,000 mg 1 g PO DAILY tab 09/25/20 10/20/21 Unknown History tablet cholecalciferol (vitamin D3) 25 25 mcg PO DAILY 09/25/20 10/20/21 Unknown History mcg (1,000 unit) chewable tablet saw palmetto 450 mg capsule 450 mg PO BID 09/25/20 10/20/21 Unknown History ibuprofen 200 mg capsule 400 mg PO BEDTIME PRN cap 11/27/20 10/20/21 Unknown History carbamazepine 300 mg See Rx Instructions .ROUTE .COMPLEX 10/20/21 10/20/21 Unknown History capsule,extended release [id number] Allergies Allergy/AdvReac Type Severity Reaction Status Date / Time No Known Allergies Allergy Verified 10/20/21 09:59 PFSH Acute PFSH: Medical History (Updated 10/20/21 @ 13:44 by Michael Dangelo MD) Anemia 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 -continue AEDs; is on tegretol and depakote; levels therapeutic -seizure precautions; cannot recall when he had his last seizure but per review of chart, may have had seizure in 07/2019 which resulted in fall and subsequent R pubic rami and R acetabular fractures (non-displaced, no surgical intervention) Depression History of basal cell cancer HTN (hypertension) -BP controlled without medications; permissive HTN x 24 hrs -continue to monitor vital signs Hypothyroidism -TSH wnl, on levothyroxine Insomnia CHRISTINA (obstructive sleep apnea) -with nocturnal hypoxemia, oxygen dependent, 4 L NC qhs Posttraumatic encephalopathy Vitamin D deficiency Surgical History History of appendectomy History of tonsillectomy and adenoidectomy Family History Other Cancer Diabetes Social History Smoking and tobacco status: never smoked Alcohol intake: never Household members: children Housing: House Marital status: / Current occupational status: retired History of recent travel: No Current gender identity: Male Vitals/I&O/Wt Last Vital Signs Temp 98.2 F 10/20/21 09:59 Pulse 80 10/20/21 14:44 Resp 14 10/20/21 14:44 BP 155/74 10/20/21 14:44 Pulse Ox 96 10/20/21 14:44 10/20/21 10/20/21 10/20/21 06:59 14:59 22:59 Intake Total 32.667 / 32.667 27.5 / 60.167 Balance 32.667 / 32.667 27.5 / 60.167 Weight last 48 hrs Weight 81.647 kg Physical Exam Const: COMMON NORMALS: patient oriented x3 HENMT: COMMON NORMALS: normocephalic, atraumatic, hearing grossly normal bilaterally and external ears normal HEAD & SCALP: normocephalic and atraumatic EXTERNAL EAR: Yes external ears normal Eye: COMMON NORMALS: no scleral icterus GENERAL EYE: appearance normal, both eyes and all related structures Chest: COMMONS NORMALS: normal inspection of the chest and normal palpation of entire chest wall CHEST: Yes Symmetrical chest wall rise Resp: COMMON NORMALS: normal respiratory effort, No retractions, No use of accessory muscles and clear to auscultation bilaterally EFFORT & INSPECTION: Yes symmetric chest movement AUSCULTATION: clear to auscultation bilaterally Cardio: COMMON NORMALS: regular rate, regular rhythm, S1 normal heart sound present, S2 normal heart sound present, No gallops present (Cardio), No murmurs present (Cardio), No rub (Cardio) and Peripheral pulses 2+ throughout RATE: regular rate RHYTHM: regular rhythm HEART SOUNDS: S1 normal heart sound present and S2 normal heart sound present PERIPHERAL PULSES: Peripheral pulses 2+ throughout GI: COMMON NORMALS: Normal to inspection, nondistended, normoactive bowel sounds present, Soft to palpation, non-tender, No hepatosplenomegaly present and no masses AUSCULTATION: Yes normoactive bowel sounds PALPATION: Yes Soft to palpation and Yes No hepatosplenomegaly present RECTAL EXAM: Yes deferred Extremity: COMMON NORMALS: no clubbing, cyanosis or edema and no pedal edema Neuro: COMMON NORMALS: patient oriented x3 Data : 10/20/21 10:18 10/20/21 10:18 A&P Assessment and plan (1) Hypertensive emergency: Status: Acute (2) AMS (altered mental status): Status: Acute (3) BPH (benign prostatic hyperplasia): Status: Chronic Qualifiers: Lower urinary tract symptom detail: post-void dribbling Lower urinary tract symptom presence: symptoms present Qualified Code(s): N40.1 - Benign prostatic hyperplasia with lower urinary tract symptoms; N39.43 - Post-void dribbling (4) Complex partial epilepsy: Status: Chronic Qualifiers: Epilepsy type: partial symptomatic Intractability: not intractable Status epilepticus: without status epilepticus Qualified Code(s): G40.209 - Localization-related (focal) (partial) symptomatic epilepsy and epileptic syndromes with complex partial seizures, not intractable, without status epilepticus (5) CHRISTINA (obstructive sleep apnea): Status: Chronic (6) HTN (hypertension): Status: Chronic Qualifiers: Hypertension type: essential hypertension Qualified Code(s): I10 - Essential (primary) hypertension Plan 81 year old male with past medical history of hypertension seizure disorder depression, was brought in with chief complaint of altered mental status. Assessment: Altered mental status likely secondary to hypertensive emergency Hypertensive emergency History of complex partial epilepsy Elevated TSH Depression Plan: Target blood pressure to reduction in an hour is 25%. Which has been achieved, will slowly wean off the nicardipine drip, start the patient on amlodipine 10 mg p.o. daily. Neuro check every 4 hours Seizure precaution Continue telemetry monitoring Continue carbamazepine Elevated TSH with normal free T4, follow repeat a.m. TSH free T4 and free T3. CODE STATUS: Full code DVT prophylaxis: On Lovenox Attestations Medical Necessity Statement*: Patient is in hospital for management of hypertensive emergency and altered mental status. Time Spent in Patient Care: Greater than 35 minutes (>than 50% of time spent in counselling and/or direct pt care on unit) . Critical Care Time: The high probability of a clinically significant, sudden or life threatening deterioration of the patient's [] system(s) required my full and direct attention, intervention and personal management. The critical care time is as shown. 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
[2021-10-20] MEDS: enoxaparin 40 mg/0.4 mL Syringe SUBCUT (15:59)
[2021-10-20] MEDS: amlodipine 10 mg Tablet PO (15:59)
--- NOTE | 2021-10-20 16:15 | ECG_ITS ---
[facility] Test Date: 2021-10-20 Pat Name: Jerry Tapia Department: Room: ICU03 Gender: Male [employer]er: : 1940 Requested By: Michael Dangelo Order Number: [id number] Reading MD: Stanislaw Najera M.D. Measurements Intervals [place] Rate: 84 P: -19 MD: 177 QRS: 62 QRSD: 82 T: 60 QT: 360 QTc: 426 Interpretive Statements SINUS RHYTHM SEPTAL MYOCARDIAL INFARCTION , OF INDETERMINATE AGE [40+ ms Q WAVE IN V1/V2] Compared to ECG 10/20/2021 12:06:06 No significant changes Electronically Signed On 10-21-2021 8:22:08 CDT by Stanislaw Najera M.D. [id number]
[2021-10-20 16:39] LABS: Troponin 5 6HR 19.31 ng/L (0-15)
[2021-10-20 16:41] LABS: Troponin 5 6HR Delta -0.69 ng/L (0-12)
[2021-10-20] MEDS: carBAMazepine 200 mg Tablet 300 MG PO (20:32)
[2021-10-20] MEDS: hyDROXYzine 25 mg Capsule PO (21:01)
[2021-10-21] VITALS (58 sets, daily range): BP systolic 83–178; BP diastolic 44–84; PULSE 66–98; RESP 7–27; TEMP 36.4–36.8; O2SAT 92–98
[2021-10-21 05:34] LABS: Basophils % 0.3 %; Eosinophils # 0.1 10^3/uL (0.0-0.8); Eosinophils % 2.4 %; Hematocrit 42.6 % (42.0-52.0); Hemoglobin 14.3 g/dL (11.7-16.6); Lymphocytes # 1.5 10^3/uL (0.8-4.8); Mean Corpuscular HGB Conc 33.6 g/dL (30.0-36.0); Mean Corpuscular Volume 101.2 fl (80-94); Mean Platelet Volume 9.2 fL (7.4-10.4); Monocytes # 0.5 10^3/uL (0.2-0.9); Monocytes % 8.3 %; Neutrophils # 3.72 10^3/uL (1.8-7.7); Neutrophils % 62.7 %; Nucleated Red Blood Cells % 0 %; Platelet Count 147 10^3/cmm (130-400); Red Blood Count 4.21 10^6/uL (4.1-5.3); White Blood Count 5.9 10^3/uL (4.0-10.0)
[2021-10-21 06:09] LABS: Anion Gap 13.5 (5-19); Blood Urea Nitrogen 18 mg/dL (8-23); Calcium 8.6 mg/dL (8.5-10.5); Carbon Dioxide 25 mmol/L (22-29); Chloride 107 mmol/L (98-107); Free T4 Free Thyroxine 0.82 ng/dL (0.82-1.77); Glucose 93 mg/dL (65-115); Osmolality Calculated 294 mOsm/kg (285-295); Potassium 4.5 mmol/L (3.5-5.1); Sodium 141 mmol/L (136-145); T3 Free 2.6 PG/ML (2.0-4.4); Thyroid Stimulating Hormone 8.78 uIU/mL (0.27-4.20)
[2021-10-21] MEDS: cholecalciferol (vitamin D3) 1,000 unit Tablet 1000 UNIT PO (07:59)
[2021-10-21] MEDS: amlodipine 10 mg Tablet PO (07:59)
[2021-10-21] MEDS: tamsulosin 0.4 mg Capsule PO (07:59)
[2021-10-21] MEDS: carBAMazepine 200 mg Tablet 600 MG PO (07:59)
--- NOTE | 2021-10-21 08:54 | P.DS_ITS ---
Discharge Providers Date of Admission: 10/20/21 13:44 Date of Discharge: October 21, 2021 Attending Provider at Admission: Ibrahima Braxton MD Attending Provider at Discharge: Ibrahima Braxton MD Primary Care Provider: Tyrone Duckworth MD Diagnoses at Discharge Discharge Diagnosis (1) Hypertensive emergency: Status: Acute (2) AMS (altered mental status): Status: Acute (3) BPH (benign prostatic hyperplasia): Status: Chronic Qualifiers: Lower urinary tract symptom detail: post-void dribbling Lower urinary tract symptom presence: symptoms present Qualified Code(s): N40.1 - Benign prostatic hyperplasia with lower urinary tract symptoms; N39.43 - Post-void dribbling Permanent problem details: -on tamsulosin (4) Complex partial epilepsy: Status: Chronic Qualifiers: Epilepsy type: partial symptomatic Intractability: not intractable Status epilepticus: without status epilepticus Qualified Code(s): G40.209 - Localization-related (focal) (partial) symptomatic epilepsy and epileptic syndromes with complex partial seizures, not intractable, without status epilepticus Permanent problem details: -has known hx of seizure disorder -continue AEDs; is on tegretol and depakote; levels therapeutic -seizure precautions; cannot recall when he had his last seizure but per review of chart, may have had seizure in 07/2019 which resulted in fall and subsequent R pubic rami and R acetabular fractures (non-displaced, no surgical intervention) (5) CHRISTINA (obstructive sleep apnea): Status: Chronic Permanent problem details: -with nocturnal hypoxemia, oxygen dependent, 4 L NC qhs (6) HTN (hypertension): Status: Chronic Qualifiers: Hypertension type: essential hypertension Qualified Code(s): I10 - Essential (primary) hypertension Permanent problem details: -BP controlled without medications; permissive HTN x 24 hrs -continue to monitor vital signs Reason for Visit Reason for Visit: AMS Discharge Data Studies Completed and Pending Completed Studies During Hospitalization Category Date Time Status CT cervical spin wo con* 11041 Urgent Cat Scan 10/20/21 10:[address] chest abd pel wo con Urgent Cat Scan 10/20/21 10:[address] head wo con* 00572 Urgent Cat Scan 10/20/21 10:37 Completed CTA head neck [CT angio headneck* 62520/[id number]] Urgent Cat Scan 10/20/21 10:37 Completed Pending at discharge Category Date Time Status Basic Metabolic Panel AM LABS Lab 10/22/21 04:00 Ordered Basic Metabolic Panel AM LABS Lab 10/23/21 04:00 Ordered Complete Blood Count w/Auto AM LABS Lab 10/22/21 04:00 Ordered Complete Blood Count w/Auto AM LABS Lab 10/23/21 04:00 Ordered Radiology Impressions Cervical Spine CT 10/20/21 10:37 IMPRESSION: No acute findings. Chest/Abdomen/Pelvis CT 10/20/21 10:37 IMPRESSION: No acute findings.Non acute findings as described above. IMPRESSION: No acute findings.Colonic constipation is present. Head CT 10/20/21 10:37 IMPRESSION: 1. No acute intracranial abnormality. 2. Generalized chronic atrophy. Head/Neck CTA 10/20/21 10:37 IMPRESSION: 1. Calcification of the cavernous portions of the internal carotid arteries with moderate stenosis on the right side and mild stenosis on the left side. 2. No other significant intracranial stenosis or occlusions are seen. IMPRESSION: 1. Moderate 50-60% stenosis at the origin of the right internal carotid artery. 2. Mild less than 50% stenosis at the origin of the left internal carotid artery. REFERENCES: NASCET CRITERIA. The degree of internal carotid artery stenosis is based on NASCET criteria. Normal is no stenosis. Mild is less than 50% stenosis. Moderate is 50-69% stenosis. Severe is 70% to 99% stenosis. Total occlusion is no detectable patent lumen. Laboratory Results WBC 5.9 10^3/uL (4.0-10.0) 10/21/21 05:18 RBC 4.21 10^6/uL (4.1-5.3) 10/21/21 05:18 Hgb 14.3 g/dL (11.7-16.6) 10/21/21 05:18 Hct 42.6 % (42.0-52.0) 10/21/21 05:18 MCV 101.2 fl (80-94) H 10/21/21 05:18 MCH 34.0 pg (28.0-34.0) 10/21/21 05:18 MCHC 33.6 g/dL (30.0-36.0) 10/21/21 05:18 RDW 12.0 % (12.1-15.1) L 10/21/21 05:18 Plt Count 147 10^3/cmm (130-400) 10/21/21 05:18 MPV 9.2 fL (7.4-10.4) 10/21/21 05:18 Neut % (Auto) 62.7 % 10/21/21 05:18 Lymph % (Auto) 26.0 % 10/21/21 05:18 Snyder % (Auto) 8.3 % 10/21/21 05:18 Eos % (Auto) 2.4 % 10/21/21 05:18 Baso % (Auto) 0.3 % 10/21/21 05:18 Neut # (Auto) 3.72 10^3/uL (1.8-7.7) 10/21/21 05:18 Lymph # (Auto) 1.5 10^3/uL (0.8-4.8) 10/21/21 05:18 Snyder # (Auto) 0.5 10^3/uL (0.2-0.9) 10/21/21 05:18 Eos # (Auto) 0.1 10^3/uL (0.0-0.8) 10/21/21 05:18 Baso # (Auto) 0.0 10^3/uL (0.0-0.1) 10/21/21 05:18 Nucleated RBC % (auto) 0 % 10/21/21 05:18 Nucleated RBCs # 0.0 /100WBC 10/21/21 05:18 Sodium 141 mmol/L (136-145) 10/21/21 05:18 Potassium 4.5 mmol/L (3.5-5.1) 10/21/21 05:18 Chloride 107 mmol/L (98-107) 10/21/21 05:18 Carbon Dioxide 25 mmol/L (22-29) 10/21/21 05:18 Anion Gap 13.5 (5-19) 10/21/21 05:18 BUN 18 mg/dL (8-23) 10/21/21 05:18 Creatinine 0.6 mg/dL (0.7-1.2) L 10/21/21 05:18 GFR Calculation Not Reportable 10/21/21 05:18 Glucose 93 mg/dL (65-115) 10/21/21 05:18 Calculated Osmolality 294 mOsm/kg (285-295) 10/21/21 05:18 Calcium 8.6 mg/dL (8.5-10.5) 10/21/21 05:18 Magnesium 2.5 mg/dL (1.7-2.3) H 10/20/21 10:18 Total Bilirubin 0.3 mg/dL (0.15-1.2) 10/20/21 10:18 AST 18 U/L (0-40) 10/20/21 10:18 ALT 15 U/L (0-41) 10/20/21 10:18 Alkaline Phosphatase 135 IU/L (40-130) H 10/20/21 10:18 Troponin T Baseline 20 ng/L (0-15) H 10/20/21 10:18 Troponin T 120 Minute 18.25 ng/L (0-15) H 10/20/21 12:21 Delta Troponin T -1.75 ABS# (0-10) L 10/20/21 12:21 Troponin T Hi Sens 6Hr 19.31 ng/L (0-15) H 10/20/21 15:54 Troponin T Hi Sens 6Hr Delta -0.69 ng/L (0-12) L 10/20/21 15:54 C-Reactive Protein 3.0 mg/L (0.0-4.9) 10/20/21 10:18 NT-Pro-B Natriuret Pep 135 pg/mL (0-450) 10/20/21 10:18 Total Protein 6.7 g/dL (6.6-8.7) 10/20/21 10:18 Albumin 4.6 g/dL (3.5-5.2) 10/20/21 10:18 Globulin 2.1 g/dL (1.3-4.6) 10/20/21 10:18 Procalcitonin 0.06 ng/mL (0-0.5) 10/20/21 10:18 TSH 8.78 uIU/mL (0.27-4.20) H 10/21/21 05:18 Free T4 0.82 ng/dL (0.82-1.77) 10/21/21 05:18 Free T3 2.6 PG/ML (2.0-4.4) 10/21/21 05:18 Urine Color Yellow (Yellow) 10/20/21 10:10 Urine Appearance Clear (CLEAR) 10/20/21 10:10 Urine pH 8 (5-7) H 10/20/21 10:10 Ur Specific [place] 1.010 (1.005-1.030) 10/20/21 10:10 Urine Protein Neg (Negative) 10/20/21 10:10 Urine Glucose (UA) Norm (Normal) 10/20/21 10:10 Urine Ketones Negative (Negative) 10/20/21 10:10 Urine Blood Neg (Negative) 10/20/21 10:10 Urine Nitrate Negative (Negative) 10/20/21 10:10 Urine Bilirubin Neg (Negative) 10/20/21 10:10 Prot Sulfosalicylic Acd Negative (Negative) 10/20/21 10:10 Urine Urobilinogen Norm mg/dL (Negative) 10/20/21 10:10 Ur Leukocyte Esterase Negative (Negative) 10/20/21 10:10 Vitals Last Vital Signs Temp 97.5 F L 10/21/21 07:45 Pulse 76 10/21/21 07:45 Resp 12 10/21/21 00:15 BP 135/75 10/21/21 07:45 Pulse Ox 94 10/21/21 07:45 Discharge Plan Discharge Condition: Stable Prescriptions: New amlodipine 10 mg tablet 10 mg PO DAILY Qty: 30 3RF Continued saw palmetto 450 mg capsule 450 mg PO BID 0RF Rx Instructions: give with food (meal/snack) cholecalciferol (vitamin D3) 25 mcg (1,000 unit) tablet,chewable 25 mcg PO DAILY 0RF ascorbic acid (vitamin C) 1,000 mg tablet 1 g PO DAILY 0RF ibuprofen 200 mg capsule 400 mg PO BEDTIME PRN (Reason: Pain) 0RF carbamazepine 300 mg capsule, ER multiphase 12 hr See Rx Instructions .ROUTE .COMPLEX 0RF Rx Instructions: 600 mg orally in the am and 300mg orally at bedtime Discharge Orders: Discharge Order (Routine); Ordered 10/21/21 Ordered By: Ibrahima Braxton Referrals: Tyrone Duckworth MD [Primary Care Provider] - 1 week Discharge Diet: Low Salt Patient Instructions: Aliskiren/Amlodipine (By mouth), Hypertension (GEN), Opioid Safety Discharge Attestations Status at Discharge: Behavioral status at discharge: cooperative , 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 of Care Code Acute Chg FW DC note Diagnoses Hypertensive emergency I16.1 AMS (altered mental status) R41.82 BPH (benign prostatic hyperplasia) N40.1; N39.43 Lower urinary tract symptom detail: post-void dribbling Lower urinary tract symptom presence: symptoms present Complex partial epilepsy G40.209 Epilepsy type: partial symptomatic Intractability: not intractable Status epilepticus: without status epilepticus CHRISTINA (obstructive sleep apnea) G47.33 HTN (hypertension) I10 Hypertension type: essential hypertension
--- NOTE | 2021-10-21 10:45 | PC.NURSE ---
Patient up to BSC with total assistance and noted to have gotten very dizzy with movement. Dr. Braxton notified, to proceed with discharge orders.
--- NOTE | 2021-10-21 11:00 | PC.NURSE ---
Jerry Menon's neighbor called for called for discharge. To pick patient up at 1130.
[2021-10-21] MEDS: sodium chloride 0.9% 500 ML 999 ML IV (11:31)
--- NOTE | 2021-10-21 11:37 | PC.NURSE ---
1109 patient up to bedside commode BP noted to be 101/56 before transfer to BSC. Upon placing patient on BSC, Mack stated, I don't feel right, I can't think straight. This nurse recycled BP and patient's BP noted to be 76/52 at 1110. While on BSC patient became unresponsive, unable to follow commands- see vitals as documented. Total assist to bed, Dr. Braxton notified. Latrice noted to be at bedside and refused to take patient home with her in this condition. IV fluid bolus infused as order prior. Orders to to transfer to Med surg.
--- NOTE | 2021-10-21 11:45 | PC.NURSE ---
pt had been discharged when became hypotensive and near syncopy slumped over total lift back to bed with assist of 3 staff members blood pressure low Doctor Braxton notified with change of orders noted
--- NOTE | 2021-10-21 14:13 | P.PN_ITS ---
Subjective Subjective: Patient was seen and examined this morning, had a detailed discussion with him, he stated his, home condition, was fairly quite oriented alert awake, expressed his desire to go home, denied any chest pain shortness of breath, any active complaints, he was quite conversant told that he was an [employer], Told that he stays alone, likely does not have good social support, and this will somehow play into discharging the patient home, overall the current plan is to see if we can discharge the patient today, if not he Will continue to occupy the ICU bed, and in best case scenario a [facility] bed, case management social worker obviously on board. Medications: Medication Review Details: Generic Name Dose Route Start Last Admin Trade Name Freq PRN Reason Stop Dose Admin Carbamazepine 600 mg 10/21/21 09:00 10/21/21 07:59 Carbamazepine 20 0 Mg Tablet PO 600 mg DAILY SHANDRA Administration Carbamazepine 300 mg 10/20/21 21:00 10/20/21 20:32 Carbamazepine 20 0 Mg Tablet PO 300 mg 2100 SHANDRA Administration Enoxaparin Sodium 40 mg 10/20/21 15:30 10/20/21 15:59 Enoxaparin 40 Mg /0.4 Ml Syringe SUBCUT 40 mg Q24H SHANDRA Administration Hydroxyzine [place] e 25 mg 10/20/21 21:00 10/20/21 21:01 Hydroxyzine 25 M g Capsule PO 25 mg ONCE PRN Administration SLEEP Sodium Chloride 500 mls @ 0 mls/h r 10/21/21 11:30 10/21/21 12:02 Sodium Chloride 0.9% IV Infused .Q0M SHANDRA Infusion As Directed Sodium Chloride 1,000 mls @ 100 m ls/hr 10/21/21 12:00 10/21/21 13:09 Sodium Chloride 0.9% IV Not Given .Q10H SHANDRA Tamsulosin HCl 0.4 mg 10/21/21 09:00 10/21/21 07:59 Tamsulosin 0.4 M g Capsule PO 0.4 mg DAILY SHANDRA Administration Vitamin D 1,000 unit 10/21/21 09:00 10/21/21 07:59 Cholecalciferol (Vitamin D3) 1,000 Unit Tablet PO 1,000 unit DAILY SHANDRA Administration Vitals/I&O/Wt Last Vital Signs Temp 97.5 F L 10/21/21 07:45 Pulse 77 10/21/21 12:00 Resp 16 10/21/21 12:45 BP 125/61 10/21/21 12:45 Pulse Ox 95 10/21/21 12:30 10/20/21 10/21/21 10/21/21 22:59 06:59 14:59 Intake Total 57.5 / 90.167 740 / 740 Output Total 425 / 425 300 / 725 125 / 125 Balance -367.5 / -334.833 -300 / -634.833 615 / 615 Weight last 48 hrs Weight 81.647 kg Physical Exam HENMT: COMMON NORMALS: normocephalic and atraumatic HEAD & SCALP: normocephalic and atraumatic Chest: CHEST: Yes Symmetrical chest wall rise Resp: COMMON NORMALS: normal respiratory effort, No retractions, No use of accessory muscles and clear to auscultation bilaterally EFFORT & INSPECTION: Yes symmetric chest movement AUSCULTATION: clear to auscultation bilaterally Cardio: COMMON NORMALS: regular rate, regular rhythm, S1 normal heart sound present, S2 normal heart sound present, No gallops present (Cardio), No murmurs present (Cardio), No rub (Cardio) and Peripheral pulses 2+ throughout RATE: regular rate RHYTHM: regular rhythm HEART SOUNDS: S1 normal heart sound present and S2 normal heart sound present PERIPHERAL PULSES: Peripheral pulses 2+ throughout GI: COMMON NORMALS: Normal to inspection, nondistended, normoactive bowel sounds present, Soft to palpation, non-tender, No hepatosplenomegaly present and no masses AUSCULTATION: Yes normoactive bowel sounds PALPATION: Yes Soft to palpation and Yes No hepatosplenomegaly present RECTAL EXAM: Yes deferred Extremity: COMMON NORMALS: no clubbing, cyanosis or edema and no pedal edema Data : 10/21/21 05:18 10/21/21 05:18 A&P Assessment and plan (1) Hypertensive emergency: Status: Acute (2) AMS (altered mental status): Status: Acute (3) BPH (benign prostatic hyperplasia): Status: Chronic Qualifiers: Lower urinary tract symptom detail: post-void dribbling Lower urinary tract symptom presence: symptoms present Qualified Code(s): N40.1 - Benign prostatic hyperplasia with lower urinary tract symptoms; N39.43 - Post-void dribbling (4) Complex partial epilepsy: Status: Chronic Qualifiers: Epilepsy type: partial symptomatic Intractability: not intractable Status epilepticus: without status epilepticus Qualified Code(s): G40.209 - Localization-related (focal) (partial) symptomatic epilepsy and epileptic syndromes with complex partial seizures, not intractable, without status epilepticus (5) CHRISTINA (obstructive sleep apnea): Status: Chronic (6) HTN (hypertension): Status: Chronic Qualifiers: Hypertension type: essential hypertension Qualified Code(s): I10 - Essential (primary) hypertension Plan 81 year old male with past medical history of hypertension seizure disorder depression, was brought in with chief complaint of altered mental status. Assessment: Altered mental status likely secondary to hypertensive emergency: Improving Hypertensive emergency: Resolved History of complex partial epilepsy Elevated TSH Depression Orthostatic hypotension Plan: Target blood pressure to reduction in an hour is 25%. Which has been achieved, will slowly wean off the he was initially on nicardipine drip, which has been stopped Continue amlodipine 5 mg p.o. daily Orthostatic vitals check every 6 hours IV hydration with normal saline at 125 cc an hour Neuro check every 4 hours Seizure precaution Continue telemetry monitoring Continue carbamazepine Elevated TSH with normal free T4, Repeat TSH. Elevated with normal free T3 and free T4 CODE STATUS: Full code DVT prophylaxis: On Lovenox Attestations Medical Necessity Statement*: Still in hospital for above defined problems 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 of Care Code Acute Senior Investment Analyst for Chg Fwd Diagnoses Hypertensive emergency I16.1 AMS (altered mental status) R41.82 BPH (benign prostatic hyperplasia) N40.1; N39.43 Lower urinary tract symptom detail: post-void dribbling Lower urinary tract symptom presence: symptoms present Complex partial epilepsy G40.209 Epilepsy type: partial symptomatic Intractability: not intractable Status epilepticus: without status epilepticus CHRISTINA (obstructive sleep apnea) G47.33 HTN (hypertension) I10 Hypertension type: essential hypertension
[2021-10-21] MEDS: enoxaparin 40 mg/0.4 mL Syringe SUBCUT (15:31)
[2021-10-21] MEDS: sodium chloride 0.9% 1,000 ML 100 ML IV (15:32)
--- NOTE | 2021-10-21 16:19 | PC.NURSE ---
received in to room 250-1 at 1500 from icu.report received.sr on monitor.oriented to room environment.denies pain at present.vss-(semifowlers position) at this time.instructed to not get out of bed w/o assistance.bed alarm set.pt verb understanding of instructions
[2021-10-21] MEDS: carBAMazepine 200 mg Tablet 300 MG PO (20:14)
[2021-10-21] MEDS: hyDROXYzine 25 mg Capsule PO (23:54)
[2021-10-22] VITALS (10 sets, daily range): BP systolic 137–192; BP diastolic 76–111; PULSE 75–95; RESP 13–18; TEMP 36.2–36.8; O2SAT 93–98
[2021-10-22] MEDS: sodium chloride 0.9% 1,000 ML 100 ML IV (01:36)
[2021-10-22 05:11] LABS: Basophils % 0.4 %; Eosinophils # 0.2 10^3/uL (0.0-0.8); Eosinophils % 3.1 %; Hematocrit 40.1 % (42.0-52.0); Hemoglobin 12.9 g/dL (11.7-16.6); Lymphocytes # 1.6 10^3/uL (0.8-4.8); Mean Corpuscular HGB Conc 32.2 g/dL (30.0-36.0); Mean Corpuscular Volume 105.8 fl (80-94); Mean Platelet Volume 9.2 fL (7.4-10.4); Monocytes # 0.4 10^3/uL (0.2-0.9); Monocytes % 8.9 %; Neutrophils # 2.64 10^3/uL (1.8-7.7); Neutrophils % 54.4 %; Nucleated Red Blood Cells % 0 %; Platelet Count 141 10^3/cmm (130-400); Red Blood Count 3.79 10^6/uL (4.1-5.3); White Blood Count 4.9 10^3/uL (4.0-10.0)
[2021-10-22 05:31] LABS: Blood Urea Nitrogen 21 mg/dL (8-23); Calcium 7.6 mg/dL (8.5-10.5); Carbon Dioxide 22 mmol/L (22-29); Chloride 109 mmol/L (98-107); Glucose 89 mg/dL (65-115); Osmolality Calculated 294 mOsm/kg (285-295); Sodium 141 mmol/L (136-145)
[2021-10-22 05:32] LABS: Anion Gap 14.3 (5-19); Potassium 4.3 mmol/L (3.5-5.1)
--- NOTE | 2021-10-22 05:33 | PC.NURSE ---
SHIFT SUMMARY Has rested well without distress. Pt had requested something for sleep and order was received to repeat the po Vistaril that he had last night. Pt told me and aide both several times that all he wanted was to sleep all night. IV fluids continue at 100ml/hr rate. Voiding per urinal. Is hoping to go home today
[2021-10-22] MEDS: carBAMazepine 200 mg Tablet 600 MG PO (08:11)
[2021-10-22] MEDS: amlodipine 5 mg Tablet PO ×2 (08:11→20:08)
[2021-10-22] MEDS: cholecalciferol (vitamin D3) 1,000 unit Tablet 1000 UNIT PO (08:11)
[2021-10-22] MEDS: tamsulosin 0.4 mg Capsule PO (08:11)
--- NOTE | 2021-10-22 10:40 | PC.CHAP ---
Pastoral Care Encounter/Spiritual Assessment Type of Contact [] Declined presser machine visit [] Patient/Family/Request visit [] Outpatient visit [] Follow-up visit [] Physician referral [] Code/Alert [x] Routine visit [] Staff referral [] Actively dying [] Patient sleeping [] Family support [] [] Out of room [] Palliative care [] [] Receiving care in room [] Pre-surgical visit [] Trauma [] Long length of stay [] ICU visit [] Other: Relational/Emotional Strength [x] Patient feels connected with others/family/visitors/staff [] Distress [] Loneliness/isolation [] Abandonment Spirituality of Patient [x] Person of Gertrudis [] Attends Roman Catholic of their Gertrudis [x] Believes in Prayer [] Reads Bible or Orthodox materials [] There are Spiritual issues to be addressed Health Care Manager Interventions x] Prayer [x] Active listening [x] Non-anxious presence x[x] Spiritual/emotional support [] Crisis/trauma care [] Spiritual counseling [] Bereavement support [] Provided bereavement packet [] Provided Bible/devotional materials [] Provided toy/stuffed animal, coloring book to patient or family member [] Provided Communion [] Anointing/Independence [] Salvation [x] Completed spiritual assessment [] Other: Impact on Illness or Injury [] Angry [] Fearful [] Anxious [] Often cries [] Exhaustion [] Unable to work [] Unable to attend restorationist [] Unable to walk/stand [] Unable to read [] Unable to drive [] Unable to eat/drink [] Unable to sleep [] Unable to be with family [] Patient intubated [] Other: Summary Time spent with patient 10 min
[2021-10-22 12:38] LABS: Estmated Average Glucose 94; Hemoglobin A1C 4.9 % (4.0-6.0)
[2021-10-22 12:42] LABS: Carbamazepine Tegretol 8.6 ug/mL (4.0-12.0)
--- NOTE | 2021-10-22 12:59 | P.DS_ITS ---
Discharge Providers Date of Admission: 10/21/21 18:11 Date of Discharge: October 22, 2021 Attending Provider at Admission: Ibrahima Braxton MD Attending Provider at Discharge: Len Rossi MD Primary Care Provider: Tyrone Duckworth MD Diagnoses at Discharge Discharge Diagnosis (1) Hypertensive emergency: Status: Acute (2) AMS (altered mental status): Status: Acute (3) BPH (benign prostatic hyperplasia): Status: Inactive Qualifiers: Lower urinary tract symptom detail: post-void dribbling Lower urinary tract symptom presence: symptoms present Qualified Code(s): N40.1 - Benign prostatic hyperplasia with lower urinary tract symptoms; N39.43 - Post-void dribbling Permanent problem details: -on tamsulosin (4) Complex partial epilepsy: Status: Chronic Qualifiers: Epilepsy type: partial symptomatic Intractability: not intractable Status epilepticus: without status epilepticus Qualified Code(s): G40.209 - Localization-related (focal) (partial) symptomatic epilepsy and epileptic syndromes with complex partial seizures, not intractable, without status epilepticus Permanent problem details: -has known hx of seizure disorder -continue AEDs; is on tegretol and depakote; levels therapeutic -seizure precautions; cannot recall when he had his last seizure but per review of chart, may have had seizure in 07/2019 which resulted in fall and subsequent R pubic rami and R acetabular fractures (non-displaced, no surgical intervention) (5) CHRISTINA (obstructive sleep apnea): Status: Chronic Permanent problem details: -with nocturnal hypoxemia, oxygen dependent, 4 L NC qhs (6) HTN (hypertension): Status: Chronic Qualifiers: Hypertension type: essential hypertension Qualified Code(s): I10 - Essential (primary) hypertension Permanent problem details: -BP controlled without medications; permissive HTN x 24 hrs -continue to monitor vital signs (7) Carotid artery occlusion: Status: Acute Reason for Visit Reason for Visit: AMS Brief History: History as per HPI: Jerry Tapia is a 81 year old male with past medical history of hypertension seizure disorder depression, was brought in with chief complaint of altered mental status, upon arrival in the ER He was found to be hypertensive emergency with systolic blood pressure in 240s and diastolic in 120s. When I examined the patient, he was complaining of not able to sleep last couple of days, he denied any chest pain shortness of breath nausea vomiting dizziness headache, visual disturbances abdominal pain. Hospital Course Hospital Course Patient admitted to hospital for further evaluation and management of possible syncope. He was started on IV nicardipine for hypertensive emergency. Stroke was ruled out with a negative CT and CTA head and neck. CTA head and neck was consistent with moderate 50 to 60% stenosis of right ICA. Post starting of nicardipine his blood pressures resolved but patient had an episode of orthostatic syncope. His antihypertensives were further adjusted. On further interview with the patient he stated that he ran out of the medications 1 week ago has not been taking since then. On reconciliation of medications he states he takes carbamazepine 600 mg in the morning and 300 mg the evening dose as per his primary care's office he should be taking 300 mg twice daily. Patient's orthostatic remain negative and his blood pressures remained stable. Clozapine levels have been sent out and are pending. He has been discharged in medically stable condition advised to continue taking his amlodipine is 10 mg daily, carbamazepine 300 mg twice daily. He is restarted on daily baby aspirin and atorvastatin 20 mg daily. He is advised to continue taking these medications to prevent from any further stroke or episode of CVD. Discharge surinder n were discussed in detail with patient's son as well. To facilitate safety at home Home health has been arranged. Patient and patient's son were agreeable and verbalized understanding. Physical Exam Const: COMMON NORMALS: patient oriented x3 HENMT: COMMON NORMALS: normocephalic and atraumatic HEAD & SCALP: normocephalic and atraumatic Eye: COMMON NORMALS: no scleral icterus GENERAL EYE: appearance normal, both eyes and all related structures Chest: COMMONS NORMALS: normal inspection of the chest and normal palpation of entire chest wall CHEST: Yes Symmetrical chest wall rise Resp: COMMON NORMALS: normal respiratory effort, No retractions, No use of accessory muscles and clear to auscultation bilaterally EFFORT & INSPECTION: Yes symmetric chest movement AUSCULTATION: clear to auscultation bilaterally Cardio: COMMON NORMALS: regular rate, regular rhythm, S1 normal heart sound present, S2 normal heart sound present, No gallops present (Cardio), No murmurs present (Cardio), No rub (Cardio) and Peripheral pulses 2+ throughout RATE: regular rate RHYTHM: regular rhythm HEART SOUNDS: S1 normal heart sound present and S2 normal heart sound present PERIPHERAL PULSES: Peripheral pulses 2+ throughout GI: COMMON NORMALS: Normal to inspection, nondistended, normoactive bowel sounds present, Soft to palpation, non-tender, No hepatosplenomegaly present and no masses AUSCULTATION: Yes normoactive bowel sounds PALPATION: Yes Soft to palpation and Yes No hepatosplenomegaly present RECTAL EXAM: Yes deferred Extremity: COMMON NORMALS: no clubbing, cyanosis or edema and no pedal edema Neuro: COMMON NORMALS: patient oriented x3 Discharge Data Studies Completed and Pending Completed Studies During Hospitalization Category Date Time Status CT cervical spin wo con* [id number] Urgent Cat Scan 10/20/21 10:[address] chest abd pel wo con Urgent Cat Scan 10/20/21 10:[address] head wo con* [id number] Urgent Cat Scan 10/20/21 10:37 Completed CTA head neck [CT angio headneck* [id number]] Urgent Cat Scan 10/20/21 10:37 Completed Pending at discharge Category Date Time Status Complete Blood Count w/Auto AM LABS Lab 10/23/21 04:00 Ordered Comprehensive Metabolic Panel AM LABS Lab 10/23/21 04:00 Ordered Lipid Profile w/VLDL Routine Lab 10/22/21 04:15 Received CV. echo complete* [id number] Routine Ultrasound 10/22/21 11:33 Ordered Radiology Impressions Cervical Spine CT 10/20/21 10:37 IMPRESSION: No acute findings. Chest/Abdomen/Pelvis CT 10/20/21 10:37 IMPRESSION: No acute findings.Non acute findings as described above. IMPRESSION: No acute findings.Colonic constipation is present. Head CT 10/20/21 10:37 IMPRESSION: 1. No acute intracranial abnormality. 2. Generalized chronic atrophy. Head/Neck CTA 10/20/21 10:37 IMPRESSION: 1. Calcification of the cavernous portions of the internal carotid arteries with moderate stenosis on the right side and mild stenosis on the left side. 2. No other significant intracranial stenosis or occlusions are seen. IMPRESSION: 1. Moderate 50-60% stenosis at the origin of the right internal carotid artery. 2. Mild less than 50% stenosis at the origin of the left internal carotid artery. REFERENCES: NASCET CRITERIA. The degree of internal carotid artery stenosis is based on NASCET criteria. Normal is no stenosis. Mild is less than 50% stenosis. Moderate is 50-69% stenosis. Severe is 70% to 99% stenosis. Total occlusion is no detectable patent lumen. Laboratory Results WBC 4.9 10^3/uL (4.0-10.0) 10/22/21 04:15 RBC 3.79 10^6/uL (4.1-5.3) L 10/22/21 04:15 Hgb 12.9 g/dL (11.7-16.6) 10/22/21 04:15 Hct 40.1 % (42.0-52.0) L 10/22/21 04:15 MCV 105.8 fl (80-94) H 10/22/21 04:15 MCH 34.0 pg (28.0-34.0) 10/22/21 04:15 MCHC 32.2 g/dL (30.0-36.0) 10/22/21 04:15 RDW 12.0 % (12.1-15.1) L 10/22/21 04:15 Plt Count 141 10^3/cmm (130-400) 10/22/21 04:15 MPV 9.2 fL (7.4-10.4) 10/22/21 04:15 Neut % (Auto) 54.4 % 10/22/21 04:15 Lymph % (Auto) 33.0 % 10/22/21 04:15 [place] % (Auto) 8.9 % 10/22/21 04:15 Eos % (Auto) 3.1 % 10/22/21 04:15 Baso % (Auto) 0.4 % 10/22/21 04:15 Neut # (Auto) 2.64 10^3/uL (1.8-7.7) 10/22/21 04:15 Lymph # (Auto) 1.6 10^3/uL (0.8-4.8) 10/22/21 04:15 [place] # (Auto) 0.4 10^3/uL (0.2-0.9) 10/22/21 04:15 Eos # (Auto) 0.2 10^3/uL (0.0-0.8) 10/22/21 04:15 Baso # (Auto) 0.0 10^3/uL (0.0-0.1) 10/22/21 04:15 Nucleated RBC % (auto) 0 % 10/22/21 04:15 Nucleated RBCs # 0.0 /100WBC 10/22/21 04:15 Sodium 141 mmol/L (136-145) 10/22/21 04:15 Potassium 4.3 mmol/L (3.5-5.1) 10/22/21 04:15 Chloride 109 mmol/L (98-107) H 10/22/21 04:15 Carbon Dioxide 22 mmol/L (22-29) 10/22/21 04:15 Anion Gap 14.3 (5-19) 10/22/21 04:15 BUN 21 mg/dL (8-23) 10/22/21 04:15 Creatinine 0.6 mg/dL (0.7-1.2) L 10/22/21 04:15 GFR Calculation Not Reportable 10/22/21 04:15 Glucose 89 mg/dL (65-115) 10/22/21 04:15 Estimat Average Glucose 94 10/22/21 04:15 Hemoglobin A1c 4.9 % (4.0-6.0) 10/22/21 04:15 Calculated Osmolality 294 mOsm/kg (285-295) 10/22/21 04:15 Calcium 7.6 mg/dL (8.5-10.5) L 10/22/21 04:15 Magnesium 2.5 mg/dL (1.7-2.3) H 10/20/21 10:18 Total Bilirubin 0.3 mg/dL (0.15-1.2) 10/20/21 10:18 AST 18 U/L (0-40) 10/20/21 10:18 ALT 15 U/L (0-41) 10/20/21 10:18 Alkaline Phosphatase 135 IU/L (40-130) H 10/20/21 10:18 Troponin T Baseline 20 ng/L (0-15) H 10/20/21 10:18 Troponin T 120 Minute 18.25 ng/L (0-15) H 10/20/21 12:21 Delta Troponin T -1.75 ABS# (0-10) L 10/20/21 12:21 Troponin T Hi Sens 6Hr 19.31 ng/L (0-15) H 10/20/21 15:54 Troponin T Hi Sens 6Hr Delta -0.69 ng/L (0-12) L 10/20/21 15:54 C-Reactive Protein 3.0 mg/L (0.0-4.9) 10/20/21 10:18 NT-Pro-B Natriuret Pep 135 pg/mL (0-450) 10/20/21 10:18 Total Protein 6.7 g/dL (6.6-8.7) 10/20/21 10:18 Albumin 4.6 g/dL (3.5-5.2) 10/20/21 10:18 Globulin 2.1 g/dL (1.3-4.6) 10/20/21 10:18 Procalcitonin 0.06 ng/mL (0-0.5) 10/20/21 10:18 TSH 8.78 uIU/mL (0.27-4.20) H 10/21/21 05:18 Free T4 0.82 ng/dL (0.82-1.77) 10/21/21 05:18 Free T3 2.6 PG/ML (2.0-4.4) 10/21/21 05:18 Urine Color Yellow (Yellow) 10/20/21 10:10 Urine Appearance Clear (CLEAR) 10/20/21 10:10 Urine pH 8 (5-7) H 10/20/21 10:10 Ur Specific [place] 1.010 (1.005-1.030) 10/20/21 10:10 Urine Protein Neg (Negative) 10/20/21 10:10 Urine Glucose (UA) Norm (Normal) 10/20/21 10:10 Urine Ketones Negative (Negative) 10/20/21 10:10 Urine Blood Neg (Negative) 10/20/21 10:10 Urine Nitrate Negative (Negative) 10/20/21 10:10 Urine Bilirubin Neg (Negative) 10/20/21 10:10 Prot Sulfosalicylic Acd Negative (Negative) 10/20/21 10:10 Urine Urobilinogen Norm mg/dL (Negative) 10/20/21 10:10 Ur Leukocyte Esterase Negative (Negative) 10/20/21 10:10 Carbamazepine 8.6 ug/mL (4.0-12.0) 10/22/21 04:15 Vitals Last Vital Signs Temp 98.2 F 10/22/21 07:25 Pulse 75 10/22/21 12:00 Resp 13 10/22/21 07:25 BP 145/82 10/22/21 12:00 Pulse Ox 93 10/22/21 07:25 Discharge Plan Discharge Patient Disposition: Home Health Service Condition: Stable Prescriptions: New amlodipine 10 mg tablet 10 mg PO DAILY Qty: 30 3RF atorvastatin 40 mg Tablet 20 mg PO BEDTIME Qty: 30 0RF aspirin 81 mg Tablet,Delayed Release (Dr/Ec) 81 mg PO DAILY Qty: 30 0RF Continued cholecalciferol (vitamin D3) 25 mcg (1,000 unit) tablet,chewable 25 mcg PO DAILY 0RF ascorbic acid (vitamin C) 1,000 mg tablet 1 g PO DAILY 0RF ibuprofen 200 mg capsule 400 mg PO BEDTIME PRN (Reason: Pain) 0RF carbamazepine 300 mg capsule, ER multiphase 12 hr 300 mg PO BID Qty: 0 0RF Discontinued saw palmetto 450 mg capsule 450 mg PO BID 0RF Rx Instructions: give with food (meal/snack) Discharge Orders: Discharge Order (Routine); Ordered 10/22/21 Ordered By: Len Rossi Other Ambulatory Orders: DME: Naseem (Order) Location: None Selected Ordered By: Ibrahima Braxton Referrals: Tyrone Duckworth MD [Primary Care Provider] - 1 week Discharge Diet: Low Salt Patient Instructions: Aliskiren/Amlodipine (By mouth), Hypertension (GEN), Opioid Safety Activity Restrictions/Additional Instructions: Check blood pressure daily at home and maintain blood pressure diary and follow with a primary care provider within next 1 week for further adjustment of antihypertensives. Please follow the primary care provider within next 1 week to follow-up on carbamazepine levels. Discharge Attestations Time Spent in Discharge Care*: greater than 30 min Specific Discharge Activities: educating patient, educating and/or supporting family/caregiver, discussing with pcp/other providers, discussing with disability case manager/social workers/dc planners, documenting/other paperwork and evaluating patient/reviewing data Status at Discharge: Cognitive status at discharge: cognitively intact , Behavioral status at discharge: cooperative , Functional status at discharge: independent ambulation , Overall status at discharge: patient is back to baseline Quality Metrics Clinical Quality Measures [ No reported AMI, CVA or VTE this stay] 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 of Care Code Acute Chg FW DC note Diagnoses Hypertensive emergency I16.1 AMS (altered mental status) R41.82 BPH (benign prostatic hyperplasia) N40.1; N39.43 Lower urinary tract symptom detail: post-void dribbling Lower urinary tract symptom presence: symptoms present Complex partial epilepsy G40.209 Epilepsy type: partial symptomatic Intractability: not intractable Status epilepticus: without status epilepticus CHRISTINA (obstructive sleep apnea) G47.33 HTN (hypertension) I10 Hypertension type: essential hypertension Carotid artery occlusion I65.29
[2021-10-22 13:04] LABS: Chol HDL Ratio 4.02 mg/dL (1.0-5.00); Cholesterol 169 mg/dL (0-200); HDL Cholesterol 42 mg/dL (60-100); LDL Cholesterol Calculated 107 mg/dL (50-129); Triglycerides 99 mg/dL (0-150); VLDL Cholestrol Calculation 20 mg/dL (0-30)
[2021-10-22] MEDS: carBAMazepine 200 mg Tablet 300 MG PO (20:08)
[2021-10-22] MEDS: atorvastatin 40 mg Tablet 20 MG PO (20:08)
--- NOTE | 2021-10-22 21:15 | PC.NURSE ---
Provided DC education to patient and patients son. To go home with patients son. NO needs identified at this time.
== END 2021-10-22 21:20 | disposition home health service (06) | DRG 305 ==
LOC: ER 13:44 → ICU 16:47 → MEDSURG 10-21 14:15
PROVIDERS: Admitting Provider Internal Medicine; Emergency Provider Emergency Medicine; PCP Internal Medicine; Visit Provider Student in an Organized Health Care Education/Training Program
DX: I16.1 Hypertensive emergency (principal); G40.209 Localization-related (focal) (partial) symptomatic epilepsy and epileptic syndromes with complex partial seizures, not intractable, without status epilepticus; I10 Essential (primary) hypertension; E78.5 Hyperlipidemia, unspecified; Z86.73 Personal history of transient ischemic attack (TIA), and cerebral infarction without residual deficits; N40.1 Benign prostatic hyperplasia with lower urinary tract symptoms; N39.43 Post-void dribbling; F32.9 Major depressive disorder, single episode, unspecified; Z85.828 Personal history of other malignant neoplasm of skin; E03.9 Hypothyroidism, unspecified; G47.33 Obstructive sleep apnea (adult) (pediatric); I65.21 Occlusion and stenosis of right carotid artery
CPT/HCPCS: 36415; 70450; 70496; 70498; 71250; 72125; 74176; 80048; 80053; 80061; 80156; 81003; 83036; 83735; 83880; 84145; 84439; 84443; 84481; 84484; 85025; 86140; 93005; 96372; 96374; 96375; 97110; 97116; 97161; 97530; 99285; G0378; J0360; J1650; J7030; J7040; Q9967

== ENCOUNTER 2022-08-12 14:48 | Emergency (ER) | payer MEDICARE, OTHER, SELFPAY ==
[2022-08-12 14:56] VITALS: BP 163/98; PULSE 96; RESP 18; O2SAT 97
--- NOTE | 2022-08-12 15:05 | ECG_ITS ---
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 Measurements Intervals [place] Rate: 92 P: 25 CT: 195 QRS: 53 QRSD: 75 T: 52 QT: 344 QTc: 426 Interpretive Statements SINUS RHYTHM Compared to ECG 10/20/2021 16:11:16 Myocardial infarct finding no longer present Electronically Signed On 08-12-2022 19:10:23 BEAUTY OPERATOR by Pilar Young M.D. [email or web address]
[2022-08-12 15:26] VITALS: BP 163/98; PULSE 94; RESP 20; O2SAT 97
--- NOTE | 2022-08-12 15:31 | ED_ITS ---
HPI - Seizure General: Chief Complaint: Seizure Stated Complaint: SEIZURE Time Seen by Provider: 08/12/22 14:50 Source: patient Mode of arrival: EMS History of Present Illness: HPI Narrative: 82-year-old male with a known history of seizure disorder and previous seizures in the past. When I seen the patient in room he is still postictal he can remember some details he knows dates times days of the week etc. but he is very fuzzy on exactly what happened today in terms of the seizure he had. He could not recall exactly how he got here. He is on Tegretol. He states he is taken all of his medicines and not missed any doses. MD complaint: seizure Onset (ago): minute(s) Seizure History: Yes Place: Home Associated symptoms: Deny chest pain, chills, confusion, cough, diaphoresis, fever(s), anorexia, malaise, rash, short of breath, syncope or weakness Treatments prior to arrival: none Review of Systems Const: Denies: fever(s), chills, malaise or diaphoresis ENMT: Denies: throat pain, ear or mastoid pain, nasal discharge or nasal congestion Card: Denies: chest pain or syncope Resp: Denies: dyspnea, productive cough or non-productive cough GI: Denies: abdominal pain, nausea, vomiting, hematemesis, coffee ground emesis, diarrhea, constipation, bloating, hematochezia or melena : Denies: flank pain, dysuria, urinary frequency or urinary urgency Skin/Breast: Denies: rash or pruritus Neuro: Denies: confusion PFS ED PFSH: Medical History Anemia Aphasia -reported to have had worsening generalized weakness, slurred speech, difficulty with word finding -clinical suspicion for CVA with noted expressive aphasia, mild R facial droop -CT head negative -Echo: EF=60%, G1DD, no RWMA, trace to mild MR; carotid US: no significant stenosis -telemetry monitoring -VSS; continue to monitor -passed bedside dysphagia screening -PT/OT/ST evaluations appreciated -fall/seizure/aspiration precautions -received ASA 325 mg in ED, continue ASA, Plavix and statin -noted A1c, TSH, lipid panel -did not received tPA as presented outside of window -permissive HTN x 24 hrs; can resume oral antihypertensives on d/c, labetalol if BP >220/110 BPH (benign prostatic hyperplasia) -on tamsulosin Carotid artery occlusion Cerebrovascular accident Closed right acetabular fracture Complex partial epilepsy Depression History of basal cell cancer HTN (hypertension) Hypertensive emergency Hypothyroidism -TSH wnl, on levothyroxine Insomnia CHRISTINA (obstructive sleep apnea) -with nocturnal hypoxemia, oxygen dependent, 4 L NC qhs Posttraumatic encephalopathy Pubic ramus fracture Tremor Vitamin D deficiency Surgical History History of appendectomy History of tonsillectomy and adenoidectomy Family History Other Cancer Diabetes Social History Smoking and tobacco status: never smoked Alcohol intake: never Household members: children Housing: House Marital status: / Current occupational status: retired Current gender identity: Male Physical Exam Const: GENERAL APPEARANCE: cooperative and comfortable ORIENTATION/CONSCIOUSNESS: Yes awake, Yes oriented to person, Yes oriented to place and Yes oriented to time HENMT: COMMON NORMALS: normocephalic, atraumatic, hearing grossly normal bilaterally, external ears normal, EAC's normal, TM's normal bilaterally, Normal nasal mucous membranes and turbinates present, moist oral mucous membranes and oropharynx normal HEAD & SCALP: normocephalic and atraumatic NOSE: Normal nasal mucous membranes and turbinates present EXTERNAL EAR: Yes external ears normal EXTERNAL AUDITORY CANAL: EAC's normal TYMPANIC MEMBRANE: TM's normal bilaterally Eye: COMMON NORMALS: Equal, round and reactive pupils present, EOMs intact bilaterally, conjunctivae normal and no scleral icterus CONJUNCTIVA: Yes conjunctivae normal PUPIL: Yes Equal, round and reactive pupils present Neck/C-Spine: COMMON NORMALS: full ROM, no lymphadenopathy, supple and no JVD Lymph: LYMPHATIC: no lymphadenopathy noted and no lymphedema noted Resp: COMMON NORMALS: normal respiratory effort, No retractions, No use of accessory muscles and clear to auscultation bilaterally AUSCULTATION: clear to auscultation bilaterally Cardio: COMMON NORMALS: no JVD, regular rate, regular rhythm and No murmurs present (Cardio) RATE: regular rate RHYTHM: regular rhythm GI: COMMON NORMALS: Soft to palpation and No hepatosplenomegaly present AUSCULTATION: Yes normoactive bowel sounds PALPATION: Yes Soft to palpation, No Tenderness to palpation present (GI), No Guarding due to palpation present (GI) and Yes No hepatosplenomegaly present Extremity: COMMON NORMALS: normal to inspection, capillary refill normal, no clubbing, cyanosis or edema, no calf tenderness and no pedal edema Neuro: SENSORIUM/ORIENTATION: Yes oriented to person, Yes oriented to place and Yes oriented to time Skin: COMMON NORMALS: no rashes or lesions noted GENERAL SKIN EXAM: no rashes or lesions noted Course Vital Signs: Vital signs: Vital Signs Pulse Rate 104 H 08/12/22 17:57 Respiratory Rate 19 H 08/12/22 16:38 Blood Pressure 170/90 08/12/22 17:57 Pulse Oximetry 95 08/12/22 17:57 Oxygen Delivery Me thod 08/12/22 15:58 MDM - Seizure MDM Narrative Medical decision making narrative: Patient has a history of previous seizures he is postictal initially improved after he was here time we will go and discharge patient home continue current medications no changes time we did get a Tegretol level on him. Follow-up with his neurologist. No further seizures after arrival in the ER. Medical Records Attestation: I reviewed the patient's medical records. Lab Data Attestation: I reviewed the patient's lab results. 08/12/22 16:35 08/12/22 16:35 Labs: Laboratory Results WBC 6.8 10^3/uL (4.0-10.0) 08/12/22 16:35 RBC 4.23 10^6/uL (4.1-5.3) 08/12/22 16:35 Hgb 14.8 g/dL (11.7-16.6) 08/12/22 16:35 Hct 43.4 % (42.0-52.0) 08/12/22 16:35 MCV 102.6 fl (80-94) H 08/12/22 16:35 MCH 35.0 pg (28.0-34.0) H 08/12/22 16:35 MCHC 34.1 g/dL (30.0-36.0) 08/12/22 16:35 RDW 12.1 % (12.1-15.1) 08/12/22 16:35 Plt Count 160 10^3/cmm (130-400) 08/12/22 16:35 MPV 9.5 fL (7.4-10.4) 08/12/22 16:35 Neut % (Auto) 70.7 % 08/12/22 16:35 Lymph % (Auto) 18.1 % 08/12/22 16:35 [place] % (Auto) 7.9 % 08/12/22 16:35 Eos % (Auto) 1.8 % 08/12/22 16:35 Baso % (Auto) 0.6 % 08/12/22 16:35 Neut # (Auto) 4.81 10^3/uL (1.8-7.7) 08/12/22 16:35 Lymph # (Auto) 1.2 10^3/uL (0.8-4.8) 08/12/22 16:35 [place] # (Auto) 0.5 10^3/uL (0.2-0.9) 08/12/22 16:35 Eos # (Auto) 0.1 10^3/uL (0.0-0.8) 08/12/22 16:35 Baso # (Auto) 0.0 10^3/uL (0.0-0.1) 08/12/22 16:35 Nucleated RBC % (auto) 0 % 08/12/22 16:35 Nucleated RBCs # 0.0 /100WBC 08/12/22 16:35 Sodium 137 mmol/L (136-145) 08/12/22 16:35 Potassium 4.5 mmol/L (3.5-5.1) 08/12/22 16:35 Chloride 101 mmol/L (98-107) 08/12/22 16:35 Carbon Dioxide 24 mmol/L (22-29) 08/12/22 16:35 Anion Gap 16.5 (5-19) 08/12/22 16:35 BUN 20 mg/dL (8-23) 08/12/22 16:35 Creatinine 0.6 mg/dL (0.7-1.2) L 08/12/22 16:35 GFR Calculation Not Reportable 08/12/22 16:35 Glucose 98 mg/dL (65-115) 08/12/22 16:35 Calculated Osmolality 287 mOsm/kg (285-295) 08/12/22 16:35 Calcium 9.5 mg/dL (8.5-10.5) 08/12/22 16:35 Total Bilirubin 0.2 mg/dL (0.15-1.2) 08/12/22 16:35 AST 29 U/L (0-40) 08/12/22 16:35 ALT 21 U/L (0-41) 08/12/22 16:35 Alkaline Phosphatase 91 U/L (40-130) 08/12/22 16:35 Total Protein 6.9 g/dL (6.6-8.7) 08/12/22 16:35 Albumin 4.1 g/dL (3.5-5.2) 08/12/22 16:35 Globulin 2.8 g/dL (1.3-4.6) 08/12/22 16:35 Urine Color Yellow (Yellow) 08/12/22 15:30 Urine Appearance Clear (CLEAR) 08/12/22 15:30 Urine pH 5 (5-7) 08/12/22 15:30 Ur Specific [place] 1.015 (1.005-1.030) 08/12/22 15:30 Urine Protein Neg (Negative) 08/12/22 15:30 Urine Glucose (UA) Norm (Normal) 08/12/22 15:30 Urine Ketones Negative (Negative) 08/12/22 15:30 Urine Blood Neg (Negative) 08/12/22 15:30 Urine Nitrate Negative (Negative) 08/12/22 15:30 Urine Bilirubin Neg (Negative) 08/12/22 15:30 Urine Urobilinogen Norm mg/dL (Negative) 08/12/22 15:30 Ur Leukocyte Esterase Negative (Negative) 08/12/22 15:30 Carbamazepine 5.5 ug/mL (4.0-12.0) 08/12/22 16:35 Discharge Plan Discharge Patient Disposition: Home Clinical Impression: Complex partial epilepsy, HTN (hypertension) Condition: Stable Prescriptions: No Action ascorbic acid (vitamin C) 1,000 mg tablet 1 g PO DAILY carbamazepine 300 mg capsule, ER multiphase 12 hr 300 mg PO BID Qty: 180 3RF aspirin [Aspir-81] 81 mg Tablet,Delayed Release (Dr/Ec) 81 mg PO DAILY Discharge Orders: Discharge ED (Routine); Ordered 08/12/22 Ordered By: Jason Burroughs Referrals: Tyrone Duckworth MD [Primary Care Provider] - Discharge Diet: Usual diet Discharge Activity: Increase activity as tolerated Patient Instructions: Opioid Safety, Pain Management Activity Restrictions/Additional Instructions: You are seen today for seizure. Exam was normal follow-up with your neurologist as soon as you are able. 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 of Care Code ED Circular Knitter Helper for [place]
[2022-08-12 15:47] LABS: Add Urine Microscopic? NO; Charge for UA Resulting for Rev
[2022-08-12 15:57] LABS: Bilirubin Urine Neg (Negative); Blood Urine Neg (Negative); Glucose Urine UA Norm (Normal); Ketones Urine Negative (Negative); Leukocyte Esterase Urine Negative (Negative); Nitrate Urine Negative (Negative); Protein Urine Neg (Negative); Specific Gravity, Urine 1.015 (1.005-1.030); Urine Appearance Clear (CLEAR); Urine Color Yellow (Yellow); Urobilinogen Urine Norm (Negative); pH Urine 5 (5-7)
--- NOTE | 2022-08-12 15:57 | PC.PHAR ---
pt states he takes care of his own medications-pts son dafne states the pt takes care of his own medications also-pt has home health but not for medications-pt states he no longer takes amlodipine 10mg daily filled 10/21/21 90d/s chele states rx has refills-pt states no longer takes lipitor 20mg hs filled 10/22/21 60d/s-pt states no longer takes bystolic 5mg daily filled 02/2022 30d/s chele states rx has refills-pt states only taking the medications entered
[2022-08-12 15:58] VITALS: BP 194/102; PULSE 94; O2SAT 96
[2022-08-12 16:38] VITALS: BP 192/123; PULSE 94; RESP 19; O2SAT 96
[2022-08-12 16:43] VITALS: BP 160/90
[2022-08-12 16:49] LABS: Basophils % 0.6 %; Eosinophils # 0.1 10^3/uL (0.0-0.8); Eosinophils % 1.8 %; Hematocrit 43.4 % (42.0-52.0); Hemoglobin 14.8 g/dL (11.7-16.6); Lymphocytes # 1.2 10^3/uL (0.8-4.8); Lymphocytes % 18.1 %; Mean Corpuscular HGB Conc 34.1 g/dL (30.0-36.0); Mean Corpuscular Volume 102.6 fl (80-94); Mean Platelet Volume 9.5 fL (7.4-10.4); Monocytes # 0.5 10^3/uL (0.2-0.9); Monocytes % 7.9 %; Neutrophils # 4.81 10^3/uL (1.8-7.7); Neutrophils % 70.7 %; Nucleated Red Blood Cells % 0 %; Platelet Count 160 10^3/cmm (130-400); Red Blood Count 4.23 10^6/uL (4.1-5.3); Red Cell Distribution Width 12.1 % (12.1-15.1); White Blood Count 6.8 10^3/uL (4.0-10.0)
[2022-08-12 17:11] LABS: Alanine Aminotransferase 21 U/L (0-41); Albumin Level 4.1 g/dL (3.5-5.2); Alkaline Phosphatase 91 U/L (40-130); Blood Urea Nitrogen 20 mg/dL (8-23); Calcium 9.5 mg/dL (8.5-10.5); Carbon Dioxide 24 mmol/L (22-29); Chloride 101 mmol/L (98-107); Globulin 2.8 g/dL (1.3-4.6); Glucose 98 mg/dL (65-115); Osmolality Calculated 287 mOsm/kg (285-295); Sodium 137 mmol/L (136-145); Total Bilirubin 0.2 mg/dL (0.15-1.2); Total Protein 6.9 g/dL (6.6-8.7)
[2022-08-12 17:20] LABS: Anion Gap 16.5 (5-19); Aspartate Amino Transferase 29 U/L (0-40); Potassium 4.5 mmol/L (3.5-5.1)
[2022-08-12 17:57] VITALS: BP 170/90; PULSE 104; O2SAT 95
[2022-08-12 19:51] LABS: Carbamazepine Tegretol 5.5 ug/mL (4.0-12.0)
== END 2022-08-12 18:14 | disposition home or self-care (01) ==
PROVIDERS: Emergency Provider Family Medicine; PCP Internal Medicine
DX: G40.802 Other epilepsy, not intractable, without status epilepticus (principal); I10 Essential (primary) hypertension; Z79.82 Long term (current) use of aspirin
CPT/HCPCS: 36415; 80053; 80156; 81003; 85025; 93005; 99284

== ENCOUNTER 2022-08-14 12:49 | Inpatient (IN) | payer MEDICARE, OTHER, SELFPAY ==
[2022-08-14] VITALS (9 sets, daily range): BP systolic 111–206; BP diastolic 70–117; PULSE 85–103; RESP 17–18; TEMP 36.4–36.8; O2SAT 92–97; BMI 26.8
--- NOTE | 2022-08-14 13:16 | ECG_ITS ---
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 [email or web address]
--- NOTE | 2022-08-14 13:20 | CT_ITS ---
WS: [id number] CT HEAD TECHNIQUE: Noncontrast CT of the head obtained from the skullbase to the vertex. CLINICAL INFORMATION: Altered mental status COMPARISON: October 20, 2021 DLP: 1254.[address] scans at [facility] use at least one of these dose optimization techniques: automated e xposure control; mA and/or kV adjustment per patient size (includes targeted exams where dose is matc hed to clinical indication); or iterative reconstruction. FINDINGS: No evidence of intracranial hemorrhage or mass effect. Ventricular system and basal cisterns are trejo nt. Mild small vessel changes with moderate parenchymal volume loss. Volume loss worse in the frontal lobes. No extra-axial fluid collections. No evidence of mass or mass effect. Vascular calcification Paranasal sinuses and mastoid air cells are well aerated. .Normal visualized soft tissues. Normal pos terior nasopharynx. CT/CT head wo con* [id number] IMPRESSION: 1. No evidence of intracranial hemorrhage or mass effect. 2. . Mild small vessel changes with moderate parenchymal volume loss worse in the frontal lobes. 3. No acute intracranial findings.
--- NOTE | 2022-08-14 13:20 | XR_ITS ---
WS: [id number] Exam: XR chest 1V portable [id number] Date/Time of Exam: 08/14/2022 1:20 PM Reason For Exam: Altered mental status Comparison 12/25/2019. The lungs are fully expanded and clear. Normal cardiomediastinal silhouette. No pleural effusions. Ol d fracture deformity of the proximal right humerus. Degenerative change at the left glenohumeral join t. XR/XR chest 1V portable [id number] IMPRESSION: 1. No acute cardiopulmonary process.
--- NOTE | 2022-08-14 13:25 | ED_ITS ---
HPI - Altered Mental Status General: Chief Complaint: Altered Mental Status Stated Complaint: CONFUSION Time Seen by Provider: 08/14/22 12:56 History of Present Illness: This 82-year-old man with a history of complex partial epilepsy, obstructive sleep apnea and depression presents to the ER for evaluation of confusion. He had gone to his primary care physician's office (Dr. Duckworth) this morning and he was sent the ER because he was exceptionally confused. Patient kept repeating that his teeth is out of place and needs to be rearranged . He was not able to tell me how he got to Dr. Duckworth's office this morning or how he got to the ER. He knows that he is in the hospital but thinks that this is August. He could not state who the president is. He is able to move all extremities with no difficulty and is alert with no facial droop. Speech is clear but he is totally confused. It is difficult to ascertain whether he lives by himself or lives with someone. At this time, we are unable to get any useful history from him. There is no family or friends with him to provide any additional history. Associated symptoms: Deny depression Review of Systems Const: Denies: chills, body aches or change in appetite ENMT: Reports: other (States that teeth are sunk in and needs to be rearranged); Denies: nasal discharge Card: Denies: chest pain or lightheadedness : Denies: dysuria Musc: Denies: neck pain or back pain Neuro: Denies: headache(s) or weakness in extremities Psych: Denies: depression [place]/Lymph: Denies: easy bruising All/Imm: Denies: urticaria, tongue swelling or facial swelling PFSH ED PFSH: Medical History Anemia Aphasia -reported to have had worsening generalized weakness, slurred speech, difficulty with word finding -clinical suspicion for CVA with noted expressive aphasia, mild R facial droop -CT head negative -Echo: EF=60%, G1DD, no RWMA, trace to mild MR; carotid US: no significant stenosis -telemetry monitoring -VSS; continue to monitor -passed bedside dysphagia screening -PT/OT/ST evaluations appreciated -fall/seizure/aspiration precautions -received ASA 325 mg in ED, continue ASA, Plavix and statin -noted A1c, TSH, lipid panel -did not received tPA as presented outside of window -permissive HTN x 24 hrs; can resume oral antihypertensives on d/c, labetalol if BP >220/110 BPH (benign prostatic hyperplasia) -on tamsulosin Carotid artery occlusion Cerebrovascular accident Closed right acetabular fracture Complex partial epilepsy Depression History of basal cell cancer HTN (hypertension) Hypertensive emergency Hypothyroidism -TSH wnl, on levothyroxine Insomnia CHRISTINA (obstructive sleep apnea) -with nocturnal hypoxemia, oxygen dependent, 4 L NC qhs Posttraumatic encephalopathy Pubic ramus fracture Tremor Vitamin D deficiency Surgical History History of appendectomy History of tonsillectomy and adenoidectomy Family History Other Cancer Diabetes Social History Smoking and tobacco status: never smoked Alcohol intake: never Household members: children Housing: House Marital status: / Current occupational status: retired Current gender identity: Male Physical Exam HENMT: COMMON NORMALS: normocephalic and atraumatic HEAD & SCALP: normocephalic and atraumatic Eye: COMMON NORMALS: no scleral icterus GENERAL EYE: appearance normal, both eyes and all related structures Chest: COMMONS NORMALS: normal inspection of the chest and normal palpation of entire chest wall CHEST: Yes Symmetrical chest wall rise Resp: COMMON NORMALS: normal respiratory effort, No retractions, No use of accessory muscles and clear to auscultation bilaterally EFFORT & INSPECTION: Yes symmetric chest movement AUSCULTATION: clear to auscultation bilaterally Cardio: COMMON NORMALS: regular rate, regular rhythm, S1 normal heart sound present, S2 normal heart sound present, No gallops present (Cardio), No murmurs present (Cardio), No rub (Cardio) and Peripheral pulses 2+ throughout RATE: regular rate RHYTHM: regular rhythm HEART SOUNDS: S1 normal heart sound present and S2 normal heart sound present PERIPHERAL PULSES: Peripheral pulses 2+ throughout GI: COMMON NORMALS: Normal to inspection, nondistended, normoactive bowel sounds present, Soft to palpation, non-tender, No hepatosplenomegaly present and no masses AUSCULTATION: Yes normoactive bowel sounds PALPATION: Yes Soft to palpation and Yes No hepatosplenomegaly present RECTAL EXAM: Yes deferred Extremity: COMMON NORMALS: no clubbing, cyanosis or edema and no pedal edema Neuro: OTHER: Patient is oriented to self only. He thinks this is August and he could not state who the president is. Strength is 5 out of 5 in all extremities with no focal weakness. There is no distal neurovascular deficit. . Psych: OTHER: He is cooperative. Course ED course: 1505 hrs.: RN called patient's neighbor who reported that as of 2 PM yesterday when she last saw patient, he was in his usual state of health. However today, he was seen by his dentist who determined that there was no problem with his teeth. He had an appointment with Dr. Duckworth for which he took public transportation to his office. Patient was unable to relay any of this history to me. Again, he appears very confused. Reevaluation(s): Reevaluation #1: Case discussed with Dr. Harper, neurologist on-call. She knows patient from taking care of him in the past. Patient is not very compliant with medications and insists on taking certain medications for his seizures. Dr. Harper is agreeable with admitting patient under the hospitalist and she will see patient if consulted. Reevaluation #2: Case discussed with Dr Gibbons who accepted patient for admission. Vital Signs: Vital signs: Vital Signs Temperature 97.7 F 08/14/22 16:59 Pulse Rate 103 H 08/14/22 16:59 Respiratory Rate 18 08/14/22 16:59 Blood Pressure 175/97 08/14/22 17:32 Pulse Oximetry 95 08/14/22 16:59 Oxygen Delivery Me thod 08/14/22 17:55 MDM - Altered Mental Status Medical Decision Making Medical decision making: History as above. Patient was obviously confused and unable to provide any useful history. Case discussed with neurologist on-call who agrees with admitting patient for further evaluation. Case discussed with hospitalist who accepted patient for admission. Lab Data 08/14/22 14:04 08/14/22 14:04 Radiology Impressions Chest X-Ray 08/14/22 13:20 IMPRESSION: 1. No acute cardiopulmonary process. Head CT 08/14/22 13:20 IMPRESSION: 1. No evidence of intracranial hemorrhage or mass effect. 2. . Mild small vessel changes with moderate parenchymal volume loss worse in the frontal lobes. 3. No acute intracranial findings. Laboratory Results WBC 6.8 10^3/uL (4.0-10.0) 08/14/22 14:04 RBC 4.35 10^6/uL (4.1-5.3) 08/14/22 14:04 Hgb 14.8 g/dL (11.7-16.6) 08/14/22 14:04 Hct 43.9 % (42.0-52.0) 08/14/22 14:04 MCV 100.9 fl (80-94) H 08/14/22 14:04 MCH 34.0 pg (28.0-34.0) 08/14/22 14:04 MCHC 33.7 g/dL (30.0-36.0) 08/14/22 14:04 RDW 11.7 % (12.1-15.1) L 08/14/22 14:04 Plt Count 168 10^3/cmm (130-400) 08/14/22 14:04 MPV 9.2 fL (7.4-10.4) 08/14/22 14:04 Neut % (Auto) 67.9 % 08/14/22 14:04 Lymph % (Auto) 21.6 % 08/14/22 14:04 [place] % (Auto) 8.9 % 08/14/22 14:04 Eos % (Auto) 1.2 % 08/14/22 14:04 Baso % (Auto) 0.3 % 08/14/22 14:04 Neut # (Auto) 4.63 10^3/uL (1.8-7.7) 08/14/22 14:04 Lymph # (Auto) 1.5 10^3/uL (0.8-4.8) 08/14/22 14:04 [place] # (Auto) 0.6 10^3/uL (0.2-0.9) 08/14/22 14:04 Eos # (Auto) 0.1 10^3/uL (0.0-0.8) 08/14/22 14:04 Baso # (Auto) 0.0 10^3/uL (0.0-0.1) 08/14/22 14:04 Nucleated RBC % (auto) 0 % 08/14/22 14:04 Nucleated RBCs # 0.0 /100WBC 08/14/22 14:04 Sodium 138 mmol/L (136-145) 08/14/22 14:04 Potassium 4.1 mmol/L (3.5-5.1) 08/14/22 14:04 Chloride 98 mmol/L (98-107) 08/14/22 14:04 Carbon Dioxide 26 mmol/L (22-29) 08/14/22 14:04 Anion Gap 18.1 (5-19) 08/14/22 14:04 BUN 17 mg/dL (8-23) 08/14/22 14:04 Creatinine 0.7 mg/dL (0.7-1.2) 08/14/22 14:04 GFR Calculation Not Reportable 08/14/22 14:04 Glucose 108 mg/dL (65-115) 08/14/22 14:04 Calculated Osmolality 288 mOsm/kg (285-295) 08/14/22 14:04 Calcium 9.8 mg/dL (8.5-10.5) 08/14/22 14:04 Total Bilirubin 0.5 mg/dL (0.15-1.2) 08/14/22 14:04 AST 50 U/L (0-40) H 08/14/22 14:04 ALT 25 U/L (0-41) 08/14/22 14:04 Alkaline Phosphatase 100 U/L (40-130) 08/14/22 14:04 Troponin T Baseline 26 ng/L (0-15) H 08/14/22 13:21 Total Protein 7.5 g/dL (6.6-8.7) 08/14/22 14:04 Albumin 4.6 g/dL (3.5-5.2) 08/14/22 14:04 Globulin 2.9 g/dL (1.3-4.6) 08/14/22 14:04 TSH 5.92 uIU/mL (0.27-4.20) H 08/14/22 13:21 Prolactin 4.27 ng/mL (4.0-15.2) 08/14/22 13:21 Urine Color Yellow (Yellow) 08/14/22 14:45 Urine Appearance Clear (CLEAR) 08/14/22 14:45 Urine pH 5 (5-7) 08/14/22 14:45 Ur Specific [place] 1.015 (1.005-1.030) 08/14/22 14:45 Urine Protein Neg (Negative) 08/14/22 14:45 Urine Glucose (UA) Norm (Normal) 08/14/22 14:45 Urine Ketones 2+ (Negative) H 08/14/22 14:45 Urine Blood Neg (Negative) 08/14/22 14:45 Urine Nitrate Negative (Negative) 08/14/22 14:45 Urine Bilirubin Neg (Negative) 08/14/22 14:45 Urine Urobilinogen Norm mg/dL (Negative) 08/14/22 14:45 Ur Leukocyte Esterase Negative (Negative) 08/14/22 14:45 Urine Opiates Screen Negative ng/mL (Negative) 08/14/22 14:45 Ur Barbiturates Screen Negative ng/mL (Negative) 08/14/22 14:45 Ur Phencyclidine Scrn Negative ng/mL (Negative) 08/14/22 14:45 Ur Amphetamines Screen Negative ng/mL (Negative) 08/14/22 14:45 U Benzodiazepines Scrn Negative ng/mL (Negative) 08/14/22 14:45 Urine Cocaine Screen Negative ng/mL (Negative) 08/14/22 14:45 U Marijuana (THC) Screen Negative ng/mL (Negative) 08/14/22 14:45 Ethyl Alcohol < 10 mg/dL (0-10) 08/14/22 14:04 Discharge Plan Discharge Patient Disposition: Placed in Observation Admit Provider: Marilia Gibbons Clinical Impression: Acute confusion, Altered mental status 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 of Care Code ED Jewel 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
[2022-08-14 14:22] LABS: Basophils % 0.3 %; Eosinophils # 0.1 10^3/uL (0.0-0.8); Eosinophils % 1.2 %; Hematocrit 43.9 % (42.0-52.0); Hemoglobin 14.8 g/dL (11.7-16.6); Lymphocytes # 1.5 10^3/uL (0.8-4.8); Lymphocytes % 21.6 %; Mean Corpuscular HGB Conc 33.7 g/dL (30.0-36.0); Mean Corpuscular Volume 100.9 fl (80-94); Mean Platelet Volume 9.2 fL (7.4-10.4); Monocytes # 0.6 10^3/uL (0.2-0.9); Monocytes % 8.9 %; Neutrophils # 4.63 10^3/uL (1.8-7.7); Neutrophils % 67.9 %; Nucleated Red Blood Cells % 0 %; Platelet Count 168 10^3/cmm (130-400); Red Blood Count 4.35 10^6/uL (4.1-5.3); Red Cell Distribution Width 11.7 % (12.1-15.1); White Blood Count 6.8 10^3/uL (4.0-10.0)
[2022-08-14 14:39] LABS: Alanine Aminotransferase 25 U/L (0-41); Albumin Level 4.6 g/dL (3.5-5.2); Alkaline Phosphatase 100 U/L (40-130); Anion Gap 18.1 (5-19); Aspartate Amino Transferase 50 U/L (0-40); Blood Urea Nitrogen 17 mg/dL (8-23); Calcium 9.8 mg/dL (8.5-10.5); Carbon Dioxide 26 mmol/L (22-29); Chloride 98 mmol/L (98-107); Globulin 2.9 g/dL (1.3-4.6); Glucose 108 mg/dL (65-115); Osmolality Calculated 288 mOsm/kg (285-295); Potassium 4.1 mmol/L (3.5-5.1); Sodium 138 mmol/L (136-145); Total Bilirubin 0.5 mg/dL (0.15-1.2); Total Protein 7.5 g/dL (6.6-8.7)
[2022-08-14 14:41] LABS: Alcohol Level < 10 mg/dL (0-10)
[2022-08-14 15:05] LABS: Add Urine Microscopic? NO; Charge for UA Resulting for Rev
[2022-08-14 15:16] LABS: Bilirubin Urine Neg (Negative); Blood Urine Neg (Negative); Glucose Urine UA Norm (Normal); Leukocyte Esterase Urine Negative (Negative); Nitrate Urine Negative (Negative); Protein Urine Neg (Negative); Specific Gravity, Urine 1.015 (1.005-1.030); Urine Appearance Clear (CLEAR); Urine Color Yellow (Yellow); Urobilinogen Urine Norm (Negative); pH Urine 5 (5-7)
[2022-08-14 15:17] LABS: Ketones Urine 2+ (Negative)
[2022-08-14 15:20] LABS: Amphetamines Screen Urine Negative (Negative); Barbiturates Screen Urine Negative (Negative); Benzodiazepines Screen Urine Negative (Negative); Cocaine Screen Urine Negative (Negative); Opiate Screen Urine Negative (Negative); PCP Screen Urine Negative (Negative); THC Screen Urine Negative (Negative)
[2022-08-14] MEDS: hyDRALAzine 20 mg/mL INJ 1 mL 10 MG IVP (16:55)
--- NOTE | 2022-08-14 17:05 | P.HP_ITS ---
Providers/Chief Complaint Admitting Physician: Marilia Gibbons MD Primary Care Provider: Tyrone Duckworth MD Chief Complaint: CONFUSION History of Present Illness Jerry Tapia is a 82 year old male with a past medical history of hypertension, seizure disorder, depression who was brought to the ER by EMS for altered mental status. Patient is unable to participate in his history as he does not recall the events leading up to admission. Per history obtained from one of his neighbors, patient was last noted to be normal at around 2 PM on 08/13/2022. At 8 AM on 08/15/2022, he complained of dental pain to his neighbor so she gave him a ride to the dentist. She noticed that he was not acting like himself, was intermittently confused. When he got to the dentist office he was sent over to his primary care physician's office via public transport. When he reached Dr. Duckworth's office he was found to be disoriented which is far away from his baseline. He was sent to the emergency room via EMS. Upon presentation his blood pressure was noted to be 220/120. He received hydrala zine which has improved his blood pressure down to 170/120. Patient is able to correctly tell me his name, age, date of and the fact that he is in a hospital. He needed some redirection to remember that Dr. Duckworth sent him over. However he is unable to participate in a conversation. Speaks in bizarre sentences that make no sense. Keeps repeating this is all a mistake this is not real we have to get on top of it . He does not remember where he lives or how he got to the dental office or to Dr. Duckworth's office. He is able to ambulate in the room, fidgety in bed and attempting to get out of bed. Denies feeling sick over the past few days, however this is limited given his disorientation. Review of Systems General: Reports: ROS unobtainable due to mental status Medications/Allergies Home Medications Medication Instructions Recorded Confirmed Last Taken Type ascorbic acid (vitamin C) 1,000 mg 1 g PO DAILY 09/25/20 08/14/22 08/13/22 History tablet carbamazepine 300 mg 300 mg PO BID #180 caps 03/11/22 08/14/22 08/13/22 Rx capsule,extended release [id number] aspirin 81 mg tablet,delayed 81 mg PO DAILY 08/12/22 08/14/22 08/13/22 History release Allergies Allergy/AdvReac Type Severity Reaction Status Date / Time No Known Allergies Allergy Verified 08/12/22 15:51 PFSH Acute PFSH: Medical History Anemia Aphasia -reported to have had worsening generalized weakness, slurred speech, difficulty with word finding -clinical suspicion for CVA with noted expressive aphasia, mild R facial droop -CT head negative -Echo: EF=60%, G1DD, no RWMA, trace to mild MR; carotid US: no significant stenosis -telemetry monitoring -VSS; continue to monitor -passed bedside dysphagia screening -PT/OT/ST evaluations appreciated -fall/seizure/aspiration precautions -received ASA 325 mg in ED, continue ASA, Plavix and statin -noted A1c, TSH, lipid panel -did not received tPA as presented outside of window -permissive HTN x 24 hrs; can resume oral antihypertensives on d/c, labetalol if BP >220/110 BPH (benign prostatic hyperplasia) -on tamsulosin Carotid artery occlusion Cerebrovascular accident Closed right acetabular fracture Complex partial epilepsy Depression History of basal cell cancer HTN (hypertension) Hypertensive emergency Hypothyroidism -TSH wnl, on levothyroxine Insomnia CHRISTINA (obstructive sleep apnea) -with nocturnal hypoxemia, oxygen dependent, 4 L NC qhs Posttraumatic encephalopathy Pubic ramus fracture Tremor Vitamin D deficiency Surgical History History of appendectomy History of tonsillectomy and adenoidectomy Family History Other Cancer Diabetes Social History Smoking and tobacco status: never smoked Alcohol intake: never Household members: children Housing: House Marital status: / Current occupational status: retired Current gender identity: Male Vitals/I&O/Wt Last Vital Signs Temp 98.2 F 08/14/22 12:53 Pulse 96 08/14/22 16:57 Resp 18 08/14/22 16:57 BP 206/117 08/14/22 16:57 Pulse Ox 95 08/14/22 16:57 O2 Del Method 08/14/22 16:57 Weight last 48 hrs Weight 84.822 kg Physical Exam Narrative: General: He is uncomfortable, fidgety in bed, though he is able to answer orientation questions correctly, his other sentences make no sense. He is moving all extremities in bed. HEENT: PERRLA, pupils bilaterally equal and reactive, pallors not present Chest: Normal vesicular breath sounds, no added sounds, equal good air entry bilaterally CVS: S1-S2 regular, no murmurs, no tachycardia, no gallops, no rubs Abdomen: Soft, nontender, no organomegaly, bowel sounds present Neuro: No focal motor deficits, no facial deformity, AO x2-3 Data 08/14/22 14:04 08/14/22 14:04 Other Labs: Patient: Jerry Tapia Unit #: [id number] : 1940 Age/Sex: 82 / M ADM Date: 08/14/22 Loc: [facility] Room/Bed: [facility] Attending Dr: Marilia Gibbons MD Ordering Provider/Ordering MD: Ebony Gibbons MD Date of Service: 08/14/22 Procedure(s): CT angio headneck* [id number] Accession Number(s): [id number] Report Number: [id number] PROCEDURE INFORMATION: Exam: CTA Head With Contrast, Arteriography Exam date and time: 08/15/2022 4:18 AM Age: 82 years old Clinical indication: Cognitive deficit and speech disturbance; Altered mental status; Patient HX: Seizure on 08/13/2022. Presented to er on 08/14/2022 with confusion and transient aphasia. History of CVA. ; Additional info: Possible stroke, aphasia TECHNIQUE: Imaging protocol: Computed tomographic angiography of the head with contrast. Exam focused on the arteries. 3D rendering (Not supervised by radiologist): MIP and/or 3D reconstructed images were created by the technologist. Radiation optimization: All CT scans at this facility use at least one of these dose optimization techniques: automated exposure control; mA and/or kV adjustment per patient size (includes targeted exams where dose is matched to clinical indication); or iterative reconstruction. Contrast material: OMNI 350; Contrast volume: 100 ml; Contrast route: INTRAVENOUS (IV);? REPORTING DATA: Count of CT and Cardiac NM exams in prior 12 months: This patient has received 5 known CTs and 0 known cardiac nuclear medicine studies in the 12 months prior to the current study. COMPARISON: CT angio headneck* [id number] 10/20/2021 11:38 AM RADIATION DOSE METRICS: Total DLP (mGy-cm): 504.17 FINDINGS: ANTERIOR CIRCULATION: Right internal carotid artery: Intracranial segment is patent with no significant stenosis. No aneurysm. Right middle cerebral artery: No occlusion or significant stenosis. No aneurysm.? Right anterior cerebral artery: No occlusion or significant stenosis. No aneurysm.? Left internal carotid artery: Intracranial segment is patent with no significant stenosis. No aneurysm. Left middle cerebral artery: No occlusion or significant stenosis. No aneurysm.? Left anterior cerebral artery: No occlusion or significant stenosis. No aneurysm.? POSTERIOR CIRCULATION: Right vertebral artery: No occlusion or significant stenosis. No aneurysm.? Left vertebral artery: Mild stenosis of the left V4 segment. Basilar artery: Moderate stenosis of the mid basilar artery. Right posterior cerebral artery: No occlusion or significant stenosis. No aneurysm.? Left posterior cerebral artery: No occlusion or significant stenosis. No aneurysm.? Brain: No definite mass, mass effect, or midline shift. Cerebral ventricles: No ventriculomegaly. Bones/joints: Unremarkable. No acute fracture. Soft tissues: Unremarkable. PROCEDURE INFORMATION: Exam: CTA Neck With Contrast Exam date and time: 08/15/2022 4:18 AM Age: 82 years old Clinical indication: Cognitive deficit and speech disturbance; Altered mental status; Patient HX: Seizure on 08/13/2022. Presented to er on 08/14/2022 with confusion and transient aphasia. History of CVA. ; Additional info: Possible stroke, aphasia TECHNIQUE: Imaging protocol: Computed tomographic angiography of the neck with contrast. 3D rendering (Not supervised by radiologist): MIP and/or 3D reconstructed images were created by the technologist. Radiation optimization: All CT scans at this facility use at least one of these dose optimization techniques: automated exposure control; mA and/or kV adjustment per patient size (includes targeted exams where dose is matched to clinical indication); or iterative reconstruction. Contrast material: OMNI 350; Contrast volume: 100 ml; Contrast route: INTRAVENOUS (IV);? REPORTING DATA: Count of CT and Cardiac NM exams in prior 12 months: This patient has received 5 known CTs and 0 known cardiac nuclear medicine studies in the 12 months prior to the current study. COMPARISON: CT angio headneck* [id number] 10/20/2021 11:38 AM RADIATION DOSE METRICS: Total DLP (mGy-cm): 504.17 FINDINGS: Right common carotid artery: No stenosis. No dissection or occlusion. Right internal carotid artery: There is approximately 45% stenosis of the proximal right ICA. Right external carotid artery: No occlusion or stenosis of the origin.? Left common carotid artery: No stenosis. No dissection or occlusion. Left internal carotid artery: There is approximately 30% stenosis of the proximal left ICA. Left external carotid artery: No occlusion or stenosis of the origin.? Right vertebral artery: No stenosis. No dissection or occlusion. Left vertebral artery: No stenosis. No dissection or occlusion. Soft tissues: Normal. No significant soft tissue swelling. Bones/joints: No acute fracture. CT/CT angio headneck* [id number] IMPRESSION: No large vessel occlusion. 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 ? ? IMPRESSION: No large vessel occlusion. Mild stenosis of the bilateral proximal internal carotid arteries. ? CT/CT head wo con* [id number] IMPRESSION: ? 1.? No evidence of intracranial hemorrhage or mass effect. 2.? . Mild small vessel changes with moderate parenchymal volume loss worse in the frontal lobes. 3.? No acute intracranial findings. A&P Assessment and plan (1) Acute confusion: (2) Altered mental status: Plan 82-year-old male with a past medical history of seizure disorder presenting today with chief complaints of altered mental status, acute confusion. CT of the head without any acute events. We will request CTA to rule out large vessel occlusion. He has no focal deficits on his neuro exam, face is symmetric. He is able to ambulate within the room. Blood pressure initially upon presentation was 220/120, therefore hypertensive encephalopathy versus PRES remains on the differential. He has received hydralazine 10 mg IV and currently his blood pressure is down to 170/92 mmHg. We will start him on amlodipine 10 mg p.o. daily. Monitor for improvement in mentation with improvement in blood pressure. Alternate differentials include postictal state, check prolactin. Will use Keppra 1 g IV x1. Carbamazepine level was recently checked on August 12 and was within normal range. U tox is negative for illicit substances. Serum alcohol level is additionally not detected. We will check TSH. UA unremarkable, chest x-ray without consolidation. Patient is afebrile. Low suspicion for meningitis at this time. Review of past records shows that patient was here in the emergency room on August 12 with confusion but at that time had presented by himself, was noted to be postictal, improved by the time of discharge. He has also been been admitted here in October 2021 with similar symptoms when he presented with altered mental status In the setting of high blood pressure. Here it was treated with nicardipine infusion at the time. His antihypertensives were adjusted. He was discharged after his mentation improved with treating his blood pressure. Attestations Medical Necessity Statement*: Anticipate less than 2 midnight stay at this point in time, needs continued observation for resolution of neuro changes. 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 of Care Code Acute Code for [place] Diagnoses Acute confusion R41.0 Altered mental status R41.82
--- NOTE | 2022-08-14 17:21 | ECG_ITS ---
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 Measurements Intervals [place] Rate: 102 P: 58 PA: 197 QRS: 19 QRSD: 82 T: 16 QT: 341 QTc: 445 Interpretive Statements SINUS TACHYCARDIA MODERATE VOLTAGE CRITERIA FOR LVH, CONSIDER NORMAL VARIANT [MEETS CRITERIA IN ONE OF: R(aVL), S(V1), R(V5), R(V5/V6)+S(V1)] POSSIBLE SEPTAL MYOCARDIAL INFARCTION , PROBABLY OLD [30 ms Q WAVE IN V1/V2] Compared to ECG 08/14/2022 13:16:48 Myocardial infarct finding now present Sinus rhythm no longer present First degree AV block no longer present Electronically Signed On 08-14-2022 17:26:09 SUCTION DRUM DRIER OPERATOR by Neal Olivares M.D. [id number]
[2022-08-14] MEDS: amlodipine 10 mg Tablet PO (18:04)
[2022-08-14 18:05] LABS: Troponin(5th) Baseline 26 ng/L (0-15)
[2022-08-14 18:06] LABS: Prolactin 4.27 ng/mL (4.0-15.2); Thyroid Stimulating Hormone 5.92 uIU/mL (0.27-4.20)
--- NOTE | 2022-08-14 18:20 | PC.NURSE ---
ER Nurse reported Physician gave verbal order to hold Labatolol and Hydralazine.
--- NOTE | 2022-08-14 18:42 | CTR_ITS ---
PROCEDURE INFORMATION: Exam: CTA Head With Contrast, Arteriography Exam date and time: 08/15/2022 4:18 AM Age: 82 years old Clinical indication: Cognitive deficit and speech disturbance; Altered mental status; Patient HX: Seizure on 08/13/2022. Presented to er on 08/14/2022 with confusion and transient aphasia. History of CVA. ; Additional info: Possible stroke, aphasia TECHNIQUE: Imaging protocol: Computed tomographic angiography of the head with contrast. Exam focused on the arteries. 3D rendering (Not supervised by radiologist): MIP and/or 3D reconstructed images were created by the technologist. Radiation optimization: All CT scans at this facility use at least one of these dose optimization techniques: automated exposure control; mA and/or kV adjustment per patient size (includes targeted exams where dose is matched to clinical indication); or iterative reconstruction. Contrast material: OMNI 350; Contrast volume: 100 ml; Contrast route: INTRAVENOUS (IV); REPORTING DATA: Count of CT and Cardiac NM exams in prior 12 months: This patient has received 5 known CTs and 0 known cardiac nuclear medicine studies in the 12 months prior to the current study. COMPARISON: CT angio headneck* [id number] 10/20/2021 11:38 AM RADIATION DOSE METRICS: Total DLP (mGy-cm): 504.17 FINDINGS: ANTERIOR CIRCULATION: Right internal carotid artery: Intracranial segment is patent with no significant stenosis. No aneurysm. Right middle cerebral artery: No occlusion or significant stenosis. No aneurysm. Right anterior cerebral artery: No occlusion or significant stenosis. No aneurysm. Left internal carotid artery: Intracranial segment is patent with no significant stenosis. No aneurysm. Left middle cerebral artery: No occlusion or significant stenosis. No aneurysm. Left anterior cerebral artery: No occlusion or significant stenosis. No aneurysm. POSTERIOR CIRCULATION: Right vertebral artery: No occlusion or significant stenosis. No aneurysm. Left vertebral artery: Mild stenosis of the left V4 segment. Basilar artery: Moderate stenosis of the mid basilar artery. Right posterior cerebral artery: No occlusion or significant stenosis. No aneurysm. Left posterior cerebral artery: No occlusion or significant stenosis. No aneurysm. Brain: No definite mass, mass effect, or midline shift. Cerebral ventricles: No ventriculomegaly. Bones/joints: Unremarkable. No acute fracture. Soft tissues: Unremarkable. PROCEDURE INFORMATION: Exam: CTA Neck With Contrast Exam date and time: 08/15/2022 4:18 AM Age: 82 years old Clinical indication: Cognitive deficit and speech disturbance; Altered mental status; Patient HX: Seizure on 08/13/2022. Presented to er on 08/14/2022 with confusion and transient aphasia. History of CVA. ; Additional info: Possible stroke, aphasia TECHNIQUE: Imaging protocol: Computed tomographic angiography of the neck with contrast. 3D rendering (Not supervised by radiologist): MIP and/or 3D reconstructed images were created by the technologist. Radiation optimization: All CT scans at this facility use at least one of these dose optimization techniques: automated exposure control; mA and/or kV adjustment per patient size (includes targeted exams where dose is matched to clinical indication); or iterative reconstruction. Contrast material: OMNI 350; Contrast volume: 100 ml; Contrast route: INTRAVENOUS (IV); REPORTING DATA: Count of CT and Cardiac NM exams in prior 12 months: This patient has received 5 known CTs and 0 known cardiac nuclear medicine studies in the 12 months prior to the current study. COMPARISON: CT angio headneck* [id number] 10/20/2021 11:38 AM RADIATION DOSE METRICS: Total DLP (mGy-cm): 504.17 FINDINGS: Right common carotid artery: No stenosis. No dissection or occlusion. Right internal carotid artery: There is approximately 45% stenosis of the proximal right ICA. Right external carotid artery: No occlusion or stenosis of the origin. Left common carotid artery: No stenosis. No dissection or occlusion. Left internal carotid artery: There is approximately 30% stenosis of the proximal left ICA. Left external carotid artery: No occlusion or stenosis of the origin. Right vertebral artery: No stenosis. No dissection or occlusion. Left vertebral artery: No stenosis. No dissection or occlusion. Soft tissues: Normal. No significant soft tissue swelling. Bones/joints: No acute fracture. CT/CT angio headneck* [id number] IMPRESSION: No large vessel occlusion. 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 IMPRESSION: No large vessel occlusion. Mild stenosis of the bilateral proximal internal carotid arteries. REFERENCES: NASCET CRITERIA. The degree of stenosis in the cervical segment of the internal carotid artery is based on NASCET criteria. Normal is no stenosis. Mild is less than 50% stenosis. Moderate is 50-69% stenosis. Severe is 70% to 99% stenosis. Total occlusion is no detectable patent lumen.
[2022-08-14 19:14] LABS: Troponin 5 2HR 26.47 ng/L (0-15)
[2022-08-14 19:32] LABS: Troponin 5 2HR Delta 0.47 ABS# (0-10)
[2022-08-14 19:52] LABS: Ammonia 25 umol/L (16-60)
--- NOTE | 2022-08-14 23:02 | ECG_ITS ---
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 Measurements Intervals [place] Rate: 92 P: 80 [place]: 208 QRS: 72 QRSD: 85 T: 71 QT: 365 QTc: 454 Interpretive Statements SINUS RHYTHM MINIMAL ST DEPRESSION [0.025+ mV ST DEPRESSION] Compared to ECG 08/14/2022 17:21:30 ST (T wave) deviation now present Sinus tachycardia no longer present Myocardial infarct finding no longer present Electronically Signed On 08-15-2022 22:27:19 TEA TREE FARMER by Pilar Young M.D. [id number]
[2022-08-15] MEDS: acetaminophen 325 mg Tablet 650 MG PO (02:51)
[2022-08-15] MEDS: iohexol 350 mg/mL 500 mL Btl (per mL) IV (04:25)
[2022-08-15 04:36] VITALS: BP 179/92; PULSE 83; RESP 20; TEMP 36.4; O2SAT 96
[2022-08-15 05:06] LABS: Basophils % 0.3 %; Eosinophils # 0.1 10^3/uL (0.0-0.8); Eosinophils % 1.6 %; Hemoglobin 14.4 g/dL (11.7-16.6); Lymphocytes # 1.1 10^3/uL (0.8-4.8); Lymphocytes % 18.5 %; Mean Corpuscular HGB Conc 32.7 g/dL (30.0-36.0); Mean Corpuscular Hemoglobin 33.8 pg (28.0-34.0); Mean Corpuscular Volume 103.3 fl (80-94); Mean Platelet Volume 9.4 fL (7.4-10.4); Monocytes # 0.7 10^3/uL (0.2-0.9); Monocytes % 11.9 %; Neutrophils # 4.15 10^3/uL (1.8-7.7); Neutrophils % 67.5 %; Nucleated Red Blood Cells % 0 %; Platelet Count 160 10^3/cmm (130-400); Red Blood Count 4.26 10^6/uL (4.1-5.3); Red Cell Distribution Width 11.7 % (12.1-15.1); White Blood Count 6.2 10^3/uL (4.0-10.0)
[2022-08-15 05:23] LABS: Alanine Aminotransferase 24 U/L (0-41); Albumin Level 3.9 g/dL (3.5-5.2); Alkaline Phosphatase 95 U/L (40-130); Blood Urea Nitrogen 16 mg/dL (8-23); Calcium 9.2 mg/dL (8.5-10.5); Carbon Dioxide 24 mmol/L (22-29); Chloride 100 mmol/L (98-107); Globulin 2.6 g/dL (1.3-4.6); Glucose 89 mg/dL (65-115); Osmolality Calculated 285 mOsm/kg (285-295); Sodium 137 mmol/L (136-145); Total Bilirubin 0.4 mg/dL (0.15-1.2); Total Protein 6.5 g/dL (6.6-8.7)
[2022-08-15 05:37] LABS: Anion Gap 17.1 (5-19); Aspartate Amino Transferase 55 U/L (0-40); Potassium 4.1 mmol/L (3.5-5.1)
[2022-08-15 06:00] VITALS: PULSE 79
[2022-08-15 08:00] VITALS: BP 124/83; PULSE 84; RESP 16; TEMP 36.4; O2SAT 97
[2022-08-15] MEDS: pantoprazole DR 40 mg Tablet PO (09:29)
--- NOTE | 2022-08-15 10:53 | MR_ITS ---
WS: [id number] MRI BRAIN WITHOUT CONTRAST HISTORY: altered mental status, aphasia COMPARISON: CT head 08/14/2022. Prior MRI 12/17/2019. TECHNIQUE: Diffusion imaging, multiplanar T1, T2 and FLAIR imaging obtained. Diffusion-weighted imaging is normal. No evidence for an acute infarct. Moderate atrophy and volume loss with small vessel ischemic disease. No obvious progression since the prior exam. Ventricles and extra-axial spaces are prominent on the basis of atrophy. No inferior displacement of cerebellar tonsils. The sella turcica and pituitary gland are unremarkabl e. Dural venous sinuses and [place] demonstrate no abnormality on this unenhanced studies. Paranasal sinuses: Small air-fluid level in the sphenoid sinus. Otherwise sinuses are clear Mastoid air cells: Normal. Calvarium and scalp: Intact. MR/MR head wo con* [id number] IMPRESSION: 1. No acute infarct. Diffusion imaging is normal. 2. Moderate atrophy and small vessel ischemic disease. Similar to the prior st udy from 2019.
[2022-08-15 11:20] VITALS: BP 126/76; PULSE 86; RESP 19; O2SAT 95
--- NOTE | 2022-08-15 12:13 | PC.CHAP ---
Pastoral Care Encounter/Spiritual Assessment Type of Contact [] Declined video operator visit [] Patient/Family/Request visit [] Outpatient visit [] Follow-up visit [] Physician referral [] Code/Alert [x] Routine visit [] Staff referral [] Actively dying [] Patient sleeping [] Family support [] [] Out of room [] Palliative care [] [x] Receiving care in room [] Pre-surgical visit [] Trauma [] Long length of stay [] ICU visit [] Other: Relational/Emotional Strength [x] Patient feels connected with others/family/visitors/staff [] Distress [] Loneliness/isolation [] Abandonment Spirituality of Patient [x] Person of Gertrudis [] Attends Religion of their Gertrudis [] Believes in Prayer [] Reads Bible or Druze materials [] There are Spiritual issues to be addressed Hr Specialist Interventions [x] Prayer [x] Active listening [x] Non-anxious presence [x] Spiritual/emotional support [] Crisis/trauma care [x] Spiritual counseling [] Bereavement support [] Provided bereavement packet [] Provided Bible/devotional materials [] Provided toy/stuffed animal, coloring book to patient or family member [] Provided Communion [] Anointing/[place] [] Salvation [x] Completed spiritual assessment [] Other: Impact on Illness or Injury [] Angry [] Fearful [] Anxious [] Often cries [] Exhaustion [] Unable to work [] Unable to attend uatsdin [] Unable to walk/stand [] Unable to read [] Unable to drive [] Unable to eat/drink [] Unable to sleep [] Unable to be with family [] Patient intubated [] Other: Summary Some confusion about his health he has a good attitude well b e going home Time spent with patient 10 mins
[2022-08-15] MEDS: LORazepam 2 mg/mL INJ 1 mL 1 MG IVP (12:19)
[2022-08-15 16:00] VITALS: BP 101/64; PULSE 92; RESP 18; TEMP 36.7; O2SAT 94
--- NOTE | 2022-08-15 16:07 | P.PN_ITS ---
Subjective Subjective: Patient remains just less confused today. There has been no improvement. He is still able to tell me his age name date of , however making similar bizarre statements as yesterday. Today he also feels there is a fan that is pointed at his feet which she wants me to turn off. Blood pressure is better controlled today. Currently at time of assessment it is 126/76. Medications: Reviewed: Yes Vitals/I&O/Wt Last Vital Signs Temp 97.6 F 08/15/22 08:00 Pulse 86 08/15/22 11:20 Resp 19 H 08/15/22 11:20 BP 126/76 08/15/22 11:20 Pulse Ox 95 08/15/22 11:20 O2 Del Method 08/14/22 23:34 08/15/22 08/15/22 08/15/22 06:59 14:59 22:59 Intake Total 740 / 740 Balance 740 / 740 Weight last 48 hrs Weight 84.822 kg Weight 84.822 kg Physical Exam Narrative: General: No acute distress, AO x2-3 HEENT: PERRLA, pupils bilaterally equal and reactive, pallors not present Chest: Normal vesicular breath sounds, no added sounds, equal good air entry bilaterally CVS: S1-S2 regular, no murmurs, no tachycardia, no gallops, no rubs Abdomen: Soft, nontender, no organomegaly, bowel sounds present Neuro: No focal deficits, no facial deformity, AO x2-3, power 5/5 in all limbs, he is walking to the bathroom and back. Data 08/15/22 04:44 08/15/22 04:44 A&P Assessment and plan (1) Acute confusion: (2) Altered mental status: Plan 82-year-old male with a past medical history of seizure disorder presenting with chief complaints of altered mental status, acute confusion. It appears his symptoms may have started on August 12, 2022 when he first presented to the ER, however it appears he was back to his normal mentation by the time he left the emergency room. Last seen normal by his neighbor at 2 PM on August 13, 2022. CT and CTA of the head and neck without any acute events. Will obtain MRI today as patient continues to have profound confusion. Continues to speak in sentences that make no sense, are tangential. Additionally he appears to be hallucinating today. Thinks that there is a fan at the base of his bed which is blowing air onto his legs. He keeps asking me to switch it off. He has no focal deficits on his neuro exam, face is symmetric. He is able to ambulate within the room. Knows when he has to use the bathroom. He is continent. Blood pressure initially upon presentation was 220/120, therefore hypertensive encephalopathy versus PRES remains on the differential. However he has had no significant improvement in mentation even after correction of his blood pressure. Alternate differentials include postictal state, however given ongoing symptoms over the past 3 days and a normal prolactin, this appears to be less likely. We will start him on Keppra 500 mg twice daily in addition to carbamazepine in case his mentation is contributed by subclinical seizures. Carbamazepine level was recently checked on August 12 and was within normal range. U tox is negative for illicit substances. Serum alcohol level is additionally not detected. TSH at 5, only mildly elevated. Will check T3 and T4, less likely myxedema. UA unremarkable, chest x-ray without consolidation. Will obtain lumbar puncture to to evaluate for possibility of encephalitis though again his symptoms do not point towards this classically. It is possible that patient may have underlying dementia which is acutely worsened, however I do not see any documentation for the same and per his primary care provider who sent him over to the ER his mentation is not per his usual. We will attempt to reach his family to get some further history. Change to inpatient admission as patient needs continued evaluation for his altered mental status. Attestations Medical Necessity Statement*: Needs continued evaluation of his persistent altered mentation. 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 of Care Code Acute Code for Chg Fwd Moderate MDM includes number and complexity of problems actively addressed during encounter, amount and/or complexity of data reviewed/ordered and de scribed risk of complication, morbidity or mortality of management as documented Diagnoses Acute confusion R41.0 Altered mental status R41.82
[2022-08-15] MEDS: levETIRAcetam 500 mg Tablet PO (18:38)
--- NOTE | 2022-08-15 19:20 | PC.NURSE ---
Pt belongings: Wallet, keys, and checkbook locked up in [employer]
[2022-08-15 20:28] VITALS: BP 118/69; PULSE 96; RESP 20; TEMP 36.4; O2SAT 94
[2022-08-16 00:08] VITALS: BP 112/70; PULSE 79; RESP 19; TEMP 36.3; O2SAT 92
[2022-08-16 04:00] VITALS: BP 111/68; PULSE 93; RESP 19; TEMP 36.4; O2SAT 97
[2022-08-16 05:33] LABS: Basophils % 0.3 %; Eosinophils # 0.3 10^3/uL (0.0-0.8); Eosinophils % 4.1 %; Hemoglobin 14.7 g/dL (11.7-16.6); Lymphocytes # 1.6 10^3/uL (0.8-4.8); Lymphocytes % 24.6 %; Mean Corpuscular HGB Conc 34.2 g/dL (30.0-36.0); Mean Corpuscular Hemoglobin 34.8 pg (28.0-34.0); Mean Corpuscular Volume 101.7 fl (80-94); Mean Platelet Volume 9.5 fL (7.4-10.4); Monocytes # 0.7 10^3/uL (0.2-0.9); Monocytes % 10.3 %; Neutrophils # 3.86 10^3/uL (1.8-7.7); Neutrophils % 60.4 %; Nucleated Red Blood Cells % 0 %; Platelet Count 171 10^3/cmm (130-400); Red Blood Count 4.23 10^6/uL (4.1-5.3); Red Cell Distribution Width 11.9 % (12.1-15.1); White Blood Count 6.4 10^3/uL (4.0-10.0)
[2022-08-16 05:50] LABS: INR 1.15 (0.8-1.2)
[2022-08-16 06:06] LABS: Alanine Aminotransferase 27 U/L (0-41); Albumin Level 3.9 g/dL (3.5-5.2); Alkaline Phosphatase 94 U/L (40-130); Anion Gap 16.7 (5-19); Aspartate Amino Transferase 62 U/L (0-40); Blood Urea Nitrogen 24 mg/dL (8-23); Calcium 9.3 mg/dL (8.5-10.5); Carbon Dioxide 24 mmol/L (22-29); Chloride 103 mmol/L (98-107); Creatinine Clr Calc Pharmacy 69.5721; Globulin 2.4 g/dL (1.3-4.6); Glucose 98 mg/dL (65-115); Osmolality Calculated 294 mOsm/kg (285-295); Potassium 3.7 mmol/L (3.5-5.1); Sodium 140 mmol/L (136-145); Total Bilirubin 0.3 mg/dL (0.15-1.2); Total Protein 6.3 g/dL (6.6-8.7)
[2022-08-16 07:48] VITALS: BP 136/76; PULSE 74; RESP 16; TEMP 36.4; O2SAT 97
--- NOTE | 2022-08-16 09:00 | FL_ITS ---
WS: [id number] LUMBAR PUNCTURE UNDER FLUOROSCOPY: OBTAIN CSF FOR ANALYSIS HISTORY: altered mental status COMPARISON: None available. FLUOROSCOPY TIME: 0min [id number] # of spot films: 1 Procedure, complications, and risk and benefits explained to the patient. Consent is obtained by fami ly member. Patient was confused. Consent was obtained. Recent laboratory work and medication are revi ewed prior to procedure. Difficult lumbar puncture as the patient had altered mental status and most moving during the entire procedure. Skin over the lumbar is cleansed with ChloraPrep and anesthetized with 1% buffered lidocaine. Access into the thecal sac is achieved. CSF is removed in a sterile manner and placed in the sterile tubes. Approximately 10 ml is removed without difficulty. CSF is clear. No complications are encountered. CSF this into the laboratory for analysis as requested. FL/FL guided lumbarpunc dx* [id number] IMPRESSION: Difficult lumbar puncture as patient was not cooperative during this examinatio n due to altered mental status. Fluid is collected and no complications were ap parent. Specimen is sent for analysis as requested by the ordering physician.
--- NOTE | 2022-08-16 09:22 | PM.PN ---
Subjective Subjective: Remains confused today. Oriented to person only. C.O pain in his neck. Nursing reports that he has been having similar complaints over the last 24hours. Denies other pain. Vitals/I&O/Wt Last Vital Signs Temp 97.6 F 08/16/22 07:48 Pulse 74 08/16/22 07:48 Resp 16 08/16/22 07:48 BP 136/76 08/16/22 07:48 Pulse Ox 97 08/16/22 07:48 O2 Del Method 08/16/22 00:08 08/15/22 08/16/22 08/16/22 22:59 06:59 14:59 Intake Total 480 / 1220 Balance 480 / 1220 Weight last 48 hrs Weight 187 lb Weight 187 lb Physical Exam Narrative: General: No acute distress, AO x 1. HEENT: PERRLA, pupils bilaterally equal and reactive, pallors not present. Foul smelling breath, TTP along the anterior cervical. Chest: Normal vesicular breath sounds, no added sounds, equal good air entry bilaterally CVS: S1-S2 regular, no murmurs, no tachycardia, no gallops, no rubs Abdomen: Soft, nontender, no organomegaly, bowel sounds present Neuro: No focal deficits, no facial deformity, AO x2-3, power 5/5 in all limbs, he is walking to the bathroom and back. Data 08/16/22 04:54 08/16/22 04:54 Micro: Microbiology 08/15/22 16:25 Blood Culture - Preliminary Blood SPECIMEN COLLECTED 08/15/22 16:28 Blood Culture - Preliminary Blood SPECIMEN COLLECTED A&P Assessment and plan (1) Acute confusion: (2) Altered mental status: Plan 82-year-old male with a past medical history of seizure disorder presenting with chief complaints of altered mental status, acute confusion. Remains confused today. Labs unremarkable. MR head without explanation for symptoms. Does have foul smelling breath and has apparently had issues with his teeth hurting prior to admission. No obvious abscess was identified on CT head/neck or MRI. Aside from confusion, neuro exam is negative. Prolactin negative, unlikely this is post-ictal state. BP have been well controlled. Tox screen and EtOH all negative. Agree this could be dementia with acute worsening, however this was not previously discussed in his medical record. Check CRP today. Consider rechecking lactate. Consider starting course of Abx given his foul breath and Tender cervical LA. He could have early pharyngeal abscess. Attestations Medical Necessity Statement*: Continue inpatient evaluation for persistent altered mentation. Diagnoses Acute confusion R41.0 Altered mental status R41.82
[2022-08-16] MEDS: levETIRAcetam 500 mg Tablet PO ×2 (10:31→18:26)
[2022-08-16] MEDS: acetaminophen 325 mg Tablet 650 MG PO (10:31)
[2022-08-16] MEDS: amlodipine 5 mg Tablet PO (10:31)
[2022-08-16] MEDS: pantoprazole DR 40 mg Tablet PO (10:31)
--- NOTE | 2022-08-16 10:59 | PC.CHAP ---
Pastoral Care Encounter/Spiritual Assessment Type of Contact [] Declined web marketing analyst visit [] Patient/Family/Request visit [] Outpatient visit [] Follow-up visit [] Physician referral [] Code/Alert [x] Routine visit [] Staff referral [] Actively dying [] Patient sleeping [] Family support [] [] Out of room [] Palliative care [] [] Receiving care in room [] Pre-surgical visit [] Trauma [] Long length of stay [] ICU visit [] Other: Relational/Emotional Strength [] Patient feels connected with others/family/visitors/staff [] Distress [] Loneliness/isolation [] Abandonment Spirituality of Patient [] Person of Gertrudis [] Attends Congregation of their Gertrudis [] Believes in Prayer [] Reads Bible or Anglican materials [] There are Spiritual issues to be addressed [employer] Business Representative Interventions [x] Prayer [] Active listening [] Non-anxious presence [] Spiritual/emotional support [] Crisis/trauma care [] Spiritual counseling [] Bereavement support [] Provided bereavement packet [] Provided Bible/devotional materials [] Provided toy/stuffed animal, coloring book to patient or family member [] Provided Communion [] Anointing/[place] [] Salvation [x] Completed spiritual assessment [] Other: Impact on Illness or Injury [] Angry [] Fearful [] Anxious [] Often cries [] Exhaustion [] Unable to work [] Unable to attend adventist [] Unable to walk/stand [] Unable to read [] Unable to drive [] Unable to eat/drink [] Unable to sleep [] Unable to be with family [] Patient intubated [] Other: Summary Time spent with patient
[2022-08-16 12:00] VITALS: BP 125/67; PULSE 79; RESP 17; TEMP 36.6; O2SAT 95
[2022-08-16] MEDS: cefTRIAXone 1,000 MG in sodium chloride 0.9% (plus) 50 ML 100 MG IV ×2 (12:07→22:16)
[2022-08-16 12:47] LABS: CSF Mononuclear # 0.001 10^3/uL (50-90); Mononuclear WBC CSF % 50 % (50-90); Polynuclear Cells ,CSF # 0.001 10^3/uL (0-10); Polynuclear WBC CSF % 50 % (0-10); Red Blood Cell CSF 0 10^3/uL (0-0); White Blood Cell CSF 2 /uL (0-5)
[2022-08-16 13:05] LABS: Glucose CSF 64 mg/dL (40-70); Total Protein CSF 41 mg/dL (15-45)
[2022-08-16 13:48] LABS: Appearance CSF CLEAR (CLEAR); Color CSF COLORLESS (COLORLESS)
[2022-08-16 20:00] VITALS: BP 177/92; PULSE 90; RESP 16; TEMP 37.2; O2SAT 97
[2022-08-16] MEDS: LORazepam 2 mg/mL INJ 1 mL 1 MG IVP (23:00)
[2022-08-16 23:33] VITALS: BP 115/72; PULSE 86; RESP 18; TEMP 36.4; O2SAT 93
[2022-08-17 04:00] VITALS: BP 129/77; PULSE 88; RESP 18; TEMP 36.6; O2SAT 96
[2022-08-17 05:51] LABS: Basophils % 0.6 %; Eosinophils # 0.3 10^3/uL (0.0-0.8); Eosinophils % 4.5 %; Hematocrit 44.9 % (42.0-52.0); Lymphocytes # 1.6 10^3/uL (0.8-4.8); Lymphocytes % 24.6 %; Mean Corpuscular HGB Conc 33.4 g/dL (30.0-36.0); Mean Corpuscular Hemoglobin 33.7 pg (28.0-34.0); Mean Corpuscular Volume 100.9 fl (80-94); Mean Platelet Volume 9.7 fL (7.4-10.4); Monocytes # 0.6 10^3/uL (0.2-0.9); Monocytes % 9.2 %; Neutrophils # 3.91 10^3/uL (1.8-7.7); Neutrophils % 60.8 %; Nucleated Red Blood Cells % 0 %; Platelet Count 179 10^3/cmm (130-400); Red Blood Count 4.45 10^6/uL (4.1-5.3); Red Cell Distribution Width 11.9 % (12.1-15.1); White Blood Count 6.4 10^3/uL (4.0-10.0)
[2022-08-17 06:12] LABS: Alanine Aminotransferase 29 U/L (0-41); Alkaline Phosphatase 101 U/L (40-130); Anion Gap 15.9 (5-19); Aspartate Amino Transferase 47 U/L (0-40); Blood Urea Nitrogen 19 mg/dL (8-23); C Reactive Protein 10.9 mg/L (0.0-4.9); Calcium 9.4 mg/dL (8.5-10.5); Carbon Dioxide 24 mmol/L (22-29); Chloride 105 mmol/L (98-107); Globulin 2.6 g/dL (1.3-4.6); Glucose 104 mg/dL (65-115); Osmolality Calculated 295 mOsm/kg (285-295); Potassium 3.9 mmol/L (3.5-5.1); Sodium 141 mmol/L (136-145); Total Bilirubin 0.3 mg/dL (0.15-1.2); Total Protein 6.6 g/dL (6.6-8.7)
[2022-08-17 08:09] VITALS: BP 112/69; PULSE 86; RESP 18; TEMP 36.7; O2SAT 97
[2022-08-17] MEDS: levETIRAcetam 500 mg Tablet PO ×2 (09:21→17:58)
[2022-08-17] MEDS: LORazepam 2 mg/mL INJ 1 mL 1 MG IVP (09:25)
[2022-08-17 12:00] VITALS: BP 134/84; PULSE 78; RESP 16; TEMP 36.3; O2SAT 96
--- NOTE | 2022-08-17 13:10 | P.PN_ITS ---
Subjective Subjective: He is awake and more alert appearing today. Nursing says that overnight he was somewhat more interactive, and no longer making comments about wanting to . He says that he is not in quite as much pain today. He does continue to endorse some pain in his neck and along the anterior part of his throat. He denies other symptoms at this time. Vitals/I&O/Wt Last Vital Signs Temp 97.3 F L 08/17/22 12:00 Pulse 78 08/17/22 12:00 Resp 16 08/17/22 12:00 BP 134/84 08/17/22 12:00 Pulse Ox 96 08/17/22 12:00 O2 Del Method 08/17/22 12:00 08/16/22 08/17/22 08/17/22 22:59 06:59 14:59 Intake Total 50 / 500 360 / 360 Balance 50 / 500 360 / 360 Physical Exam Narrative: General: No acute distress, AO to person and place today. HEENT: PERRLA, pupils bilaterally equal and reactive, pallors not present. Foul smelling breath, TTP along the anterior cervical. Chest: Normal vesicular breath sounds, no added sounds, equal good air entry bilaterally CVS: S1-S2 regular, no murmurs, no tachycardia, no gallops, no rubs Abdomen: Soft, nontender, no organomegaly, bowel sounds present Neuro: No focal deficits. Data 08/17/22 05:06 08/17/22 05:06 Micro: Microbiology 08/16/22 10:12 Gram Stain - Final Cerebrospinal Fluid 08/15/22 16:28 Blood Culture - Preliminary Blood NEGATIVE TO DATE 08/15/22 16:25 Blood Culture - Preliminary Blood NEGATIVE TO DATE A&P Assessment and plan (1) Acute confusion: (2) Altered mental status: Plan 82-year-old male with a past medical history of seizure disorder presenting with chief complaints of altered mental status, acute confusion. Continue close inpatient monitoring. Appears more alert and interactive today. reported that his neck is some better . CT HEAD/NECK, MRI HEAD unremarkable. He did have an elevated CRP to 17.0 on yesterday's draw, down to 10.9 today after starting ABx. I remain suspicious that he has an underlying infection in either his oral cavity or pharynx. Will continue Abx for now. Prolactin negative, unlikely this is post-ictal state. BP have been well controlled. Tox screen and EtOH all negative. His AST has slightly improved as well. Recheck AM labs. Code Status: Full IVF: None DVT PPx: None GI PPx: Protonix ABx: Rocephin Diet: Cardiac Disposition: Med/Surg Attestations Medical Necessity Statement*: Continue inpatient evaluation for persistent altered mentation, abx for occult infection. 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 of Care Code Acute Code for Chg Fwd Moderate MDM includes number and complexity of problems actively addressed during encounter, amount and/or complexity of data reviewed/ordered and described risk of complication, morbidity or mortality of management as documented Diagnoses Acute confusion R41.0 Altered mental status R41.82
[2022-08-17] MEDS: cefTRIAXone 1,000 MG in sodium chloride 0.9% (plus) 50 ML 100 MG IV ×2 (13:12→23:33)
[2022-08-17] MEDS: ketorolac 30 mg/mL INJ IVP (13:12)
[2022-08-17 16:00] VITALS: BP 130/73; PULSE 80; RESP 24; TEMP 36.7
[2022-08-17 20:00] VITALS: BP 119/77; PULSE 85; RESP 18; TEMP 36.4; O2SAT 95
[2022-08-17 23:59] VITALS: BP 133/77; PULSE 89; RESP 17; TEMP 36.6; O2SAT 98
[2022-08-18 04:00] VITALS: BP 159/83; PULSE 79; RESP 19; TEMP 36.4; O2SAT 95
[2022-08-18 08:00] VITALS: BP 190/97; PULSE 88; RESP 16; TEMP 36.6; O2SAT 97
[2022-08-18] MEDS: amlodipine 5 mg Tablet PO (08:25)
[2022-08-18] MEDS: levETIRAcetam 500 mg Tablet PO ×2 (08:25→17:40)
[2022-08-18] MEDS: pantoprazole DR 40 mg Tablet PO (08:25)
[2022-08-18] MEDS: polyethylene glycol 3350 Pkt 17 gm PO (09:56)
[2022-08-18 10:21] LABS: Basophils % 0.6 %; Eosinophils # 0.2 10^3/uL (0.0-0.8); Eosinophils % 4.9 %; Hemoglobin 14.7 g/dL (11.7-16.6); Lymphocytes # 1.3 10^3/uL (0.8-4.8); Lymphocytes % 27.2 %; Mean Corpuscular Volume 106.5 fl (80-94); Mean Platelet Volume 9.9 fL (7.4-10.4); Monocytes # 0.3 10^3/uL (0.2-0.9); Monocytes % 5.3 %; Neutrophils # 3.05 10^3/uL (1.8-7.7); Nucleated Red Blood Cells % 0 %; Platelet Count 168 10^3/cmm (130-400); Red Blood Count 4.32 10^6/uL (4.1-5.3); Red Cell Distribution Width 11.8 % (12.1-15.1); White Blood Count 4.9 10^3/uL (4.0-10.0)
[2022-08-18 10:40] LABS: Alanine Aminotransferase 24 U/L (0-41); Albumin Level 3.9 g/dL (3.5-5.2); Alkaline Phosphatase 100 U/L (40-130); Aspartate Amino Transferase 30 U/L (0-40); Blood Urea Nitrogen 22 mg/dL (8-23); C Reactive Protein 6.8 mg/L (0.0-4.9); Calcium 9.3 mg/dL (8.5-10.5); Carbon Dioxide 24 mmol/L (22-29); Chloride 103 mmol/L (98-107); Globulin 2.7 g/dL (1.3-4.6); Glucose 136 mg/dL (65-115); Osmolality Calculated 293 mOsm/kg (285-295); Sodium 139 mmol/L (136-145); Total Bilirubin 0.2 mg/dL (0.15-1.2); Total Protein 6.6 g/dL (6.6-8.7)
[2022-08-18 10:49] LABS: Anion Gap 16.3 (5-19); Potassium 4.3 mmol/L (3.5-5.1)
[2022-08-18] MEDS: cefTRIAXone 1,000 MG in sodium chloride 0.9% (plus) 50 ML 100 MG IV ×2 (11:18→23:31)
--- NOTE | 2022-08-18 11:52 | PC.SOCIAL ---
IMM Update pg 2 of IMM updated and reviewed w/ patient and son Maicol. Copy provided and copy dated, initialed and placed in chart.
[2022-08-18 12:00] VITALS: BP 131/82; PULSE 74; RESP 17; TEMP 36.8; O2SAT 93
--- NOTE | 2022-08-18 15:32 | PM.PN ---
Subjective Subjective: He is more alert today, is able to tell me the year and where he is. He continues to endorse pain in his teeth. Reports that he does not remember the last couple of days, or how he got here. Vitals/I&O/Wt Last Vital Signs Temp 98.2 F 08/18/22 12:00 Pulse 74 08/18/22 12:00 Resp 17 08/18/22 12:00 BP 131/82 08/18/22 12:00 Pulse Ox 93 08/18/22 12:00 O2 Del Method 08/18/22 12:00 08/18/22 08/18/22 08/18/22 06:59 14:59 22:59 Intake Total 530 / 1300 650 / 650 Balance 530 / 1300 650 / 650 Weight last 48 hrs Weight 190 lb 3.2 oz Physical Exam Narrative: General: No acute distress, AO to person and place today. HEENT: PERRLA, pupils bilaterally equal and reactive, pallors not present. Poor dentition. Chest: Normal vesicular breath sounds, no added sounds, equal good air entry bilaterally CVS: S1-S2 regular, no murmurs, no tachycardia, no gallops, no rubs Abdomen: Soft, nontender, no organomegaly, bowel sounds present Neuro: No focal deficits. Data 08/18/22 09:40 08/18/22 09:40 Micro: Microbiology 08/16/22 10:12 Gram Stain - Final Cerebrospinal Fluid CSF Culture - Preliminary A&P Assessment and plan (1) Acute confusion: (2) Altered mental status: Prolactin negative, unlikely this is post-ictal state. BP have been well controlled. Tox screen and EtOH all negative. (3) Oral abscess: (4) Complex partial epilepsy: (5) Depression: Qualifiers: Depression Type: unspecified Qualified Code(s): F32.9 - Major depressive disorder, single episode, unspecified Plan 82-year-old male with a past medical history of seizure disorder presenting with chief complaints of altered mental status, acute confusion. Continue close inpatient monitoring. Oriented today. Continued pain in his neck/throat. Transaminitis resolved. CRP trended down to 6.8. Vitals stable,afebrile. CT HEAD/NECK, MRI HEAD unremarkable. Infectious nidus likely from his teeth, oral abscess. With his clinical improvement and resolving labs, will continue Abx for now. He is receiving Rocephin. Plan to switch to oral ABx tomorrow. Has been able to ambulate in the halls. Strength is improving. Tolerating diet well. Continue Home medications for chronic conditions. Recheck AM labs. Possible discharge tomorrow if remains stable. Code Status: Full IVF: None DVT PPx: None GI PPx: Protonix ABx: Rocephin Diet: Cardiac Disposition: Med/Surg Attestations Medical Necessity Statement*: Continue inpatient evaluation for persistent altered mentation, abx for occult infection. 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 of Care Code Acute Code for Chg Fwd Moderate MDM includes number and complexity of problems actively addressed during encounter, amount and/or complexity of data reviewed/ordered and described risk of complication, morbidity or mortality of management as documented Diagnoses Acute confusion R41.0 Altered mental status R41.82 Oral abscess K12.2 Complex partial epilepsy G40.209 Depression F32.9 Depression Type: unspecified
[2022-08-18 16:00] VITALS: BP 131/82; PULSE 74; RESP 17; TEMP 36.8; O2SAT 93
--- NOTE | 2022-08-18 18:24 | PC.NURSE ---
Pt is currently resting in bed with sitter at bedside. Pt has been confused on why he is here. Vitals have been stable. Pt does not want to wear tele. Nurse has answered any questions/concerns patient has had. Room is neat and call light is within reach.
--- NOTE | 2022-08-18 19:27 | PC.NURSE ---
Molly Almendarez LPN entered the room where the patient was sitting in his chair quietly reading the bible. Nurse then was accessing patient to start a new IV. At 192 Molly walked out of the room for a minute to ask for an extra nurse to help her. The patient then stated Why don't you just let me pass away, it's my time to go now. Patient is being cooperative with nurses. At 193 Molly was explaining to the patient the need for the IV as he will be getting antibiotics tonight. Patient then stated to Molly OLMEDO and Dmitri OLMEDO Why don't you let me pass away now. Patient states several times it's his time to go and he has lived his life already.
[2022-08-18 20:00] VITALS: BP 112/70; PULSE 77; RESP 16; TEMP 36.8; O2SAT 94
[2022-08-18] MEDS: LORazepam 2 mg/mL INJ 1 mL 1 MG IVP (22:01)
[2022-08-18 23:12] VITALS: BP 152/82; PULSE 79; RESP 17; TEMP 36.4; O2SAT 95
[2022-08-19 03:53] VITALS: BP 173/84; PULSE 100; RESP 17; TEMP 36.4; O2SAT 94
[2022-08-19 08:00] VITALS: BP 166/92; PULSE 91; RESP 20; TEMP 36.6; O2SAT 97
[2022-08-19] MEDS: pantoprazole DR 40 mg Tablet PO (08:24)
[2022-08-19] MEDS: amlodipine 5 mg Tablet PO (08:24)
[2022-08-19] MEDS: levETIRAcetam 500 mg Tablet PO ×2 (08:24→18:12)
[2022-08-19] MEDS: cefTRIAXone 1,000 MG in sodium chloride 0.9% (plus) 50 ML 100 MG IV ×2 (11:21→23:51)
[2022-08-19 12:00] VITALS: BP 146/77; PULSE 80; RESP 16; O2SAT 95
--- NOTE | 2022-08-19 13:21 | PC.PT ---
Physician recommended to discharge physical therapy evaluation stating patient only currently needing occupational therapy.
--- NOTE | 2022-08-19 14:08 | PM.PN ---
Subjective Subjective: Seen today. Patient is somewhat confused however at times he will be appropriate. They were seen at bedside as well. Patient requiring a sitter at this time as he gets up and wanders off into the halls randomly. He is fixated with his teeth and says that they are growing into his head. He also states that his neck and bone goes all the way up into his head and into his left eye. However able to remember that he saw chiropractor and went to his dentist as an outpatient. Says he sees Dr. Harper as an outpatient and she has all his papers and is aware of what is going on with him. He has a history of epilepsy. Patient did see Dr. Harper in 2009 when she did a neurology consultation in the hospital however that record is not accessible at this time. He did have an EEG done in 2014 which was normal. Patient has been seizure-free during hospital stay. I met patient's neighbor at bedside today. She states that the medicare insurance specialist did witness him having a seizure. Talk with Dr. Harper as well. She knows the patient really well. She states that a lot of the times when he is not compliant with his medications patient ends up having seizures and he has unknown prolonged postictal confusion state that last for days at times. It may have been that patient forgot to take his medications. Vitals/I&O/Wt Last Vital Signs Temp 97.8 F 08/19/22 08:00 Pulse 91 08/19/22 08:00 Resp 20 H 08/19/22 08:00 BP 166/92 08/19/22 08:00 Pulse Ox 97 08/19/22 08:00 O2 Del Method 08/19/22 08:00 08/18/22 08/19/22 08/19/22 22:59 06:59 14:59 Intake Total 480 / 1130 50 / 1180 370 / 370 Output Total 100 / 100 Balance 480 / 1130 50 / 1180 270 / 270 Weight last 48 hrs Weight 86.273 kg Physical Exam Narrative: General: Alert oriented HEENT: Normocephalic, atraumatic, EOMI Cardio: Regular rate rhythm, normal S1-S2 Respiratory: Clear to auscultation bilaterally no wheezes no rhonchi GI: Abdomen soft, nontender, bowel sounds + Behavior: Appropriate and cooperative Extremities: No edema Neuro: Grossly nonfocal Data 08/18/22 09:40 08/18/22 09:40 Micro: Microbiology 08/16/22 10:12 Gram Stain - Final Cerebrospinal Fluid CSF Culture - Final A&P Assessment and plan (1) Acute confusion: (2) Altered mental status: (3) HTN (hypertension): (4) Depression: Qualifiers: Depression Type: unspecified Qualified Code(s): F32.9 - Major depressive disorder, single episode, unspecified (5) Hypothyroidism: Qualifiers: Hypothyroidism type: unspecified Qualified Code(s): E03.9 - Hypothyroidism, unspecified (6) Complex partial epilepsy: (7) Post-ictal confusion: (8) Seizure: Plan 82-year-old with past medical history of seizure disorder presenting with chief complaint of altered mental status and acute confusion. ? Patient most likely had a seizure secondary to possible noncompliance to medication. ? Patient is to follow-up with Dr. Harper as an outpatient after discharge. ? I will continue on Keppra 500 twice daily and continue carbamazepine 300 twice daily at this time ? Patient most likely has a prolonged postictal confusion state based on his neurological history after speaking to neurology. ? I will complete a 14-day antibiotic course with Augmentin for his possible tooth infection/oral abscess. He is recommended to continue following up with a dentist at discharge. ? Patient is able to ambulate. ? Due to his mental status and waxing waning confusion state. Short-term prison would be appropriate versus assisted living facility. I will try to discuss this with patient's son who is out of town at this time. ? However he may be able to safely discharge home as long as he has someone available with him to watch over him. -We will also check a urine culture on sample obtained from admission. -We will update family and nursing staff Full code Attestations Medical Necessity Statement*: Continue to keep in hospital till a safe discharge plan is arranged. Diagnoses Acute confusion R41.0 Altered mental status R41.82 HTN (hypertension) I10 Depression F32.9 Depression Type: unspecified Hypothyroidism E03.9 Hypothyroidism type: unspecified Complex partial epilepsy G40.209 Post-ictal confusion F05 Seizure R56.9
--- NOTE | 2022-08-19 14:19 | PC.OT ---
OT EVALUATION ORDERS RECEIVED. PATIENT SLEEPING SOUNDLY; 1:1 SITTER PRESENT. UNABLE TO AWAKEN PATIENT. WILL ATTEMPT AGAIN AT A LATER TIME.
[2022-08-19 16:00] VITALS: BP 131/76; PULSE 71; RESP 20; TEMP 36.4; O2SAT 98
--- NOTE | 2022-08-19 18:48 | PC.NURSE ---
Pt is currently sitting quietly in bed with a sitter in the room. Pt has ambulated the halls throughout shift. Pt has no new needs at this time. VSS. Does not like to wear tele. Call light and bedside table are within reach.
[2022-08-19 20:00] VITALS: BP 128/66; PULSE 77; RESP 16; TEMP 36.8; O2SAT 99
[2022-08-19] MEDS: carBAMazepine XR (12 HR) 200 mg Tablet PO (21:01)
[2022-08-19] MEDS: carBAMazepine XR (12 HR) 100 mg Tablet PO (21:02)
--- NOTE | 2022-08-19 21:10 | PC.NURSE ---
patient request his wallet, check book and keys out of lock, all items given to patient.
[2022-08-20] VITALS (7 sets, daily range): BP systolic 115–163; BP diastolic 73–91; PULSE 63–87; RESP 16–17; TEMP 36.5–36.8; O2SAT 91–97
[2022-08-20] MEDS: carBAMazepine XR (12 HR) 100 mg Tablet PO ×2 (09:48→20:29)
[2022-08-20] MEDS: amlodipine 5 mg Tablet PO (09:49)
[2022-08-20] MEDS: pantoprazole DR 40 mg Tablet PO (09:49)
[2022-08-20] MEDS: levETIRAcetam 500 mg Tablet PO ×2 (09:49→17:42)
[2022-08-20] MEDS: carBAMazepine XR (12 HR) 200 mg Tablet PO ×2 (09:49→20:29)
[2022-08-20] MEDS: cefTRIAXone 1,000 MG in sodium chloride 0.9% (plus) 50 ML 100 MG IV ×2 (11:33→23:13)
--- NOTE | 2022-08-20 12:44 | PM.PN ---
Subjective Subjective: seen today pt aox3 but somewhat confused he states he does not feel safe going home alone without his son not being there he is interested to go to a facility Vitals/I&O/Wt Last Vital Signs Temp 98.2 F 08/20/22 08:00 Pulse 73 08/20/22 08:00 Resp 16 08/20/22 08:00 BP 138/83 08/20/22 08:00 Pulse Ox 94 08/20/22 08:00 O2 Del Method 08/20/22 08:00 08/19/22 08/20/22 08/20/22 22:59 06:59 14:59 Intake Total 320 / 690 340 / 340 Balance 320 / 590 340 / 340 Physical Exam Narrative: General: Alert oriented HEENT: Normocephalic, atraumatic, EOMI Cardio: Regular rate rhythm, normal S1-S2 Respiratory: Clear to auscultation bilaterally no wheezes no rhonchi GI: Abdomen soft, nontender, bowel sounds + Behavior: Appropriate and cooperative Extremities: No edema Neuro: Grossly nonfocal Data 08/18/22 09:40 08/18/22 09:40 Micro: Microbiology 08/19/22 09:51 Urine Culture - Preliminary Urine,Voided 08/16/22 10:12 Gram Stain - Final Cerebrospinal Fluid CSF Culture - Final A&P Assessment and plan (1) Acute confusion: (2) Altered mental status: (3) HTN (hypertension): (4) Depression: Qualifiers: Depression Type: unspecified Qualified Code(s): F32.9 - Major depressive disorder, single episode, unspecified (5) Hypothyroidism: Qualifiers: Hypothyroidism type: unspecified Qualified Code(s): E03.9 - Hypothyroidism, unspecified (6) Complex partial epilepsy: (7) Post-ictal confusion: (8) Seizure: Plan 82-year-old with past medical history of seizure disorder presenting with chief complaint of altered mental status and acute confusion. ? Patient most likely had a seizure secondary to possible noncompliance to medication. ? Patient is to follow-up with Dr. Harper as an outpatient after discharge. ? I will continue on Keppra 500 twice daily and continue carbamazepine 300 twice daily at this time ? Patient most likely has a prolonged postictal confusion state based on his neurological history after speaking to neurology. ? I will complete a 14-day antibiotic course with Augmentin for his possible tooth infection/oral abscess. He is recommended to continue following up with a dentist at discharge. ? Patient is able to ambulate. ? Due to his mental status and waxing waning confusion state. Short-term fpc would be appropriate versus assisted living facility. ? However he may be able to safely discharge home as long as he has someone available with him to watch over him. -Urine cx pending - Discussed with son over the phone. He is also interested in fpc/[place]. 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
--- NOTE | 2022-08-20 17:05 | PC.SOCIAL ---
IMM Update pg 2 of IMM updated and reviewed w/ patient. Copy provided and copy in chart dated, and initialed.
--- NOTE | 2022-08-20 18:48 | PC.NURSE ---
Pt is now sitting in room with sitter at bedside. Pt has ambulated the halls with CNAs and nurses during shift. Pt has had some agitation towards sitter. Pt has had stable vitals and no other needs at this time. Plan is to discharge to [facility]. Call light and bedside table within reach.
[2022-08-21 04:00] VITALS: BP 159/84; PULSE 83; RESP 17; TEMP 36.4; O2SAT 97
[2022-08-21 08:00] VITALS: BP 134/80; PULSE 76; RESP 16; TEMP 36.6; O2SAT 96
[2022-08-21] MEDS: levETIRAcetam 500 mg Tablet PO (08:48)
[2022-08-21] MEDS: carBAMazepine XR (12 HR) 200 mg Tablet PO (08:48)
[2022-08-21] MEDS: carBAMazepine XR (12 HR) 100 mg Tablet PO (08:48)
[2022-08-21] MEDS: amlodipine 5 mg Tablet PO (08:49)
[2022-08-21] MEDS: pantoprazole DR 40 mg Tablet PO (08:49)
[2022-08-21] MEDS: cefTRIAXone 1,000 MG in sodium chloride 0.9% (plus) 50 ML 100 MG IV (11:17)
--- NOTE | 2022-08-21 11:31 | PM.DCS ---
Discharge Providers Date of Admission: 08/15/22 18:15 Date of Discharge: August 21, 2022 Attending Provider at Admission: Marilia Gibbons MD Attending Provider at Discharge: Tatiana Garg MD Primary Care Provider: Tyrone Duckworth MD Diagnoses at Discharge Discharge Diagnosis (1) Acute confusion: Status: Acute (2) Altered mental status: Status: Acute (3) HTN (hypertension): Status: Chronic (4) Depression: Status: Chronic Qualifiers: Depression Type: unspecified Qualified Code(s): F32.9 - Major depressive disorder, single episode, unspecified (5) Hypothyroidism: Status: Chronic Qualifiers: Hypothyroidism type: unspecified Qualified Code(s): E03.9 - Hypothyroidism, unspecified (6) Complex partial epilepsy: Status: Chronic (7) Post-ictal confusion: Status: Acute (8) Seizure: Status: Acute Reason for Visit Reason for Visit: CONFUSION Brief History: Jerry Tapia is a 82 year old male with a past medical history of hypertension, seizure disorder, depression who was brought to the ER by EMS for altered mental status.? Patient is unable to participate in his history as he does not recall the events leading up to admission.? Per history obtained from one of his neighbors, patient was last noted to be normal at around 2 PM on 08/13/2022.? At 8 AM on 08/15/2022, he complained of dental pain to his neighbor so she gave him a ride to the dentist.? She noticed that he was not acting like himself, was intermittently confused.? When he got to the dentist office he was sent over to his primary care physician's office via public transport.? When he reached Dr. Duckworth's office he was found to be disoriented which is far away from his baseline.? He was sent to the emergency room via EMS.? Upon presentation his blood pressure was noted to be 220/120.? He received hydralazine which has improved his blood pressure down to 170/120. Patient is able to correctly tell me his name, age, date of and the fact that he is in a hospital.? He needed some redirection to remember that Dr. Duckworth sent him over.? However he is unable to participate in a conversation.? Speaks in bizarre sentences that make no sense.? Keeps repeating this is all a mistake this is not real we have to get on top of it .? He does not remember where he lives or how he got to the dental office or to Dr. Duckworth's office.? He is able to ambulate in the room, fidgety in bed and attempting to get out of bed. Denies feeling sick over the past few days, however this is limited given his disorientation. Hospital Course Hospital Course 82-year-old with past medical history of seizure disorder presenting with chief complaint of altered mental status and acute confusion. ? Patient most likely had a seizure secondary to possible noncompliance to medication. ? Patient is to follow-up with Dr. Harper as an outpatient after discharge. ? I will continue on Keppra 500 twice daily and continue carbamazepine 300 twice daily at this time ? Patient most likely has a prolonged postictal confusion state based on his neurological history after speaking to neurology. ? I will complete a 14-day antibiotic course with Augmentin for his possible tooth infection/oral abscess.? He is recommended to continue following up with a dentist at discharge. ? Patient is able to ambulate. ? Due to his mental status and waxing waning confusion state.? Short-term custodial would be appropriate versus assisted living facility.? He will be discharged to custodial. He is to follow-up with Dr. Harper as an outpatient. Physical Exam Narrative: General: Alert oriented HEENT: Normocephalic, atraumatic, EOMI Cardio: Regular rate rhythm, normal S1-S2 Respiratory: Clear to auscultation bilaterally no wheezes no rhonchi GI: Abdomen soft, nontender, bowel sounds + Behavior: Appropriate and cooperative Extremities: No edema Neuro: Grossly nonfocal Discharge Data Studies Completed and Pending Completed Studies During Hospitalization Category Date Time Status CT head wo con* [id number] Stat Cat Scan 08/14/22 13:20 Completed CTA head neck [CT angio headneck* [id number]] Stat Cat Scan 08/14/22 18:42 Completed FL guided lumbarpunc dx* [id number] Routine Exams 08/16/22 09:00 Completed XR chest 1V portable [id number] Stat Exams 08/14/22 13:20 Completed MR head wo con* [id number] Routine MRI 08/15/22 10:53 Completed Radiology Impressions Chest X-Ray 08/14/22 13:20 IMPRESSION: 1. No acute cardiopulmonary process. Head CT 08/14/22 13:20 IMPRESSION: 1. No evidence of intracranial hemorrhage or mass effect. 2. . Mild small vessel changes with moderate parenchymal volume loss worse in the frontal lobes. 3. No acute intracranial findings. Head/Neck CTA 08/14/22 18:42 IMPRESSION: No large vessel occlusion. 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 IMPRESSION: No large vessel occlusion. Mild stenosis of the bilateral proximal internal carotid arteries. REFERENCES: NASCET CRITERIA. The degree of stenosis in the cervical segment of the internal carotid artery is based on NASCET criteria. Normal is no stenosis. Mild is less than 50% stenosis. Moderate is 50-69% stenosis. Severe is 70% to 99% stenosis. Total occlusion is no detectable patent lumen. Head MRI 08/15/22 10:53 IMPRESSION: 1. No acute infarct. Diffusion imaging is normal. 2. Moderate atrophy and small vessel ischemic disease. Similar to the prior study from 2019. Lumbar Puncture Fluoroscopy 08/16/22 09:00 IMPRESSION: Difficult lumbar puncture as patient was not cooperative during this examination due to altered mental status. Fluid is collected and no complications were apparent. Specimen is sent for analysis as requested by the ordering physician. Laboratory Results WBC 4.9 10^3/uL (4.0-10.0) 08/18/22 09:40 RBC 4.32 10^6/uL (4.1-5.3) 08/18/22 09:40 Hgb 14.7 g/dL (11.7-16.6) 08/18/22 09:40 Hct 46.0 % (42.0-52.0) 08/18/22 09:40 MCV 106.5 fl (80-94) H D 08/18/22 09:40 MCH 34.0 pg (28.0-34.0) 08/18/22 09:40 MCHC 32.0 g/dL (30.0-36.0) 08/18/22 09:40 RDW 11.8 % (12.1-15.1) L 08/18/22 09:40 Plt Count 168 10^3/cmm (130-400) 08/18/22 09:40 MPV 9.9 fL (7.4-10.4) 08/18/22 09:40 Neut % (Auto) 62.0 % 08/18/22 09:40 Lymph % (Auto) 27.2 % 08/18/22 09:40 Bryan % (Auto) 5.3 % 08/18/22 09:40 Eos % (Auto) 4.9 % 08/18/22 09:40 Baso % (Auto) 0.6 % 08/18/22 09:40 Neut # (Auto) 3.05 10^3/uL (1.8-7.7) 08/18/22 09:40 Lymph # (Auto) 1.3 10^3/uL (0.8-4.8) 08/18/22 09:40 Bryan # (Auto) 0.3 10^3/uL (0.2-0.9) 08/18/22 09:40 Eos # (Auto) 0.2 10^3/uL (0.0-0.8) 08/18/22 09:40 Baso # (Auto) 0.0 10^3/uL (0.0-0.1) 08/18/22 09:40 Nucleated RBC % (auto) 0 % 08/18/22 09:40 Nucleated RBCs # 0.0 /100WBC 08/18/22 09:40 PT 15.10 SECONDS (12.1-14.9) H 08/16/22 04:54 INR 1.15 (0.8-1.2) 08/16/22 04:54 Sodium 139 mmol/L (136-145) 08/18/22 09:40 Potassium 4.3 mmol/L (3.5-5.1) 08/18/22 09:40 Chloride 103 mmol/L (98-107) 08/18/22 09:40 Carbon Dioxide 24 mmol/L (22-29) 08/18/22 09:40 Anion Gap 16.3 (5-19) 08/18/22 09:40 BUN 22 mg/dL (8-23) 08/18/22 09:40 Creatinine 0.9 mg/dL (0.7-1.2) 08/18/22 09:40 GFR Calculation Not Reportable 08/18/22 09:40 Glucose 136 mg/dL (65-115) H 08/18/22 09:40 Calculated Osmolality 293 mOsm/kg (285-295) 08/18/22 09:40 Calcium 9.3 mg/dL (8.5-10.5) 08/18/22 09:40 Total Bilirubin 0.2 mg/dL (0.15-1.2) 08/18/22 09:40 AST 30 U/L (0-40) 08/18/22 09:40 ALT 24 U/L (0-41) 08/18/22 09:40 Alkaline Phosphatase 100 U/L (40-130) 08/18/22 09:40 Ammonia 25 umol/L (16-60) 08/14/22 19:10 Troponin T Baseline 26 ng/L (0-15) H 08/14/22 13:21 Troponin T 120 Minute 26.47 ng/L (0-15) H 08/14/22 18:16 Delta Troponin T 0.47 ABS# (0-10) 08/14/22 18:16 C-Reactive Protein 6.8 mg/L (0.0-4.9) H 08/18/22 09:40 Total Protein 6.6 g/dL (6.6-8.7) 08/18/22 09:40 Albumin 3.9 g/dL (3.5-5.2) 08/18/22 09:40 Globulin 2.7 g/dL (1.3-4.6) 08/18/22 09:40 TSH 5.92 uIU/mL (0.27-4.20) H 08/14/22 13:21 Prolactin 4.27 ng/mL (4.0-15.2) 08/14/22 13:21 Urine Color Yellow (Yellow) 08/14/22 14:45 Urine Appearance Clear (CLEAR) 08/14/22 14:45 Urine pH 5 (5-7) 08/14/22 14:45 Ur Specific [place] 1.015 (1.005-1.030) 08/14/22 14:45 Urine Protein Neg (Negative) 08/14/22 14:45 Urine Glucose (UA) Norm (Normal) 08/14/22 14:45 Urine Ketones 2+ (Negative) H 08/14/22 14:45 Urine Blood Neg (Negative) 08/14/22 14:45 Urine Nitrate Negative (Negative) 08/14/22 14:45 Urine Bilirubin Neg (Negative) 08/14/22 14:45 Urine Urobilinogen Norm mg/dL (Negative) 08/14/22 14:45 Ur Leukocyte Esterase Negative (Negative) 08/14/22 14:45 CSF Appearance Clear (CLEAR) 08/16/22 10:09 CSF Color Colorless (COLORLESS) 08/16/22 10:09 CSF WBC 2 /uL (0-5) 08/16/22 10:09 CSF RBC 0 10^3/uL (0-0) 08/16/22 10:09 CSF Mononuclear # Auto 0.001 10^3/uL (50-90) L 08/16/22 10:09 CSF Mononuclear WBCs % 50 % (50-90) 08/16/22 10:09 CSF Polynuclear WBCs # 0.001 10^3/uL (0-10) 08/16/22 10:09 CSF Polynuclear WBCs % 50 % (0-10) H 08/16/22 10:09 CSF Glucose 64 mg/dL (40-70) 08/16/22 10:09 CSF Total Protein 41 mg/dL (15-45) 08/16/22 10:09 Urine Opiates Screen Negative ng/mL (Negative) 08/14/22 14:45 Ur Barbiturates Screen Negative ng/mL (Negative) 08/14/22 14:45 Ur Phencyclidine Scrn Negative ng/mL (Negative) 08/14/22 14:45 Ur Amphetamines Screen Negative ng/mL (Negative) 08/14/22 14:45 U Benzodiazepines Scrn Negative ng/mL (Negative) 08/14/22 14:45 Urine Cocaine Screen Negative ng/mL (Negative) 08/14/22 14:45 U Marijuana (THC) Screen Negative ng/mL (Negative) 08/14/22 14:45 Ethyl Alcohol < 10 mg/dL (0-10) 08/14/22 14:04 Vitals Last Vital Signs Temp 97.9 F 08/21/22 08:00 Pulse 76 08/21/22 08:00 Resp 16 08/21/22 08:00 BP 134/80 08/21/22 08:00 Pulse Ox 96 08/21/22 08:00 O2 Del Method 08/21/22 08:00 Discharge Plan Discharge Patient Disposition: Xfer SNF Condition: Stable Prescriptions: New levetiracetam 500 mg Tablet 500 mg PO BID 30 Days Qty: 60 0RF amlodipine 5 mg Tablet 5 mg PO DAILY 30 Days Qty: 30 0RF pantoprazole 40 mg Tablet,Delayed Release (Dr/Ec) 40 mg PO DAILY 14 Days Qty: 14 0RF amoxicillin-pot clavulanate 875-125 mg tablet 1 tab PO BID 7 Days Qty: 14 0RF Continued ascorbic acid (vitamin C) 1,000 mg tablet 1 g PO DAILY carbamazepine 300 mg capsule, ER multiphase 12 hr 300 mg PO BID Qty: 180 3RF aspirin 81 mg Tablet,Delayed Release (Dr/Ec) 81 mg PO DAILY Discharge Orders: Discharge Order (Routine); Ordered 08/21/22 Ordered By: Tatiana Garg Referrals: Cecily Harper MD [Physician] - 1 week Tyrone Duckworth MD [Primary Care Provider] - 4-7 days Discharge Diet: Regular Discharge Activity: Resume usual activity Activity Restrictions/Additional Instructions: Follow up with a dentist within 7-10 days. Discharge Attestations Time Spent in Discharge Care*: less than 30 min Status at Discharge: Cognitive status at discharge: cognitively intact, Behavioral status at discharge: cooperative, Quality Metrics Clinical Quality Measures [ No reported AMI, CVA or VTE this stay] 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 of Care Code 89479 Diagnoses Acute confusion R41.0 Altered mental status R41.82 HTN (hypertension) I10 Depression F32.9 Depression Type: unspecified Hypothyroidism E03.9 Hypothyroidism type: unspecified Complex partial epilepsy G40.209 Post-ictal confusion F05 Seizure R56.9
[2022-08-21 12:00] VITALS: BP 121/67; PULSE 69; RESP 15; TEMP 36.4; O2SAT 98
[2022-08-21] MEDS: ondansetron 2 mg/ML SDV 2 mL 4 MG IVP (14:06)
--- NOTE | 2022-08-21 16:00 | PC.NURSE ---
Discharge Note Patient discharged to [facility] via transport accompanied by snf personnel. Discharge instructions reviewed with patient and/or sales development representative. Mobile pharmacy medications and/or prescriptions provided. Belongings/home medications returned.
[2022-08-21 16:01] VITALS: BP 121/67; PULSE 69; RESP 15; TEMP 36.4; O2SAT 98
== END 2022-08-21 16:02 | disposition skilled nursing facility (03) | DRG 101 ==
LOC: ER 16:57 → MEDSURG 18:18
PROVIDERS: Family Medicine; Admitting Provider Student in an Organized Health Care Education/Training Program; Emergency Provider Family Medicine; PCP Internal Medicine; Visit Provider Internal Medicine
DX: G40.209 Localization-related (focal) (partial) symptomatic epilepsy and epileptic syndromes with complex partial seizures, not intractable, without status epilepticus (principal); F05 Delirium due to known physiological condition; T42.6X6A Underdosing of other antiepileptic and sedative-hypnotic drugs, initial encounter; I10 Essential (primary) hypertension; K04.7 Periapical abscess without sinus; F32.9 Major depressive disorder, single episode, unspecified; E03.9 Hypothyroidism, unspecified; G47.33 Obstructive sleep apnea (adult) (pediatric); Z86.73 Personal history of transient ischemic attack (TIA), and cerebral infarction without residual deficits; Z79.82 Long term (current) use of aspirin
CPT/HCPCS: 36415; 62328; 70450; 70496; 70498; 70551; 71045; 80053; 80156; 80306; 80307; 80503; 81003; 82140; 82945; 84146; 84157; 84443; 84484; 85025; 85610; 86140; 87040; 87070; 87075; 87086; 87205; 89050; 93005; 96365; 97165; 97535; 99284; 99285; G0378; J0360; J0696; J1885; J1953; J2060; J2405; Q9967